=== PATIENT | female | born 1940 | race Caucasian/White ===

== ENCOUNTER 2020-08-15 10:07 | Outpatient (REF) | payer MEDICARE, SELFPAY | END 2020-08-15 10:08 | disposition home or self-care (01) | LOC: HO.RESP 10:07 | PROVIDERS: PCP Internal Medicine; Visit Provider Internal Medicine Pulmonary Disease | DX: J44.9 Chronic obstructive pulmonary disease, unspecified (principal) ==

== ENCOUNTER 2020-10-01 14:59 | Emergency (ER) | payer MEDICARE, SELFPAY ==
[2020-10-01 15:16] VITALS: PULSE 72; RESP 18; TEMP 36.8; O2SAT 97; BMI 23.4
--- NOTE | 2020-10-01 17:48 | ED_ITS ---
HPI - General Adult General Chief complaint: Ear Problems Stated complaint: sore throat, ear pain Time Seen by Provider: 10/01/20 16:47 Source: patient Mode of arrival: ambulatory Limitations: no limitations History of Present Illness HPI narrative: Sore throat, nasal congestion x1 day Onset (ago): day(s) (1) Relieving factors: none Exacerbating factors: none Treatments prior to arrival: none Related Data Allergies Allergy/AdvReac Type Severity Reaction Status Date / Time Iodinated Contrast Media Allergy Intermediate NAUSEA & Unverified 07/19/20 14:38 [CONTRAST, IV] VOMITING morphine [MORPHINE] Allergy Intermediate NAUSEA & Unverified 07/19/20 14:38 VOMITING oxycodone [From PERCOCET] Allergy Intermediate NAUSEA, Unverified 10/01/20 15:26 WEAKNESS/VIOLENT Review of Systems Review of Systems: Constitutional: No Weight loss, No Fever, No Chills, No Night Sweats, No Fatigue, No Malaise ENT/Mouth: No Hearing loss, No Ear Pain, + Nasal Congestion, No Sinus Pain, No Hoarseness, + sore throat, + Rhinorrhea, No Swallowing Difficulty Eyes: No Eye Pain, No Swelling, No Redness, No Foreign Body, No Discharge, No Vision Changes Cardiovascular: No Chest Pain, No SOB, No Dyspnea on Exertion, No Orthopnea, No Edema, No Palpitations Respiratory: No Cough, No Sputum, No Wheezing, No Smoke Exposure, No Dyspnea Gastrointestinal: No Nausea, No Vomiting, No Diarrhea, No Constipation, No abdominal Pain, No Hematochezia, No Melena Genitourinary: no irregular bleeding, No Dysuria, No Urinary Frequency, No Hematuria, No Urinary Incontinence, No Urgency, No Flank Pain, No Urinary Flow Changes, No Hesitancy Musculoskeletal: No joint pain, No Myalgias, No Joint Swelling Skin: No Skin Lesions, No rash Neuro: No Weakness, No Numbness, No Paresthesias, No Loss of Consciousness, No Dizziness, No Headache Psych: No Social Issues Heme/Lymph: No Bruising, No Bleeding,No Lymphadenopathy Endocrine: No Polyuria, No Polydipsia, No Temperature Intolerance Yes all other systems are reviewed and are negative [facility] Past Medical History Medical History (Updated 10/02/20 @ 00:00 by Background Daemon) Acute arthritis Breast CA Cholecystitis HTN (hypertension) Surgical History (Updated 10/01/20 @ 15:22 by Bianca Felix) History of back surgery Hx of breast biopsy Hx of foot surgery Family History Family History (Updated 07/30/20 @ 11:51 by Clarissa Mcnally MA) Father CVD (cardiovascular disease) HTN (hypertension) Social History Social History Advance Directives: No Advance Directives Information Provided: Yes Physical Exam Vital Signs: Vital Signs: Last Vital Signs Temp 98.2 F 10/01/20 15:16 Pulse 72 10/01/20 15:16 Resp 18 10/01/20 15:16 Pulse Ox 97 10/01/20 15:16 Body Mass Index 23.4 Reviewed Const: General: cooperative and healthy appearing; No acute distress or intoxicated appearing Nutritional Appearance: average body habitus Orientation/consciousness: patient oriented x3 HENMT: Head: Yes normal to inspection Ears: hearing grossly normal bilaterally General nose exam: Nasal discharge present clear Eyes: General: appearance normal, both eyes and all related structures Visual Deshpande: normal visual deshpande by confrontation Neck: Neck: Yes normal visual inspection and No tender Thyroid: Thyroid normal Chest: Chest palpation & inspection: normal inspection of the chest Resp: Effort & Inspection: normal respiratory effort Cardio: Jugular venous distension: no JVD GI: Inspection: Yes normal to inspection Percussion: Yes normal to percussion Auscultation: normal bowel sounds : General: Yes no CVA tenderness Back/Spine/Pelvis: Back: no CVA tenderness Skin: General skin exam: no rashes or lesions noted Neuro: General: patient oriented x3 Extrem: General: Yes normal to inspection Course Course Course Narrative: Overall nontoxic appearing. Hemodynamically stable. Slight rhinorrhea otherwise exam is unimpressive. Rapid strep negative. Influenza/RSV/flu test pending will discharge with clear precaution return follow-up instructions. She is comfortable plan. Stable for discharge. Medical Decision Making Lab Data Labs: Lab Results 10/01/20 Range/Units 17:02 Coronavirus (PCR) NEGATIVE (Negative) Influenza Type A (PCR) NEGATIVE (Negative) Influenza Type B (PCR) NEGATIVE (Negative) RSV RNA Qual (PCR) NEGATIVE (Negative) Discharge Plan Discharge Clinical Impression: Acute otalgia, Acute viral pharyngitis Patient Disposition: Home, Self-Care Instructions: Pharyngitis (ED), Earache (ED) Additional Instructions: Salt water gargle Drink plenty fluids Supportive cares discussed Return if any concerns or worsening symptoms Thank you Referrals: Physician,Unknown [Primary Care Provider] - 5 days (Primary care doctor as needed via phone) Interventions: ED Discharge Assessment Last Done: 10/01/20 18:10 Discharge Date/Time: 10/01/20 18:10
[2020-10-01 21:03] LABS: Influenza A PCR NEGATIVE (Negative); Influenza B PCR NEGATIVE (Negative); Resp Syncy Virus RNA Qual PCR NEGATIVE (Negative); SARS COV2 PCR INHOUSE NEGATIVE (Negative)
--- NOTE | 2020-10-01 22:54 | PC.NURSE ---
DEBRA/FLU/RSV NEGATIVE. MESSAGE LEFT WITH NUMBER FOR STEPHANIE [phone], FOR THEM TO CALL ED.
== END 2020-10-01 18:10 | disposition home or self-care (01) ==
PROVIDERS: Nurse Practitioner Primary Care; Emergency Provider Internal Medicine
DX: J02.8 Acute pharyngitis due to other specified organisms (principal); H92.03 Otalgia, bilateral; Z79.899 Other long term (current) drug therapy; Z20.828 Contact with and (suspected) exposure to other viral communicable diseases
CPT/HCPCS: 0241U; 87071; 87880; 99283

== ENCOUNTER 2020-11-06 12:59 | Outpatient (REF) | payer MEDICARE, SELFPAY ==
--- NOTE | 2020-11-06 13:04 | CT_ITS ---
EXAMINATION: CT CHEST WITHOUT CONTRAST CLINICAL INFORMATION: Follow-up pulmonary nodules. COMPARISON: None TECHNIQUE: Multidetector volumetric CT imaging of the chest was done. Axial MIP volume rendering provided. Sagittal and coronal reformatted images were obtained. This CT examination was performed using dose optimization techniques as appropriate, variously including the following: *Automated exposure control *Adjustment of mA and/or kV according to patient size (this includes techniques or standardized protocols for targeted exams where dose is matched to indication/reason for exam; i.e. extremities or head) *Use of iterative reconstruction technique DLP: 72 mGy-cm FINDINGS: HAND STAMPER: Well-inflated lungs. LUNGS: There is bilateral apical lung thickening and scarring. There are several bilateral calcified and noncalcified pulmonary nodules. The largest calcified 4 mm nodule is in left lung axial image 349/9, 5 mm nodule right lower lobe lateral segment image 344/9 is stable. There is linear streaking from this nodule to the periphery. There is dense plate-like atelectasis right lower lobe is stable. MEDIASTINUM: The thyroid lobes are symmetrical and normal. The central trachea and the bronchi widely patent. There is extensive atherosclerotic calcification of thoracic aorta without aneurysmal dilatation. There is coronary artery calcifications present. No pericardial effusion seen. No abnormal size mediastinal lymph nodes or mass seen. PLEURA: There is no pleural effusion. No pleural mass or thickening. AXILLA: No lymphadenopathy. UPPER ABDOMEN: Visualized liver, spleen, pancreas and bilateral adrenal glands are unremarkable. OSSEOUS STRUCTURES: There is no lytic or sclerotic process seen. There are degenerative disc changes throughout dorsal spine. CT/CT chest wo con IMPRESSION: 1. Stable multiple bilateral pulmonary nodules, emphysema, bilateral apical pleural thickening and calcifications.. No new nodules seen. 2. Right basilar atelectasis stable as well.
== END 2020-11-06 13:00 | disposition home or self-care (01) ==
LOC: HO.CT 12:59
PROVIDERS: Visit Provider Internal Medicine Pulmonary Disease
DX: R91.8 Other nonspecific abnormal finding of lung field (principal)
CPT/HCPCS: 71250

== ENCOUNTER → 2020-12-24 14:30 | Outpatient (BNVA) | payer MEDICARE, SELFPAY | PROVIDERS: PCP Internal Medicine; Visit Provider Nurse Practitioner | CPT/HCPCS: Q3014 ==

== ENCOUNTER → 2021-02-04 13:49 | Outpatient (BNVA) | payer MEDICARE, SELFPAY | PROVIDERS: PCP Internal Medicine; Visit Provider Nurse Practitioner | DX: Z13.89 Encounter for screening for other disorder (principal) | CPT/HCPCS: Q3014 ==

== ENCOUNTER 2021-02-05 10:10 | Outpatient (REF) | payer MEDICARE, SELFPAY ==
[2021-02-05 11:17] LABS: Alanine Aminotransferase 14 U/L (0-31); Aspartate Amino Transferase 20 U/L (5-31); Cholesterol 176 mg/dL; HDL Cholesterol 60 mg/dL; LDL Cholesterol Calculated 98 mg/dl; Triglycerides 91 mg/dL
== END 2021-02-05 10:11 | disposition home or self-care (01) ==
LOC: HO.LAB 10:10
PROVIDERS: PCP Internal Medicine; Visit Provider Internal Medicine Cardiovascular Disease
DX: E78.5 Hyperlipidemia, unspecified (principal)
CPT/HCPCS: 36415; 80061; 84450; 84460

== ENCOUNTER 2021-02-20 14:54 | Outpatient (REF) | payer MEDICARE, SELFPAY ==
[2021-02-20 16:44] LABS: Hematocrit 31.5 % (37-47); Hemoglobin 11.7 g/dl (12.0-16.0); Mean Corpuscular HGB Conc 37.1 g/dl (31.0-35.0); Mean Corpuscular Hemoglobin 28.9 pg (27.0-33.0); Mean Corpuscular Volume 77.8 fL (80-98); Mean Platelet Volume 9.1 fL (9.4-12.3); Platelet Count 271 X10*3/uL (160-400); Red Blood Count 4.05 X10*6/uL (4.20-5.50); Red Cell Distribution Width 14.5 % (11.0-16.0); White Blood Count 7.5 X10*3/uL (4.8-10.8)
[2021-02-20 16:57] LABS: Prothrombin Time 12.1 SEC (10.8-13.0)
[2021-02-20 17:04] LABS: Alanine Aminotransferase 8 U/L (0-31); Albumin Level 4.3 g/dL (3.5-5.0); Alkaline Phosphatase 86 U/L (39-117); Anion Gap 14 (12-20); Aspartate Amino Transferase 17 U/L (5-31); Bilirubin Total 0.6 mg/dL (0.0-1.0); Blood Urea Nitrogen 13 mg/dL (9-16); Calcium 9.7 mg/dL (8.4-10.2); Carbon Dioxide 27 mmol/L (22-29); Chloride 102 mmol/L (96-108); Estimated Glomerular Filt Rate > 60; Glucose Random 72 mg/dL (60-115); Potassium 3.2 mmol/L (3.3-5.1); Sodium 140 mmol/L (135-145)
== END 2021-02-20 14:55 | disposition home or self-care (01) ==
LOC: HO.LAB 14:54
PROVIDERS: PCP Internal Medicine; Visit Provider Nurse Practitioner Family
DX: R23.8 Other skin changes (principal); Z12.11 Encounter for screening for malignant neoplasm of colon
CPT/HCPCS: 36415; 80053; 85027; 85610

== ENCOUNTER → 2021-02-20 15:24 | Outpatient (BNVA) | payer MEDICARE, SELFPAY | PROVIDERS: PCP Internal Medicine; Visit Provider Nurse Practitioner Family | DX: Z01.810 Encounter for preprocedural cardiovascular examination (principal); Z12.11 Encounter for screening for malignant neoplasm of colon; K59.04 Chronic idiopathic constipation; R23.8 Other skin changes | CPT/HCPCS: 99212 ==

== ENCOUNTER 2021-03-23 12:05 | Emergency (ER) | payer MEDICARE, SELFPAY ==
--- NOTE | ~2021-03-23 | CT_ITS ---
EXAMINATION: CT ANGIOGRAM OF THE CHEST WITH AND WITHOUT CONTRAST (CT PULMONARY ANGIOGRAM FOR PE) CLINICAL INFORMATION: Reason for Exam chest pain, SOB, elevated DDIMER COMPARISON: Portions of a chest CT 11/06/20 TECHNIQUE: Prior to contrast administration, noncontrast localization images were obtained. Subsequently, multidetector volumetric imaging was performed from the thoracic inlet to below the diaphragms following the administration of 65 mL Omnipaque 350 intravenous contrast. No contrast reaction reported Sagittal, coronal, and MIP oblique sagittal reformatted images were obtained on the CT workstation, uploaded to PACS, and reviewed. This CT examination was performed using dose optimization techniques as appropriate, variously including the following: *Automated exposure control *Adjustment of mA and/or kV according to patient size (this includes techniques or standardized protocols for targeted exams where dose is matched to indication/reason for exam; i.e. extremities or head) *Use of iterative reconstruction technique Total exam dose-length product 130 mGy-cm FINDINGS: Digital Inspector Salvage: Calcified aortic arch. The heart size is within normal limits. No dense area of consolidation or edema. There is apical thickening. There are surgical clips in the right upper quadrant. Large amount gas throughout the visualized abdomen. QUALITY OF STUDY/CONTRAST BOLUS: Satisfactory. PULMONARY ARTERIES: No pulmonary embolus demonstrated. The main pulmonary arteries are normal caliber. THORACIC AORTA: The thoracic aorta is abnormal. There is motion artifact and there is beam hardening artifact. There is extensive atherosclerotic irregularity and there are areas of ulcerated plaques in the aortic arch. There is no definite dissection. There are some irregular noncalcified plaques along the posterolateral left side of the descending thoracic aorta. There is irregular plaque and some abnormal contour involving the superior aspect of the mid aortic arch. There is coronary artery calcification. LUNG: No abnormality the trachea or mainstem bronchi. There is biapical scarring and irregular thickening. Some minor linear lung base opacities. No honeycomb formation. There is a semisolid nodule in the left apex with angular margins which is unchanged when compared to 11/06/20. No convincing interval change in the biapical opacities. No new lung mass or nodule. PLEURA: No pleural fluid or pneumothorax. As described there is irregular biapical thickening. No underlying bone destruction. MEDIASTINUM: There are no enlarged mediastinal or hilar lymph nodes. No suspicious abnormality the esophagus. No evidence of septal bowing or right heart strain. CHEST WALL/AXILLA: No axillary or internal mammary lymphadenopathy. OSSEOUS STRUCTURES: No suspicious focal bony lesion. Some amorphous soft tissue calcification around the left shoulder. UPPER ABDOMEN: Partially included dilated common duct likely unchanged. No reflux of contrast into the hepatic veins to suggest elevated right heart pressures. CT/CT angio chest PE protocol IMPRESSION: No pulmonary embolus demonstrated. No change in the biapical pleural and parenchymal thickening. No acute pneumonia or edema. Extensive atherosclerotic change within the thoracic aorta including ulcerated plaques. VTE: negative
--- NOTE | ~2021-03-23 | XR_ITS ---
EXAMINATION: XR CHEST CLINICAL INFORMATION: Chest pain. COMPARISON: 03/04/2020 chest radiograph. TECHNIQUE: Frontal view of the chest was obtained. FINDINGS: No significant abnormality is noted involving the heart, lungs, mediastinum, bony thorax or soft tissues. XR/XR chest 1V IMPRESSION: No acute cardiopulmonary process.
--- NOTE | 2021-03-23 08:05 | ECG_ITS ---
Test Reason : CP Blood Pressure : / mmHG Vent. Rate : 071 BPM Atrial Rate : 071 BPM P-R Int : 172 ms QRS Dur : 082 ms QT Int : 400 ms P-R-T Axes : 074 049 083 degrees QTc Int : 434 ms Normal sinus rhythm Possible Left atrial enlargement Septal infarct , age undetermined Abnormal ECG When compared with ECG of 04-MAR-2020 21:36, Septal infarct is now Present Referred By: Alfa Maki Electronically Signed By:ROSA KNOX
[2021-03-23 12:19] VITALS: BP 153/50; PULSE 81; RESP 14; TEMP 36.6; O2SAT 97; BMI 18.3
--- NOTE | 2021-03-23 13:21 | ED.CHESTPAIN ---
HPI - Chest Pain General Chief Complaint: Chest Pain Stated Complaint: not feeling well? Time Seen by Provider: 03/23/21 13:19 Source: patient Mode of arrival: ambulatory Limitations: no limitations History of Present Illness HPI narrative: 81 y/o female with history of GERD, anxiety, osteoporosis who presents to the ER with 3 days of intermittent pins and needles pain to her chest wall and upper back. It comes and goes and worse with arm movement. She states she feels like someone is stabbing her. She denies weakness or pain in her arms. She was short of breath last night, used her inhaler and felt better. She denies known injury. She denies current SOB, cough, fever, chills, N/V, diaphoresis. The pains are not severe but they are more bothersome and annoying. MD complaint: chest pain Pertinent past history: asthma Onset (ago): day(s) (2-3) Timing of current episode: episodic Prior episodes: Yes Onset: during rest Pain location: left chest, right chest and posterior Pain radiation: none Severity: mild Pain scale (0-10): 3 Quality: sharp Relieving factors: nothing Exacerbating factors: movement Treatment prior to arrival: none Risk Factors Coronary artery disease risk factors: hypertension Thoracic aortic dissection risk factors: none Related Data On Oral Contraceptives: No Home Medications Medication Instructions Recorded Confirmed amlodipine 10 mg tablet 10 mg PO DAILY 12/24/20 calcitonin (salmon) 200 1 spray INTRANASAL DAILY 12/24/20 unit/actuation nasal spray escitalopram oxalate 5 mg tablet 5 mg PO DAILY 12/24/20 multivitamin 1 tab PO DAILY 12/24/20 nicotine 7 mg/24 hr daily 1 patch TRANSDERMAL BEDTIME 02/04/21 transdermal patch prazosin 1 mg capsule 1 mg PO BEDTIME 02/04/21 trazodone 50 mg tablet 25 mg PO BEDTIME PRN 02/04/21 Previous Rx's Medication Instructions Recorded docusate sodium 100 mg capsule 100 mg PO BID 30 Days #60 cap 12/24/20 pantoprazole 40 mg tablet,delayed 40 mg PO DAILY 30 Days #30 tab 12/24/20 release sennosides 8.6 mg capsule 17.2 mg PO BEDTIME 30 Days #60 cap 12/24/20 bisacodyl 5 mg tablet,delayed 10 mg PO ONCE 1 Days #2 tab 02/20/21 release polyethylene glycol 3350 17 238 g PO ONCE #238 g 02/20/21 gram/dose oral powder albuterol sulfate 90 mcg/actuation 2 puff PO Q2H PRN #18 g 02/21/21 aerosol inhaler umeclidinium 62.5 mcg-vilanterol 1 ea PO DAILY #60 cap 02/21/21 25 mcg/actuation powdr for inhalation Allergies Allergy/AdvReac Type Severity Reaction Status Date / Time Iodinated Contrast Media Allergy Intermediate NAUSEA & Verified 03/23/21 12:23 [CONTRAST, IV] VOMITING morphine [MORPHINE] Allergy Intermediate NAUSEA & Verified 03/23/21 12:23 VOMITING oxycodone [From PERCOCET] Allergy Intermediate NAUSEA, Verified 03/23/21 12:23 WEAKNESS/VIOLENT Review of Systems Review of Systems: Constitutional: No Fever, No Chills ENT/Mouth: No sore throat, No Rhinorrhea, No Swallowing Difficulty Eyes: No Eye Pain, No Swelling, No Redness Cardiovascular: + Chest Pain, + SOB, No Orthopnea, No Edema Respiratory: No Cough, No Sputum, No Wheezing, No dyspnea Gastrointestinal: No Nausea, No Vomiting, No Diarrhea, No abdominal Pain, No Hematochezia, No Melena Genitourinary: No Dysuria, No Urinary Frequency, No Hematuria Musculoskeletal: No joint pain, No Myalgias Skin: No Skin Lesions, No rash Neuro: No Weakness, No Numbness, No Dizziness, No Headache Psych: No Anxiety/Panic, No Depression Heme/Lymph: No Bruising, No Lymphadenopathy Endocrine: No Polyuria, No Polydipsia PMFSH Past Medical History Medical History Acute arthritis Breast CA Cholecystitis HTN (hypertension) Surgical History History of back surgery History of esophagogastroduodenoscopy (EGD) Hx of breast biopsy Hx of colonoscopy Hx of foot surgery Family History Family History Father CVD (cardiovascular disease) HTN (hypertension) Brother Colon cancer Daughter No problems noted. Sister HTN (hypertension) Heart problem Osteoporosis Social History Social History (Updated 02/20/21 @ 14:57 by Sadie Chamorro [facility]) Household Members: Children Alcohol intake: current Alcohol intake frequency: does not drink Smoking Status: Current every day smoker Tobacco Type: Cigarette Cigarettes Per Day: 1 Use of substances other than those prescribed or required for medical reasons: No Advance Directives: No Advance Directives Information Provided: No Physical Exam Vital Signs: Vital Signs: Last Vital Signs Temp 98 F 03/23/21 12:19 Pulse 64 03/23/21 17:24 Resp 18 03/23/21 17:24 BP 153/77 H 03/23/21 17:24 Pulse Ox 98 03/23/21 17:24 Body Mass Index 18.3 Appearance: Alert. Oriented X3. No acute distress. Frail thin elderly woman. Eyes: Pupils equal, round and reactive to light. ENT: Pharynx normal. Neck: Normal inspection. Neck supple. CVS: Normal heart rate and rhythm. Pulses normal. Respiratory: No respiratory distress. Breath sounds normal. Chest wall with mild tenderness throughout Abdomen: Soft and nontender. +BS x4 Back: nontender throughout Skin: Skin warm and dry. Normal skin color. Normal skin turgor. No rashes. Extremities: No lower extremity edema. Negative Opal's sign Neuro: Oriented X 3. No motor deficit. No sensory deficit. Course Course Course Narrative: 81 y/o female presenting with chest and back pain x3 days. Worse with movement of her arms. Doubt cardiac or pulmonary etiology, most likely muscular in nature. Will check EKG, CXR, labs. She is non-toxic appearing and is able to reproduce her pain with movement. It is non-radiating and intermittent. Dispo pending results. Reevaluation(s) Reevaluation #1: Lab workup and EKG unremarkable. DDIMER slightly elevated. Will proceed with CTA chest, hx pulmonary nodules. Reevaluation #2: CTA showed unchanged biapical scarring. No PE, no PNA. Resp status stable and hemodynamcially stable. No current pain. She is stable for d/c home with plan to f/u with her PCP next week. Instructed to return to the ER if pain worsens or new symptoms arise. MDM - Chest Pain Medical Records Data Attestation: I reviewed the patient's medical records. Lab Data Attestation: I reviewed the patient's lab results. Result diagrams: 03/23/21 13:55 03/23/21 13:55 Labs: Lab Results 03/23/21 03/23/21 03/23/21 Range/Units 13:54 13:55 13:55 WBC 9.0 (4.8-10.8) X10*3/uL RBC 4.25 (4.20-5.50) X10*6/uL Hgb 12.5 (12.0-16.0) g/dl Hct 33.5 L (37-47) % MCV 78.8 L (80-98) fL MCH 29.4 (27.0-33.0) pg MCHC 37.3 H (31.0-35.0) g/dl RDW 14.6 (11.0-16.0) % Plt Count 286 (160-400) X10*3/uL MPV 9.2 L (9.4-12.3) fL Immature Gran % (Auto) 0.2 (0.0-0.4) % Neut % (Auto) 72.9 (45-73) % Lymph % (Auto) 19.3 L (20-40) % [place] % (Auto) 6.3 (2-11) % Eos % (Auto) 1.1 (0-4) % Baso % (Auto) 0.2 (0-2) % Lymph # (Auto) 1.7 (1.2-4.9) X10*3/uL [place] # (Auto) 0.6 (0.1-1.2) X10*3/uL Eos # (Auto) 0.1 (0.0-0.4) X10*3/uL Baso # (Auto) 0.0 (0.0-0.2) X10*3/uL Abs Immat Gran (auto) 0.02 (0.00-0.03) X10*3/uL Absolute Neuts (auto) 6.6 (2.0-8.3) X10*3/uL Absolute Nucleated RBC 0.000 (0.0-0.012) X10*3/uL Nucleated RBC % (auto) 0.0 (0.0-0.2) /100WBC D-Dimer NG/ML Hold Blue Top Sodium 141 (135-145) mmol/L Potassium 3.2 L (3.3-5.1) mmol/L Chloride 101 (96-108) mmol/L Carbon Dioxide 28 (22-29) mmol/L Anion Gap 15 (12-20) BUN 9 (9-16) mg/dL Creatinine 0.73 (0.5-1.4) mg/dL Estim Creat Clear Calc 35.8 Estimated GFR > 60 Random Glucose 70 (60-115) mg/dL Calcium 9.9 (8.4-10.2) mg/dL Magnesium 2.2 (1.6-2.6) mg/dL Total Bilirubin 0.9 (0.0-1.0) mg/dL Direct Bilirubin 0.2 (0.0-0.5) mg/dL AST 25 D (5-31) U/L ALT 11 (0-31) U/L Alkaline Phosphatase 92 (39-117) U/L Troponin I High Sens (<3.5-17.0) ng/L B-Natriuretic Peptide (<100) pg/mL Total Protein 7.3 (6.5-8.0) g/dL Albumin 4.3 (3.5-5.0) g/dL Lipase 16 (8-78) U/L Procalcitonin 0.02 ng/mL Urine Color Urine Appearance Urine pH (5.0-8.0) Ur Specific [place] (1.005-1.025) Urine Protein (NEG-TRACE) MG/DL Urine Glucose (UA) (NEG) MG/DL Urine Ketones (NEG) MG/DL Urine Blood (NEG) Urine Nitrite (NEG) Ur Leukocyte Esterase (NEG) Urine RBC (0) /HPF Urine WBC (0-4) /HPF Ur Squamous Epith Cells /LPF Urine Bacteria /LPF Coronavirus (PCR) (Negative) Influenza Type A (PCR) (Negative) Influenza Type B (PCR) (Negative) RSV RNA Qual (PCR) (Negative) 03/23/21 03/23/21 03/23/21 Range/Units 13:55 13:55 13:55 WBC (4.8-10.8) X10*3/uL RBC (4.20-5.50) X10*6/uL Hgb (12.0-16.0) g/dl Hct (37-47) % MCV (80-98) fL MCH (27.0-33.0) pg MCHC (31.0-35.0) g/dl RDW (11.0-16.0) % Plt Count (160-400) X10*3/uL MPV (9.4-12.3) fL Immature Gran % (Auto) (0.0-0.4) % Neut % (Auto) (45-73) % Lymph % (Auto) (20-40) % [place] % (Auto) (2-11) % Eos % (Auto) (0-4) % Baso % (Auto) (0-2) % Lymph # (Auto) (1.2-4.9) X10*3/uL [place] # (Auto) (0.1-1.2) X10*3/uL Eos # (Auto) (0.0-0.4) X10*3/uL Baso # (Auto) (0.0-0.2) X10*3/uL Abs Immat Gran (auto) (0.00-0.03) X10*3/uL Absolute Neuts (auto) (2.0-8.3) X10*3/uL Absolute Nucleated RBC (0.0-0.012) X10*3/uL Nucleated RBC % (auto) (0.0-0.2) /100WBC D-Dimer 301 NG/ML Hold Blue Top SEE NOTE Sodium (135-145) mmol/L Potassium (3.3-5.1) mmol/L Chloride (96-108) mmol/L Carbon Dioxide (22-29) mmol/L Anion Gap (12-20) BUN (9-16) mg/dL Creatinine (0.5-1.4) mg/dL Estim Creat Clear Calc Estimated GFR Random Glucose (60-115) mg/dL Calcium (8.4-10.2) mg/dL Magnesium (1.6-2.6) mg/dL Total Bilirubin (0.0-1.0) mg/dL Direct Bilirubin (0.0-0.5) mg/dL AST (5-31) U/L ALT (0-31) U/L Alkaline Phosphatase (39-117) U/L Troponin I High Sens < 3.5 (<3.5-17.0) ng/L B-Natriuretic Peptide 57 (<100) pg/mL Total Protein (6.5-8.0) g/dL Albumin (3.5-5.0) g/dL Lipase Cancelled (8-78) U/L Procalcitonin ng/mL Urine Color Urine Appearance Urine pH (5.0-8.0) Ur Specific [place] (1.005-1.025) Urine Protein (NEG-TRACE) MG/DL Urine Glucose (UA) (NEG) MG/DL Urine Ketones (NEG) MG/DL Urine Blood (NEG) Urine Nitrite (NEG) Ur Leukocyte Esterase (NEG) Urine RBC (0) /HPF Urine WBC (0-4) /HPF Ur Squamous Epith Cells /LPF Urine Bacteria /LPF Coronavirus (PCR) (Negative) Influenza Type A (PCR) (Negative) Influenza Type B (PCR) (Negative) RSV RNA Qual (PCR) (Negative) 03/23/21 03/23/21 Range/Units 13:58 14:08 WBC (4.8-10.8) X10*3/uL RBC (4.20-5.50) X10*6/uL Hgb (12.0-16.0) g/dl Hct (37-47) % MCV (80-98) fL MCH (27.0-33.0) pg MCHC (31.0-35.0) g/dl RDW (11.0-16.0) % Plt Count (160-400) X10*3/uL MPV (9.4-12.3) fL Immature Gran % (Auto) (0.0-0.4) % Neut % (Auto) (45-73) % Lymph % (Auto) (20-40) % [place] % (Auto) (2-11) % Eos % (Auto) (0-4) % Baso % (Auto) (0-2) % Lymph # (Auto) (1.2-4.9) X10*3/uL [place] # (Auto) (0.1-1.2) X10*3/uL Eos # (Auto) (0.0-0.4) X10*3/uL Baso # (Auto) (0.0-0.2) X10*3/uL Abs Immat Gran (auto) (0.00-0.03) X10*3/uL Absolute Neuts (auto) (2.0-8.3) X10*3/uL Absolute Nucleated RBC (0.0-0.012) X10*3/uL Nucleated RBC % (auto) (0.0-0.2) /100WBC D-Dimer NG/ML Hold Blue Top Sodium (135-145) mmol/L Potassium (3.3-5.1) mmol/L Chloride (96-108) mmol/L Carbon Dioxide (22-29) mmol/L Anion Gap (12-20) BUN (9-16) mg/dL Creatinine (0.5-1.4) mg/dL Estim Creat Clear Calc Estimated GFR Random Glucose (60-115) mg/dL Calcium (8.4-10.2) mg/dL Magnesium (1.6-2.6) mg/dL Total Bilirubin (0.0-1.0) mg/dL Direct Bilirubin (0.0-0.5) mg/dL AST (5-31) U/L ALT (0-31) U/L Alkaline Phosphatase (39-117) U/L Troponin I High Sens (<3.5-17.0) ng/L B-Natriuretic Peptide (<100) pg/mL Total Protein (6.5-8.0) g/dL Albumin (3.5-5.0) g/dL Lipase (8-78) U/L Procalcitonin ng/mL Urine Color YELLOW Urine Appearance CLEAR Urine pH 7.0 (5.0-8.0) Ur Specific [place] <= 1.005 (1.005-1.025) Urine Protein NEG (NEG-TRACE) MG/DL Urine Glucose (UA) NEG (NEG) MG/DL Urine Ketones NEG (NEG) MG/DL Urine Blood TRACE (NEG) Urine Nitrite NEG (NEG) Ur Leukocyte Esterase NEG (NEG) Urine RBC 5-9 H (0) /HPF Urine WBC 1-4 (0-4) /HPF Ur Squamous Epith Cells 2+ /LPF Urine Bacteria NONE /LPF Coronavirus (PCR) NEGATIVE (Negative) Influenza Type A (PCR) NEGATIVE (Negative) Influenza Type B (PCR) NEGATIVE (Negative) RSV RNA Qual (PCR) NEGATIVE (Negative) ECG Data ECG #1: Attestation: I personally reviewed and interpreted this ECG as follows: ECG interpretation date: 03/23/21 ECG interpretation time: 15:07 Interpretation: normal sinus rhythm, HR 71 bpm, normal ID interval, no ST segment elevations or depressions Discharge Plan Discharge Clinical Impression: Atypical chest pain Patient Disposition: Home, Self-Care Instructions: Chest Pain (ED), Chest Wall Pain (ED) Additional Instructions: Your lab workup was normal today. Your EKG was unremarkable. Your CT scan showed unchanged scarring and thickening of the top portions of your lungs, similar to November 2019. Your pain is most likely muscular. Recommend trial of anti-inflammatory medication, like Aleve, Advil, Motrin. Take with food. Follow up with your doctor next week. If you have worsening pain come back to the ER for further evaluation. Tu examen de laboratorio fue normal hoy. Hawkins electrocardiograma no tuvo nada especial. Hawkins tomograf?a computarizada mostr? cicatrices sin cambios y engrosamiento de las partes superiores de cuauhtemoc pulmones, similar a enero 2019. Lo m?s probable es que hawkins dolor sea muscular. Recomendar ensayo de medicaci?n antiinflamatoria, john Aleve, Advil, Motrin. David con la comida. Radha un seguimiento con hawkins m?dico la pr?xima semana. Si el dolor empeora, regrese a la sarah de emergencias para lawrence evaluaci?n adicional. Prescriptions: No Action umeclidinium-vilanterol [Anoro Ellipta] 62.5-25 mcg/actuation blister with device 1 ea PO DAILY Qty: 60 RF: 0 albuterol sulfate 90 mcg/actuation HFA aerosol inhaler 2 puff PO Q2H PRN (Reason: shortness of breath or wheezing) Qty: 18 RF: 0 calcitonin (salmon) 200 unit/actuation spray,non-aerosol 1 spray intranasal DAILY RF: 0 amlodipine 10 mg tablet 10 mg PO DAILY RF: 0 escitalopram oxalate 5 mg tablet 5 mg PO DAILY RF: 0 multivitamin Tablet 1 tab PO DAILY RF: 0 docusate sodium [Colace] 100 mg capsule 100 mg PO BID 30 Days Qty: 60 RF: 6 senna 8.6 mg capsule 17.2 mg PO BEDTIME 30 Days Qty: 60 RF: 6 pantoprazole [Protonix] 40 mg tablet,delayed release (DR/EC) 40 mg PO DAILY 30 Days Qty: 30 RF: 6 prazosin 1 mg capsule 1 mg PO BEDTIME RF: 0 trazodone 50 mg tablet 25 mg PO BEDTIME PRNRF: 0 nicotine 7 mg/24 hr patch 24 hour 1 patch transdermal BEDTIME RF: 0 bisacodyl [Dulcolax (bisacodyl)] 5 mg tablet,delayed release (DR/EC) 10 mg PO ONCE 1 Days Qty: 2 RF: 0 polyethylene glycol 3350 [Miralax] 17 gram/dose powder 238 g PO ONCE Qty: 238 RF: 0
[2021-03-23 14:02] VITALS: RESP 16
[2021-03-23 14:02] LABS: MANUAL DIFF FLAG NO
[2021-03-23 14:04] LABS: Basophils Percent Auto 0.2 % (0-2); Eosinophils Absolute Auto 0.1 X10*3/uL (0.0-0.4); Eosinophils Percent Auto 1.1 % (0-4); Hematocrit 33.5 % (37-47); Hemoglobin 12.5 g/dl (12.0-16.0); Imm Gran Abs Auto 0.02 X10*3/uL (0.00-0.03); Imm Gran Pct Auto 0.2 % (0.0-0.4); Lymphocytes Absolute Auto 1.7 X10*3/uL (1.2-4.9); Lymphocytes Percent Auto 19.3 % (20-40); Mean Corpuscular HGB Conc 37.3 g/dl (31.0-35.0); Mean Corpuscular Hemoglobin 29.4 pg (27.0-33.0); Mean Corpuscular Volume 78.8 fL (80-98); Mean Platelet Volume 9.2 fL (9.4-12.3); Monocytes Absolute Auto 0.6 X10*3/uL (0.1-1.2); Monocytes Percent Auto 6.3 % (2-11); Neutrophils Absolute Auto 6.6 X10*3/uL (2.0-8.3); Neutrophils Percent Auto 72.9 % (45-73); Platelet Count 286 X10*3/uL (160-400); Red Blood Count 4.25 X10*6/uL (4.20-5.50); Red Cell Distribution Width 14.6 % (11.0-16.0)
[2021-03-23 14:15] LABS: Glucose Urine UA NEG (NEG); Leukocyte Esterase Urine NEG (NEG); Nitrite Urine NEG (NEG); Specific Gravity - Urine <= 1.005 (1.005-1.025); Urine Blood TRACE (NEG); Urine Ketones NEG (NEG); Urine Protein NEG (NEG-TRACE)
[2021-03-23 14:16] LABS: Appearance Urine CLEAR; Color Urine YELLOW
[2021-03-23 14:23] VITALS: BP 145/58; PULSE 64; O2SAT 97
[2021-03-23 14:23] LABS: Squamous Epithelial Cell Urine 2+ /LPF
[2021-03-23 14:34] LABS: Alanine Aminotransferase 11 U/L (0-31); Albumin Level 4.3 g/dL (3.5-5.0); Alkaline Phosphatase 92 U/L (39-117); Anion Gap 15 (12-20); Aspartate Amino Transferase 25 U/L (5-31); B Type Natriuretic Peptide 57 pg/mL (<100); Bilirubin Direct 0.2 mg/dL (0.0-0.5); Bilirubin Total 0.9 mg/dL (0.0-1.0); Blood Urea Nitrogen 9 mg/dL (9-16); Calcium 9.9 mg/dL (8.4-10.2); Carbon Dioxide 28 mmol/L (22-29); Chloride 101 mmol/L (96-108); Creatinine Clr Calc Pharmacy 35.8; Estimated Glomerular Filt Rate > 60; Glucose Random 70 mg/dL (60-115); Lipase 16 U/L (8-78); Magnesium 2.2 mg/dL (1.6-2.6); Potassium 3.2 mmol/L (3.3-5.1); Sodium 141 mmol/L (135-145); Total Protein 7.3 g/dL (6.5-8.0); Troponin-I High Sensitivity < 3.5 ng/L (<3.5-17.0)
[2021-03-23 14:49] LABS: Procalcitonin 0.02 ng/mL
[2021-03-23 15:30] LABS: D Dimer 301 NG/ML
[2021-03-23] MEDS: Potassium Chloride ER 20 MEQ TAB.ER.PRT 40 MEQ PO (15:31)
[2021-03-23 17:23] LABS: Influenza A PCR NEGATIVE (Negative); Influenza B PCR NEGATIVE (Negative); Resp Syncy Virus RNA Qual PCR NEGATIVE (Negative); SARS COV2 PCR INHOUSE NEGATIVE (Negative)
[2021-03-23 17:24] VITALS: BP 153/77; PULSE 64; RESP 18; O2SAT 98
[2021-03-23] MEDS: diphenhydrAMINE HCL 50 MG/ML VIAL 25 MG IVPUSH (17:25)
[2021-03-23] MEDS: methylPREDNISolone Sod Succ 40 MG/ML VIAL IVPUSH (17:25)
[2021-03-23] MEDS: ondansetron HCL 4 MG/2 ML VIAL IVPUSH (17:25)
[2021-03-23] MEDS: iohexoL 350 MG/ML 100 ML INFUS..BTL IV (17:59)
== END 2021-03-23 18:55 | disposition home or self-care (01) ==
PROVIDERS: Physician Assistant; Emergency Provider Emergency Medicine; PCP Internal Medicine
DX: R07.89 Other chest pain (principal); I10 Essential (primary) hypertension; K21.9 Gastro-esophageal reflux disease without esophagitis; F41.9 Anxiety disorder, unspecified; F17.210 Nicotine dependence, cigarettes, uncomplicated; Z85.3 Personal history of malignant neoplasm of breast; Z20.822 Contact with and (suspected) exposure to COVID-19
CPT/HCPCS: 0241U; 36415; 71045; 71275; 80048; 80076; 81001; 83690; 83735; 83880; 84145; 84484; 85025; 85379; 93005; 96374; 96375; 99284; 99285; J1200; J2405; J2920; Q9967

== ENCOUNTER 2021-05-31 09:55 | Emergency (ER) | payer MEDICARE, SELFPAY ==
--- NOTE | 2021-05-31 | ECG_ITS ---
Test Reason : ABD PAIN Blood Pressure : / mmHG Vent. Rate : 061 BPM Atrial Rate : 061 BPM P-R Int : 186 ms QRS Dur : 082 ms QT Int : 434 ms P-R-T Axes : 078 063 083 degrees QTc Int : 436 ms Normal sinus rhythm Septal infarct (cited on or before 23-MAR-2021) Abnormal ECG When compared with ECG of 23-MAR-2021 12:27, No significant change was found Referred By: Generic ED Physician Electronically Signed By:ROSA KNOX
--- NOTE | ~2021-05-31 | CT_ITS ---
EXAMINATION: CT ABDOMEN AND PELVIS WITHOUT CONTRAST CLINICAL INFORMATION: Upper abdominal pain COMPARISON: Previous CT of the abdomen and pelvis most recent December 2019 TECHNIQUE: Multidetector volumetric imaging was performed from the superior aspect of the liver through the pubic symphysis. Sagittal and coronal reformatted images were obtained on the technologist's workstation. This CT examination was performed using dose optimization techniques as appropriate, variously including the following: *Automated exposure control *Adjustment of mA and/or kV according to patient size (this includes techniques or standardized protocols for targeted exams where dose is matched to indication/reason for exam; i.e. extremities or head) *Use of iterative reconstruction technique DLP: 261 mGy-cm FINDINGS: LUNG BASES: There is a 3 mm stable calcified left lower lobe nodule probably representing a calcified granuloma. LIVER, GALLBLADDER, AND BILIARY TREE: The liver is normal in size, shape, and attenuation. No focal hepatic lesion or biliary ductal dilatation is present. The gallbladder has been removed. PANCREAS: Unremarkable. SPLEEN: Unremarkable. ADRENAL GLANDS: Unremarkable. KIDNEYS AND URETERS: There are right renal cysts. The kidneys are otherwise unremarkable. BLADDER: Unremarkable. GASTROINTESTINAL TRACT: There are postsurgical changes to the right colon. There is stool throughout the colon suggestive of constipation. There is evidence of diverticulosis. There is question of wall thickening of the proximal stomach. ABDOMINAL WALL: No significant hernia is appreciated. LYMPH NODES: Normal. VASCULAR: There is evidence of severe atherosclerotic disease. No aneurysm is seen. PELVIC VISCERA: The uterus appears to have been removed. No pelvic mass is seen. OSSEOUS STRUCTURES: There are degenerative changes of the spine. CT/CT abdomen pelvis wo con IMPRESSION: Question wall thickening of the proximal stomach. Severe atherosclerotic disease. Constipation. Diverticulosis. Postsurgical changes to the right colon.
[2021-05-31 10:41] VITALS: BP 151/71; PULSE 73; RESP 17; TEMP 35.2; O2SAT 99; BMI 14.9
--- NOTE | 2021-05-31 11:06 | ED.ABDPAIN ---
HPI - Abdominal Pain General Chief Complaint: Abdominal Pain Stated Complaint: abd pain Time Seen by Provider: 05/31/21 11:00 Source: patient Mode of arrival: ambulatory Limitations: no limitations History of Present Illness HPI narrative: THIS IS A 81 YEARS OLD FEMALE PRESENTED WITH THE CHIEF COMPLAINT NO EPIGASTRIC ABDOMINAL PAIN IS SINCE YESTERDAY, SHE HAS NO VOMITING NO DIARRHEA NO NAUSEA NO CHEST PAIN SHE IS ALSO COMPLAINING OF A YOU DYSURIA. PAIN IS LOCALIZED IN THE EPIGASTRIUM WITHOUT RADIATION MD elicited complaint: abdominal pain Pertinent past history: none Onset (ago): day(s) (1) Pain Consistency: constant Radiation: none Migration to: no migration Exacerbating factors: nothing Relieving factors: nothing Related Data Home Medications Medication Instructions Recorded Confirmed amlodipine 10 mg tablet 10 mg PO DAILY 12/24/20 escitalopram oxalate 5 mg tablet 5 mg PO DAILY 12/24/20 multivitamin 1 tab PO DAILY 12/24/20 nicotine 7 mg/24 hr daily 1 patch TRANSDERMAL BEDTIME 02/04/21 transdermal patch prazosin 1 mg capsule 1 mg PO BEDTIME 02/04/21 trazodone 50 mg tablet 25 mg PO BEDTIME PRN 02/04/21 Previous Rx's Medication Instructions Recorded docusate sodium 100 mg capsule 100 mg PO BID 30 Days #60 cap 12/24/20 (Colace) pantoprazole 40 mg tablet,delayed 40 mg PO DAILY 30 Days #30 tab 12/24/20 release (Protonix) sennosides 8.6 mg capsule (senna) 17.2 mg PO BEDTIME 30 Days #60 cap 12/24/20 bisacodyl 5 mg tablet,delayed 10 mg PO ONCE 1 Days #2 tab 02/20/21 release (Dulcolax (bisacodyl)) polyethylene glycol 3350 17 238 g PO ONCE #238 g 02/20/21 gram/dose oral powder (Miralax) albuterol sulfate 90 mcg/actuation 2 puff PO Q2H PRN #18 g 02/21/21 aerosol inhaler umeclidinium 62.5 mcg-vilanterol 1 ea PO DAILY #60 cap 02/21/21 25 mcg/actuation powdr for inhalation (Anoro Ellipta) calcitonin (salmon) 200 1 spray INTRANASAL DAILY #3.7 ml 05/15/21 unit/actuation nasal spray Allergies Allergy/AdvReac Type Severity Reaction Status Date / Time Iodinated Contrast Media Allergy Intermediate NAUSEA & Verified 03/23/21 12:23 [CONTRAST, IV] VOMITING morphine [MORPHINE] Allergy Intermediate NAUSEA & Verified 03/23/21 12:23 VOMITING oxycodone [From PERCOCET] Allergy Intermediate NAUSEA, Verified 03/23/21 12:23 WEAKNESS/VIOLENT Review of Systems Review of Systems Yes all other systems are reviewed and are negative Constitutional: Reports no additional constitutional complaints Eyes: Reports no additional eye complaints Reports system reviewed and no additional complaints, except as documented Cardiovascular: Reports as per HPI Respiratory: Reports as per HPI Skin/Breast: Reports system reviewed and no additional complaints, except as docu Physical Exam Vital Signs: Vital Signs: Last Vital Signs Temp 95.3 F L 05/31/21 10:41 Pulse 73 05/31/21 10:41 Resp 17 05/31/21 10:41 BP 151/71 H 05/31/21 10:41 Pulse Ox 99 05/31/21 10:41 Body Mass Index 14.9 Const: General: cooperative and healthy appearing HENMT: Head: Yes normal to inspection Ears: hearing grossly normal bilaterally Face and sinus: Yes normal facial exam Neck: Neck: Yes normal visual inspection and Yes full ROM Chest: Chest palpation & inspection: normal inspection of the chest Resp: Effort & Inspection: normal respiratory effort, no audible wheezes and no cough Auscultation: clear to auscultation bilaterally Cardio: Jugular venous distension: no JVD Rate: regular rate GI: Other: EXAMINATION OF THE ABDOMEN SHOWS TENDERNESS IN THE EPIGASTRIC AREA THERE IS NO TENDERNESS IN THE LOWER ABDOMEN NO RIGHT LOWER QUADRANT ABDOMINAL TENDERNESS NO LEFT LOWER QUADRANT ABDOMINAL TENDERNESS Inspection: Yes normal to inspection Course Reevaluation(s) Reevaluation #1: SHE IS FEELING MUCH BETTER THE PAIN IS GOING TO LABS [facility] CT SCAN OF THE ABDOMEN AND PELVIS SHOWS THICKENING OF THE STOMACH WALL, PATIENT IS ALREADY TAKING PROTONIX I THINK SHE CAN BE DISCHARGED HOME A A FOLLOW-UP WITH THE PRIMARY CARE PHYSICIAN AT THIS TIME SHE HAS NO PAIN SHE HAS NO VOMITING AND SHE HAS NO FEVER MDM - Abdominal Pain Lab Data Result diagrams: 05/31/21 11:32 05/31/21 11:32 Labs: Lab Results 05/31/21 05/31/21 05/31/21 Range/Units 11:32 11:32 11:32 WBC 7.7 (4.8-10.8) X10*3/uL RBC 4.17 L (4.20-5.50) X10*6/uL Hgb 12.3 (12.0-16.0) g/dl Hct 33.2 L (37-47) % MCV 79.6 L (80-98) fL MCH 29.5 (27.0-33.0) pg MCHC 37.0 H (31.0-35.0) g/dl RDW 14.4 (11.0-16.0) % Plt Count 274 (160-400) X10*3/uL MPV 9.3 L (9.4-12.3) fL Immature Gran % (Auto) 0.3 (0.0-0.4) % Neut % (Auto) 69.3 (45-73) % Lymph % (Auto) 20.9 (20-40) % [place] % (Auto) 7.6 (2-11) % Eos % (Auto) 1.8 (0-4) % Baso % (Auto) 0.1 (0-2) % Lymph # (Auto) 1.6 (1.2-4.9) X10*3/uL [place] # (Auto) 0.6 (0.1-1.2) X10*3/uL Eos # (Auto) 0.1 (0.0-0.4) X10*3/uL Baso # (Auto) 0.0 (0.0-0.2) X10*3/uL Abs Immat Gran (auto) 0.02 (0.00-0.03) X10*3/uL Absolute Neuts (auto) 5.4 (2.0-8.3) X10*3/uL Absolute Nucleated RBC 0.000 (0.0-0.012) X10*3/uL Nucleated RBC % (auto) 0.0 (0.0-0.2) /100WBC Sodium 143 (135-145) mmol/L Potassium 3.1 L (3.3-5.1) mmol/L Chloride 103 (96-108) mmol/L Carbon Dioxide 33 H (22-29) mmol/L Anion Gap 10 L (12-20) BUN 8 L (9-16) mg/dL Creatinine 0.74 (0.5-1.4) mg/dL Estim Creat Clear Calc 34.8 Estimated GFR > 60 Random Glucose 64 (60-115) mg/dL Calcium 9.7 (8.4-10.2) mg/dL Total Bilirubin 0.7 (0.0-1.0) mg/dL AST 19 (5-31) U/L ALT 10 (0-31) U/L Alkaline Phosphatase 86 (39-117) U/L Troponin I High Sens < 3.5 (<3.5-17.0) ng/L Total Protein 6.8 (6.5-8.0) g/dL Albumin 4.2 (3.5-5.0) g/dL Lipase 15 (8-78) U/L Urine Color Urine Appearance Urine pH (5.0-8.0) Ur Specific [place] (1.005-1.025) Urine Protein (NEG-TRACE) MG/DL Urine Glucose (UA) (NEG) MG/DL Urine Ketones (NEG) MG/DL Urine Blood (NEG) Urine Nitrite (NEG) Ur Leukocyte Esterase (NEG) Urine RBC (0) /HPF Urine WBC (0-4) /HPF Ur Squamous Epith Cells /LPF Urine Bacteria /LPF 05/31/21 Range/Units 11:49 WBC (4.8-10.8) X10*3/uL RBC (4.20-5.50) X10*6/uL Hgb (12.0-16.0) g/dl Hct (37-47) % MCV (80-98) fL MCH (27.0-33.0) pg MCHC (31.0-35.0) g/dl RDW (11.0-16.0) % Plt Count (160-400) X10*3/uL MPV (9.4-12.3) fL Immature Gran % (Auto) (0.0-0.4) % Neut % (Auto) (45-73) % Lymph % (Auto) (20-40) % [place] % (Auto) (2-11) % Eos % (Auto) (0-4) % Baso % (Auto) (0-2) % Lymph # (Auto) (1.2-4.9) X10*3/uL [place] # (Auto) (0.1-1.2) X10*3/uL Eos # (Auto) (0.0-0.4) X10*3/uL Baso # (Auto) (0.0-0.2) X10*3/uL Abs Immat Gran (auto) (0.00-0.03) X10*3/uL Absolute Neuts (auto) (2.0-8.3) X10*3/uL Absolute Nucleated RBC (0.0-0.012) X10*3/uL Nucleated RBC % (auto) (0.0-0.2) /100WBC Sodium (135-145) mmol/L Potassium (3.3-5.1) mmol/L Chloride (96-108) mmol/L Carbon Dioxide (22-29) mmol/L Anion Gap (12-20) BUN (9-16) mg/dL Creatinine (0.5-1.4) mg/dL Estim Creat Clear Calc Estimated GFR Random Glucose (60-115) mg/dL Calcium (8.4-10.2) mg/dL Total Bilirubin (0.0-1.0) mg/dL AST (5-31) U/L ALT (0-31) U/L Alkaline Phosphatase (39-117) U/L Troponin I High Sens (<3.5-17.0) ng/L Total Protein (6.5-8.0) g/dL Albumin (3.5-5.0) g/dL Lipase (8-78) U/L Urine Color YELLOW Urine Appearance HAZY Urine pH 7.5 (5.0-8.0) Ur Specific [place] 1.015 (1.005-1.025) Urine Protein NEG (NEG-TRACE) MG/DL Urine Glucose (UA) NEG (NEG) MG/DL Urine Ketones NEG (NEG) MG/DL Urine Blood TRACE (NEG) Urine Nitrite NEG (NEG) Ur Leukocyte Esterase NEG (NEG) Urine RBC 1-4 (0) /HPF Urine WBC 0 (0-4) /HPF Ur Squamous Epith Cells TRACE /LPF Urine Bacteria NONE /LPF Imaging Data CT scan - abdomen: Radiologist's impression: ?changes to the right colon. There is stool throughout the colon suggestive of constipation. There is evidence of diverticulosis. There is question of wall thickening of the proximal stomach.? ABDOMINAL WALL: No significant hernia is appreciated.? LYMPH NODES: Normal. VASCULAR: There is evidence of severe atherosclerotic disease. No aneurysm is seen. PELVIC VISCERA: The uterus appears to have been removed. No pelvic mass is seen.? OSSEOUS STRUCTURES: There are degenerative changes of the spine.? CT/CT abdomen pelvis wo con IMPRESSION: Question wall thickening of the proximal stomach. Severe atherosclerotic disease. Constipation. Diverticulosis. Postsurgical changes to the right colon.? Dictated By: VIRY DE LA VEGA MD Signed By: <Electronically signed by VIRY DE LA VEGA MD in OV> ECG Data Attestation: I personally reviewed and interpreted this ECG as follows: ECG interpretation date: 05/31/21 Pacemaker model: NORMAL SINUS RHYTHM A RATE IS 61 AND NO ISCHEMIC CHANGES Discharge Plan Discharge Clinical Impression: Abdominal pain in female, Gastritis Patient Disposition: Home, Self-Care Instructions: Gastritis (ED) Additional Instructions: PLEASE RETURN IS WORSE CONTINUE THE PROTONIX YOU ARE DOING Prescriptions: No Action umeclidinium-vilanterol [Anoro Ellipta] 62.5-25 mcg/actuation blister with device 1 ea PO DAILY Qty: 60 RF: 0 albuterol sulfate 90 mcg/actuation HFA aerosol inhaler 2 puff PO Q2H PRN (Reason: shortness of breath or wheezing) Qty: 18 RF: 0 calcitonin (salmon) 200 unit/actuation spray,non-aerosol 1 spray intranasal DAILY Qty: 3.7 RF: 6 amlodipine 10 mg tablet 10 mg PO DAILY RF: 0 escitalopram oxalate 5 mg tablet 5 mg PO DAILY RF: 0 multivitamin Tablet 1 tab PO DAILY RF: 0 docusate sodium [Colace] 100 mg capsule 100 mg PO BID 30 Days Qty: 60 RF: 6 senna 8.6 mg capsule 17.2 mg PO BEDTIME 30 Days Qty: 60 RF: 6 pantoprazole [Protonix] 40 mg tablet,delayed release (DR/EC) 40 mg PO DAILY 30 Days Qty: 30 RF: 6 prazosin 1 mg capsule 1 mg PO BEDTIME RF: 0 trazodone 50 mg tablet 25 mg PO BEDTIME PRNRF: 0 nicotine 7 mg/24 hr patch 24 hour 1 patch transdermal BEDTIME RF: 0 bisacodyl [Dulcolax (bisacodyl)] 5 mg tablet,delayed release (DR/EC) 10 mg PO ONCE 1 Days Qty: 2 RF: 0 polyethylene glycol 3350 [Miralax] 17 gram/dose powder 238 g PO ONCE Qty: 238 RF: 0 PMFSH Past Medical History Attestation statement: The following information was validated with the patient. Source: unable to obtain Medical History Acute arthritis Breast CA Cholecystitis HTN (hypertension) Surgical History History of back surgery History of esophagogastroduodenoscopy (EGD) Hx of breast biopsy Hx of colonoscopy Hx of foot surgery Family History Family History Father CVD (cardiovascular disease) HTN (hypertension) Brother Colon cancer Daughter No problems noted. Sister HTN (hypertension) Heart problem Osteoporosis Social History Social History Household Members: Children Alcohol intake: never Cigarettes Per Day: 1 Smoked in Last 30 Days: No Use of substances other than those prescribed or required for medical reasons: No Advance Directives: No Advance Directives Information Provided: No
[2021-05-31 11:37] LABS: MANUAL DIFF FLAG NO
[2021-05-31 11:43] LABS: Basophils Percent Auto 0.1 % (0-2); Eosinophils Absolute Auto 0.1 X10*3/uL (0.0-0.4); Eosinophils Percent Auto 1.8 % (0-4); Hematocrit 33.2 % (37-47); Hemoglobin 12.3 g/dl (12.0-16.0); Imm Gran Abs Auto 0.02 X10*3/uL (0.00-0.03); Imm Gran Pct Auto 0.3 % (0.0-0.4); Lymphocytes Absolute Auto 1.6 X10*3/uL (1.2-4.9); Lymphocytes Percent Auto 20.9 % (20-40); Mean Corpuscular Hemoglobin 29.5 pg (27.0-33.0); Mean Corpuscular Volume 79.6 fL (80-98); Mean Platelet Volume 9.3 fL (9.4-12.3); Monocytes Absolute Auto 0.6 X10*3/uL (0.1-1.2); Monocytes Percent Auto 7.6 % (2-11); Neutrophils Absolute Auto 5.4 X10*3/uL (2.0-8.3); Neutrophils Percent Auto 69.3 % (45-73); Platelet Count 274 X10*3/uL (160-400); Red Blood Count 4.17 X10*6/uL (4.20-5.50); Red Cell Distribution Width 14.4 % (11.0-16.0); White Blood Count 7.7 X10*3/uL (4.8-10.8)
[2021-05-31 11:55] LABS: Glucose Urine UA NEG (NEG); Leukocyte Esterase Urine NEG (NEG); Nitrite Urine NEG (NEG); PH 7.5 (5.0-8.0); Specific Gravity - Urine 1.015 (1.005-1.025); UACC Culture Trigger NO; Urine Blood TRACE (NEG); Urine Ketones NEG (NEG); Urine Protein NEG (NEG-TRACE)
[2021-05-31 11:57] LABS: Appearance Urine HAZY; Color Urine YELLOW
[2021-05-31 12:00] LABS: Alanine Aminotransferase 10 U/L (0-31); Albumin Level 4.2 g/dL (3.5-5.0); Alkaline Phosphatase 86 U/L (39-117); Anion Gap 10 (12-20); Aspartate Amino Transferase 19 U/L (5-31); Bilirubin Total 0.7 mg/dL (0.0-1.0); Blood Urea Nitrogen 8 mg/dL (9-16); Calcium 9.7 mg/dL (8.4-10.2); Carbon Dioxide 33 mmol/L (22-29); Chloride 103 mmol/L (96-108); Creatinine Clr Calc Pharmacy 34.8; Estimated Glomerular Filt Rate > 60; Glucose Random 64 mg/dL (60-115); Lipase 15 U/L (8-78); Potassium 3.1 mmol/L (3.3-5.1); Sodium 143 mmol/L (135-145); Total Protein 6.8 g/dL (6.5-8.0)
[2021-05-31 12:03] LABS: Troponin-I High Sensitivity < 3.5 ng/L (<3.5-17.0)
[2021-05-31 12:03] LABS: Squamous Epithelial Cell Urine TRACE /LPF; WBC Urine 0 /HPF (0-4)
[2021-05-31] MEDS: Magnesium Hydrox/Alum Hydrox 30 ML ORAL.SUSP PO (12:13)
[2021-05-31] MEDS: Potassium Chloride ER 20 MEQ TAB.ER.PRT PO (14:34)
== END 2021-05-31 14:48 | disposition home or self-care (01) ==
PROVIDERS: Emergency Provider Emergency Medicine; PCP Internal Medicine
DX: K29.70 Gastritis, unspecified, without bleeding (principal); I10 Essential (primary) hypertension; Z85.3 Personal history of malignant neoplasm of breast
CPT/HCPCS: 36415; 74176; 80053; 81001; 83690; 84484; 85025; 93005; 99284

== ENCOUNTER 2021-06-06 20:56 | Emergency (ER) | payer MEDICARE, SELFPAY ==
[2021-06-06 21:25] VITALS: BP 160/59; PULSE 70; RESP 18; TEMP 36.8; O2SAT 100; BMI 16.9
--- NOTE | 2021-06-06 23:39 | ECG_ITS ---
Test Reason : ABD PAIN Blood Pressure : / mmHG Vent. Rate : 064 BPM Atrial Rate : 064 BPM P-R Int : 186 ms QRS Dur : 084 ms QT Int : 438 ms P-R-T Axes : 078 066 081 degrees QTc Int : 451 ms Normal sinus rhythm Possible Left atrial enlargement Septal infarct (cited on or before 23-MAR-2021) Abnormal ECG When compared with ECG of 31-MAY-2021 11:37, No significant change was found Referred By: Elva Escobar Electronically Signed By:Mani Tineo
--- NOTE | 2021-06-06 23:44 | PC.NURSE ---
in room for eval.
--- NOTE | 2021-06-06 23:45 | ED_ITS ---
HPI - General Adult General Chief complaint: General Medical Stated complaint: abd pain Time Seen by Provider: 06/06/21 23:12 Source: patient Mode of arrival: ambulatory Limitations: no limitations History of Present Illness HPI narrative: Patient comes emergency room complaining of epigastric burning sensation for over a week. Patient was seen on Thursday in the emergency room, given pantoprazole but continues having epigastric burning sensation. Patient states that she is able to eat and drink without any discomfort. Denies vomiting or diarrhea. Patient also complained that her legs it is swollen, has noticed this since she has been taking amlodipine Related Data Home Medications Medication Instructions Recorded Confirmed amlodipine 10 mg tablet 10 mg PO DAILY 12/24/20 escitalopram oxalate 5 mg tablet 5 mg PO DAILY 12/24/20 multivitamin 1 tab PO DAILY 12/24/20 nicotine 7 mg/24 hr daily 1 patch TRANSDERMAL BEDTIME 02/04/21 transdermal patch prazosin 1 mg capsule 1 mg PO BEDTIME 02/04/21 trazodone 50 mg tablet 25 mg PO BEDTIME PRN 02/04/21 Previous Rx's Medication Instructions Recorded docusate sodium 100 mg capsule 100 mg PO BID 30 Days #60 cap 12/24/20 (Colace) pantoprazole 40 mg tablet,delayed 40 mg PO DAILY 30 Days #30 tab 12/24/20 release (Protonix) sennosides 8.6 mg capsule (senna) 17.2 mg PO BEDTIME 30 Days #60 cap 12/24/20 bisacodyl 5 mg tablet,delayed 10 mg PO ONCE 1 Days #2 tab 02/20/21 release (Dulcolax (bisacodyl)) polyethylene glycol 3350 17 238 g PO ONCE #238 g 02/20/21 gram/dose oral powder (Miralax) albuterol sulfate 90 mcg/actuation 2 puff PO Q2H PRN #18 g 02/21/21 aerosol inhaler umeclidinium 62.5 mcg-vilanterol 1 ea PO DAILY #60 cap 02/21/21 25 mcg/actuation powdr for inhalation (Anoro Ellipta) calcitonin (salmon) 200 1 spray INTRANASAL DAILY #3.7 ml 05/15/21 unit/actuation nasal spray sucralfate 1 gram tablet 1 g PO BID #14 tab 06/07/21 Allergies Allergy/AdvReac Type Severity Reaction Status Date / Time Iodinated Contrast Media Allergy Intermediate NAUSEA & Verified 06/06/21 21:22 [CONTRAST, IV] VOMITING morphine [MORPHINE] Allergy Intermediate NAUSEA & Verified 06/06/21 21:22 VOMITING oxycodone [From PERCOCET] Allergy Intermediate NAUSEA, Verified 06/06/21 21:22 WEAKNESS/VIOLENT Review of Systems Review of Systems: Constitutional : No Weight loss, No Fever, No Chills, No Night Sweats, No Fatigue, No Malaise ENT/Mouth : No Hearing loss, No Ear Pain, No Nasal Congestion, No Sinus Pain, No Hoarseness, No sore throat, No Rhinorrhea, No Swallowing Difficulty Eyes: No Eye Pain, No Swelling, No Redness, No Foreign Body, No Discharge, No Vision Changes Cardiovascular : No Chest Pain, No SOB, No Dyspnea on Exertion, No Orthopnea, No Edema, No Palpitations Respiratory : No Cough, No Sputum, No Wheezing, No Smoke Exposure, No Dyspnea Gastrointestinal : No Nausea, No Vomiting, No Diarrhea, No Constipation, complaining of epigastric burning sensation, No Hematochezia, No Melena Genitourinary : no irregular bleeding, No Dysuria, No Urinary Frequency, No Hematuria, No Urinary Incontinence, No Urgency, No Flank Pain, No Urinary Flow Changes, No Hesitancy Musculoskeletal : No joint pain, No Myalgias, No Joint Swelling Skin : No Skin Lesions, No rash Neuro : No Weakness, No Numbness, No Paresthesias, No Loss of Consciousness, No Dizziness, No Headache Psych : No Anxiety/Panic, No Depression, No SI/HI/AH/VH, No Social Issues, Heme/Lymph: No Bruising, No Bleeding,No Lymphadenopathy Endocrine : No Polyuria, No Polydipsia, No Temperature Intolerance [facility] Past Medical History Medical History Acute arthritis Breast CA Cholecystitis HTN (hypertension) Surgical History History of back surgery History of esophagogastroduodenoscopy (EGD) Hx of breast biopsy Hx of colonoscopy Hx of foot surgery Family History Family History Father CVD (cardiovascular disease) HTN (hypertension) Brother Colon cancer Daughter No problems noted. Sister HTN (hypertension) Heart problem Osteoporosis Social History Social History Household Members: Children Alcohol intake: never Cigarettes Per Day: 1 Advance Directives: No Advance Directives Information Provided: No Physical Exam Vital Signs: Vital Signs: Last Vital Signs Temp 98.2 F 06/06/21 21:25 Pulse 70 06/06/21 21:25 Resp 18 06/06/21 21:25 BP 160/59 H 06/06/21 21:25 Pulse Ox 100 06/06/21 21:25 Body Mass Index 16.9 Const: Other: Appearance: Alert. Oriented X3. No acute distress. Eyes: Pupils equal, round and reactive to light. ENT: Pharynx normal. Neck: Normal inspection. Neck supple. No lymph nodes noted. No crepitus CVS: Normal heart rate and rhythm. Pulses normal. Normal S1 and S2 Respiratory: No respiratory distress. Breath sounds normal. No Wheezing. No rales Abdomen: Soft and nontender. No rigidity. No distention. good BS x4 Skin: Skin warm and dry. Normal skin color. Normal skin turgor. Extremities: No lower extremity edema. No Lacerations. No Rash Neuro: Oriented X 3. No motor deficit. No sensory deficit. Moving all extermities. No slurred speech. Course Course Course Narrative: I discussed with the patient that her labs are stable, patient was given 1 dose of oral potassium. Patient declined a GI cocktail. Patient states that the current burning sensation/discomfort is 1/10. Patient likely has gastritis versus peptic ulcer disease I discussed with the patient that if the oral medication does not work, she will eventually need an upper endoscopy. Patient's lower extremities are not edematous. I discussed with the patient to sleep her legs elevated, if she continues having increased leg swelling throughout the day, she can discuss this with her primary care physician, as this may be a side effect of amlodipine. However, patient seems to be tolerating well her medication. Medical Decision Making Lab Data Result diagrams: 06/07/21 00:02 06/07/21 00:02 Labs: Lab Results 06/07/21 06/07/21 06/07/21 Range/Units 00:02 00:02 00:02 WBC 8.6 (4.8-10.8) X10*3/uL RBC 4.30 (4.20-5.50) X10*6/uL Hgb 12.9 (12.0-16.0) g/dl Hct 34.4 L (37-47) % MCV 80.0 (80-98) fL MCH 30.0 (27.0-33.0) pg MCHC 37.5 H (31.0-35.0) g/dl RDW 14.5 (11.0-16.0) % Plt Count 260 (160-400) X10*3/uL MPV 8.9 L (9.4-12.3) fL Immature Gran % (Auto) 0.6 H (0.0-0.4) % Neut % (Auto) 58.4 (45-73) % Lymph % (Auto) 33.1 (20-40) % [place] % (Auto) 5.5 (2-11) % Eos % (Auto) 2.2 (0-4) % Baso % (Auto) 0.2 (0-2) % Lymph # (Auto) 2.9 (1.2-4.9) X10*3/uL [place] # (Auto) 0.5 (0.1-1.2) X10*3/uL Eos # (Auto) 0.2 (0.0-0.4) X10*3/uL Baso # (Auto) 0.0 (0.0-0.2) X10*3/uL Abs Immat Gran (auto) 0.05 H (0.00-0.03) X10*3/uL Absolute Neuts (auto) 5.0 (2.0-8.3) X10*3/uL Absolute Nucleated RBC 0.000 (0.0-0.012) X10*3/uL Nucleated RBC % (auto) 0.0 (0.0-0.2) /100WBC Sodium 142 (135-145) mmol/L Potassium 3.2 L (3.3-5.1) mmol/L Chloride 101 (96-108) mmol/L Carbon Dioxide 29 (22-29) mmol/L Anion Gap 15 (12-20) BUN 9 (9-16) mg/dL Creatinine 0.80 (0.5-1.4) mg/dL Estim Creat Clear Calc 32.8 Estimated GFR > 60 Random Glucose 118 H D (60-115) mg/dL Calcium 10.3 H D (8.4-10.2) mg/dL Total Bilirubin 0.5 (0.0-1.0) mg/dL Direct Bilirubin 0.3 (0.0-0.5) mg/dL AST 20 (5-31) U/L ALT 9 (0-31) U/L Alkaline Phosphatase 91 (39-117) U/L Troponin I High Sens < 3.5 (<3.5-17.0) ng/L Total Protein 7.6 (6.5-8.0) g/dL Albumin 4.6 (3.5-5.0) g/dL Lipase 22 (8-78) U/L Urine Color Urine Appearance Urine pH (5.0-8.0) Ur Specific [place] (1.005-1.025) Urine Protein (NEG-TRACE) MG/DL Urine Glucose (UA) (NEG) MG/DL Urine Ketones (NEG) MG/DL Urine Blood (NEG) Urine Nitrite (NEG) Ur Leukocyte Esterase (NEG) Urine RBC (0) /HPF Urine WBC (0-4) /HPF Ur Squamous Epith Cells /LPF Urine Bacteria /LPF 06/07/21 Range/Units 00:02 WBC (4.8-10.8) X10*3/uL RBC (4.20-5.50) X10*6/uL Hgb (12.0-16.0) g/dl Hct (37-47) % MCV (80-98) fL MCH (27.0-33.0) pg MCHC (31.0-35.0) g/dl RDW (11.0-16.0) % Plt Count (160-400) X10*3/uL MPV (9.4-12.3) fL Immature Gran % (Auto) (0.0-0.4) % Neut % (Auto) (45-73) % Lymph % (Auto) (20-40) % [place] % (Auto) (2-11) % Eos % (Auto) (0-4) % Baso % (Auto) (0-2) % Lymph # (Auto) (1.2-4.9) X10*3/uL [place] # (Auto) (0.1-1.2) X10*3/uL Eos # (Auto) (0.0-0.4) X10*3/uL Baso # (Auto) (0.0-0.2) X10*3/uL Abs Immat Gran (auto) (0.00-0.03) X10*3/uL Absolute Neuts (auto) (2.0-8.3) X10*3/uL Absolute Nucleated RBC (0.0-0.012) X10*3/uL Nucleated RBC % (auto) (0.0-0.2) /100WBC Sodium (135-145) mmol/L Potassium (3.3-5.1) mmol/L Chloride (96-108) mmol/L Carbon Dioxide (22-29) mmol/L Anion Gap (12-20) BUN (9-16) mg/dL Creatinine (0.5-1.4) mg/dL Estim Creat Clear Calc Estimated GFR Random Glucose (60-115) mg/dL Calcium (8.4-10.2) mg/dL Total Bilirubin (0.0-1.0) mg/dL Direct Bilirubin (0.0-0.5) mg/dL AST (5-31) U/L ALT (0-31) U/L Alkaline Phosphatase (39-117) U/L Troponin I High Sens (<3.5-17.0) ng/L Total Protein (6.5-8.0) g/dL Albumin (3.5-5.0) g/dL Lipase (8-78) U/L Urine Color YELLOW Urine Appearance CLEAR Urine pH 7.5 (5.0-8.0) Ur Specific [place] 1.010 (1.005-1.025) Urine Protein NEG (NEG-TRACE) MG/DL Urine Glucose (UA) NEG (NEG) MG/DL Urine Ketones NEG (NEG) MG/DL Urine Blood TRACE (NEG) Urine Nitrite NEG (NEG) Ur Leukocyte Esterase TRACE H (NEG) Urine RBC 1-4 (0) /HPF Urine WBC 1-4 (0-4) /HPF Ur Squamous Epith Cells 1+ /LPF Urine Bacteria 1+ /LPF Discharge Plan Discharge Clinical Impression: Abdominal pain, epigastric Patient Disposition: Home, Self-Care Instructions: Epigastric Pain (ED) Additional Instructions: Discontinue taking Protonix. Please follow-up with your primary care physician tomorrow. If you have any worsening or new symptoms, please return to the emergency room or call 911 Prescriptions: New sucralfate 1 gram tablet 1 g PO BID Qty: 14 RF: 0 No Action umeclidinium-vilanterol [Anoro Ellipta] 62.5-25 mcg/actuation blister with device 1 ea PO DAILY Qty: 60 RF: 0 albuterol sulfate 90 mcg/actuation HFA aerosol inhaler 2 puff PO Q2H PRN (Reason: shortness of breath or wheezing) Qty: 18 RF: 0 calcitonin (salmon) 200 unit/actuation spray,non-aerosol 1 spray intranasal DAILY Qty: 3.7 RF: 6 amlodipine 10 mg tablet 10 mg PO DAILY RF: 0 escitalopram oxalate 5 mg tablet 5 mg PO DAILY RF: 0 multivitamin Tablet 1 tab PO DAILY RF: 0 docusate sodium [Colace] 100 mg capsule 100 mg PO BID 30 Days Qty: 60 RF: 6 senna 8.6 mg capsule 17.2 mg PO BEDTIME 30 Days Qty: 60 RF: 6 pantoprazole [Protonix] 40 mg tablet,delayed release (DR/EC) 40 mg PO DAILY 30 Days Qty: 30 RF: 6 prazosin 1 mg capsule 1 mg PO BEDTIME RF: 0 trazodone 50 mg tablet 25 mg PO BEDTIME PRNRF: 0 nicotine 7 mg/24 hr patch 24 hour 1 patch transdermal BEDTIME RF: 0 bisacodyl [Dulcolax (bisacodyl)] 5 mg tablet,delayed release (DR/EC) 10 mg PO ONCE 1 Days Qty: 2 RF: 0 polyethylene glycol 3350 [Miralax] 17 gram/dose powder 238 g PO ONCE Qty: 238 RF: 0
--- NOTE | 2021-06-06 23:59 | PC.NURSE ---
pt refused po meds. EKG obtained.
[2021-06-07 00:16] LABS: Glucose Urine UA NEG (NEG); Leukocyte Esterase Urine TRACE (NEG); Nitrite Urine NEG (NEG); PH 7.5 (5.0-8.0); UACC Culture Trigger YES; Urine Blood TRACE (NEG); Urine Ketones NEG (NEG); Urine Protein NEG (NEG-TRACE)
[2021-06-07 00:17] LABS: Appearance Urine CLEAR; Color Urine YELLOW; MANUAL DIFF FLAG NO
[2021-06-07 00:18] LABS: Basophils Percent Auto 0.2 % (0-2); Eosinophils Absolute Auto 0.2 X10*3/uL (0.0-0.4); Eosinophils Percent Auto 2.2 % (0-4); Hematocrit 34.4 % (37-47); Hemoglobin 12.9 g/dl (12.0-16.0); Imm Gran Abs Auto 0.05 X10*3/uL (0.00-0.03); Imm Gran Pct Auto 0.6 % (0.0-0.4); Lymphocytes Absolute Auto 2.9 X10*3/uL (1.2-4.9); Lymphocytes Percent Auto 33.1 % (20-40); Mean Corpuscular HGB Conc 37.5 g/dl (31.0-35.0); Mean Platelet Volume 8.9 fL (9.4-12.3); Monocytes Absolute Auto 0.5 X10*3/uL (0.1-1.2); Monocytes Percent Auto 5.5 % (2-11); Neutrophils Percent Auto 58.4 % (45-73); Platelet Count 260 X10*3/uL (160-400); Red Cell Distribution Width 14.5 % (11.0-16.0); White Blood Count 8.6 X10*3/uL (4.8-10.8)
[2021-06-07 00:22] LABS: Bacteria Urine 1+ /LPF; Squamous Epithelial Cell Urine 1+ /LPF
[2021-06-07 00:53] LABS: Alanine Aminotransferase 9 U/L (0-31); Albumin Level 4.6 g/dL (3.5-5.0); Alkaline Phosphatase 91 U/L (39-117); Anion Gap 15 (12-20); Aspartate Amino Transferase 20 U/L (5-31); Bilirubin Direct 0.3 mg/dL (0.0-0.5); Bilirubin Total 0.5 mg/dL (0.0-1.0); Blood Urea Nitrogen 9 mg/dL (9-16); Calcium 10.3 mg/dL (8.4-10.2); Carbon Dioxide 29 mmol/L (22-29); Chloride 101 mmol/L (96-108); Creatinine Clr Calc Pharmacy 32.8; Estimated Glomerular Filt Rate > 60; Glucose Random 118 mg/dL (60-115); Lipase 22 U/L (8-78); Potassium 3.2 mmol/L (3.3-5.1); Sodium 142 mmol/L (135-145); Total Protein 7.6 g/dL (6.5-8.0)
[2021-06-07 00:59] LABS: Troponin-I High Sensitivity < 3.5 ng/L (<3.5-17.0)
--- NOTE | 2021-06-07 02:46 | PC.NURSE ---
PT REFUSED MEDS. AWARE. PT D/C.
== END 2021-06-07 02:47 | disposition home or self-care (01) ==
PROVIDERS: Emergency Provider Emergency Medicine; PCP Internal Medicine
DX: R10.13 Epigastric pain (principal); R60.0 Localized edema; F17.210 Nicotine dependence, cigarettes, uncomplicated; Z71.6 Tobacco abuse counseling; Z79.899 Other long term (current) drug therapy
CPT/HCPCS: 36415; 80048; 80076; 81001; 83690; 84484; 85025; 87086; 93005; 99283

== ENCOUNTER 2021-06-12 10:00 | Outpatient (RCR) | payer MEDICARE, SELFPAY | END 2021-09-02 16:34 | disposition home or self-care (01) | LOC: HO.PT 10:00 | PROVIDERS: PCP Internal Medicine; Visit Provider Internal Medicine | DX: M54.2 Cervicalgia (principal) | CPT/HCPCS: 97110; 97116; 97150; 97161 ==

== ENCOUNTER → 2021-07-30 08:42 | Outpatient (BNVA) | payer MEDICARE, SELFPAY | PROVIDERS: PCP Internal Medicine; Visit Provider Nurse Practitioner | DX: Z13.89 Encounter for screening for other disorder (principal) | CPT/HCPCS: Q3014 ==

== ENCOUNTER 2021-08-26 13:56 | Emergency (ER) | payer MEDICARE, SELFPAY ==
--- NOTE | ~2021-08-26 | CT_ITS ---
EXAMINATION: CT HEAD WITHOUT CONTRAST CLINICAL INFORMATION: Head injury. COMPARISON: CT head dated from 08/27/2019. TECHNIQUE: Contiguous axial imaging was performed from the skull base to vertex without intravenous administration of contrast. This CT examination was performed using dose optimization techniques as appropriate, variously including the following: *Automated exposure control *Adjustment of mA and/or kV according to patient size (this includes techniques or standardized protocols for targeted exams where dose is matched to indication/reason for exam; i.e. extremities or head) *Use of iterative reconstruction technique DLP: 477 mGy-cm FINDINGS: There is no evidence of acute intracranial hemorrhage or edematous territorial infarction. There is no abnormal attenuation within the brain parenchyma. Mcrae-white matter differentiation is preserved. The ventricles are normal in size and configuration. No evidence for obstructive hydrocephalus. No abnormal mass effect or midline shift. No extra-axial fluid collections. No acute soft tissue or osseous abnormalities. Chronic small left mastoid effusion. Visualized paranasal sinuses are clear. CT/CT head/brain wo con IMPRESSION: No evidence of acute intracranial hemorrhage or edematous territorial infarction.
[2021-08-26 14:13] VITALS: BP 164/63; PULSE 79; RESP 16; TEMP 36.8; O2SAT 100; BMI 17.8
--- NOTE | 2021-08-26 16:27 | ED_ITS ---
HPI - Fall General Chief Complaint: Fall Stated Complaint: fall Time Seen by Provider: 08/26/21 16:27 Source: patient and family Mode of arrival: ambulatory Limitations: no limitations History of Present Illness HPI Narrative: pt pt hit her head to wall in night 6 days ago , no LOC/vomiting/seizures not on any anticoagulant, comes from pcp office for increase dizziness non specific headache , no vomiiting/seizures, ambulation ok Related Data Home Medications Medication Instructions Recorded Confirmed amlodipine 10 mg tablet 10 mg PO DAILY 12/24/20 escitalopram oxalate 5 mg tablet 5 mg PO DAILY 12/24/20 multivitamin 1 tab PO DAILY 12/24/20 nicotine 7 mg/24 hr daily 1 patch TRANSDERMAL BEDTIME 02/04/21 transdermal patch prazosin 1 mg capsule 1 mg PO BEDTIME 02/04/21 trazodone 50 mg tablet 25 mg PO BEDTIME PRN 02/04/21 Previous Rx's Medication Instructions Recorded docusate sodium 100 mg capsule 100 mg PO BID 30 Days #60 cap 12/24/20 (Colace) pantoprazole 40 mg tablet,delayed 40 mg PO DAILY 30 Days #30 tab 12/24/20 release (Protonix) sennosides 8.6 mg capsule (senna) 17.2 mg PO BEDTIME 30 Days #60 cap 12/24/20 polyethylene glycol 3350 17 238 g PO ONCE #238 g 02/20/21 gram/dose oral powder (Miralax) albuterol sulfate 90 mcg/actuation 2 puff PO Q2H PRN #18 g 02/21/21 aerosol inhaler umeclidinium 62.5 mcg-vilanterol 1 ea PO DAILY #60 cap 02/21/21 25 mcg/actuation powdr for inhalation (Anoro Ellipta) calcitonin (salmon) 200 1 spray INTRANASAL DAILY #3.7 ml 05/15/21 unit/actuation nasal spray bisacodyl 5 mg tablet,delayed 10 mg PO ONCE 30 Days #60 tab 07/30/21 release (Dulcolax (bisacodyl)) Allergies Allergy/AdvReac Type Severity Reaction Status Date / Time Iodinated Contrast Media Allergy Intermediate NAUSEA & Verified 07/30/21 08:43 [CONTRAST, IV] VOMITING morphine [MORPHINE] Allergy Intermediate NAUSEA & Verified 07/30/21 08:43 VOMITING oxycodone [From PERCOCET] Allergy Intermediate NAUSEA, Verified 07/30/21 08:43 WEAKNESS/VIOLENT Review of Systems Review of Systems: Yes all other systems are reviewed and are negative [facility] Past Medical History Medical History Acute arthritis Breast CA Cholecystitis HTN (hypertension) Surgical History History of back surgery History of esophagogastroduodenoscopy (EGD) Hx of breast biopsy Hx of colonoscopy Hx of foot surgery Family History Family History Father CVD (cardiovascular disease) HTN (hypertension) Brother Colon cancer Daughter No problems noted. Sister HTN (hypertension) Heart problem Osteoporosis Social History Social History Household Members: Children Alcohol intake: never Cigarettes Per Day: 1 Advance Directives: No Advance Directives Information Provided: Yes Physical Exam Vital Signs: Vital Signs: Last Vital Signs Temp 98.2 F 08/26/21 14:13 Pulse 79 08/26/21 14:13 Resp 16 08/26/21 14:13 BP 164/63 H 08/26/21 14:13 Pulse Ox 100 08/26/21 14:13 Body Mass Index 17.8 Const: General: cooperative Nutritional Appearance: average body habitus Orientation/consciousness: oriented to person, oriented to place and oriented to time Limitations: no limitations HENMT: Head: Yes normal to inspection Mouth: Normal oral and palatal mucosa present Eyes: General: appearance normal, both eyes and all related structures Pupils: Equal, round and reactive pupils present EOM: EOMs intact bilaterally Neck: Neck: Yes normal visual inspection and Yes full ROM Thyroid: Thyroid normal Lymphatic: no lymphadenopathy noted Resp: Effort & Inspection: normal respiratory effort and able to speak in complete sentences Auscultation: clear to auscultation bilaterally Cardio: Palpation: normal PMI Rate: regular rate Rhythm: regular rhythm and abnormal rhythm Heart sounds: S1 normal heart sound present and S2 normal heart sound present GI: Inspection: Yes normal to inspection Palpation (GI): Soft to palpation and nontender : General: Yes no CVA tenderness Back/Spine/Pelvis: Back: no CVA tenderness Neuro: General: oriented to person, oriented to place and oriented to time Cranial nerves: Yes CN's II-XII intact bilaterally and Yes Equal, round and reactive pupils present Cognition (Neuro): normal cognition Gait exam (Neuro): Normal gait present Motor exam (neuro): 5/5 motor strength present throughout Extrem: General: Yes normal to inspection, Yes full ROM and Yes no pedal edema Psych: Mental Status: mental status grossly normal MDM - Fall MDM Narrative Medical decision making narrative: pt s/p minor headinjury 6 days ago, ct scan negative for any acute ,will d/c pt home Discharge Plan Discharge Clinical Impression: Minor closed head injury Patient Disposition: Home, Self-Care Instructions: Head Injury (ED) Additional Instructions: your ct scan of head is negative rest at home tylenol for pain Prescriptions: No Action umeclidinium-vilanterol [Anoro Ellipta] 62.5-25 mcg/actuation blister with device 1 ea PO DAILY Qty: 60 RF: 0 albuterol sulfate 90 mcg/actuation HFA aerosol inhaler 2 puff PO Q2H PRN (Reason: shortness of breath or wheezing) Qty: 18 RF: 0 calcitonin (salmon) 200 unit/actuation spray,non-aerosol 1 spray intranasal DAILY Qty: 3.7 RF: 6 amlodipine 10 mg tablet 10 mg PO DAILY RF: 0 escitalopram oxalate 5 mg tablet 5 mg PO DAILY RF: 0 multivitamin Tablet 1 tab PO DAILY RF: 0 docusate sodium [Colace] 100 mg capsule 100 mg PO BID 30 Days Qty: 60 RF: 6 senna 8.6 mg capsule 17.2 mg PO BEDTIME 30 Days Qty: 60 RF: 6 Hold Instructions: Doctor's Order pantoprazole [Protonix] 40 mg tablet,delayed release (DR/EC) 40 mg PO DAILY 30 Days Qty: 30 RF: 6 prazosin 1 mg capsule 1 mg PO BEDTIME RF: 0 trazodone 50 mg tablet 25 mg PO BEDTIME PRNRF: 0 nicotine 7 mg/24 hr patch 24 hour 1 patch transdermal BEDTIME RF: 0 polyethylene glycol 3350 [Miralax] 17 gram/dose powder 238 g PO ONCE Qty: 238 RF: 0 bisacodyl [Dulcolax (bisacodyl)] 5 mg tablet,delayed release (DR/EC) 10 mg PO ONCE 30 Days Qty: 60 RF: 3 Interventions: ED Discharge Assessment Last Done: 08/26/21 18:10 Discharge Date/Time: 08/26/21 18:11
== END 2021-08-26 18:11 | disposition home or self-care (01) ==
PROVIDERS: Emergency Provider Internal Medicine; PCP Internal Medicine
DX: S09.90XA Unspecified injury of head, initial encounter (principal); I10 Essential (primary) hypertension; W19.XXXA Unspecified fall, initial encounter; Y93.9 Activity, unspecified; Y92.9 Unspecified place or not applicable; Y99.9 Unspecified external cause status
CPT/HCPCS: 70450; 99283; 99284

== ENCOUNTER 2021-11-07 11:00 | Outpatient (RCR) | payer MEDICARE, SELFPAY | END 2021-12-31 13:31 | disposition home or self-care (01) | LOC: HO.PT 11:00 | DX: M54.12 Radiculopathy, cervical region (principal) | CPT/HCPCS: 97110; 97161 ==

== ENCOUNTER 2021-12-26 22:17 | Emergency (ER) | payer MEDICARE, SELFPAY ==
[2021-12-26 22:22] VITALS: BP 187/82; PULSE 69; RESP 18; TEMP 36.7; O2SAT 100; BMI 18.8
[2021-12-26 23:08] VITALS: BP 188/66; PULSE 68; RESP 14; TEMP 36.6; O2SAT 99
--- NOTE | 2021-12-26 23:29 | ED.ARRPALP ---
HPI - Arrhythmia/Palpitations General Chief Complaint: Anxiety Stated Complaint: Palpitations Time Seen by Provider: 12/26/21 23:29 Source: patient Mode of arrival: ambulatory Limitations: no limitations History of Present Illness HPI narrative: Patient feels anxious feels heart is beating fast no chest pain or shortness, on arrival heart rate was 69 was still feeling the heart is beating fast patient denies significant anxiety at this time Related Data Home Medications Medication Instructions Recorded Confirmed amlodipine 10 mg tablet 10 mg PO DAILY 12/24/20 escitalopram oxalate 5 mg tablet 5 mg PO DAILY 12/24/20 multivitamin 1 tab PO DAILY 12/24/20 nicotine 7 mg/24 hr daily 1 patch TRANSDERMAL BEDTIME 02/04/21 transdermal patch prazosin 1 mg capsule 1 mg PO BEDTIME 02/04/21 trazodone 50 mg tablet 25 mg PO BEDTIME PRN 02/04/21 Previous Rx's Medication Instructions Recorded docusate sodium 100 mg capsule 100 mg PO BID 30 Days #60 cap 12/24/20 (Colace) pantoprazole 40 mg tablet,delayed 40 mg PO DAILY 30 Days #30 tab 12/24/20 release (Protonix) sennosides 8.6 mg capsule (senna) 17.2 mg PO BEDTIME 30 Days #60 cap 12/24/20 polyethylene glycol 3350 17 238 g PO ONCE #238 g 02/20/21 gram/dose oral powder (Miralax) albuterol sulfate 90 mcg/actuation 2 puff PO Q2H PRN #18 g 02/21/21 aerosol inhaler umeclidinium 62.5 mcg-vilanterol 1 ea PO DAILY #60 cap 02/21/21 25 mcg/actuation powdr for inhalation (Anoro Ellipta) calcitonin (salmon) 200 1 spray INTRANASAL DAILY #3.7 ml 05/15/21 unit/actuation nasal spray bisacodyl 5 mg tablet,delayed 10 mg PO ONCE 30 Days #60 tab 07/30/21 release (Dulcolax (bisacodyl)) Allergies Allergy/AdvReac Type Severity Reaction Status Date / Time Iodinated Contrast Media Allergy Intermediate NAUSEA & Verified 07/30/21 08:43 [CONTRAST, IV] VOMITING morphine [MORPHINE] Allergy Intermediate NAUSEA & Verified 07/30/21 08:43 VOMITING oxycodone [From PERCOCET] Allergy Intermediate NAUSEA, Verified 07/30/21 08:43 WEAKNESS/VIOLENT Review of Systems Review of Systems: Yes all other systems are reviewed and are negative [facility] Past Medical History Medical History Acute arthritis Breast CA Cholecystitis HTN (hypertension) Surgical History History of back surgery History of esophagogastroduodenoscopy (EGD) Hx of breast biopsy Hx of colonoscopy Hx of foot surgery Family History Family History Father CVD (cardiovascular disease) HTN (hypertension) Brother Colon cancer Daughter No problems noted. Sister HTN (hypertension) Heart problem Osteoporosis Social History Social History Household Members: Children Alcohol intake: unknown Patient Tobacco Use Status: Tobacco use Unknown Cigarettes Per Day: 1 Use of substances other than those prescribed or required for medical reasons: No Advance Directives: No Physical Exam Vital Signs: Vital Signs: Last Vital Signs Temp 97.8 F 12/26/21 23:08 Pulse 68 12/26/21 23:08 Resp 14 12/26/21 23:08 BP 188/66 H 12/26/21 23:08 Pulse Ox 99 12/26/21 23:08 BMI result Body Mass Index 18.8 Appearance: Alert. Oriented X3. No acute distress. Anxious ENT: Pharynx normal. Oral Mucosa moist Neck: Normal inspection. Neck supple. CVS: Normal heart rate and rhythm. Pulses normal. Respiratory: No respiratory distress. Equal air entry bilateral, no wheezing/rales/rhonchi Abdomen: Soft and nontender. Bowel sounds are present, no mass palpable, no CVA tenderness Skin: Skin warm and dry. Normal skin color. Normal skin turgor. Extremities: No lower extremity edema. No calf tenderness Neuro: Oriented X 3. No motor deficit. No sensory deficit.No cerebellar signs , cranial nerves II-XII intact MDM - Arrhythmia/Palpitations MDM Narrative Medical decision making narrative: Patient with anxiety complaining of palpitation with anxiety no cardiac arrhythmias noted during stay in the ER no syncope no chest pain labs stable discharge patient home Medical Records Attestation: I reviewed the patient's medical records. Lab Data Attestation: I reviewed the patient's lab results. Result diagrams: 12/27/21 00:16 12/27/21 00:16 Labs: Lab Results 12/27/21 12/27/21 Range/Units 00:16 00:16 WBC 9.2 (4.8-10.8) X10*3/uL RBC 3.98 L (4.20-5.50) X10*6/uL Hgb 11.9 L (12.0-16.0) g/dl Hct 31.9 L (37.0-47.0) % MCV 80.2 (80.0-98.0) fL MCH 29.9 (27.0-33.0) pg MCHC 37.3 H (31.0-35.0) g/dl RDW 14.0 (11.0-16.0) % Plt Count 257 (160-400) X10*3/uL MPV 9.5 (9.4-12.3) fL Immature Gran % (Auto) 0.2 (0.0-0.4) % Neut % (Auto) 64.7 (45-73) % Lymph % (Auto) 26.4 (20-40) % [place] % (Auto) 6.4 (2-11) % Eos % (Auto) 2.0 (0-4) % Baso % (Auto) 0.3 (0-2) % Lymph # (Auto) 2.4 (1.2-4.9) X10*3/uL [place] # (Auto) 0.6 (0.1-1.2) X10*3/uL Eos # (Auto) 0.2 (0.0-0.4) X10*3/uL Baso # (Auto) 0.0 (0.0-0.2) X10*3/uL Abs Immat Gran (auto) 0.02 (0.00-0.03) X10*3/uL Absolute Neuts (auto) 6.0 (2.0-8.3) x10*3/uL Absolute Nucleated RBC 0.000 (0.0-0.012) X10*3/uL Nucleated RBC % (auto) 0.0 (0.0-0.2) /100WBC Sodium 140 (135-145) mmol/L Potassium 4.4 D (3.3-5.1) mmol/L Chloride 104 (96-108) mmol/L Carbon Dioxide 28 (22-29) mmol/L Anion Gap 12 (12-20) BUN 14 (9-16) mg/dL Creatinine 0.85 (0.5-1.4) mg/dL Estim Creat Clear Calc 34.5 Estimated GFR > 60 Random Glucose 100 (60-115) mg/dL Calcium 9.7 (8.4-10.2) mg/dL Magnesium 2.0 (1.6-2.6) mg/dL Total Bilirubin 0.3 (0.0-1.0) mg/dL AST 20 (5-31) U/L ALT 9 (0-31) U/L Alkaline Phosphatase 84 (39-117) U/L Total Protein 6.8 (6.5-8.0) g/dL Albumin 4.2 (3.5-5.0) g/dL ECG Data Attestation: I personally reviewed and interpreted this ECG as follows: Interpretation: Normal sinus rhythm heart rate 64 beats per minute normal intervals normal axis no acute ST changes no arrhythmias noticed Discharge Plan Discharge Clinical Impression: Anxiety, Heart palpitations Patient Disposition: Home, Self-Care Instructions: Heart Palpitations (ED), Anxiety (ED) Additional Instructions: Take your medication as prescribed for anxiety Follow up with PCP Prescriptions: No Action umeclidinium-vilanterol [Anoro Ellipta] 62.5-25 mcg/actuation blister with device 1 ea PO DAILY Qty: 60 0RF albuterol sulfate 90 mcg/actuation HFA aerosol inhaler 2 puff PO Q2H PRN (Reason: shortness of breath or wheezing) Qty: 18 0RF calcitonin (salmon) 200 unit/actuation spray,non-aerosol 1 spray intranasal DAILY Qty: 3.7 6RF amlodipine 10 mg tablet 10 mg PO DAILY 0RF escitalopram oxalate 5 mg tablet 5 mg PO DAILY 0RF multivitamin Tablet 1 tab PO DAILY 0RF docusate sodium [Colace] 100 mg capsule 100 mg PO BID 30 Days Qty: 60 6RF senna 8.6 mg capsule 17.2 mg PO BEDTIME 30 Days Qty: 60 6RF Hold Instructions: Doctor's Order pantoprazole [Protonix] 40 mg tablet,delayed release (DR/EC) 40 mg PO DAILY 30 Days Qty: 30 6RF prazosin 1 mg capsule 1 mg PO BEDTIME 0RF trazodone 50 mg tablet 25 mg PO BEDTIME PRN0RF nicotine 7 mg/24 hr patch 24 hour 1 patch transdermal BEDTIME 0RF polyethylene glycol 3350 [Miralax] 17 gram/dose powder 238 g PO ONCE Qty: 238 0RF Rx Instructions: As directed by gastroenterology department at [facility] bisacodyl [Dulcolax (bisacodyl)] 5 mg tablet,delayed release (DR/EC) 10 mg PO ONCE 30 Days Qty: 60 3RF Rx Instructions: take 2 tabs at noon the day before your colonoscopy Print Language: Gambian
--- NOTE | 2021-12-26 23:31 | ECG_ITS ---
Test Reason : ANXIETY Blood Pressure : / mmHG Vent. Rate : 064 BPM Atrial Rate : 064 BPM P-R Int : 172 ms QRS Dur : 082 ms QT Int : 416 ms P-R-T Axes : 069 059 070 degrees QTc Int : 429 ms Normal sinus rhythm Normal ECG When compared with ECG of 07-JUN-2021 00:13, Criteria for Septal infarct are no longer Present Referred By: Jasper Sierra Electronically Signed By:ROSA KNOX
[2021-12-27 00:21] LABS: Basophils Percent Auto 0.3 % (0-2); Eosinophils Absolute Auto 0.2 X10*3/uL (0.0-0.4); Hematocrit 31.9 % (37.0-47.0); Hemoglobin 11.9 g/dl (12.0-16.0); Imm Gran Abs Auto 0.02 X10*3/uL (0.00-0.03); Imm Gran Pct Auto 0.2 % (0.0-0.4); Lymphocytes Absolute Auto 2.4 X10*3/uL (1.2-4.9); Lymphocytes Percent Auto 26.4 % (20-40); MANUAL DIFF FLAG NO; Mean Corpuscular HGB Conc 37.3 g/dl (31.0-35.0); Mean Corpuscular Hemoglobin 29.9 pg (27.0-33.0); Mean Corpuscular Volume 80.2 fL (80.0-98.0); Mean Platelet Volume 9.5 fL (9.4-12.3); Monocytes Absolute Auto 0.6 X10*3/uL (0.1-1.2); Monocytes Percent Auto 6.4 % (2-11); Neutrophils Percent Auto 64.7 % (45-73); Platelet Count 257 X10*3/uL (160-400); Red Blood Count 3.98 X10*6/uL (4.20-5.50); White Blood Count 9.2 X10*3/uL (4.8-10.8)
[2021-12-27 01:00] LABS: Alanine Aminotransferase 9 U/L (0-31); Albumin Level 4.2 g/dL (3.5-5.0); Alkaline Phosphatase 84 U/L (39-117); Anion Gap 12 (12-20); Aspartate Amino Transferase 20 U/L (5-31); Bilirubin Total 0.3 mg/dL (0.0-1.0); Blood Urea Nitrogen 14 mg/dL (9-16); Calcium 9.7 mg/dL (8.4-10.2); Carbon Dioxide 28 mmol/L (22-29); Chloride 104 mmol/L (96-108); Creatinine Clr Calc Pharmacy 34.5; Estimated Glomerular Filt Rate > 60; Glucose Random 100 mg/dL (60-115); Potassium 4.4 mmol/L (3.3-5.1); Sodium 140 mmol/L (135-145); Total Protein 6.8 g/dL (6.5-8.0)
== END 2021-12-27 01:27 | disposition home or self-care (01) ==
PROVIDERS: Emergency Provider Internal Medicine; PCP Internal Medicine
DX: F41.9 Anxiety disorder, unspecified (principal); R00.2 Palpitations; I10 Essential (primary) hypertension
CPT/HCPCS: 36415; 80053; 83735; 85025; 93005; 99284; 99285

== ENCOUNTER 2022-01-01 22:06 | Emergency (ER) | payer MEDICARE, SELFPAY ==
--- NOTE | ~2022-01-01 | CT_ITS ---
EXAMINATION: CT HEAD WITHOUT CONTRAST CLINICAL INFORMATION: Severe headache COMPARISON: Previous head CT most recent August 2021 TECHNIQUE: Contiguous axial imaging was performed from the skull base to vertex without intravenous administration of contrast. This CT examination was performed using dose optimization techniques as appropriate, variously including the following: *Automated exposure control *Adjustment of mA and/or kV according to patient size (this includes techniques or standardized protocols for targeted exams where dose is matched to indication/reason for exam; i.e. extremities or head) *Use of iterative reconstruction technique DLP: 511 mGy-cm FINDINGS: There is no evidence of acute intracranial hemorrhage or territorial infarction. No abnormal mass effect or midline shift is seen. Mcrae to white matter differentiation is well preserved. No extra-axial fluid collections are identified. The ventricles are normal in size. There is no abnormal attenuation within the brain parenchyma. The osseous structures and soft tissues are normal. There is partial soft tissue opacification of the left mastoid air cells similar to previous exam. Paranasal sinuses, mastoid air cells and middle ears are otherwise clear. CT/CT head/brain wo con IMPRESSION: No acute intracranial pathology.
[2022-01-01 22:14] VITALS: BP 190/80; BP 200/72; PULSE 65; PULSE 74; RESP 16; TEMP 36.6; O2SAT 100; O2SAT 97; BMI 20.5
--- NOTE | 2022-01-01 22:27 | ECG_ITS ---
Test Reason : HYPERTENSION Blood Pressure : / mmHG Vent. Rate : 060 BPM Atrial Rate : 060 BPM P-R Int : 176 ms QRS Dur : 074 ms QT Int : 428 ms P-R-T Axes : 078 068 085 degrees QTc Int : 428 ms Normal sinus rhythm Possible Left atrial enlargement Septal infarct , age undetermined Abnormal ECG When compared with ECG of 26-DEC-2021 23:41, Septal infarct is now Present Referred By: Talib Franklin Electronically Signed By:Mani Tineo
--- NOTE | 2022-01-01 22:37 | ED.GENADULT ---
HPI - General Adult General Chief complaint: General Medical Stated complaint: HIGH BP 190/80 W/HEADACHE,H/O MIGRAINE CLEMENTS Time Seen by Provider: 01/01/22 22:27 Source: patient and EMS Mode of arrival: EMS Limitations: no limitations History of Present Illness HPI narrative: 81-year-old female past medical history significant for anxiety, constipation, GERD presenting to the emergency department with headache since this morning. Patient tells me that her headache is severe and localized to the front of her head, and the occipital area. She tells me that she has not had pain this bad before. She denies falling and hitting her head. She tells me the last time she fell was months ago. Upon her arrival via ambulance she was noted to be hypertensive. Her blood pressure on the ambulance is 190/80. Patient denies dizziness, changes vision, weakness, chest pain, shortness of breath, nausea, vomiting, photophobia, scotomas, abdominal pain, denies paresthesias, numbness. Onset (ago): day(s) (1) Location: head Radiation: non-radiation Severity: severe Severity scale (1-10): 10 Quality: constant and other (Throbbing) Pain Consistency: constant Relieving factors: none Exacerbating factors: none Associated symptoms: denies other symptoms Treatments prior to arrival: none Related Data Home Medications Medication Instructions Recorded Confirmed amlodipine 10 mg tablet 10 mg PO DAILY 12/24/20 escitalopram oxalate 5 mg tablet 5 mg PO DAILY 12/24/20 multivitamin 1 tab PO DAILY 12/24/20 nicotine 7 mg/24 hr daily 1 patch TRANSDERMAL BEDTIME 02/04/21 transdermal patch prazosin 1 mg capsule 1 mg PO BEDTIME 02/04/21 trazodone 50 mg tablet 25 mg PO BEDTIME PRN 02/04/21 Previous Rx's Medication Instructions Recorded docusate sodium 100 mg capsule 100 mg PO BID 30 Days #60 cap 12/24/20 (Colace) pantoprazole 40 mg tablet,delayed 40 mg PO DAILY 30 Days #30 tab 12/24/20 release (Protonix) sennosides 8.6 mg capsule (senna) 17.2 mg PO BEDTIME 30 Days #60 cap 12/24/20 polyethylene glycol 3350 17 238 g PO ONCE #238 g 02/20/21 gram/dose oral powder (Miralax) albuterol sulfate 90 mcg/actuation 2 puff PO Q2H PRN #18 g 02/21/21 aerosol inhaler umeclidinium 62.5 mcg-vilanterol 1 ea PO DAILY #60 cap 02/21/21 25 mcg/actuation powdr for inhalation (Anoro Ellipta) calcitonin (salmon) 200 1 spray INTRANASAL DAILY #3.7 ml 05/15/21 unit/actuation nasal spray bisacodyl 5 mg tablet,delayed 10 mg PO ONCE 30 Days #60 tab 07/30/21 release (Dulcolax (bisacodyl)) acetaminophen 325 mg capsule 650 mg PO Q6H PRN #20 cap 01/02/22 Allergies Allergy/AdvReac Type Severity Reaction Status Date / Time Iodinated Contrast Media Allergy Intermediate NAUSEA & Verified 07/30/21 08:43 [CONTRAST, IV] VOMITING morphine [MORPHINE] Allergy Intermediate NAUSEA & Verified 07/30/21 08:43 VOMITING oxycodone [From PERCOCET] Allergy Intermediate NAUSEA, Verified 07/30/21 08:43 WEAKNESS/VIOLENT Review of Systems Review of Systems: Constitutional : No Weight loss, No Fever, No Chills, No Fatigue, No Malaise ENT/Mouth : No sore throat, No Rhinorrhea Eyes: No Eye Pain, No Swelling, No Redness Cardiovascular : No Chest Pain, No SOB, No Dyspnea on Exertion, No Orthopnea, No Edema, No Palpitations Respiratory : No Cough, No Sputum, No Wheezing Gastrointestinal : No Nausea, No Vomiting, No Diarrhea, No Constipation, No abdominal Pain, No Hematochezia, No Melena Genitourinary : No Dysuria, No Urinary Frequency, No Hematuria, Musculoskeletal : No joint pain, No Myalgias, No Joint Swelling Skin : No Skin Lesions, No rash Neuro : No Weakness, No Numbness, No Dizziness, + Headache Psych : No Anxiety/Panic, No Depression All other systems reviewed and are negative Yes all other systems are reviewed and are negative [facility] Past Medical History Attestation statement: The following information was validated with the patient. Source: old records reviewed and nursing notes reviewed Medical History Acute arthritis Breast CA Cholecystitis HTN (hypertension) Surgical History History of back surgery History of esophagogastroduodenoscopy (EGD) Hx of breast biopsy Hx of colonoscopy Hx of foot surgery Family History Family History Father CVD (cardiovascular disease) HTN (hypertension) Brother Colon cancer Daughter No problems noted. Sister HTN (hypertension) Heart problem Osteoporosis Social History Social History Household Members: Children Alcohol intake: unknown Patient Tobacco Use Status: Tobacco use Unknown Cigarettes Per Day: 1 Advance Directives: No Advance Directives Information Provided: No Physical Exam ED Vital Signs: Vital Signs - 24 hr 01/01/22 22:14 01/01/22 23:00 01/02/22 00:29 Temperature 97.8 F Pulse Rate 65 66 67 Respiratory Rate 16 16 16 Blood Pressure 200/72 H 196/77 H 188/66 H Pulse Oximetry 97 98 96 BMI result Body Mass Index 20.5 VSS Appearance: Alert.? Oriented X3.? No acute distress.? Head: Normocephalic, atraumatic, no step-offs or deformities. Smile is equal. No facial droop. Eyes: Pupils equal, round and reactive to light.? Extraocular movement intact. ENT: Pharynx normal.? Neck: Normal inspection.? Neck supple.? No meningeal signs. CVS: Normal heart rate and rhythm.? Pulses normal.? Respiratory: No respiratory distress.? Breath sounds normal.? Abdomen: Soft and nontender.? Skin: Skin warm and dry.? Normal skin color.? Normal skin turgor.? Extremities: No lower extremity edema.? No calf ttp. 5/5 strength to bilateral upper and lower extremities Back: No midline tenderness, no C-spine tenderness, full range of motion, no CVA tenderness bilaterally Neuro: Oriented X 3.? No motor deficit.? No sensory deficit. CN 2-12 intact . Normal [id number], dito-bu-[id number]. Normal tandem gait. Course Course Course Narrative: To note patient's initial EKG had poor lead placement for this reason a 2nd EKG was obtained. Reevaluation(s) Reevaluation #1: CBC at patient's baseline no acute electrolyte abnormalities. Troponin negative. EKG nonischemic. Patient not reporting chest pain. UA appears to be at baseline. COVID negative. CT of the head with no acute intracranial pathology. Time: 00:57 Reevaluation #2: Amlodipine was given. Time: 01:08 Reevaluation #3: Patient's blood pressure 174/71. Significant improvement. She was given Tylenol for her headache. She tells me that her headache has completely resolved. And she is feeling so much better. She is able to ambulate with a steady gait. She tells me she feels well enough to go home. I advised her to follow-up with her PCP tomorrow for a blood pressure check, and to discuss changing/altering blood pressure medications. I advised her to check her blood pressures Mondays, Wednesdays and Fridays, write them down ensure these with her primary care provider. I gave her strict return precautions outlined them on her discharge in advised her to return with new or worsening symptoms. At this time patient tells me she has no pain. She also denies chest pain, shortness of breath, vision changes, dizziness, neck pain. Neuro exam is nonfocal. I feel comfortable with discharge home Medical Decision Making MDM Narrative Medical decision making narrative: 2229 81 yo f pmhx anxiety, htn, gerd, osteoporosis presents to the ED w/ hypertension and severe headache Physical examination benign. No focal neuro deficits. Patient appears well. Noted to be hypertensive upon her arrival. Systolic in the 200s. Physical examination concerning for CVA/intracranial hemorrhage. Will rule out with CT of head. Unlikely that this is a posterior infarct. Plan labs, imaging, EKG, cardiac monitoring. Medical Records Medical records reviewed: Yes I reviewed the patient's medical records. Lab Data Lab results reviewed: Yes I reviewed the patient's lab results. Result diagrams: 01/01/22 22:58 01/01/22 22:58 Labs: Lab Results 01/01/22 01/01/22 01/01/22 Range/Units 22:58 22:58 22:58 WBC 7.9 (4.8-10.8) X10*3/uL RBC 3.86 L (4.20-5.50) X10*6/uL Hgb 11.6 L (12.0-16.0) g/dl Hct 31.0 L (37.0-47.0) % MCV 80.3 (80.0-98.0) fL MCH 30.1 (27.0-33.0) pg MCHC 37.4 H (31.0-35.0) g/dl RDW 13.8 (11.0-16.0) % Plt Count 250 (160-400) X10*3/uL MPV 9.4 (9.4-12.3) fL Immature Gran % (Auto) 0.1 (0.0-0.4) % Neut % (Auto) 58.0 (45-73) % Lymph % (Auto) 31.5 (20-40) % [place] % (Auto) 7.6 (2-11) % Eos % (Auto) 2.4 (0-4) % Baso % (Auto) 0.4 (0-2) % Lymph # (Auto) 2.5 (1.2-4.9) X10*3/uL [place] # (Auto) 0.6 (0.1-1.2) X10*3/uL Eos # (Auto) 0.2 (0.0-0.4) X10*3/uL Baso # (Auto) 0.0 (0.0-0.2) X10*3/uL Abs Immat Gran (auto) 0.01 (0.00-0.03) X10*3/uL Absolute Neuts (auto) 4.6 (2.0-8.3) x10*3/uL Absolute Nucleated RBC 0.000 (0.0-0.012) X10*3/uL Nucleated RBC % (auto) 0.0 (0.0-0.2) /100WBC Sodium 138 (135-145) mmol/L Potassium 3.7 (3.3-5.1) mmol/L Chloride 102 (96-108) mmol/L Carbon Dioxide 28 (22-29) mmol/L Anion Gap 12 (12-20) BUN 7 L (9-16) mg/dL Creatinine 0.73 (0.5-1.4) mg/dL Estim Creat Clear Calc 40.3 Estimated GFR > 60 Random Glucose 95 (60-115) mg/dL Calcium 9.8 (8.4-10.2) mg/dL Magnesium 2.1 (1.6-2.6) mg/dL Total Bilirubin 0.7 (0.0-1.0) mg/dL AST 19 (5-31) U/L ALT 7 (0-31) U/L Alkaline Phosphatase 74 (39-117) U/L Troponin I High Sens 4.3 (<3.5-17.0) ng/L Total Protein 6.9 (6.5-8.0) g/dL Albumin 4.3 (3.5-5.0) g/dL Urine Color Urine Appearance Urine pH (5.0-8.0) Ur Specific [place] (1.005-1.025) Urine Protein (NEG-TRACE) MG/DL Urine Glucose (UA) (NEG) MG/DL Urine Ketones (NEG) MG/DL Urine Blood (NEG) Urine Nitrite (NEG) Ur Leukocyte Esterase (NEG) Urine RBC (0) /HPF Urine WBC (0-4) /HPF Ur Squamous Epith Cells /LPF Urine Bacteria /LPF COVID-19 (TONYA) (Negative) COVID-19 Clin Com 01/01/22 01/01/22 Range/Units 22:58 23:15 WBC (4.8-10.8) X10*3/uL RBC (4.20-5.50) X10*6/uL Hgb (12.0-16.0) g/dl Hct (37.0-47.0) % MCV (80.0-98.0) fL MCH (27.0-33.0) pg MCHC (31.0-35.0) g/dl RDW (11.0-16.0) % Plt Count (160-400) X10*3/uL MPV (9.4-12.3) fL Immature Gran % (Auto) (0.0-0.4) % Neut % (Auto) (45-73) % Lymph % (Auto) (20-40) % [place] % (Auto) (2-11) % Eos % (Auto) (0-4) % Baso % (Auto) (0-2) % Lymph # (Auto) (1.2-4.9) X10*3/uL [place] # (Auto) (0.1-1.2) X10*3/uL Eos # (Auto) (0.0-0.4) X10*3/uL Baso # (Auto) (0.0-0.2) X10*3/uL Abs Immat Gran (auto) (0.00-0.03) X10*3/uL Absolute Neuts (auto) (2.0-8.3) x10*3/uL Absolute Nucleated RBC (0.0-0.012) X10*3/uL Nucleated RBC % (auto) (0.0-0.2) /100WBC Sodium (135-145) mmol/L Potassium (3.3-5.1) mmol/L Chloride (96-108) mmol/L Carbon Dioxide (22-29) mmol/L Anion Gap (12-20) BUN (9-16) mg/dL Creatinine (0.5-1.4) mg/dL Estim Creat Clear Calc Estimated GFR Random Glucose (60-115) mg/dL Calcium (8.4-10.2) mg/dL Magnesium (1.6-2.6) mg/dL Total Bilirubin (0.0-1.0) mg/dL AST (5-31) U/L ALT (0-31) U/L Alkaline Phosphatase (39-117) U/L Troponin I High Sens (<3.5-17.0) ng/L Total Protein (6.5-8.0) g/dL Albumin (3.5-5.0) g/dL Urine Color YELLOW Urine Appearance CLEAR Urine pH 7.0 (5.0-8.0) Ur Specific [place] 1.010 (1.005-1.025) Urine Protein NEG (NEG-TRACE) MG/DL Urine Glucose (UA) NEG (NEG) MG/DL Urine Ketones NEG (NEG) MG/DL Urine Blood 1+ H (NEG) Urine Nitrite NEG (NEG) Ur Leukocyte Esterase NEG (NEG) Urine RBC 1-4 (0) /HPF Urine WBC 0 (0-4) /HPF Ur Squamous Epith Cells TRACE /LPF Urine Bacteria NONE /LPF COVID-19 (TONYA) Negative (Negative) COVID-19 Clin Com See Note ECG Data Attestation: I personally reviewed and interpreted this ECG as follows: Prior ECG tracings: available for review Interpretation: Ventricular rate of 58, W[place] normal, QRS normal, QT / QTC normal. EKG shows sinus bradycardia with left atrial enlargement. No ST elevations or inversions concerning for ischemia. No significant changes when compared to EKG from 12/26/2021. Had this EGK and previous ekg looked at by Dr. Sierra and Critical Care Time Critical Care Time Critical Care Time: No Discharge Plan Discharge Clinical Impression: Hypertension, Headache Patient Disposition: Home, Self-Care Instructions: Hypertension (ED) Additional Instructions: Take your medications as prescribed. If you were prescribed antibiotics today, it is important that you take your medication to their entirety, do not skip any doses, do not finish them early. Follow-up with your primary care provider tomorrow. Take Tylenol as needed for headache. Your blood pressure was elevated today, please check your blood pressure at home on mondays, wednesdays and fridays and share this information with your pcp Return to the emergency department with new or worsening symptoms. Such as headache, vision changes, dizziness, nausea, vomiting, chest pain, shortness of breath, weakness, fevers, chills, neck pain. In case of emergency call 911 [place] cuauhtemoc medicamentos seg?n lo prescrito. Si le recetaron antibi?ticos homoshe, es importante que tome arce medicamento en arce totalidad, no se salte ninguna dosis, no los termine antes de tiempo. Seguimiento con arce proveedor de atenci?n primaria ma?jem. [place] Tylenol seg?n sea necesario para el dolor de bacilio. Arce presi?n arterial se elev? hoy, controle arce presi?n arterial en casa los lunes, mi?rcoles y viernes y comparta esta informaci?n con arce PCP Regrese al departamento de emergencias con s?ntomas nuevos o que empeoran. [place] dolor de bacilio, cambios en la visi?n, mareos, n?useas, v?mitos, dolor de pecho, dificultad para respirar, debilidad, fiebre, escalofr?os, dolor de melquiades. En connie de emergencia llama al 911 Prescriptions: New acetaminophen 325 mg capsule 650 mg PO Q6H PRN (Reason: fever or pain) Qty: 20 0RF No Action umeclidinium-vilanterol [Anoro Ellipta] 62.5-25 mcg/actuation blister with device 1 ea PO DAILY Qty: 60 0RF albuterol sulfate 90 mcg/actuation HFA aerosol inhaler 2 puff PO Q2H PRN (Reason: shortness of breath or wheezing) Qty: 18 0RF calcitonin (salmon) 200 unit/actuation spray,non-aerosol 1 spray intranasal DAILY Qty: 3.7 6RF amlodipine 10 mg tablet 10 mg PO DAILY 0RF escitalopram oxalate 5 mg tablet 5 mg PO DAILY 0RF multivitamin Tablet 1 tab PO DAILY 0RF docusate sodium [Colace] 100 mg capsule 100 mg PO BID 30 Days Qty: 60 6RF senna 8.6 mg capsule 17.2 mg PO BEDTIME 30 Days Qty: 60 6RF Hold Instructions: Doctor's Order pantoprazole [Protonix] 40 mg tablet,delayed release (DR/EC) 40 mg PO DAILY 30 Days Qty: 30 6RF prazosin 1 mg capsule 1 mg PO BEDTIME 0RF trazodone 50 mg tablet 25 mg PO BEDTIME PRN0RF nicotine 7 mg/24 hr patch 24 hour 1 patch transdermal BEDTIME 0RF polyethylene glycol 3350 [Miralax] 17 gram/dose powder 238 g PO ONCE Qty: 238 0RF Rx Instructions: As directed by gastroenterology department at [facility] bisacodyl [Dulcolax (bisacodyl)] 5 mg tablet,delayed release (DR/EC) 10 mg PO ONCE 30 Days Qty: 60 3RF Rx Instructions: take 2 tabs at noon the day before your colonoscopy Referrals: [facility] [Primary Care Provider] - 2 days Print Language: German
--- NOTE | 2022-01-01 22:53 | ECG_ITS ---
Test Reason : HTN Blood Pressure : / mmHG Vent. Rate : 058 BPM Atrial Rate : 058 BPM P-R Int : 182 ms QRS Dur : 080 ms QT Int : 440 ms P-R-T Axes : 084 064 086 degrees QTc Int : 431 ms Sinus bradycardia Possible Left atrial enlargement Septal infarct (cited on or before 01-JAN-2022) Abnormal ECG When compared with ECG of 01-JAN-2022 22:38, No significant change was found Referred By: Talib Franklin Electronically Signed By:Mani Tineo
[2022-01-01] MEDS: amLODIPine Besylate 5 MG TABLET PO (22:59)
[2022-01-01 23:00] VITALS: BP 196/77; PULSE 66; RESP 16; O2SAT 98
[2022-01-01 23:04] LABS: Basophils Percent Auto 0.4 % (0-2); Eosinophils Absolute Auto 0.2 X10*3/uL (0.0-0.4); Eosinophils Percent Auto 2.4 % (0-4); Hemoglobin 11.6 g/dl (12.0-16.0); Imm Gran Abs Auto 0.01 X10*3/uL (0.00-0.03); Imm Gran Pct Auto 0.1 % (0.0-0.4); Lymphocytes Absolute Auto 2.5 X10*3/uL (1.2-4.9); Lymphocytes Percent Auto 31.5 % (20-40); MANUAL DIFF FLAG NO; Mean Corpuscular HGB Conc 37.4 g/dl (31.0-35.0); Mean Corpuscular Hemoglobin 30.1 pg (27.0-33.0); Mean Corpuscular Volume 80.3 fL (80.0-98.0); Mean Platelet Volume 9.4 fL (9.4-12.3); Monocytes Absolute Auto 0.6 X10*3/uL (0.1-1.2); Monocytes Percent Auto 7.6 % (2-11); Neutrophils Absolute Auto 4.6 x10*3/uL (2.0-8.3); Platelet Count 250 X10*3/uL (160-400); Red Blood Count 3.86 X10*6/uL (4.20-5.50); Red Cell Distribution Width 13.8 % (11.0-16.0); White Blood Count 7.9 X10*3/uL (4.8-10.8)
[2022-01-01 23:18] LABS: COVID-19 Test Negative (Negative)
[2022-01-01 23:22] LABS: Appearance Urine CLEAR; Color Urine YELLOW; Glucose Urine UA NEG (NEG); Leukocyte Esterase Urine NEG (NEG); Nitrite Urine NEG (NEG); UACC Culture Trigger NO; Urine Blood 1+ (NEG); Urine Ketones NEG (NEG); Urine Protein NEG (NEG-TRACE)
[2022-01-01 23:23] LABS: Alanine Aminotransferase 7 U/L (0-31); Albumin Level 4.3 g/dL (3.5-5.0); Alkaline Phosphatase 74 U/L (39-117); Anion Gap 12 (12-20); Aspartate Amino Transferase 19 U/L (5-31); Bilirubin Total 0.7 mg/dL (0.0-1.0); Blood Urea Nitrogen 7 mg/dL (9-16); Calcium 9.8 mg/dL (8.4-10.2); Carbon Dioxide 28 mmol/L (22-29); Chloride 102 mmol/L (96-108); Creatinine Clr Calc Pharmacy 40.3; Estimated Glomerular Filt Rate > 60; Glucose Random 95 mg/dL (60-115); Magnesium 2.1 mg/dL (1.6-2.6); Potassium 3.7 mmol/L (3.3-5.1); Sodium 138 mmol/L (135-145); Total Protein 6.9 g/dL (6.5-8.0)
[2022-01-01 23:26] LABS: Troponin-I High Sensitivity 4.3 ng/L (<3.5-17.0)
[2022-01-01 23:46] LABS: Squamous Epithelial Cell Urine TRACE /LPF; WBC Urine 0 /HPF (0-4)
[2022-01-02 00:29] VITALS: BP 188/66; PULSE 67; RESP 16; O2SAT 96
[2022-01-02] MEDS: Acetaminophen 325 MG TABLET 975 MG PO (01:04)
[2022-01-02 01:38] VITALS: BP 170/65; PULSE 69
== END 2022-01-02 01:50 | disposition home or self-care (01) ==
PROVIDERS: Physician Assistant; Emergency Provider Internal Medicine
DX: R51.9 Headache, unspecified (principal); I10 Essential (primary) hypertension; Z20.822 Contact with and (suspected) exposure to COVID-19
CPT/HCPCS: 70450; 80053; 81001; 83735; 84484; 85025; 87635; 93005; 99284

== ENCOUNTER 2022-01-17 00:33 | Emergency (ER) | payer MEDICARE, SELFPAY ==
--- NOTE | ~2022-01-17 | XR_ITS ---
EXAMINATION: XR CHEST CLINICAL INFORMATION: Hypertension COMPARISON: 03/23/2021 TECHNIQUE: Frontal view of the chest was obtained. FINDINGS: The lungs are well expanded. There is no focal consolidation, edema, or effusion. No pneumothorax. The cardiomediastinal silhouette is within normal limits of size with a calcified aorta. No acute osseous abnormality. Right upper quadrant surgical clips. XR/XR chest 1V IMPRESSION: No acute pulmonary finding.
[2022-01-17 02:08] VITALS: BP 160/70; PULSE 66; RESP 18; TEMP 36.6; O2SAT 96; BMI 21.2
[2022-01-17 02:29] LABS: MANUAL DIFF FLAG NO
[2022-01-17 02:30] LABS: Basophils Percent Auto 0.2 % (0-2); Eosinophils Absolute Auto 0.2 X10*3/uL (0.0-0.4); Eosinophils Percent Auto 2.6 % (0-4); Hematocrit 30.7 % (37.0-47.0); Hemoglobin 11.4 g/dl (12.0-16.0); Imm Gran Abs Auto 0.03 X10*3/uL (0.00-0.03); Imm Gran Pct Auto 0.4 % (0.0-0.4); Lymphocytes Absolute Auto 3.2 X10*3/uL (1.2-4.9); Lymphocytes Percent Auto 38.1 % (20-40); Mean Corpuscular HGB Conc 37.1 g/dl (31.0-35.0); Mean Corpuscular Hemoglobin 29.8 pg (27.0-33.0); Mean Corpuscular Volume 80.2 fL (80.0-98.0); Mean Platelet Volume 9.2 fL (9.4-12.3); Monocytes Absolute Auto 0.6 X10*3/uL (0.1-1.2); Monocytes Percent Auto 7.1 % (2-11); Neutrophils Absolute Auto 4.3 x10*3/uL (2.0-8.3); Neutrophils Percent Auto 51.6 % (45-73); Platelet Count 249 X10*3/uL (160-400); Red Blood Count 3.83 X10*6/uL (4.20-5.50); White Blood Count 8.4 X10*3/uL (4.8-10.8)
[2022-01-17 02:52] LABS: Alanine Aminotransferase 13 U/L (0-31); Albumin Level 4.1 g/dL (3.5-5.0); Alkaline Phosphatase 72 U/L (39-117); Anion Gap 11 (12-20); Aspartate Amino Transferase 18 U/L (5-31); Bilirubin Total 0.4 mg/dL (0.0-1.0); Blood Urea Nitrogen 8 mg/dL (9-16); Calcium 9.6 mg/dL (8.4-10.2); Carbon Dioxide 27 mmol/L (22-29); Chloride 103 mmol/L (96-108); Creatinine Clr Calc Pharmacy 46.9; Estimated Glomerular Filt Rate > 60; Glucose Random 93 mg/dL (60-115); Potassium 3.8 mmol/L (3.3-5.1); Sodium 137 mmol/L (135-145); Total Protein 6.6 g/dL (6.5-8.0)
[2022-01-17 02:56] LABS: Troponin-I High Sensitivity 3.5 ng/L (<3.5-17.0)
[2022-01-17 06:07] VITALS: BP 171/68; PULSE 55; RESP 18; TEMP 36.7; O2SAT 99
--- NOTE | 2022-01-17 07:06 | ED_ITS ---
HPI - General Adult General Chief complaint: General Medical Stated complaint: gen med Time Seen by Provider: 01/17/22 07:06 Source: patient and full time staff interpreter Mode of arrival: ambulatory Limitations: no limitations History of Present Illness HPI narrative: 82-year-old female came in for evaluation of elevated blood pressure. known history of high blood pressure taking lisinopril 30 mg for her blood pressure, patient's son usually check blood pressure for her was high patient had no headache, no chest pain. no shortness of breath. Patient had to wait in the emergency department for about 8 hours, remained asy mptomatic. Patient was complaining of 2 days of nonbloody watery diarrhea that has improved now. Patient also was complaining of right upper quadrant pain that lasted for 1 or 2 hours and resolved now. Patient currently have no complain. Related Data Home Medications Medication Instructions Recorded Confirmed amlodipine 10 mg tablet 10 mg PO DAILY 12/24/20 escitalopram oxalate 5 mg tablet 5 mg PO DAILY 12/24/20 multivitamin 1 tab PO DAILY 12/24/20 nicotine 7 mg/24 hr daily 1 patch TRANSDERMAL BEDTIME 02/04/21 transdermal patch prazosin 1 mg capsule 1 mg PO BEDTIME 02/04/21 trazodone 50 mg tablet 25 mg PO BEDTIME PRN 02/04/21 Previous Rx's Medication Instructions Recorded docusate sodium 100 mg capsule 100 mg PO BID 30 Days #60 cap 12/24/20 (Colace) pantoprazole 40 mg tablet,delayed 40 mg PO DAILY 30 Days #30 tab 12/24/20 release (Protonix) sennosides 8.6 mg capsule (senna) 17.2 mg PO BEDTIME 30 Days #60 cap 12/24/20 polyethylene glycol 3350 17 238 g PO ONCE #238 g 02/20/21 gram/dose oral powder (Miralax) albuterol sulfate 90 mcg/actuation 2 puff PO Q2H PRN #18 g 02/21/21 aerosol inhaler umeclidinium 62.5 mcg-vilanterol 1 ea PO DAILY #60 cap 02/21/21 25 mcg/actuation powdr for inhalation (Anoro Ellipta) calcitonin (salmon) 200 1 spray INTRANASAL DAILY #3.7 ml 05/15/21 unit/actuation nasal spray bisacodyl 5 mg tablet,delayed 10 mg PO ONCE 30 Days #60 tab 07/30/21 release (Dulcolax (bisacodyl)) acetaminophen 325 mg capsule 650 mg PO Q6H PRN #20 cap 01/02/22 Allergies Allergy/AdvReac Type Severity Reaction Status Date / Time Iodinated Contrast Media Allergy Intermediate NAUSEA & Verified 07/30/21 08:43 [CONTRAST, IV] VOMITING morphine [MORPHINE] Allergy Intermediate NAUSEA & Verified 07/30/21 08:43 VOMITING oxycodone [From PERCOCET] Allergy Intermediate NAUSEA, Verified 07/30/21 08:43 WEAKNESS/VIOLENT Review of Systems Review of Systems: All other systems are reviewed and are negative Constitutional: Reports as per HPI and Reports no additional constitutional complaints Eyes: Reports as per HPI and Reports no additional eye complaints Reports system reviewed and no additional complaints, except as documented Cardiovascular: Reports as per HPI and Reports no additional cardiovascular complaints Respiratory: Reports as per HPI and Reports no additional respiratory complaints Gastrointestinal: Reports as per HPI and Reports no additional gastrointestinal complaints Genitourinary: Reports no additional female genitourinary complaints Musculoskeletal: Reports no additional musculoskeletal complaints Skin/Breast: Reports system reviewed and no additional complaints, except as docu Psychiatric: Reports no additional psychiatric complaints Endocrine: Reports no additional endocrine complaints Hematologic/Lymphatic: Reports no additional hematologic/lymphatic complaints Allergic/Immunologic: Reports no additional allergic/immunologic complaints Reports system reviewed and no additional complaints, except as documented and Reports Abnormal speech present [facility] Past Medical History Medical History Acute arthritis Breast CA Cholecystitis HTN (hypertension) Surgical History History of back surgery History of esophagogastroduodenoscopy (EGD) Hx of breast biopsy Hx of colonoscopy Hx of foot surgery Family History Family History Father CVD (cardiovascular disease) HTN (hypertension) Brother Colon cancer Daughter No problems noted. Sister HTN (hypertension) Heart problem Osteoporosis Social History Social History Household Members: Children Alcohol intake: unknown Patient Tobacco Use Status: Tobacco use Unknown Cigarettes Per Day: 1 Advance Directives: No Advance Directives Information Provided: Yes Physical Exam ED Vital Signs: Vital Signs - 24 hr 01/17/22 02:08 01/17/22 06:07 Temperature 97.9 F 98.1 F Pulse Rate 66 55 Respiratory Rate 18 18 Blood Pressure 160/70 H 171/68 H Pulse Oximetry 96 99 BMI result Body Mass Index 21.2 vital signs have been reviewed as appeared to be correct. Blood pressure normal. Heart rate normal. Respiration rate normal. Temperature normal. Oxygen saturation normal. Appearance: Alert. Oriented X3. No acute distress. Head: Normal external exam. Normocephalic. Atraumatic. No Bonilla signs noted. No raccoon eyes noted Eyes: PERRLA. EOMI. Conjunctiva and sclera normal. Eyelids normal. ENT: TM's Normal. Pharynx normal. Uvula midline. Moist mucous membranes. No trismus noted. No drooling noted. No muffled voice noted. Neck: Normal inspection. Neck supple. FROM. No adenopathy. Thyroid Normal. No meningeal signs. No neck mass noted. CVS: Normal heart rate and rhythm. Heart sound normal. No murmurs noted. Pulses normal throughout. Respiratory: No respiratory distress. Painless inspiration. Breath sounds normal. No wheezes/rales/rhonchi noted. Chest nontender. No accessory muscle usage noted or decreased air movement noted. Abdomen: Soft and nontender. Bowel sounds normal in all 4 quadrants. No distention noted. No organomegaly noted. No visible injury noted. Back: No CVA tenderness. Full range of motion noted. Skin: Skin warm and dry. Normal skin color. Normal skin turgor. No rashes/lesions/lacerations noted. Extremities: No lower extremity edema. Extremities exhibit normal range of motion. Extremities nontender. Neuro: Oriented X 3. Cranial nerve exam: II-XII are grossly intact No motor deficit. No sensory deficit. Reflexes normal. Course Course Course Narrative: assessment and plan. 82-year-old female came in for evaluation of asymptomatic high blood pressure reading at home, patient is compliant with her blood pressure medication, patient currently has no complain. No abdominal pain and abdominal exam revealed no tenderness in the abdomen in particular in the right upper quadrant area. Son at the bedside will discharge patient home. Medical Decision Making Lab Data Lab results reviewed: Yes I reviewed the patient's lab results. Result diagrams: 01/17/22 02:26 01/17/22 02:26 Labs: Lab Results 01/17/22 01/17/22 01/17/22 Range/Units 02:26 02:26 02:26 WBC 8.4 (4.8-10.8) X10*3/uL RBC 3.83 L (4.20-5.50) X10*6/uL Hgb 11.4 L (12.0-16.0) g/dl Hct 30.7 L (37.0-47.0) % MCV 80.2 (80.0-98.0) fL MCH 29.8 (27.0-33.0) pg MCHC 37.1 H (31.0-35.0) g/dl RDW 14.0 (11.0-16.0) % Plt Count 249 (160-400) X10*3/uL MPV 9.2 L (9.4-12.3) fL Immature Gran % (Auto) 0.4 (0.0-0.4) % Neut % (Auto) 51.6 (45-73) % Lymph % (Auto) 38.1 (20-40) % [place] % (Auto) 7.1 (2-11) % Eos % (Auto) 2.6 (0-4) % Baso % (Auto) 0.2 (0-2) % Lymph # (Auto) 3.2 (1.2-4.9) X10*3/uL [place] # (Auto) 0.6 (0.1-1.2) X10*3/uL Eos # (Auto) 0.2 (0.0-0.4) X10*3/uL Baso # (Auto) 0.0 (0.0-0.2) X10*3/uL Abs Immat Gran (auto) 0.03 (0.00-0.03) X10*3/uL Absolute Neuts (auto) 4.3 (2.0-8.3) x10*3/uL Absolute Nucleated RBC 0.000 (0.0-0.012) X10*3/uL Nucleated RBC % (auto) 0.0 (0.0-0.2) /100WBC Sodium 137 (135-145) mmol/L Potassium 3.8 (3.3-5.1) mmol/L Chloride 103 (96-108) mmol/L Carbon Dioxide 27 (22-29) mmol/L Anion Gap 11 L (12-20) BUN 8 L (9-16) mg/dL Creatinine 0.79 (0.5-1.4) mg/dL Estim Creat Clear Calc 46.9 Estimated GFR > 60 Random Glucose 93 (60-115) mg/dL Calcium 9.6 (8.4-10.2) mg/dL Total Bilirubin 0.4 (0.0-1.0) mg/dL AST 18 (5-31) U/L ALT 13 (0-31) U/L Alkaline Phosphatase 72 (39-117) U/L Troponin I High Sens 3.5 (<3.5-17.0) ng/L Total Protein 6.6 (6.5-8.0) g/dL Albumin 4.1 (3.5-5.0) g/dL Imaging Data Chest x-ray: Attestation: I personally reviewed and interpreted this imaging study as follows: Radiologist's impression: No acute pathology. Discharge Plan Discharge Clinical Impression: Hypertension Patient Disposition: Home, Self-Care Instructions: Hypertension (ED) Prescriptions: No Action umeclidinium-vilanterol [Anoro Ellipta] 62.5-25 mcg/actuation blister with device 1 ea PO DAILY Qty: 60 0RF albuterol sulfate 90 mcg/actuation HFA aerosol inhaler 2 puff PO Q2H PRN (Reason: shortness of breath or wheezing) Qty: 18 0RF calcitonin (salmon) 200 unit/actuation spray,non-aerosol 1 spray intranasal DAILY Qty: 3.7 6RF acetaminophen 325 mg capsule 650 mg PO Q6H PRN (Reason: fever or pain) Qty: 20 0RF amlodipine 10 mg tablet 10 mg PO DAILY 0RF escitalopram oxalate 5 mg tablet 5 mg PO DAILY 0RF multivitamin Tablet 1 tab PO DAILY 0RF docusate sodium [Colace] 100 mg capsule 100 mg PO BID 30 Days Qty: 60 6RF senna 8.6 mg capsule 17.2 mg PO BEDTIME 30 Days Qty: 60 6RF Hold Instructions: Doctor's Order pantoprazole [Protonix] 40 mg tablet,delayed release (DR/EC) 40 mg PO DAILY 30 Days Qty: 30 6RF prazosin 1 mg capsule 1 mg PO BEDTIME 0RF trazodone 50 mg tablet 25 mg PO BEDTIME PRN0RF nicotine 7 mg/24 hr patch 24 hour 1 patch transdermal BEDTIME 0RF polyethylene glycol 3350 [Miralax] 17 gram/dose powder 238 g PO ONCE Qty: 238 0RF Rx Instructions: As directed by gastroenterology department at [facility] bisacodyl [Dulcolax (bisacodyl)] 5 mg tablet,delayed release (DR/EC) 10 mg PO ONCE 30 Days Qty: 60 3RF Rx Instructions: take 2 tabs at noon the day before your colonoscopy Referrals: Physician,Unknown J [Primary Care Provider] - 2 days
--- NOTE | 2022-01-17 08:59 | PC.NURSE ---
update to john, daughter,
== END 2022-01-17 09:19 | disposition home or self-care (01) ==
PROVIDERS: Emergency Provider Emergency Medicine
DX: I10 Essential (primary) hypertension (principal)
CPT/HCPCS: 36415; 71045; 80053; 84484; 85025; 99283; 99284

== ENCOUNTER 2022-02-04 00:05 | Emergency (ER) | payer OTHER, SELFPAY ==
--- NOTE | ~2022-02-04 | XR_ITS ---
EXAMINATION: XR CHEST CLINICAL INFORMATION: High blood pressure COMPARISON: 01/17/2022 TECHNIQUE: 2 views of the chest were obtained. FINDINGS: Lungs appear hyperinflated suggesting underlying COPD. No focal consolidation is seen. No evidence of pneumothorax, pleural effusion, or pulmonary edema. Cardiac size is within normal limits. There is atherosclerotic calcification along the aorta. No acute osseous findings are seen. XR/XR chest 2V IMPRESSION: No acute cardiopulmonary findings.
--- NOTE | 2022-02-04 00:35 | ECG_ITS ---
Test Reason : hbp Blood Pressure : / mmHG Vent. Rate : 057 BPM Atrial Rate : 057 BPM P-R Int : 166 ms QRS Dur : 080 ms QT Int : 424 ms P-R-T Axes : 078 057 087 degrees QTc Int : 412 ms Sinus bradycardia Septal infarct (cited on or before 01-JAN-2022) Abnormal ECG When compared with ECG of 01-JAN-2022 23:00, No significant change was found Referred By: Karolina Fletcher Electronically Signed By:RYANNE CLAY MD
[2022-02-04 01:22] LABS: MANUAL DIFF FLAG NO
[2022-02-04 01:23] LABS: Basophils Percent Auto 0.4 % (0-2); Eosinophils Absolute Auto 0.2 X10*3/uL (0.0-0.4); Eosinophils Percent Auto 2.3 % (0-4); Hemoglobin 12.1 g/dl (12.0-16.0); Imm Gran Abs Auto 0.02 X10*3/uL (0.00-0.03); Imm Gran Pct Auto 0.2 % (0.0-0.4); Lymphocytes Absolute Auto 2.7 X10*3/uL (1.2-4.9); Lymphocytes Percent Auto 32.7 % (20-40); Mean Corpuscular HGB Conc 36.7 g/dl (31.0-35.0); Mean Corpuscular Hemoglobin 29.5 pg (27.0-33.0); Mean Corpuscular Volume 80.5 fL (80.0-98.0); Mean Platelet Volume 9.7 fL (9.4-12.3); Monocytes Absolute Auto 0.6 X10*3/uL (0.1-1.2); Monocytes Percent Auto 7.4 % (2-11); Neutrophils Absolute Auto 4.7 x10*3/uL (2.0-8.3); Platelet Count 241 X10*3/uL (160-400); Red Cell Distribution Width 14.1 % (11.0-16.0); White Blood Count 8.2 X10*3/uL (4.8-10.8)
[2022-02-04 01:29] LABS: INTERNATIONAL NORM RATIO 1.1 (0.9-1.1)
[2022-02-04 01:43] LABS: Troponin-I High Sensitivity < 3.5 ng/L (<3.5-17.0)
[2022-02-04 01:45] LABS: Alanine Aminotransferase 13 U/L (0-31); Albumin Level 4.2 g/dL (3.5-5.0); Alkaline Phosphatase 71 U/L (39-117); Anion Gap 13 (12-20); Aspartate Amino Transferase 19 U/L (5-31); Bilirubin Total 0.8 mg/dL (0.0-1.0); Blood Urea Nitrogen 11 mg/dL (9-16); Calcium 9.9 mg/dL (8.4-10.2); Carbon Dioxide 26 mmol/L (22-29); Chloride 104 mmol/L (96-108); Estimated Glomerular Filt Rate > 60; Glucose Random 112 mg/dL (60-115); Magnesium 2.2 mg/dL (1.6-2.6); Potassium 3.5 mmol/L (3.3-5.1); Sodium 139 mmol/L (135-145); Total Protein 6.9 g/dL (6.5-8.0)
[2022-02-04 02:01] VITALS: BP 183/71; PULSE 67; RESP 18; TEMP 36.4; O2SAT 99
== END 2022-02-04 07:10 | disposition left against medical advice (07) ==
PROVIDERS: Physician Assistant Medical; Emergency Provider Emergency Medicine
DX: I10 Essential (primary) hypertension (principal)
CPT/HCPCS: 36415; 71046; 80053; 83735; 84484; 85025; 85610; 93005; 99283

== ENCOUNTER 2022-02-22 18:16 | Emergency (ER) | payer OTHER, SELFPAY ==
--- NOTE | 2022-02-22 | ECG_ITS ---
Test Reason : PALPITATIONS Blood Pressure : / mmHG Vent. Rate : 066 BPM Atrial Rate : 066 BPM P-R Int : 160 ms QRS Dur : 080 ms QT Int : 408 ms P-R-T Axes : 087 061 085 degrees QTc Int : 427 ms x Normal sinus rhythm Possible Left atrial enlargement Minimal voltage criteria for LVH, may be normal variant ( [place] product ) Anterior infarct (cited on or before 01-JAN-2022) Abnormal ECG When compared with ECG of 04-FEB-2022 01:01, Serial changes of Anterior infarct Present Referred By: Generic ED Physician Electronically Signed By:RYANNE CLAY MD
--- NOTE | ~2022-02-22 | XR_ITS ---
EXAMINATION: XR CHEST CLINICAL INFORMATION: High blood pressure and palpitations. COMPARISON: Chest radiograph dated from 02/04/2022. TECHNIQUE: 2 views of the chest were obtained. FINDINGS: Atherosclerotic disease of the thoracic aorta. Stable appearance of the cardiomediastinal silhouette. Redemonstration of pulmonary hyperexpansion, biapical subpleural thickening/scarring and chronic interstitial prominence. No new focal airspace opacities, pleural effusions or pneumothorax. No acute osseous abnormalities. Thoracic spondylosis. XR/XR chest 2V IMPRESSION: Stable examination. No acute cardiopulmonary findings.
[2022-02-22 18:28] VITALS: BP 170/61; PULSE 67; RESP 20; TEMP 36.4; O2SAT 100; BMI 13.6
[2022-02-22 18:50] LABS: MANUAL DIFF FLAG NO
[2022-02-22 18:51] LABS: Basophils Percent Auto 0.2 % (0-2); Eosinophils Absolute Auto 0.2 X10*3/uL (0.0-0.4); Eosinophils Percent Auto 1.9 % (0-4); Hematocrit 32.5 % (37.0-47.0); Hemoglobin 12.1 g/dl (12.0-16.0); Imm Gran Abs Auto 0.03 X10*3/uL (0.00-0.03); Imm Gran Pct Auto 0.3 % (0.0-0.4); Lymphocytes Absolute Auto 2.2 X10*3/uL (1.2-4.9); Lymphocytes Percent Auto 26.1 % (20-40); Mean Corpuscular HGB Conc 37.2 g/dl (31.0-35.0); Mean Corpuscular Hemoglobin 29.3 pg (27.0-33.0); Mean Corpuscular Volume 78.7 fL (80.0-98.0); Mean Platelet Volume 8.8 fL (9.4-12.3); Monocytes Absolute Auto 0.6 X10*3/uL (0.1-1.2); Monocytes Percent Auto 6.6 % (2-11); Neutrophils Absolute Auto 5.6 x10*3/uL (2.0-8.3); Neutrophils Percent Auto 64.9 % (45-73); Platelet Count 358 X10*3/uL (160-400); Red Blood Count 4.13 X10*6/uL (4.20-5.50); Red Cell Distribution Width 13.9 % (11.0-16.0); White Blood Count 8.6 X10*3/uL (4.8-10.8)
[2022-02-22 19:03] LABS: Anion Gap 11 (12-20); Blood Urea Nitrogen 11 mg/dL (9-16); Calcium 9.5 mg/dL (8.4-10.2); Carbon Dioxide 29 mmol/L (22-29); Chloride 98 mmol/L (96-108); Creatinine Clr Calc Pharmacy 28.7; Estimated Glomerular Filt Rate > 60; Glucose Random 96 mg/dL (60-115); Potassium 4.1 mmol/L (3.3-5.1); Sodium 134 mmol/L (135-145)
[2022-02-22 19:10] LABS: Troponin-I High Sensitivity 6.1 ng/L (<3.5-17.0)
[2022-02-22 22:05] LABS: Troponin-I High Sensitivity 5.2 ng/L (<3.5-17.0)
--- NOTE | 2022-02-22 22:47 | ED.GENADULT ---
HPI - General Adult General Chief complaint: General Medical Stated complaint: High Blood pressure Time Seen by Provider: 02/22/22 20:34 History of Present Illness HPI narrative: 82-year-old female presents today with having elevated blood pressure patient denies any symptoms. No headache no chest pain or shortness breath no nausea no vomiting. No fever no chills. No new adjustments to her medication. Patient from home. Related Data Home Medications Medication Instructions Recorded Confirmed amlodipine 10 mg tablet 10 mg PO DAILY 12/24/20 escitalopram oxalate 5 mg tablet 5 mg PO DAILY 12/24/20 multivitamin 1 tab PO DAILY 12/24/20 nicotine 7 mg/24 hr daily 1 patch TRANSDERMAL BEDTIME 02/04/21 transdermal patch prazosin 1 mg capsule 1 mg PO BEDTIME 02/04/21 trazodone 50 mg tablet 25 mg PO BEDTIME PRN 02/04/21 Previous Rx's Medication Instructions Recorded docusate sodium 100 mg capsule 100 mg PO BID 30 Days #60 cap 12/24/20 (Colace) pantoprazole 40 mg tablet,delayed 40 mg PO DAILY 30 Days #30 tab 12/24/20 release (Protonix) sennosides 8.6 mg capsule (senna) 17.2 mg PO BEDTIME 30 Days #60 cap 12/24/20 polyethylene glycol 3350 17 238 g PO ONCE #238 g 02/20/21 gram/dose oral powder (Miralax) albuterol sulfate 90 mcg/actuation 2 puff PO Q2H PRN #18 g 02/21/21 aerosol inhaler umeclidinium 62.5 mcg-vilanterol 1 ea PO DAILY #60 cap 02/21/21 25 mcg/actuation powdr for inhalation (Anoro Ellipta) calcitonin (salmon) 200 1 spray INTRANASAL DAILY #3.7 ml 05/15/21 unit/actuation nasal spray bisacodyl 5 mg tablet,delayed 10 mg PO ONCE 30 Days #60 tab 07/30/21 release (Dulcolax (bisacodyl)) acetaminophen 325 mg capsule 650 mg PO Q6H PRN #20 cap 01/02/22 Allergies Allergy/AdvReac Type Severity Reaction Status Date / Time Iodinated Contrast Media Allergy Intermediate NAUSEA & Verified 07/30/21 08:43 [CONTRAST, IV] VOMITING morphine [MORPHINE] Allergy Intermediate NAUSEA & Verified 07/30/21 08:43 VOMITING oxycodone [From PERCOCET] Allergy Intermediate NAUSEA, Verified 07/30/21 08:43 WEAKNESS/VIOLENT Review of Systems Review of Systems: No fever no chills no cough no congestion no focal weakness no nausea no vomiting compliant with medication no adjustment of medications. Yes all other systems are reviewed and are negative [facility] Past Medical History Attestation statement: The following information was validated with the patient. Medical History Acute arthritis Breast CA Cholecystitis HTN (hypertension) Surgical History History of back surgery History of esophagogastroduodenoscopy (EGD) Hx of breast biopsy Hx of colonoscopy Hx of foot surgery Family History Family History Father CVD (cardiovascular disease) HTN (hypertension) Brother Colon cancer Daughter No problems noted. Sister HTN (hypertension) Heart problem Osteoporosis Social History Social History Household Members: Children Alcohol intake: unknown Patient Tobacco Use Status: Tobacco use Unknown Cigarettes Per Day: 1 Advance Directives: No Advance Directives Information Provided: No Physical Exam ED Vital Signs: Vital Signs - 24 hr 02/22/22 18:28 Temperature 97.5 F Pulse Rate 67 Respiratory Rate 20 Blood Pressure 170/61 H Pulse Oximetry 100 BMI result Body Mass Index 13.6 Appearance: Alert. Oriented X3. No acute distress. Eyes: Pupils equal, round and reactive to light. ENT: Pharynx normal. Neck: Normal inspection. Neck supple. No lymph nodes noted. No crepitus CVS: Normal heart rate and rhythm. Pulses normal. Normal S1 and S2 Respiratory: No respiratory distress. Breath sounds normal. No Wheezing. No rales Abdomen: Soft and nontender. No rigidity. No distention. good BS x4 Skin: Skin warm and dry. Normal skin color. Normal skin turgor. Extremities: No lower extremity edema. Neurovascular intact to all extremities. No Lacerations. No Rash Neuro: Oriented X 3. No motor deficit. No sensory deficit. Moving all extermities. No slurred speech Medical Decision Making MDM Narrative Medical decision making narrative: Patient's blood pressure in the emergency department was 170/61. EKG showed a sinus pattern heart rate was 70 there is criteria for LVH. This is unchanged. Patient also had T-wave inversion in aVL and in lead V2. This is also unchanged from previous. Patient's electrolytes unremarkable. To set the enzyme were done prior to my arrival there were both negative serial enzymes were not elevated. Will discharge patient home. Patient told to follow up closely with her primary physician and have blood pressure recheck in 24-48 hours Lab Data Result diagrams: 02/22/22 18:45 02/22/22 18:44 Labs: Lab Results 02/22/22 02/22/22 02/22/22 Range/Units 18:44 18:44 18:45 WBC 8.6 (4.8-10.8) X10*3/uL RBC 4.13 L (4.20-5.50) X10*6/uL Hgb 12.1 (12.0-16.0) g/dl Hct 32.5 L (37.0-47.0) % MCV 78.7 L (80.0-98.0) fL MCH 29.3 (27.0-33.0) pg MCHC 37.2 H (31.0-35.0) g/dl RDW 13.9 (11.0-16.0) % Plt Count 358 D (160-400) X10*3/uL MPV 8.8 L (9.4-12.3) fL Immature Gran % (Auto) 0.3 (0.0-0.4) % Neut % (Auto) 64.9 (45-73) % Lymph % (Auto) 26.1 (20-40) % [place] % (Auto) 6.6 (2-11) % Eos % (Auto) 1.9 (0-4) % Baso % (Auto) 0.2 (0-2) % Lymph # (Auto) 2.2 (1.2-4.9) X10*3/uL [place] # (Auto) 0.6 (0.1-1.2) X10*3/uL Eos # (Auto) 0.2 (0.0-0.4) X10*3/uL Baso # (Auto) 0.0 (0.0-0.2) X10*3/uL Abs Immat Gran (auto) 0.03 (0.00-0.03) X10*3/uL Absolute Neuts (auto) 5.6 (2.0-8.3) x10*3/uL Absolute Nucleated RBC 0.000 (0.0-0.012) X10*3/uL Nucleated RBC % (auto) 0.0 (0.0-0.2) /100WBC Sodium 134 L (135-145) mmol/L Potassium 4.1 (3.3-5.1) mmol/L Chloride 98 (96-108) mmol/L Carbon Dioxide 29 (22-29) mmol/L Anion Gap 11 L (12-20) BUN 11 (9-16) mg/dL Creatinine 0.86 (0.5-1.4) mg/dL Estim Creat Clear Calc 28.7 Estimated GFR > 60 Random Glucose 96 (60-115) mg/dL Calcium 9.5 (8.4-10.2) mg/dL Troponin I High Sens 6.1 D (<3.5-17.0) ng/L 02/22/22 Range/Units 21:34 WBC (4.8-10.8) X10*3/uL RBC (4.20-5.50) X10*6/uL Hgb (12.0-16.0) g/dl Hct (37.0-47.0) % MCV (80.0-98.0) fL MCH (27.0-33.0) pg MCHC (31.0-35.0) g/dl RDW (11.0-16.0) % Plt Count (160-400) X10*3/uL MPV (9.4-12.3) fL Immature Gran % (Auto) (0.0-0.4) % Neut % (Auto) (45-73) % Lymph % (Auto) (20-40) % [place] % (Auto) (2-11) % Eos % (Auto) (0-4) % Baso % (Auto) (0-2) % Lymph # (Auto) (1.2-4.9) X10*3/uL [place] # (Auto) (0.1-1.2) X10*3/uL Eos # (Auto) (0.0-0.4) X10*3/uL Baso # (Auto) (0.0-0.2) X10*3/uL Abs Immat Gran (auto) (0.00-0.03) X10*3/uL Absolute Neuts (auto) (2.0-8.3) x10*3/uL Absolute Nucleated RBC (0.0-0.012) X10*3/uL Nucleated RBC % (auto) (0.0-0.2) /100WBC Sodium (135-145) mmol/L Potassium (3.3-5.1) mmol/L Chloride (96-108) mmol/L Carbon Dioxide (22-29) mmol/L Anion Gap (12-20) BUN (9-16) mg/dL Creatinine (0.5-1.4) mg/dL Estim Creat Clear Calc Estimated GFR Random Glucose (60-115) mg/dL Calcium (8.4-10.2) mg/dL Troponin I High Sens 5.2 (<3.5-17.0) ng/L Discharge Plan Discharge Clinical Impression: Hypertension Patient Disposition: Home, Self-Care Instructions: Chronic Hypertension (DC), Hypertension (ED) Prescriptions: No Action umeclidinium-vilanterol [Anoro Ellipta] 62.5-25 mcg/actuation blister with device 1 ea PO DAILY Qty: 60 0RF albuterol sulfate 90 mcg/actuation HFA aerosol inhaler 2 puff PO Q2H PRN (Reason: shortness of breath or wheezing) Qty: 18 0RF calcitonin (salmon) 200 unit/actuation spray,non-aerosol 1 spray intranasal DAILY Qty: 3.7 6RF acetaminophen 325 mg capsule 650 mg PO Q6H PRN (Reason: fever or pain) Qty: 20 0RF amlodipine 10 mg tablet 10 mg PO DAILY 0RF escitalopram oxalate 5 mg tablet 5 mg PO DAILY 0RF multivitamin Tablet 1 tab PO DAILY 0RF docusate sodium [Colace] 100 mg capsule 100 mg PO BID 30 Days Qty: 60 6RF senna 8.6 mg capsule 17.2 mg PO BEDTIME 30 Days Qty: 60 6RF Hold Instructions: Doctor's Order pantoprazole [Protonix] 40 mg tablet,delayed release (DR/EC) 40 mg PO DAILY 30 Days Qty: 30 6RF prazosin 1 mg capsule 1 mg PO BEDTIME 0RF trazodone 50 mg tablet 25 mg PO BEDTIME PRN0RF nicotine 7 mg/24 hr patch 24 hour 1 patch transdermal BEDTIME 0RF polyethylene glycol 3350 [Miralax] 17 gram/dose powder 238 g PO ONCE Qty: 238 0RF Rx Instructions: As directed by gastroenterology department at [facility] bisacodyl [Dulcolax (bisacodyl)] 5 mg tablet,delayed release (DR/EC) 10 mg PO ONCE 30 Days Qty: 60 3RF Rx Instructions: take 2 tabs at noon the day before your colonoscopy Referrals: John Hodgson MD [Primary Care Provider] - (Please get blood pressure recheck on Thursday.) Print Language: Bulgarian
== END 2022-02-22 23:17 | disposition home or self-care (01) ==
PROVIDERS: Physician Assistant Medical; Emergency Provider Emergency Medicine Emergency Medical Services; PCP Internal Medicine
DX: I10 Essential (primary) hypertension (principal); R00.2 Palpitations; Z79.899 Other long term (current) drug therapy
CPT/HCPCS: 36415; 71046; 80048; 84484; 85025; 93005; 99283; 99284

== ENCOUNTER → 2022-03-17 11:33 | Outpatient (BNVA) | payer MEDICARE, SELFPAY | PROVIDERS: PCP Internal Medicine; Referring Provider Internal Medicine; Visit Provider Nurse Practitioner | DX: K21.9 Gastro-esophageal reflux disease without esophagitis (principal); K59.04 Chronic idiopathic constipation; R14.0 Abdominal distension (gaseous) | CPT/HCPCS: 99212 ==

== ENCOUNTER 2022-04-12 13:22 | Emergency (ER) | payer MEDICARE, SELFPAY ==
--- NOTE | ~2022-04-12 | CT_ITS ---
EXAMINATION: CT ABDOMEN AND PELVIS WITHOUT CONTRAST CLINICAL INFORMATION: Abdominal pain. Rule out abdominal aortic aneurysm. COMPARISON: Previous CT of the abdomen and pelvis most recent May 2021 TECHNIQUE: Multidetector volumetric imaging was performed from the superior aspect of the liver through the pubic symphysis. Sagittal and coronal reformatted images were obtained on the technologist's workstation. This CT examination was performed using dose optimization techniques as appropriate, variously including the following: *Automated exposure control *Adjustment of mA and/or kV according to patient size (this includes techniques or standardized protocols for targeted exams where dose is matched to indication/reason for exam; i.e. extremities or head) *Use of iterative reconstruction technique DLP: 213 mGy-cm FINDINGS: LUNG BASES: The visualized lung bases are unremarkable. LIVER, GALLBLADDER, AND BILIARY TREE: The liver is normal in size, shape, and attenuation. No focal hepatic lesion or biliary ductal dilatation is present. The gallbladder has been removed. PANCREAS: Unremarkable. SPLEEN: Unremarkable. ADRENAL GLANDS: Unremarkable. KIDNEYS AND URETERS: There are right renal cyst. No imaging follow-up needed. The kidneys are otherwise normal. BLADDER: Unremarkable. GASTROINTESTINAL TRACT: There are postsurgical changes to the right colon. There is mild diverticulosis of the colon. There are slightly distended fluid-filled loops of small and proximal large bowel. No transition zone is seen probably represents an ileus as opposed to obstruction. No free air or ascites is seen. The appendix is not seen and may been removed. There is question of wall thickening of the proximal stomach versus changes due to underdistention. ABDOMINAL WALL: No significant hernia is appreciated. LYMPH NODES: Normal. VASCULAR: There is evidence of severe atherosclerotic disease. There is mild focal dilatation of the mid abdominal aorta measuring maximum 1.6 x 2.2 cm in AP and transverse dimension. No aneurysm is seen. No retroperitoneal hematoma is seen. PELVIC VISCERA: The uterus appears to have been removed. No pelvic mass. OSSEOUS STRUCTURES: There are degenerative changes of the spine. There is question of mild right L4 vertebral body of superior endplate compression fracture versus Schmorl's node. CT/CT abdomen pelvis wo con IMPRESSION: Atherosclerotic disease. Mild dilatation of the upper abdominal aorta measuring maximum 2.2 cm. No aneurysm or retroperitoneal hematoma. Postsurgical changes to the right colon. Diverticulosis of the colon. Mild dilatation of the small and proximal large bowel. No transition zone seen probably represents an ileus. Question wall thickening of the proximal stomach. Right renal cysts. Fleischner guidelines were followed.
--- NOTE | 2022-04-12 13:53 | ED.ABDPAIN ---
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 Patient is complaining of chronic abdominal pain for many years but since yesterday feels different upper abdominal pain feels like a ball moving from side to side of her abdomen, no relieving factor, no aggravating factor, pain has been intermittent moderate 5/10, no nausea, no vomiting, no fever, no chills, no diarrhea, normal bowel movement, no dysuria, no urinary frequency. History of cholecystectomy and appendectomy. No recent travel, no recent change of her daily routine, no recent use of antibiotic. Patient has been evaluated by a brickmason helper Related Data Home Medications Medication Instructions Recorded Confirmed amlodipine 10 mg tablet 10 mg PO DAILY 12/24/20 escitalopram oxalate 5 mg tablet 5 mg PO DAILY 12/24/20 multivitamin 1 tab PO DAILY 12/24/20 nicotine 7 mg/24 hr daily 1 patch transdermal BEDTIME 02/04/21 transdermal patch prazosin 1 mg capsule 1 mg PO BEDTIME 02/04/21 trazodone 50 mg tablet 25 mg PO BEDTIME PRN 02/04/21 hydrochlorothiazide 12.5 mg tablet 12.5 mg PO DAILY 03/17/22 lisinopril 40 mg tablet 40 mg PO DAILY 03/17/22 Previous Rx's Medication Instructions Recorded docusate sodium 100 mg capsule 100 mg PO BID 30 days #60 caps 12/24/20 (Colace) pantoprazole 40 mg tablet,delayed 40 mg PO DAILY 30 days #30 tabs 12/24/20 release (Protonix) polyethylene glycol 3350 17 238 g PO ONCE #238 grams 02/20/21 gram/dose oral powder (Miralax) albuterol sulfate 90 mcg/actuation 2 puff PO Q2H PRN shortness of 02/21/21 aerosol inhaler breath or wheezing #18 grams umeclidinium 62.5 mcg-vilanterol 1 ea PO DAILY #60 caps 02/21/21 25 mcg/actuation powdr for inhalation (Anoro Ellipta) acetaminophen 325 mg capsule 650 mg PO Q6H PRN fever or pain 01/02/22 #20 caps plecanatide 3 mg tablet (Trulance) 3 mg PO DAILY #30 tabs 03/17/22 simethicone 180 mg capsule 180 mg PO QID 30 days #120 caps 03/17/22 calcitonin (salmon) 200 1 spray intranasal DAILY #3.7 mL 03/28/22 unit/actuation nasal spray Allergies Allergy/AdvReac Type Severity Reaction Status Date / Time Iodinated Contrast Media Allergy Intermediate NAUSEA & Verified 03/17/22 11:42 [CONTRAST, IV] VOMITING morphine [MORPHINE] Allergy Intermediate NAUSEA & Verified 03/17/22 11:42 VOMITING oxycodone [From PERCOCET] Allergy Intermediate NAUSEA, Verified 03/17/22 11:42 WEAKNESS/VIOLENT Review of Systems Review of Systems All other systems are reviewed and are negative Constitutional: Reports as per HPI and Reports no additional constitutional complaints Eyes: Reports as per HPI and Reports no additional eye complaints Reports system reviewed and no additional complaints, except as documented Cardiovascular: Reports as per HPI and Reports no additional cardiovascular complaints Respiratory: Reports as per HPI and Reports no additional respiratory complaints Gastrointestinal: Reports as per HPI and Reports no additional gastrointestinal complaints Genitourinary: Reports no additional female genitourinary complaints Musculoskeletal: Reports no additional musculoskeletal complaints Skin/Breast: Reports system reviewed and no additional complaints, except as docu Psychiatric: Reports no additional psychiatric complaints Endocrine: Reports no additional endocrine complaints Hematologic/Lymphatic: Reports no additional hematologic/lymphatic complaints Allergic/Immunologic: Reports no additional allergic/immunologic complaints Reports system reviewed and no additional complaints, except as documented and Reports Abnormal speech present [facility] Past Medical History Medical History Acute arthritis Breast CA Cholecystitis HTN (hypertension) Surgical History History of back surgery History of esophagogastroduodenoscopy (EGD) Hx of breast biopsy Hx of colonoscopy Hx of foot surgery Family History Family History Father CVD (cardiovascular disease) HTN (hypertension) Brother Colon cancer Daughter No problems noted. Sister HTN (hypertension) Heart problem Osteoporosis Social History Social History Household Members: Children Alcohol intake: unknown Patient Tobacco Use Status: Tobacco use Unknown Cigarettes Per Day: 1 Advance Directives: No Advance Directives Information Provided: Yes Physical Exam ED Vital Signs: Vital Signs - 24 hr 04/12/22 14:33 Temperature 98.3 F Pulse Rate 66 Respiratory Rate 18 Blood Pressure 155/68 H Pulse Oximetry 95 Oxygen Delivery Method Room Air BMI result Body Mass Index 18.0 Vital signs have been reviewed as appeared to be correct. Blood pressure normal. Heart rate normal. Respiration rate normal. Temperature normal. Oxygen saturation normal. Appearance: Alert. Oriented X3. No acute distress. Head: Normal external exam. Normocephalic. Atraumatic. No Bonilla signs noted. No raccoon eyes noted Eyes: PERRLA. EOMI. Conjunctiva and sclera normal. Eyelids normal. ENT: TM's Normal. Pharynx normal. Uvula midline. Moist mucous membranes. No trismus noted. No drooling noted. No muffled voice noted. Neck: Normal inspection. Neck supple. FROM. No adenopathy. Thyroid Normal. No meningeal signs. No neck mass noted. CVS: Normal heart rate and rhythm. Heart sound normal. No murmurs noted. Pulses normal throughout. Respiratory: No respiratory distress. Painless inspiration. Breath sounds normal. No wheezes/rales/rhonchi noted. Chest nontender. No accessory muscle usage noted or decreased air movement noted. Abdomen: Soft and nontender. Bowel sounds normal in all 4 quadrants. No distention noted. No organomegaly noted. No visible injury noted. Back: No CVA tenderness. Full range of motion noted. Skin: Skin warm and dry. Normal skin color. Normal skin turgor. No rashes/lesions/lacerations noted. Extremities: No lower extremity edema. Extremities exhibit normal range of motion. Extremities nontender. Neuro: Oriented X 3. Cranial nerve exam: II-XII are grossly intact No motor deficit. No sensory deficit. Reflexes normal. Course Course Course Narrative: Acute on chronic abdominal pain, patient has been evaluated by GI in the past, patient has no acute finding on the CT of the abdomen and pelvis with normal blood workup. Will reassure the patient and discharged to follow-up with GI. MDM - Abdominal Pain Lab Data Attestation: I reviewed the patient's lab results. Result diagrams: 04/12/22 15:16 04/12/22 15:16 Labs: Lab Results 04/12/22 04/12/22 04/12/22 Range/Units 15:16 15:16 15:16 WBC 8.3 (4.8-10.8) X10*3/uL RBC 4.16 L (4.20-5.50) X10*6/uL Hgb 12.1 (12.0-16.0) g/dl Hct 32.5 L (37.0-47.0) % MCV 78.1 L (80.0-98.0) fL MCH 29.1 (27.0-33.0) pg MCHC 37.2 H (31.0-35.0) g/dl RDW 14.2 (11.0-16.0) % Plt Count 267 D (160-400) X10*3/uL MPV 8.9 L (9.4-12.3) fL Immature Gran % (Auto) 0.2 (0.0-0.4) % Neut % (Auto) 64.8 (45-73) % Lymph % (Auto) 27.0 (20-40) % [place] % (Auto) 6.0 (2-11) % Eos % (Auto) 1.6 (0-4) % Baso % (Auto) 0.4 (0-2) % Lymph # (Auto) 2.3 (1.2-4.9) X10*3/uL [place] # (Auto) 0.5 (0.1-1.2) X10*3/uL Eos # (Auto) 0.1 (0.0-0.4) X10*3/uL Baso # (Auto) 0.0 (0.0-0.2) X10*3/uL Abs Immat Gran (auto) 0.02 (0.00-0.03) X10*3/uL Absolute Neuts (auto) 5.4 (2.0-8.3) x10*3/uL Absolute Nucleated RBC 0.000 (0.0-0.012) X10*3/uL Nucleated RBC % (auto) 0.0 (0.0-0.2) /100WBC Sodium 131 L (135-145) mmol/L Potassium 4.1 (3.3-5.1) mmol/L Chloride 93 L (96-108) mmol/L Carbon Dioxide 28 (22-29) mmol/L Anion Gap 14 (12-20) BUN 11 (9-16) mg/dL Creatinine 0.77 (0.5-1.4) mg/dL Estim Creat Clear Calc 39.8 Estimated GFR > 60 Random Glucose 79 (60-115) mg/dL Calcium 9.6 (8.4-10.2) mg/dL Total Bilirubin 0.7 (0.0-1.0) mg/dL Direct Bilirubin 0.3 (0.0-0.5) mg/dL AST 18 (5-31) U/L ALT 9 (0-31) U/L Alkaline Phosphatase 71 (39-117) U/L Troponin I High Sens < 3.5 (<3.5-17.0) ng/L Total Protein 6.9 (6.5-8.0) g/dL Albumin 4.2 (3.5-5.0) g/dL Lipase 14 (8-78) U/L Imaging Data CT scan - abdomen: Attestation: I personally reviewed and interpreted this imaging study as follows: Radiologist's impression: therosclerotic disease. Mild dilatation of the upper abdominal aorta measuring maximum 2.2 cm. No aneurysm or retroperitoneal hematoma. Postsurgical changes to the right colon. Diverticulosis of the colon. Mild dilatation of the small and proximal large bowel. No transition zone seen probably represents an ileus. Question wall thickening of the proximal stomach. Right renal cysts. ? Discharge Plan Discharge Clinical Impression: Abdominal pain Patient Disposition: Home, Self-Care Instructions: Abdominal Pain (ED) Prescriptions: No Action umeclidinium-vilanterol [Anoro Ellipta] 62.5-25 mcg/actuation blister with device 1 ea PO DAILY Qty: 60 0RF albuterol sulfate 90 mcg/actuation HFA aerosol inhaler 2 puff PO Q2H PRN (Reason: shortness of breath or wheezing) Qty: 18 0RF calcitonin (salmon) 200 unit/actuation spray,non-aerosol 1 spray intranasal DAILY Qty: 3.7 6RF acetaminophen 325 mg capsule 650 mg PO Q6H PRN (Reason: fever or pain) Qty: 20 0RF amlodipine 10 mg tablet 10 mg PO DAILY escitalopram oxalate 5 mg tablet 5 mg PO DAILY multivitamin Tablet 1 tab PO DAILY docusate sodium [Colace] 100 mg capsule 100 mg PO BID 30 Days Qty: 60 6RF pantoprazole [Protonix] 40 mg tablet,delayed release (DR/EC) 40 mg PO DAILY 30 Days Qty: 30 6RF prazosin 1 mg capsule 1 mg PO BEDTIME trazodone 50 mg tablet 25 mg PO BEDTIME PRN nicotine 7 mg/24 hr patch 24 hour 1 patch transdermal BEDTIME polyethylene glycol 3350 [Miralax] 17 gram/dose powder 238 g PO ONCE Qty: 238 0RF Rx Instructions: As directed by gastroenterology department at [facility] lisinopril 40 mg tablet 40 mg PO DAILY hydrochlorothiazide 12.5 mg tablet 12.5 mg PO DAILY Trulance 3 mg tablet 3 mg PO DAILY Qty: 30 6RF simethicone 180 mg capsule 180 mg PO QID 30 Days Qty: 120 3RF Rx Instructions: after meals Referrals: John Hodgson MD [Primary Care Provider] -
[2022-04-12 14:33] VITALS: BP 155/68; PULSE 66; RESP 18; TEMP 36.8; O2SAT 95; BMI 18.0
[2022-04-12] MEDS: 0.9 % Sodium Chloride 1,000 ML 999 ML IV (15:00)
[2022-04-12 15:20] LABS: MANUAL DIFF FLAG NO
[2022-04-12 15:21] LABS: Basophils Percent Auto 0.4 % (0-2); Eosinophils Absolute Auto 0.1 X10*3/uL (0.0-0.4); Eosinophils Percent Auto 1.6 % (0-4); Hematocrit 32.5 % (37.0-47.0); Hemoglobin 12.1 g/dl (12.0-16.0); Imm Gran Abs Auto 0.02 X10*3/uL (0.00-0.03); Imm Gran Pct Auto 0.2 % (0.0-0.4); Lymphocytes Absolute Auto 2.3 X10*3/uL (1.2-4.9); Mean Corpuscular HGB Conc 37.2 g/dl (31.0-35.0); Mean Corpuscular Hemoglobin 29.1 pg (27.0-33.0); Mean Corpuscular Volume 78.1 fL (80.0-98.0); Mean Platelet Volume 8.9 fL (9.4-12.3); Monocytes Absolute Auto 0.5 X10*3/uL (0.1-1.2); Neutrophils Absolute Auto 5.4 x10*3/uL (2.0-8.3); Neutrophils Percent Auto 64.8 % (45-73); Platelet Count 267 X10*3/uL (160-400); Red Blood Count 4.16 X10*6/uL (4.20-5.50); Red Cell Distribution Width 14.2 % (11.0-16.0); White Blood Count 8.3 X10*3/uL (4.8-10.8)
[2022-04-12 15:50] LABS: Troponin-I High Sensitivity < 3.5 ng/L (<3.5-17.0)
[2022-04-12 15:55] LABS: Alanine Aminotransferase 9 U/L (0-31); Albumin Level 4.2 g/dL (3.5-5.0); Alkaline Phosphatase 71 U/L (39-117); Anion Gap 14 (12-20); Aspartate Amino Transferase 18 U/L (5-31); Bilirubin Direct 0.3 mg/dL (0.0-0.5); Bilirubin Total 0.7 mg/dL (0.0-1.0); Blood Urea Nitrogen 11 mg/dL (9-16); Calcium 9.6 mg/dL (8.4-10.2); Carbon Dioxide 28 mmol/L (22-29); Chloride 93 mmol/L (96-108); Creatinine Clr Calc Pharmacy 39.8; Estimated Glomerular Filt Rate > 60; Glucose Random 79 mg/dL (60-115); Lipase 14 U/L (8-78); Potassium 4.1 mmol/L (3.3-5.1); Sodium 131 mmol/L (135-145); Total Protein 6.9 g/dL (6.5-8.0)
--- NOTE | 2022-04-12 16:24 | PC.NURSE ---
#22 IV placed in her left forearm without problem
== END 2022-04-12 16:36 | disposition home or self-care (01) ==
PROVIDERS: Emergency Provider Emergency Medicine; PCP Internal Medicine
DX: R10.10 Upper abdominal pain, unspecified (principal); I10 Essential (primary) hypertension
CPT/HCPCS: 36415; 74176; 80048; 80076; 83690; 84484; 85025; 96360; 99284

== ENCOUNTER 2022-04-15 21:37 | Emergency (ER) | payer MEDICARE, SELFPAY ==
--- NOTE | ~2022-04-15 | XR_ITS ---
EXAMINATION: XR ABDOMEN KUB CLINICAL INDICATION: Constipation. COMPARISON: CT abdomen pelvis 04/12/2022 TECHNIQUE: AP view of the abdomen. FINDINGS: There is scattered stool and gas seen throughout the colon without distention. Postsurgical sutures are seen in right midabdomen and evidence of previous cholecystectomy. No gross bony abnormality seen. XR/XR KUB IMPRESSION: Mild constipation. No evidence of bowel obstruction.
[2022-04-15 21:51] VITALS: BP 177/66; PULSE 62; RESP 18; TEMP 36.6; O2SAT 100; BMI 15.4
[2022-04-15 22:07] LABS: MANUAL DIFF FLAG NO
[2022-04-15 22:08] LABS: Basophils Percent Auto 0.3 % (0-2); Eosinophils Absolute Auto 0.2 X10*3/uL (0.0-0.4); Eosinophils Percent Auto 3.1 % (0-4); Hematocrit 29.6 % (37.0-47.0); Hemoglobin 11.2 g/dl (12.0-16.0); Imm Gran Abs Auto 0.02 X10*3/uL (0.00-0.03); Imm Gran Pct Auto 0.3 % (0.0-0.4); Lymphocytes Absolute Auto 2.4 X10*3/uL (1.2-4.9); Lymphocytes Percent Auto 31.9 % (20-40); Mean Corpuscular Hemoglobin 29.3 pg (27.0-33.0); Mean Corpuscular Volume 77.5 fL (80.0-98.0); Mean Platelet Volume 8.9 fL (9.4-12.3); Monocytes Absolute Auto 0.7 X10*3/uL (0.1-1.2); Monocytes Percent Auto 9.1 % (2-11); Neutrophils Absolute Auto 4.1 x10*3/uL (2.0-8.3); Neutrophils Percent Auto 55.3 % (45-73); Platelet Count 253 X10*3/uL (160-400); Red Blood Count 3.82 X10*6/uL (4.20-5.50); Red Cell Distribution Width 13.9 % (11.0-16.0); SCAN SMEAR FLAG 1; White Blood Count 7.4 X10*3/uL (4.8-10.8)
[2022-04-15 22:31] LABS: Alanine Aminotransferase 9 U/L (0-31); Albumin Level 4.3 g/dL (3.5-5.0); Alkaline Phosphatase 75 U/L (39-117); Anion Gap 12 (12-20); Aspartate Amino Transferase 20 U/L (5-31); Bilirubin Total 0.5 mg/dL (0.0-1.0); Blood Urea Nitrogen 8 mg/dL (9-16); Calcium 9.5 mg/dL (8.4-10.2); Carbon Dioxide 28 mmol/L (22-29); Chloride 91 mmol/L (96-108); Creatinine Clr Calc Pharmacy 31.9; Estimated Glomerular Filt Rate > 60; Glucose Random 91 mg/dL (60-115); Lipase 18 U/L (8-78); Potassium 3.9 mmol/L (3.3-5.1); Sodium 127 mmol/L (135-145); Total Protein 6.8 g/dL (6.5-8.0)
[2022-04-15 22:41] LABS: Mean Corpuscular HGB Conc 37.8 g/dl (31.0-35.0)
--- NOTE | 2022-04-16 00:11 | ED.ABDPAIN ---
HPI - Abdominal Pain General Chief Complaint: Abdominal Pain Stated Complaint: abd pain Time Seen by Provider: 04/16/22 00:02 Source: patient Mode of arrival: ambulatory Limitations: no limitations History of Present Illness HPI narrative: Patient comes to the emergency room complaining of chronic abdominal pain. Patient states the pain has been present for years. Patient was evaluated on April 12 for the same issue. Also, patient has been seen multiple times by registered nurses, diagnosed with chronic constipation. Patient denies nausea vomiting or diarrhea. Patient states it is the same pain as usual, the CT scan done on April 12 did not show any acute pathology. Related Data Home Medications Medication Instructions Recorded Confirmed amlodipine 10 mg tablet 10 mg PO DAILY 12/24/20 escitalopram oxalate 5 mg tablet 5 mg PO DAILY 12/24/20 multivitamin 1 tab PO DAILY 12/24/20 nicotine 7 mg/24 hr daily 1 patch transdermal BEDTIME 02/04/21 transdermal patch prazosin 1 mg capsule 1 mg PO BEDTIME 02/04/21 trazodone 50 mg tablet 25 mg PO BEDTIME PRN 02/04/21 hydrochlorothiazide 12.5 mg tablet 12.5 mg PO DAILY 03/17/22 lisinopril 40 mg tablet 40 mg PO DAILY 03/17/22 Previous Rx's Medication Instructions Recorded docusate sodium 100 mg capsule 100 mg PO BID 30 days #60 caps 12/24/20 (Colace) pantoprazole 40 mg tablet,delayed 40 mg PO DAILY 30 days #30 tabs 12/24/20 release (Protonix) polyethylene glycol 3350 17 238 g PO ONCE #238 grams 02/20/21 gram/dose oral powder (Miralax) albuterol sulfate 90 mcg/actuation 2 puff PO Q2H PRN shortness of 02/21/21 aerosol inhaler breath or wheezing #18 grams umeclidinium 62.5 mcg-vilanterol 1 ea PO DAILY #60 caps 02/21/21 25 mcg/actuation powdr for inhalation (Anoro Ellipta) acetaminophen 325 mg capsule 650 mg PO Q6H PRN fever or pain 01/02/22 #20 caps plecanatide 3 mg tablet (Trulance) 3 mg PO DAILY #30 tabs 03/17/22 simethicone 180 mg capsule 180 mg PO QID 30 days #120 caps 03/17/22 calcitonin (salmon) 200 1 spray intranasal DAILY #3.7 mL 03/28/22 unit/actuation nasal spray Allergies Allergy/AdvReac Type Severity Reaction Status Date / Time Iodinated Contrast Media Allergy Intermediate NAUSEA & Verified 04/15/22 21:51 [CONTRAST, IV] VOMITING morphine [MORPHINE] Allergy Intermediate NAUSEA & Verified 04/15/22 21:51 VOMITING oxycodone [From PERCOCET] Allergy Intermediate NAUSEA, Verified 04/15/22 21:51 WEAKNESS/VIOLENT Review of Systems Review of Systems Constitutional : No Weight loss, No Fever, No Chills, No Night Sweats, No Fatigue, No Malaise ENT/Mouth : No Hearing loss, No Ear Pain, No Nasal Congestion, No Sinus Pain, No Hoarseness, No sore throat, No Rhinorrhea, No Swallowing Difficulty Eyes: No Eye Pain, No Swelling, No Redness, No Foreign Body, No Discharge, No Vision Changes Cardiovascular : No Chest Pain, No SOB, No Dyspnea on Exertion, No Orthopnea, No Edema, No Palpitations Respiratory : No Cough, No Sputum, No Wheezing, No Smoke Exposure, No Dyspnea Gastrointestinal : No Nausea, No Vomiting, No Diarrhea, No Constipation, complaining of chronic abdominal pain Genitourinary : no irregular bleeding, No Dysuria, No Urinary Frequency, No Hematuria, No Urinary Incontinence, No Urgency, No Flank Pain, No Urinary Flow Changes, No Hesitancy Musculoskeletal : No joint pain, No Myalgias, No Joint Swelling Skin : No Skin Lesions, No rash Neuro : No Weakness, No Numbness, No Paresthesias, No Loss of Consciousness, No Dizziness, No Headache Psych : No Anxiety/Panic, No Depression, No SI/HI/AH/VH, No Social Issues, Heme/Lymph: No Bruising, No Bleeding,No Lymphadenopathy Endocrine : No Polyuria, No Polydipsia, No Temperature Intolerance [facility] Past Medical History Medical History (Updated 04/16/22 @ 00:14 by Elva Escobar MD) Acute arthritis Breast CA Cholecystitis Chronic idiopathic constipation GERD (gastroesophageal reflux disease) HTN (hypertension) Surgical History History of back surgery History of esophagogastroduodenoscopy (EGD) Hx of breast biopsy Hx of colonoscopy Hx of foot surgery Family History Family History Father CVD (cardiovascular disease) HTN (hypertension) Brother Colon cancer Daughter No problems noted. Sister HTN (hypertension) Heart problem Osteoporosis Social History Social History Household Members: Children Alcohol intake: never Patient Tobacco Use Status: Tobacco use Unknown Cigarettes Per Day: 1 Use of substances other than those prescribed or required for medical reasons: No Advance Directives: No Physical Exam ED Vital Signs: Vital Signs - 24 hr 04/15/22 21:51 Temperature 97.9 F Pulse Rate 62 Respiratory Rate 18 Blood Pressure 177/66 H Pulse Oximetry 100 Oxygen Delivery Method Room Air BMI result Body Mass Index 15.4 Const Other: Appearance: Alert. Oriented X3. No acute distress. Eyes: Pupils equal, round and reactive to light. ENT: Pharynx normal. Neck: Normal inspection. Neck supple. No lymph nodes noted. No crepitus CVS: Normal heart rate and rhythm. Pulses normal. Normal S1 and S2 Respiratory: No respiratory distress. Breath sounds normal. No Wheezing. No rales Abdomen: Soft mild discomfort on palpation all quadrants, no guarding, no rebound, No rigidity. No distention. Skin: Skin warm and dry. Normal skin color. Normal skin turgor. Extremities: No lower extremity edema. No Lacerations. No Rash Neuro: Oriented X 3. No motor deficit. No sensory deficit. Moving all extremities. No slurred speech. CN 2 through 12 grossly intact Psych: calm, cooperative, normal affect Course Course Course Narrative: Patient's KUB shows mild constipation. Patient states that this time the pain is nothing new. Patient's sodium is 127, she usually does not have low sodium. Patient will be giving IV fluids, no history of CHF, then we will recheck labs. Patient agrees with plan. Sodium improved to 130. Patient has had hyponatremia in the past, down to 128. Patient is neurologically intact. Patient instructed to follow up with the primary care physician. MDM - Abdominal Pain Lab Data Result diagrams: 04/15/22 22:04 04/16/22 02:46 Labs: Lab Results 04/15/22 04/15/22 04/16/22 Range/Units 22:04 22:04 02:46 WBC 7.4 (4.8-10.8) X10*3/uL RBC 3.82 L (4.20-5.50) X10*6/uL Hgb 11.2 L (12.0-16.0) g/dl Hct 29.6 L (37.0-47.0) % MCV 77.5 L (80.0-98.0) fL MCH 29.3 (27.0-33.0) pg MCHC 37.8 H (31.0-35.0) g/dl RDW 13.9 (11.0-16.0) % Plt Count 253 (160-400) X10*3/uL MPV 8.9 L (9.4-12.3) fL Immature Gran % (Auto) 0.3 (0.0-0.4) % Neut % (Auto) 55.3 (45-73) % Lymph % (Auto) 31.9 (20-40) % [place] % (Auto) 9.1 (2-11) % Eos % (Auto) 3.1 (0-4) % Baso % (Auto) 0.3 (0-2) % Lymph # (Auto) 2.4 (1.2-4.9) X10*3/uL [place] # (Auto) 0.7 (0.1-1.2) X10*3/uL Eos # (Auto) 0.2 (0.0-0.4) X10*3/uL Baso # (Auto) 0.0 (0.0-0.2) X10*3/uL Abs Immat Gran (auto) 0.02 (0.00-0.03) X10*3/uL Absolute Neuts (auto) 4.1 (2.0-8.3) x10*3/uL Absolute Nucleated RBC 0.000 (0.0-0.012) X10*3/uL Nucleated RBC % (auto) 0.0 (0.0-0.2) /100WBC Sodium 127 L 130 L (135-145) mmol/L Potassium 3.9 3.8 (3.3-5.1) mmol/L Chloride 91 L 96 (96-108) mmol/L Carbon Dioxide 28 27 (22-29) mmol/L Anion Gap 12 11 L (12-20) BUN 8 L 7 L (9-16) mg/dL Creatinine 0.77 0.71 (0.5-1.4) mg/dL Estim Creat Clear Calc 31.9 34.6 Estimated GFR > 60 > 60 Random Glucose 91 88 (60-115) mg/dL Calcium 9.5 9.3 (8.4-10.2) mg/dL Total Bilirubin 0.5 (0.0-1.0) mg/dL AST 20 (5-31) U/L ALT 9 (0-31) U/L Alkaline Phosphatase 75 (39-117) U/L Total Protein 6.8 (6.5-8.0) g/dL Albumin 4.3 (3.5-5.0) g/dL Lipase 18 (8-78) U/L Discharge Plan Discharge Clinical Impression: Abdominal pain, chronic, generalized, Acute hyponatremia Patient Disposition: Home, Self-Care Instructions: Hyponatremia (ED), Chronic Abdominal Pain (ED) Additional Instructions: Please follow-up with your primary care physician tomorrow. If you have any worsening or new symptoms, please return to the emergency room or call 911 Prescriptions: No Action umeclidinium-vilanterol [Anoro Ellipta] 62.5-25 mcg/actuation blister with device 1 ea PO DAILY Qty: 60 0RF albuterol sulfate 90 mcg/actuation HFA aerosol inhaler 2 puff PO Q2H PRN (Reason: shortness of breath or wheezing) Qty: 18 0RF calcitonin (salmon) 200 unit/actuation spray,non-aerosol 1 spray intranasal DAILY Qty: 3.7 6RF acetaminophen 325 mg capsule 650 mg PO Q6H PRN (Reason: fever or pain) Qty: 20 0RF amlodipine 10 mg tablet 10 mg PO DAILY escitalopram oxalate 5 mg tablet 5 mg PO DAILY multivitamin Tablet 1 tab PO DAILY docusate sodium [Colace] 100 mg capsule 100 mg PO BID 30 Days Qty: 60 6RF pantoprazole [Protonix] 40 mg tablet,delayed release (DR/EC) 40 mg PO DAILY 30 Days Qty: 30 6RF prazosin 1 mg capsule 1 mg PO BEDTIME trazodone 50 mg tablet 25 mg PO BEDTIME PRN nicotine 7 mg/24 hr patch 24 hour 1 patch transdermal BEDTIME polyethylene glycol 3350 [Miralax] 17 gram/dose powder 238 g PO ONCE Qty: 238 0RF Rx Instructions: As directed by gastroenterology department at [facility] lisinopril 40 mg tablet 40 mg PO DAILY hydrochlorothiazide 12.5 mg tablet 12.5 mg PO DAILY Trulance 3 mg tablet 3 mg PO DAILY Qty: 30 6RF simethicone 180 mg capsule 180 mg PO QID 30 Days Qty: 120 3RF Rx Instructions: after meals
[2022-04-16] MEDS: 0.9 % Sodium Chloride 1,000 ML 999 ML IVCONT (00:43)
[2022-04-16 03:16] LABS: Anion Gap 11 (12-20); Blood Urea Nitrogen 7 mg/dL (9-16); Calcium 9.3 mg/dL (8.4-10.2); Carbon Dioxide 27 mmol/L (22-29); Chloride 96 mmol/L (96-108); Creatinine Clr Calc Pharmacy 34.6; Estimated Glomerular Filt Rate > 60; Glucose Random 88 mg/dL (60-115); Potassium 3.8 mmol/L (3.3-5.1); Sodium 130 mmol/L (135-145)
[2022-04-16 03:27] VITALS: BP 159/60; PULSE 65; RESP 16; TEMP 36.6; O2SAT 98
--- NOTE | 2022-04-16 03:36 | PC.NURSE ---
The pt presented with her daughter for evalation of constipation. pt states she is unsure when she last had a normal bowel movement - its been days per her daughter. She has c/o diffuse abdpominal pain/discomfort. No nausea. NO vomiting. No difficulty voiding. No chest pain. Respirations non-labored. Pt has ambulated to and from the bathroom multiple times with her daughter with use of cane independently and steadily. IVF's infused, repeat chem panel obtained and pt DCd at this time. Pts daughter verbalized an understanding of al DC orders and the pt ambulated out of the ED independently and with steady gait.
== END 2022-04-16 03:36 | disposition home or self-care (01) ==
PROVIDERS: Emergency Provider Emergency Medicine
DX: R10.84 Generalized abdominal pain (principal); G89.29 Other chronic pain; K59.09 Other constipation; E87.1 Hypo-osmolality and hyponatremia; I10 Essential (primary) hypertension
CPT/HCPCS: 36415; 74018; 80048; 80053; 83690; 85025; 96360; 99284

== ENCOUNTER → 2022-04-18 11:24 | Outpatient (BNVA) | payer MEDICARE, SELFPAY | PROVIDERS: PCP Internal Medicine; Visit Provider Nurse Practitioner | DX: K59.04 Chronic idiopathic constipation (principal); K21.9 Gastro-esophageal reflux disease without esophagitis; Z79.899 Other long term (current) drug therapy | CPT/HCPCS: 99212 ==

== ENCOUNTER 2022-05-03 10:49 | Emergency (ER) | payer MEDICARE, SELFPAY ==
--- NOTE | ~2022-05-03 | XR_ITS ---
Examination: XR scapula LT, XR shoulder LT min 2V Indication: pain Comparison: 06/05/2020 Technique: 2 views of the left shoulder and 2 views of the left scapula obtained Findings: Humeral head is well-seated within the glenoid. No acute fracture or dislocation seen. Amorphous calcification along the superior aspect of the lateral humeral head likely represents underlying calcific tendinitis. Visualized left ribs and left upper chest are grossly unremarkable. XR/XR scapula LT Impression: Amorphous calcification along the superior lateral aspect of the humeral head likely reflects component of underlying calcified tendinitis. No acute bony abnormality
--- NOTE | ~2022-05-03 | XR_ITS ---
Examination: XR scapula LT, XR shoulder LT min 2V Indication: pain Comparison: 06/05/2020 Technique: 2 views of the left shoulder and 2 views of the left scapula obtained Findings: Humeral head is well-seated within the glenoid. No acute fracture or dislocation seen. Amorphous calcification along the superior aspect of the lateral humeral head likely represents underlying calcific tendinitis. Visualized left ribs and left upper chest are grossly unremarkable. XR/XR shoulder LT min 2V Impression: Amorphous calcification along the superior lateral aspect of the humeral head likely reflects component of underlying calcified tendinitis. No acute bony abnormality
--- NOTE | ~2022-05-03 | CT_ITS ---
EXAMINATION: CT HEAD WITHOUT CONTRAST CLINICAL INFORMATION: Dizziness. COMPARISON: 01/01/[address] scan. TECHNIQUE: Contiguous axial imaging was performed from the skull base to vertex without intravenous administration of contrast. Coronal and sagittal reformatted images were obtained. This CT examination was performed using dose optimization techniques as appropriate, variously including the following: *Automated exposure control *Adjustment of mA and/or kV according to patient size (this includes techniques or standardized protocols for targeted exams where dose is matched to indication/reason for exam; i.e. extremities or head) *Use of iterative reconstruction technique DLP: 502 mGy-cm FINDINGS: There is no evidence of acute intracranial hemorrhage or territorial infarction. No abnormal mass effect or midline shift is seen. Mcrae to white matter differentiation is well preserved. No extra-axial fluid collections are identified. The ventricles are normal in size. There is no abnormal attenuation within the brain parenchyma. The osseous structures and soft tissues are normal. Incidental empty sella without change. Small left inferior mastoid effusion without interval change. This is seen to a lesser extent posteriorly in the right. The external auditory canals are unremarkable. The middle ear cavities are unremarkable. Mild to moderate thickening and air-fluid level in the left maxillary sinus. CT/CT head/brain wo con IMPRESSION: 1. No acute intracranial abnormality. 2. Small bilateral mastoid effusions, left greater than right without significant change. 3. Moderate inflammatory changes in the left maxillary sinus was not seen previously.
[2022-05-03 10:54] VITALS: BP 170/50; PULSE 62; RESP 17; TEMP 36.6; O2SAT 99; BMI 19.5
[2022-05-03 14:55] VITALS: BP 154/63; BP 169/57; PULSE 56; PULSE 60; RESP 16; RESP 17; TEMP 36.6; O2SAT 100; O2SAT 99; BMI 15.6
[2022-05-03 16:28] LABS: MANUAL DIFF FLAG NO
[2022-05-03 16:31] LABS: Basophils Percent Auto 0.5 % (0-2); Eosinophils Absolute Auto 0.2 X10*3/uL (0.0-0.4); Eosinophils Percent Auto 2.6 % (0-4); Hematocrit 29.8 % (37.0-47.0); Hemoglobin 11.1 g/dl (12.0-16.0); Imm Gran Abs Auto 0.02 X10*3/uL (0.00-0.03); Imm Gran Pct Auto 0.3 % (0.0-0.4); Lymphocytes Absolute Auto 2.6 X10*3/uL (1.2-4.9); Mean Corpuscular HGB Conc 37.2 g/dl (31.0-35.0); Mean Corpuscular Hemoglobin 29.3 pg (27.0-33.0); Mean Corpuscular Volume 78.6 fL (80.0-98.0); Mean Platelet Volume 9.1 fL (9.4-12.3); Monocytes Absolute Auto 0.4 X10*3/uL (0.1-1.2); Monocytes Percent Auto 5.3 % (2-11); Neutrophils Percent Auto 55.3 % (45-73); Platelet Count 230 X10*3/uL (160-400); Red Blood Count 3.79 X10*6/uL (4.20-5.50); Red Cell Distribution Width 14.3 % (11.0-16.0); White Blood Count 7.3 X10*3/uL (4.8-10.8)
--- NOTE | 2022-05-03 16:46 | ED.GENADULT ---
HPI - General Adult General Chief complaint: Dizziness <GREG Luna - Last Filed: 05/03/22 18:13> Stated complaint: dizziness,weakness <GREG Luna - Last Filed: 05/03/22 18:13> Time Seen by Provider: 05/03/22 14:54 <GREG Luna - Last Filed: 05/03/22 18:13> Source: patient <RGEG Luna - Last Filed: 05/03/22 18:13> History of Present Illness HPI narrative: 82-year-old female past medical history significant for anxiety, constipation, GERD presenting to the emergency department with left shoulder blade pain for 2 days. Patient states the pain radiates down her left arm and her left arm is tingling. She denies chest pain, denies shortness of breath. States the pain started after mopping with a bucket. States the pain is 2/10. Nursing note states that patient has been dizzy, upon my review of systems patient says she is dizzy when walking and when cooking for years. States she has had a low sodium in the past, when patient was seen here in the emergency room on 04/16/2022 for abdominal pain, she was found to have a sodium of 127. Patient states she is not currently dizzy. Denies changes in vision, weakness, chest pain, shortness of breath, nausea, vomiting, photophobia, scotomas, abdominal pain, denies numbness. <GREG Luna - Last Filed: 05/03/22 18:13> Related Data Home medications: Home Medications Medication Instructions Recorded Confirmed amlodipine 10 mg tablet 10 mg PO DAILY 12/24/20 escitalopram oxalate 5 mg tablet 5 mg PO DAILY 12/24/20 multivitamin 1 tab PO DAILY 12/24/20 prazosin 1 mg capsule 1 mg PO BEDTIME 02/04/21 trazodone 50 mg tablet 25 mg PO BEDTIME PRN 02/04/21 hydrochlorothiazide 12.5 mg tablet 12.5 mg PO DAILY 03/17/22 lisinopril 40 mg tablet 40 mg PO DAILY 03/17/22 carvedilol 3.125 mg tablet 3.125 mg PO BID 04/18/22 docusate sodium 50 mg/5 mL oral ml PO 04/18/22 liquid (Docu) Previous Rx's Medication Instructions Recorded pantoprazole 40 mg tablet,delayed 40 mg PO DAILY 30 days #30 tabs 12/24/20 release (Protonix) albuterol sulfate 90 mcg/actuation 2 puff PO Q2H PRN shortness of 02/21/21 aerosol inhaler breath or wheezing #18 grams umeclidinium 62.5 mcg-vilanterol 1 ea PO DAILY #60 caps 02/21/21 25 mcg/actuation powdr for inhalation (Anoro Ellipta) simethicone 180 mg capsule 180 mg PO QID 30 days #120 caps 03/17/22 calcitonin (salmon) 200 1 spray intranasal DAILY #3.7 mL 03/28/22 unit/actuation nasal spray linaclotide 72 mcg capsule 72 mcg PO QAM #30 caps 04/18/22 (Linzess) amoxicillin 875 mg-potassium 1 tab PO BID 10 days #20 tabs 05/03/22 clavulanate 125 mg tablet <GREG Luna Last Filed: 05/03/22 18:13> Allergies/adverse reactions: Allergies Allergy/AdvReac Type Severity Reaction Status Date / Time Iodinated Contrast Media Allergy Intermediate NAUSEA & Verified 04/18/22 11:29 [CONTRAST, IV] VOMITING morphine [MORPHINE] Allergy Intermediate NAUSEA & Verified 04/18/22 11:29 VOMITING oxycodone [From PERCOCET] Allergy Intermediate NAUSEA, Verified 04/18/22 11:29 WEAKNESS/VIOLENT <GREG Luna Last Filed: 05/03/22 18:13> Review of Systems Constitutional: Constitutional: Denies body ache(s), Denies chills, Denies fatigue, Denies fever(s), Denies headache(s), Denies malaise and Denies weakness <GREG Luna Last Filed: 05/03/22 18:13> Eyes: Eyes: Denies diplopia <GREG Luna Last Filed: 05/03/22 18:13> ENT: Reports Normal hearing present, Denies vertigo, Denies dizziness, Denies otalgia, Denies headache(s), Denies post nasal drip and Denies sore throat <GREG Luna Last Filed: 05/03/22 18:13> Cardiovascular: Cardiovascular: Denies chest pain, Denies syncope, Denies leg edema, Denies lightheadedness, Denies Loss of Consciousness, Denies palpitations and Denies dyspnea <GREG Luna Last Filed: 05/03/22 18:13> Respiratory: Respiratory: Denies chest congestion, Denies cough and Denies dyspnea <GREG Luna Last Filed: 05/03/22 18:13> Gastrointestinal: Gastrointestinal: Denies abdominal pain, Denies hematochezia, Denies constipation, Denies diarrhea, Denies nausea and Denies vomiting <GREG Luna Last Filed: 05/03/22 18:13> Musculoskeletal: Comments: Pain in left shoulder blade and left shoulder radiating to left arm <GREG Luna Last Filed: 05/03/22 18:13> Neurologic: Reports Normal hearing present, Denies Abnormal speech present, Denies confusion, Denies vertigo, Denies dizziness, Denies syncope, Denies headache(s), Denies Sensory deficit (Neuro) and Denies weakness <GREG Luna Last Filed: 05/03/22 18:13> Psychiatric: Psychiatric: Denies anxiety, Denies confusion and Denies depression <GREG Luna Last Filed: 05/03/22 18:13> Endocrine: Endocrine: Denies fatigue and Denies palpitations <GREG Luna Last Filed: 05/03/22 18:13> PMFSH Past Medical History Medical History: Medical History Acute arthritis Breast CA Cholecystitis HTN (hypertension) <GREG Luna Last Filed: 05/03/22 18:13> Surgical History: Surgical History History of back surgery History of esophagogastroduodenoscopy (EGD) Hx of breast biopsy Hx of colonoscopy Hx of foot surgery <GREG Luna Last Filed: 05/03/22 18:13> Family History Family History: Family History Father CVD (cardiovascular disease) HTN (hypertension) Brother Colon cancer Daughter No problems noted. Sister HTN (hypertension) Heart problem Osteoporosis <GREG Lnua Last Filed: 05/03/22 18:13> Social History Social History: Social History Household Members: Children Alcohol intake: unknown Patient Tobacco Use Status: Current someday Tobacco user Cigarettes Per Day: 1 Smoked in Last 30 Days: Yes Use of substances other than those prescribed or required for medical reasons: No Advance Directives: No Advance Directives Information Provided: No <GREG Luna Last Filed: 05/03/22 18:13> Physical Exam ED Vital Signs: Vital Signs - 24 hr 05/03/22 10:54 05/03/22 14:55 05/03/22 14:55 Temperature 98 F 97.8 F 97.8 F Pulse Rate 62 56 60 Respiratory Rate 17 17 16 Blood Pressure 170/50 H 154/63 H 169/57 H Pulse Oximetry 99 100 99 Oxygen Delivery Method Room Air Room Air Room Air 05/03/22 18:09 Temperature 97.7 F Pulse Rate 93 Respiratory Rate 20 Blood Pressure 175/65 H Pulse Oximetry 100 Oxygen Delivery Method Room Air BMI result Body Mass Index 15.6 <GREG Luna Last Filed: 05/03/22 18:13> Vital Signs - 24 hr 05/03/22 10:54 05/03/22 14:55 05/03/22 14:55 Temperature 98 F 97.8 F 97.8 F Pulse Rate 62 56 60 Respiratory Rate 17 17 16 Blood Pressure 170/50 H 154/63 H 169/57 H Pulse Oximetry 99 100 99 Oxygen Delivery Method Room Air Room Air Room Air 05/03/22 18:09 Temperature 97.7 F Pulse Rate 93 Respiratory Rate 20 Blood Pressure 175/65 H Pulse Oximetry 100 Oxygen Delivery Method Room Air BMI result Body Mass Index 15.6 <GREG Carlson - Last Filed: 05/03/22 19:27> Const General: No confusion <GREG Luna Last Filed: 05/03/22 18:13> Nutritional Appearance: well nourished <GREG Luna Last Filed: 05/03/22 18:13> Orientation/consciousness: patient oriented x3 and No confusion <GREG Luna Last Filed: 05/03/22 18:13> Limitations: no limitations <Erica Parra [facility] Last Filed: 05/03/22 18:13> HENMT Head: Yes normal to inspection, Yes normocephalic and Yes atraumatic <Erica Parra [facility] Last Filed: 05/03/22 18:13> Ears: hearing grossly normal bilaterally, external ears normal, TM's normal bilaterally and EAC's normal <Erica Parra [facility] Last Filed: 05/03/22 18:13> General nose exam: Normal external nose present <Erica Parra [facility] Last Filed: 05/03/22 18:13> Face and sinus: Yes normal facial exam and Yes sinuses nontender <Erica Parra [facility] Last Filed: 05/03/22 18:13> Mouth: Normal oral and palatal mucosa present <Erica Parra [facility] Last Filed: 05/03/22 18:13> Throat: Yes posterior oropharynx normal <Erica Parra [facility] Last Filed: 05/03/22 18:13> Eyes Conjunctivae: conjunctivae normal <Erica Parra [facility] Last Filed: 05/03/22 18:13> Pupils: Equal, round and reactive pupils present <Erica Parra [facility] Last Filed: 05/03/22 18:13> EOM: EOMs intact bilaterally <Erica Parra [facility] Last Filed: 05/03/22 18:13> Neck Neck: Yes full ROM, Yes no lymphadenopathy and Yes supple <Erica Parra [facility] Last Filed: 05/03/22 18:13> Resp Effort & Inspection: normal respiratory effort and able to speak in complete sentences <Erica Parra [facility] Last Filed: 05/03/22 18:13> Auscultation: clear to auscultation bilaterally, no crackles, no rales, no rhonchi and no wheezes <Erica Parra [facility] Last Filed: 05/03/22 18:13> Cardio Rate: regular rate <Erica Parra [facility] Last Filed: 05/03/22 18:13> Rhythm: regular rhythm <GREG Luna Last Filed: 05/03/22 18:13> Heart sounds: S1 normal heart sound present and S2 normal heart sound present <Erica Parra [facility] Last Filed: 05/03/22 18:13> GI Inspection: Yes normal to inspection <Erica Parra [facility] Last Filed: 05/03/22 18:13> Palpation (GI): Soft to palpation, nontender, no guarding and not rigid <Erica Parra [facility] Last Filed: 05/03/22 18:13> Percussion: Yes normal to percussion <Erica Parra [facility] Last Filed: 05/03/22 18:13> Auscultation: normal bowel sounds <Erica Parra [facility] Last Filed: 05/03/22 18:13> Skin General skin exam: no rashes or lesions noted <Erica Parra [facility] Last Filed: 05/03/22 18:13> Neuro General: patient oriented x3, gait normal, tone normal, moves all extremities and No confusion <Erica Parra [facility] Last Filed: 05/03/22 18:13> Cranial nerves: Yes CN's II-XII intact bilaterally, Yes Facial sensation intact/muscles of mastication intact, Yes Equal, round and reactive pupils present, Yes Normal accommodation reflex present, Yes Bilaterally intact EOM present, Yes Nystagmus not present, Yes Normal facial strength present, Yes Midline tongue present, Yes Normal hearing present, Yes Ability to bilaterally rotate head present and Yes Ability to bilaterally elevate shoulders present <Erica Parra [facility] Last Filed: 05/03/22 18:13> Cognition (Neuro): normal cognition <Erica Parra [facility] Last Filed: 05/03/22 18:13> Speech: No Abnormal speech present <Erica Parra [facility] Last Filed: 05/03/22 18:13> Gait exam (Neuro): Normal gait present <Erica Parra [facility] Last Filed: 05/03/22 18:13> Motor exam (neuro): 5/5 motor strength present throughout and Pronator motor function not present <Erica Parra [facility] Last Filed: 05/03/22 18:13> Sensory Exam: No Sensory deficit (Neuro) <Erica Parra [facility] Last Filed: 05/03/22 18:13> Deep tendon reflexes (DTR's): Right patellar reflex intensity grade: 1+ and Left patellar reflex intensity grade: 1+ <GREG Luna Last Filed: 05/03/22 18:13> Coordination: [id number] test normal and [id number] test normal <GREG Luna Last Filed: 05/03/22 18:13> Pupils: Normal pupillary reactivity/response: bilateral <GREG Luna Last Filed: 05/03/22 18:13> Extrem General: Yes normal to inspection, Yes full ROM, Yes capillary refill normal and Yes no joint enlargement <GREG Luna Last Filed: 05/03/22 18:13> Left upper extremity: normal to inspection, full ROM, normal capillary refill and shoulder/upper arm Details: normal ROM; inspection normal, no tenderness, no swelling, no lacerations, no ecchymosis, no crepitus, no foreign bodies, no deformity and no unsual warmth; no cyanosis, no edema and joint enlargement noted <GREG Luna Last Filed: 05/03/22 18:13> Psych Appearance: grossly normal <GREG Luna Last Filed: 05/03/22 18:13> Affect: normal affect <GREG Luna Last Filed: 05/03/22 18:13> Attitude: cooperative <GREG Luna Last Filed: 05/03/22 18:13> Thought process: Normal thought process present <GREG Luna Last Filed: 05/03/22 18:13> Course Course Course Narrative: 82-year-old female past medical history significant for anxiety, constipation, GERD presenting to the emergency department with left shoulder blade pain for 2 days. Patient states the pain radiates down her left arm and her left arm is tingling. She denies chest pain, denies shortness of breath. States the pain started after mopping with a bucket. States the pain is 2/10. Patient is intact left upper extremity sensation, range of motion, motor strength, and pulses. When I palpate her back she states the tenderness is behind her left shoulder blade. Vital signs are stable, patient is well-appearing for her age. Labs are unremarkable, sodium is 135. X-ray of left shoulder and left scapula show calcific tendinitis. Head CT shows sinusitis. EKG is negative for any acute ischemia. Patient states her pain is minimal, provided Tylenol, will prescribe Augmentin for sinusitis, and refer to Orthopedics for left shoulder calcific tendinitis. Awaiting troponin. If initial troponin is negative, will send patient home, this sounds more musculoskeletal in nature than cardiac Discussed case with Dr torres, who agrees with this plan Signed patient out to Kesha Franklin, awaiting troponin result <GREG Luna - Last Filed: 05/03/22 18:13> Reevaluation(s) Reevaluation #1: Findings: Humeral head is well-seated within the glenoid. No acute fracture or dislocation seen. Amorphous calcification along the superior aspect of the lateral humeral head likely represents underlying calcific tendinitis. Visualized left ribs and left upper chest are grossly unremarkable. XR/XR scapula LT Impression: Amorphous calcification along the superior lateral aspect of the humeral head likely reflects component of underlying calcified tendinitis. No acute bony abnormality FINDINGS: There is no evidence of acute intracranial hemorrhage or territorial infarction. No abnormal mass effect or midline shift is seen. Mcrae to white matter differentiation is well preserved. No extra-axial fluid collections are identified. The ventricles are normal in size. There is no abnormal attenuation within the brain parenchyma. The osseous structures and soft tissues are normal. Incidental empty sella without change. Small left inferior mastoid effusion without interval change. This is seen to a lesser extent posteriorly in the right. The external auditory canals are unremarkable. The middle ear cavities are unremarkable. Mild to moderate thickening and air-fluid level in the left maxillary sinus. ? CT/CT head/brain wo con IMPRESSION: 1. No acute intracranial abnormality. 2. Small bilateral mastoid effusions, left greater than right without significant change. 3. Moderate inflammatory changes in the left maxillary sinus was not seen previously. <GREG Luna - Last Filed: 05/03/22 18:13> Reevaluation #2: I assumed care for this patient at 18:00, only thing pending on this patient was a troponin patient was feeling better. Troponin negative. At this time patient will be discharged home. Diagnosis sinusitis. Advised to return with new or worsening symptoms. <GREG Carlson - Last Filed: 05/03/22 19:27> Time: 19:27 <GREG Carlson - Last Filed: 05/03/22 19:27> Medical Decision Making Lab Data Result diagrams: : 05/03/22 16:24 05/03/22 16:24 <GREG Luna - Last Filed: 05/03/22 18:13> Labs: Lab Results 05/03/22 05/03/22 05/03/22 Range/Units 16:24 16:24 17:57 WBC 7.3 (4.8-10.8) X10*3/uL RBC 3.79 L (4.20-5.50) X10*6/uL Hgb 11.1 L (12.0-16.0) g/dl Hct 29.8 L (37.0-47.0) % MCV 78.6 L (80.0-98.0) fL MCH 29.3 (27.0-33.0) pg MCHC 37.2 H (31.0-35.0) g/dl RDW 14.3 (11.0-16.0) % Plt Count 230 (160-400) X10*3/uL MPV 9.1 L (9.4-12.3) fL Immature Gran % (Auto) 0.3 (0.0-0.4) % Neut % (Auto) 55.3 (45-73) % Lymph % (Auto) 36.0 (20-40) % Marathon % (Auto) 5.3 (2-11) % Eos % (Auto) 2.6 (0-4) % Baso % (Auto) 0.5 (0-2) % Lymph # (Auto) 2.6 (1.2-4.9) X10*3/uL Marathon # (Auto) 0.4 (0.1-1.2) X10*3/uL Eos # (Auto) 0.2 (0.0-0.4) X10*3/uL Baso # (Auto) 0.0 (0.0-0.2) X10*3/uL Abs Immat Gran (auto) 0.02 (0.00-0.03) X10*3/uL Absolute Neuts (auto) 4.0 (2.0-8.3) x10*3/uL Absolute Nucleated RBC 0.000 (0.0-0.012) X10*3/uL Nucleated RBC % (auto) 0.0 (0.0-0.2) /100WBC Sodium 135 (135-145) mmol/L Potassium 4.1 (3.3-5.1) mmol/L Chloride 102 (96-108) mmol/L Carbon Dioxide 24 (22-29) mmol/L Anion Gap 13 (12-20) BUN 8 L (9-16) mg/dL Creatinine 0.73 (0.5-1.4) mg/dL Estim Creat Clear Calc 35.3 Estimated GFR > 60 Random Glucose 85 (60-115) mg/dL Calcium 9.2 (8.4-10.2) mg/dL Total Bilirubin 0.5 (0.0-1.0) mg/dL AST 19 (5-31) U/L ALT 9 (0-31) U/L Alkaline Phosphatase 67 (39-117) U/L Troponin I High Sens < 3.5 (<3.5-17.0) ng/L Total Protein 6.4 L (6.5-8.0) g/dL Albumin 3.8 (3.5-5.0) g/dL <GREG Luna - Last Filed: 05/03/22 18:13> Lab Results 05/03/22 05/03/22 05/03/22 Range/Units 16:24 16:24 17:57 WBC 7.3 (4.8-10.8) X10*3/uL RBC 3.79 L (4.20-5.50) X10*6/uL Hgb 11.1 L (12.0-16.0) g/dl Hct 29.8 L (37.0-47.0) % MCV 78.6 L (80.0-98.0) fL MCH 29.3 (27.0-33.0) pg MCHC 37.2 H (31.0-35.0) g/dl RDW 14.3 (11.0-16.0) % Plt Count 230 (160-400) X10*3/uL MPV 9.1 L (9.4-12.3) fL Immature Gran % (Auto) 0.3 (0.0-0.4) % Neut % (Auto) 55.3 (45-73) % Lymph % (Auto) 36.0 (20-40) % Marathon % (Auto) 5.3 (2-11) % Eos % (Auto) 2.6 (0-4) % Baso % (Auto) 0.5 (0-2) % Lymph # (Auto) 2.6 (1.2-4.9) X10*3/uL Marathon # (Auto) 0.4 (0.1-1.2) X10*3/uL Eos # (Auto) 0.2 (0.0-0.4) X10*3/uL Baso # (Auto) 0.0 (0.0-0.2) X10*3/uL Abs Immat Gran (auto) 0.02 (0.00-0.03) X10*3/uL Absolute Neuts (auto) 4.0 (2.0-8.3) x10*3/uL Absolute Nucleated RBC 0.000 (0.0-0.012) X10*3/uL Nucleated RBC % (auto) 0.0 (0.0-0.2) /100WBC Sodium 135 (135-145) mmol/L Potassium 4.1 (3.3-5.1) mmol/L Chloride 102 (96-108) mmol/L Carbon Dioxide 24 (22-29) mmol/L Anion Gap 13 (12-20) BUN 8 L (9-16) mg/dL Creatinine 0.73 (0.5-1.4) mg/dL Estim Creat Clear Calc 35.3 Estimated GFR > 60 Random Glucose 85 (60-115) mg/dL Calcium 9.2 (8.4-10.2) mg/dL Total Bilirubin 0.5 (0.0-1.0) mg/dL AST 19 (5-31) U/L ALT 9 (0-31) U/L Alkaline Phosphatase 67 (39-117) U/L Troponin I High Sens < 3.5 (<3.5-17.0) ng/L Total Protein 6.4 L (6.5-8.0) g/dL Albumin 3.8 (3.5-5.0) g/dL <Susanita Franklin, PA - Last Filed: 05/03/22 19:27> ECG Data Interpretation: Sinus bradycardia at a rate of 57, OR interval 166, QRS 80, QTC 408, normal axis, no ST depression or elevation, no T-wave abnormalities <GREG Luna - Last Filed: 05/03/22 18:13> Discharge Plan Discharge Clinical Impression: Sinusitis <GREG Luna Last Filed: 05/03/22 18:13> Patient Disposition: Home, Self-Care <GREG Luna Last Filed: 05/03/22 18:13> Additional Instructions: I have referred you to orthopedics. Please call them if you do not hear from them by Thursday at the following number [phone] You have calcium deposits in the tendons of your left shoulder, they may be able to help you with the pain, or refer you to physical therapy. Your head CT showed that you have sinusitis. I have spread scribed antibiotics to her pharmacy. Please pick these up and take them as soon as possible. Your EKG was normal, your labs were all okay, and your sodium was 135 which is normal. Please call your primary care provider for follow-up from today's emergency room visit. Te he derivado a ortopedia. Ll?melos si no tiene noticias de ellos antes del lucy por la tarde al siguiente n?cody [phone] Tiene dep?sitos de calcio en los tendones de hawkins hombro sarthak, es posible que puedan ayudarlo con el dolor o derivarlo a fisioterapia. La tomograf?a computarizada de tu bacilio mostr? que tienes sinusitis. Le he dado antibi?ticos recetados a hawkins farmacia. Rec?jalos y ll?veselos lo antes posible. Hawkins electrocardiograma fue normal, cuauhtemoc laboratorios estaban kayce y hawkins sodio fue de 135, lo cual es normal. Llame a hawkins proveedor de atenci?n primaria para el seguimiento de la visita a la sarah de emergencias de hoy. <GREG Luna - Last Filed: 05/03/22 18:13> Prescriptions: New amoxicillin-pot clavulanate 875-125 mg tablet 1 tab PO BID 10 Days Qty: 20 0RF No Action umeclidinium-vilanterol [Anoro Ellipta] 62.5-25 mcg/actuation blister with device 1 ea PO DAILY Qty: 60 0RF albuterol sulfate 90 mcg/actuation HFA aerosol inhaler 2 puff PO Q2H PRN (Reason: shortness of breath or wheezing) Qty: 18 0RF calcitonin (salmon) 200 unit/actuation spray,non-aerosol 1 spray intranasal DAILY Qty: 3.7 6RF amlodipine 10 mg tablet 10 mg PO DAILY escitalopram oxalate 5 mg tablet 5 mg PO DAILY multivitamin Tablet 1 tab PO DAILY pantoprazole [Protonix] 40 mg tablet,delayed release (DR/EC) 40 mg PO DAILY 30 Days Qty: 30 6RF prazosin 1 mg capsule 1 mg PO BEDTIME trazodone 50 mg tablet 25 mg PO BEDTIME PRN lisinopril 40 mg tablet 40 mg PO DAILY hydrochlorothiazide 12.5 mg tablet 12.5 mg PO DAILY simethicone 180 mg capsule 180 mg PO QID 30 Days Qty: 120 3RF Rx Instructions: after meals carvedilol 3.125 mg tablet 3.125 mg PO BID docusate sodium [Docu] 50 mg/5 mL liquid PO Linzess 72 mcg capsule 72 mcg PO QAM Qty: 30 3RF <GREG Luna - Last Filed: 05/03/22 18:13> Referrals: Vern Leo MD [Physician] - (calcific tendonitis left shoulder) <GREG Luna - Last Filed: 05/03/22 18:13> Print Language: Upper Sorbian <GREG Luna - Last Filed: 05/03/22 18:13>
[2022-05-03 16:48] LABS: Alanine Aminotransferase 9 U/L (0-31); Albumin Level 3.8 g/dL (3.5-5.0); Alkaline Phosphatase 67 U/L (39-117); Anion Gap 13 (12-20); Aspartate Amino Transferase 19 U/L (5-31); Bilirubin Total 0.5 mg/dL (0.0-1.0); Blood Urea Nitrogen 8 mg/dL (9-16); Calcium 9.2 mg/dL (8.4-10.2); Carbon Dioxide 24 mmol/L (22-29); Chloride 102 mmol/L (96-108); Creatinine Clr Calc Pharmacy 35.3; Estimated Glomerular Filt Rate > 60; Glucose Random 85 mg/dL (60-115); Potassium 4.1 mmol/L (3.3-5.1); Sodium 135 mmol/L (135-145); Total Protein 6.4 g/dL (6.5-8.0)
--- NOTE | 2022-05-03 16:52 | ECG_ITS ---
Test Reason : DIZZINESS Blood Pressure : / mmHG Vent. Rate : 057 BPM Atrial Rate : 057 BPM P-R Int : 166 ms QRS Dur : 080 ms QT Int : 420 ms P-R-T Axes : 073 051 077 degrees QTc Int : 408 ms Sinus bradycardia cannot exclude old septal infarct Abnormal ECG When compared with ECG of 22-FEB-2022 18:32, No significant change was found Referred By: Erica Parra Electronically Signed By:ROSA KNOX
[2022-05-03] MEDS: Acetaminophen 325 MG TABLET 650 MG PO (18:07)
[2022-05-03 18:09] VITALS: BP 175/65; PULSE 93; RESP 20; TEMP 36.5; O2SAT 100
[2022-05-03 18:24] LABS: Troponin-I High Sensitivity < 3.5 ng/L (<3.5-17.0)
== END 2022-05-03 20:02 | disposition home or self-care (01) ==
PROVIDERS: Physician Assistant; Emergency Provider Emergency Medicine Emergency Medical Services; PCP Internal Medicine
DX: J32.9 Chronic sinusitis, unspecified (principal); R42 Dizziness and giddiness; M75.32 Calcific tendinitis of left shoulder; M25.512 Pain in left shoulder
CPT/HCPCS: 36415; 70450; 73010; 73030; 80053; 84484; 85025; 93005; 99284

== ENCOUNTER → 2022-05-27 10:26 | Outpatient (BNVA) | payer MEDICARE, SELFPAY | PROVIDERS: PCP Internal Medicine; Visit Provider Physician Assistant | DX: M54.12 Radiculopathy, cervical region (principal); M75.32 Calcific tendinitis of left shoulder | CPT/HCPCS: 20610; 99202; J1040 ==

== ENCOUNTER 2022-05-28 22:28 | Emergency (ER) | payer MEDICARE, SELFPAY | END 2022-05-29 01:44 | disposition left against medical advice (07) | PROVIDERS: Emergency Provider Emergency Medicine; PCP Internal Medicine | DX: R50.9 Fever, unspecified (principal); R51.9 Headache, unspecified; I10 Essential (primary) hypertension; F17.210 Nicotine dependence, cigarettes, uncomplicated ==

== ENCOUNTER → 2022-05-30 11:40 | Outpatient (BNVA) | payer MEDICARE, SELFPAY | PROVIDERS: PCP Internal Medicine; Visit Provider Nurse Practitioner | DX: K21.9 Gastro-esophageal reflux disease without esophagitis (principal); K59.04 Chronic idiopathic constipation | CPT/HCPCS: 99212 ==

== ENCOUNTER 2022-06-23 20:53 | Emergency (ER) | payer MEDICARE, SELFPAY ==
[2022-06-23 22:06] VITALS: BP 175/67; PULSE 62; RESP 16; TEMP 36.9; O2SAT 98; BMI 19.5
--- NOTE | 2022-06-23 22:25 | PC.NURSE ---
ATTEMPT TO OBTAIN LABS WITH STRAIGHT STICK X 2 UNSUCCESSFUL IN TRIAGE.
--- NOTE | 2022-06-23 23:40 | ED_ITS ---
HPI - Abdominal Pain General Chief Complaint: Abdominal Pain Stated Complaint: abdominal pain Time Seen by Provider: 06/23/22 23:33 Source: patient, old records reviewed and spanish interpreter Mode of arrival: ambulatory Limitations: no limitations History of Present Illness HPI narrative: 82 yo [place]ese-speaking female with a history of constipation, chronic abdominal pain, anxiety, GERD, osteoporosis who presents to the ER with new onset of RUQ pain that started last night. She reports it waxes and wanes and is right under her ribs on the right side. It does not radiate. She is not nauseated. No vomiting or diarrhea. She last had a bowel movement yesterday and it was normal. She reports a history of gastritis and says this pain feels similar. MD elicited complaint: abdominal pain Pertinent past history: constipation Onset (ago): day(s) (1) Pain Consistency: intermittent Location: RUQ Severity: moderate Pain scale (0-10): 6 Quality: aching Radiation: none Migration to: no migration Exacerbating factors: nothing Relieving factors: nothing Context: history of similar episodes Associated symptoms: denies other symptoms Related Data Home Medications Medication Instructions Recorded Confirmed amlodipine 10 mg tablet 10 mg PO DAILY 12/24/20 escitalopram oxalate 5 mg tablet 5 mg PO DAILY 12/24/20 multivitamin 1 tab PO DAILY 12/24/20 prazosin 1 mg capsule 1 mg PO BEDTIME 02/04/21 trazodone 50 mg tablet 25 mg PO BEDTIME PRN 02/04/21 hydrochlorothiazide 12.5 mg tablet 12.5 mg PO DAILY 03/17/22 lisinopril 40 mg tablet 40 mg PO DAILY 03/17/22 carvedilol 3.125 mg tablet 3.125 mg PO BID 04/18/22 docusate sodium 50 mg/5 mL oral ml PO 04/18/22 liquid (Docu) Previous Rx's Medication Instructions Recorded albuterol sulfate 90 mcg/actuation 2 puff PO Q2H PRN shortness of 02/21/21 aerosol inhaler breath or wheezing #18 grams umeclidinium 62.5 mcg-vilanterol 1 ea PO DAILY #60 caps 02/21/21 25 mcg/actuation powdr for inhalation (Anoro Ellipta) simethicone 180 mg capsule 180 mg PO QID 30 days #120 caps 03/17/22 calcitonin (salmon) 200 1 spray intranasal DAILY #3.7 mL 03/28/22 unit/actuation nasal spray amoxicillin 875 mg-potassium 1 tab PO BID 10 days #20 tabs 05/03/22 clavulanate 125 mg tablet linaclotide 72 mcg capsule 72 mcg PO QAM #30 caps 05/30/22 (Linzess) pantoprazole 40 mg tablet,delayed 40 mg PO DAILY 30 days #30 tabs 05/30/22 release (Protonix) Allergies Allergy/AdvReac Type Severity Reaction Status Date / Time Iodinated Contrast Media Allergy Intermediate NAUSEA & Verified 06/23/22 22:06 [CONTRAST, IV] VOMITING morphine [MORPHINE] Allergy Intermediate NAUSEA & Verified 06/23/22 22:06 VOMITING oxycodone [From PERCOCET] Allergy Intermediate NAUSEA, Verified 06/23/22 22:06 WEAKNESS/VIOLENT Review of Systems Review of Systems Constitutional: No Fever, No Chills ENT/Mouth: No sore throat, No Rhinorrhea, No Swallowing Difficulty Cardiovascular: No Chest Pain, No SOB, No Orthopnea, No Edema Respiratory: No Cough, No Sputum, No Wheezing, No dyspnea Gastrointestinal: No Nausea, No Vomiting, No Diarrhea, +abdominal Pain, No Hematochezia, No Melena Genitourinary: No Dysuria, No Urinary Frequency, No Hematuria Musculoskeletal: No joint pain, No Myalgias Skin: No Skin Lesions, No rash Neuro: No Weakness, No Numbness, No Dizziness, No Headache Psych: No Anxiety/Panic, No Depression Heme/Lymph: No Bruising, No Lymphadenopathy Endocrine: No Polyuria, No Polydipsia PMFSH Past Medical History Medical History Acute arthritis Breast CA Cholecystitis HTN (hypertension) Surgical History History of back surgery History of esophagogastroduodenoscopy (EGD) Hx of breast biopsy Hx of colonoscopy Hx of foot surgery Family History Family History Father CVD (cardiovascular disease) HTN (hypertension) Brother Colon cancer Daughter No problems noted. 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 Oriented X3. No acute distress. Eyes: Pupils equal, round and reactive to light. ENT: Pharynx normal. Neck: Normal inspection. Neck supple. CVS: Normal heart rate and rhythm. Pulses normal. Respiratory: No respiratory distress. Breath sounds normal. Abdomen: Flat, soft with minimal RUQ tenderness, no rebound or guarding. normal +BS x4 Skin: Skin warm and dry. Normal skin color. Normal skin turgor. No rashes. Extremities: No lower extremity edema. Neuro: Oriented X 3. No motor deficit. No sensory deficit. Course Course Course Narrative: 82 yo female with history of chronic GI issues, including constipation and pain who presents to the ER with RUQ abdominal pain since yesterday without N/V/D. BM yesterday. Abd exam is benign. RUQ is very minmally tender to deep palpation without guarding or rebound. Will check LFTs, doubt acute cholecystitis. Reevaluation(s) Reevaluation #1: Labs are within normal limits. She is sleeping comfortably. Given her lack of tenderness on examination and her clinical appearance will plan to treat for gastritis and hold off on imaging for now. She had a recent CT scan 2 months ago that was unremarkable. She follows closely with GI. At this time she is stable for discharge home with plan to follow up with GI as needed. MDM - Abdominal Pain Lab Data Result diagrams: 06/24/22 00:31 06/24/22 00:31 Labs: Lab Results 06/24/22 06/24/22 Range/Units 00:31 00:31 WBC 6.8 (4.8-10.8) X10*3/uL RBC 4.31 (4.20-5.50) X10*6/uL Hgb 12.9 (12.0-16.0) g/dl Hct 34.4 L (37.0-47.0) % MCV 79.8 L (80.0-98.0) fL MCH 29.9 (27.0-33.0) pg MCHC 37.5 H (31.0-35.0) g/dl RDW 14.8 (11.0-16.0) % Plt Count 108 L D (160-400) X10*3/uL MPV 9.2 L (9.4-12.3) fL Immature Gran % (Auto) 0.1 (0.0-0.4) % Neut % (Auto) 46.1 (45-73) % Lymph % (Auto) 43.1 H (20-40) % [place] % (Auto) 6.6 (2-11) % Eos % (Auto) 3.5 (0-4) % Baso % (Auto) 0.6 (0-2) % Lymph # (Auto) 2.9 (1.2-4.9) X10*3/uL [place] # (Auto) 0.5 (0.1-1.2) X10*3/uL Eos # (Auto) 0.2 (0.0-0.4) X10*3/uL Baso # (Auto) 0.0 (0.0-0.2) X10*3/uL Abs Immat Gran (auto) 0.01 (0.00-0.03) X10*3/uL Absolute Neuts (auto) 3.1 (2.0-8.3) x10*3/uL Absolute Nucleated RBC 0.000 (0.0-0.012) X10*3/uL Nucleated RBC % (auto) 0.0 (0.0-0.2) /100WBC Sodium 136 (135-145) mmol/L Potassium 4.2 (3.3-5.1) mmol/L Chloride 100 (96-108) mmol/L Carbon Dioxide 24 (22-29) mmol/L Anion Gap 16 (12-20) BUN 6 L (9-16) mg/dL Creatinine 0.74 (0.5-1.4) mg/dL Estim Creat Clear Calc 47.7 Estimated GFR > 60 Random Glucose 88 (60-115) mg/dL Calcium 9.6 (8.4-10.2) mg/dL Total Bilirubin 0.5 (0.0-1.0) mg/dL AST 21 (5-31) U/L ALT 12 (0-31) U/L Alkaline Phosphatase 63 (39-117) U/L Total Protein 6.8 (6.5-8.0) g/dL Albumin 4.1 (3.5-5.0) g/dL Discharge Plan Discharge Clinical Impression: Gastritis Patient Disposition: Home, Self-Care Instructions: Gastritis (ED), Diet for Stomach Ulcers and Gastritis (ED) Additional Instructions: Your lab workup today was unremarkable. Your pain is most likely due to gastritis which is and irritation and inflammation of your stomach lining. Start taking the prescribed medication as directed for this. Stick to a bland diet. Avoid foods high in acid, avoid alcohol and NSAID medications like Aleve, Motrin, Advil or ibuprofen. Follow up with your doctor as needed. Follow up with GI doctor if you symptoms persist despite dietary modifications and medication. If you develop new or worsening symptoms call 911 or come back to the ER for further evaluation. Tu an?lisis de laboratorio de homoshe no tuvo nada especial. Lo m?s probable es que arce dolor se deba a gastritis, que es irritaci?n e inflamaci?n del revestimiento del est?gianluca. Comience a alena la medicaci?n prescrita seg?n las indicaciones para ello. Seguir lawrence dieta blanda. Evite los alimentos con alto contenido de ?cido, evite el alcohol y los medicamentos MARI john Aleve, Motrin, Advil o ibuprofeno. Radha un seguimiento con arce m?dico seg?n sea necesario. Radha un seguimiento con el m?dico GI si los s?ntomas persisten a pesar de las modificaciones en la dieta y la medicaci?n. Si desarrolla s?ntomas nuevos o que empeoran, llame al 911 o regrese a la sarah de emergencias para lawrence evaluaci?n adicional. Prescriptions: No Action umeclidinium-vilanterol [Anoro Ellipta] 62.5-25 mcg/actuation blister with de vice 1 ea PO DAILY Qty: 60 0RF albuterol sulfate 90 mcg/actuation HFA aerosol inhaler 2 puff PO Q2H PRN (Reason: shortness of breath or wheezing) Qty: 18 0RF calcitonin (salmon) 200 unit/actuation spray,non-aerosol 1 spray intranasal DAILY Qty: 3.7 6RF amoxicillin-pot clavulanate 875-125 mg tablet 1 tab PO BID 10 Days Qty: 20 0RF amlodipine 10 mg tablet 10 mg PO DAILY escitalopram oxalate 5 mg tablet 5 mg PO DAILY multivitamin Tablet 1 tab PO DAILY prazosin 1 mg capsule 1 mg PO BEDTIME trazodone 50 mg tablet 25 mg PO BEDTIME PRN lisinopril 40 mg tablet 40 mg PO DAILY hydrochlorothiazide 12.5 mg tablet 12.5 mg PO DAILY simethicone 180 mg capsule 180 mg PO QID 30 Days Qty: 120 3RF Rx Instructions: after meals carvedilol 3.125 mg tablet 3.125 mg PO BID docusate sodium [Docu] 50 mg/5 mL liquid PO pantoprazole [Protonix] 40 mg tablet,delayed release (DR/EC) 40 mg PO DAILY 30 Days Qty: 30 6RF Linzess 72 mcg capsule 72 mcg PO QAM Qty: 30 6RF Referrals: Loida Ramirez, SIMA-C [Nurse Practitioner] - Print Language: [place]ese
[2022-06-24 00:38] LABS: Basophils Percent Auto 0.6 % (0-2); Hemoglobin 12.9 g/dl (12.0-16.0); Mean Platelet Volume 9.2 fL (9.4-12.3); PLT CLUMP 1; SCAN SMEAR FLAG 1
[2022-06-24 00:40] LABS: Eosinophils Absolute Auto 0.2 X10*3/uL (0.0-0.4); Eosinophils Percent Auto 3.5 % (0-4); Hematocrit 34.4 % (37.0-47.0); Imm Gran Abs Auto 0.01 X10*3/uL (0.00-0.03); Imm Gran Pct Auto 0.1 % (0.0-0.4); Lymphocytes Absolute Auto 2.9 X10*3/uL (1.2-4.9); Lymphocytes Percent Auto 43.1 % (20-40); Mean Corpuscular HGB Conc 37.5 g/dl (31.0-35.0); Mean Corpuscular Hemoglobin 29.9 pg (27.0-33.0); Mean Corpuscular Volume 79.8 fL (80.0-98.0); Monocytes Absolute Auto 0.5 X10*3/uL (0.1-1.2); Monocytes Percent Auto 6.6 % (2-11); Neutrophils Absolute Auto 3.1 x10*3/uL (2.0-8.3); Neutrophils Percent Auto 46.1 % (45-73); Red Blood Count 4.31 X10*6/uL (4.20-5.50); Red Cell Distribution Width 14.8 % (11.0-16.0)
[2022-06-24 00:42] LABS: MANUAL DIFF FLAG NO; White Blood Count 6.8 X10*3/uL (4.8-10.8)
[2022-06-24 00:56] LABS: Platelet Count 108 X10*3/uL (160-400)
[2022-06-24 01:02] LABS: Alanine Aminotransferase 12 U/L (0-31); Albumin Level 4.1 g/dL (3.5-5.0); Alkaline Phosphatase 63 U/L (39-117); Anion Gap 16 (12-20); Aspartate Amino Transferase 21 U/L (5-31); Bilirubin Total 0.5 mg/dL (0.0-1.0); Blood Urea Nitrogen 6 mg/dL (9-16); Calcium 9.6 mg/dL (8.4-10.2); Carbon Dioxide 24 mmol/L (22-29); Chloride 100 mmol/L (96-108); Creatinine Clr Calc Pharmacy 47.7; Estimated Glomerular Filt Rate > 60; Glucose Random 88 mg/dL (60-115); Potassium 4.2 mmol/L (3.3-5.1); Sodium 136 mmol/L (135-145); Total Protein 6.8 g/dL (6.5-8.0)
[2022-06-24] MEDS: PHENobarb/Hyoscy/Atropine/Scop 10 ML ELIXIR PO (01:05)
[2022-06-24] MEDS: Lidocaine HCl Viscous 2 % 15 ML SOLUTION MUCOUS MEM (01:05)
[2022-06-24] MEDS: Magnesium Hydrox/Alum Hydrox 30 ML ORAL.SUSP PO (01:06)
[2022-06-24 01:35] VITALS: BP 149/83; PULSE 89; RESP 16; TEMP 36.7; O2SAT 97
== END 2022-06-24 01:36 | disposition home or self-care (01) ==
PROVIDERS: Emergency Provider Emergency Medicine
DX: K29.70 Gastritis, unspecified, without bleeding (principal); I10 Essential (primary) hypertension; F17.210 Nicotine dependence, cigarettes, uncomplicated; K21.9 Gastro-esophageal reflux disease without esophagitis; Z79.899 Other long term (current) drug therapy
CPT/HCPCS: 36415; 80053; 85025; 99283

== ENCOUNTER → 2023-01-30 10:57 | Outpatient (BNVA) | payer OTHER, SELFPAY | PROVIDERS: PCP Internal Medicine; Visit Provider Nurse Practitioner | DX: K21.9 Gastro-esophageal reflux disease without esophagitis (principal); K59.04 Chronic idiopathic constipation; J30.9 Allergic rhinitis, unspecified | CPT/HCPCS: 99212 ==

== ENCOUNTER 2023-06-11 18:36 | Emergency (ER) | payer OTHER, SELFPAY ==
--- NOTE | ~2023-06-11 | CT_ITS ---
EXAMINATION: CT ABDOMEN AND PELVIS WITHOUT CONTRAST CLINICAL INFORMATION: Abdominal pain. COMPARISON: 04/12/2022 TECHNIQUE: Multidetector volumetric imaging was performed from the superior aspect of the liver through the pubic symphysis. Sagittal and coronal reformatted images were obtained on the technologist's workstation. This CT examination was performed using dose optimization techniques as appropriate, variously including the following: *Automated exposure control *Adjustment of mA and/or kV according to patient size (this includes techniques or standardized protocols for targeted exams where dose is matched to indication/reason for exam; i.e. extremities or head) *Use of iterative reconstruction technique DLP: 221 mGy-cm FINDINGS: LUNG BASES: The visualized lung bases are unremarkable. LIVER, GALLBLADDER, AND BILIARY TREE: The liver is normal in size, shape, and attenuation. No focal hepatic lesion or biliary ductal dilatation is present. There has been a prior cholecystectomy. PANCREAS: Unremarkable. SPLEEN: Unremarkable. ADRENAL GLANDS: Unremarkable. KIDNEYS AND URETERS: There are stable right renal cysts measuring up to 2.5 cm cyst lower pole right kidney. There is no hydronephrosis. BLADDER: Unremarkable. GASTROINTESTINAL TRACT: There are diverticula of the sigmoid colon without diverticulitis. The appendix is not seen. ABDOMINAL WALL: No significant hernia is appreciated. LYMPH NODES: Normal. VASCULAR: There is atherosclerotic plaque of the abdominal aorta and proximal branches. PELVIC VISCERA: Unremarkable. OSSEOUS STRUCTURES: There is [id number] lumbar disc degenerative change. CT/CT abdomen pelvis wo IV con IMPRESSION: No acute intra-abdominal process. Sigmoid diverticulosis without diverticulitis Fleischner guidelines were followed.
[2023-06-11 20:07] VITALS: BP 113/64; PULSE 66; RESP 18; TEMP 36.5; O2SAT 99; BMI 15.6
--- NOTE | 2023-06-11 20:08 | ED.GENADULT ---
HPI - General Adult General Chief complaint: General Medical Stated complaint: abd pain, ?uti,shoulder pain Time Seen by Provider: 06/11/23 21:28 Source: patient Mode of arrival: ambulatory Limitations: no limitations History of Present Illness HPI narrative: Patient history of good idiopathic constipation anxiety and aortic aneurysm last time size was 2.2 cm in 04/2022 comes in for acute onset of epigastric pain without nausea vomiting or diarrhea pain started yesterday evening continued all day by the time she came to the ER has improved no fever or chills no chest pain no urinary complaint Related Data Home Medications Medication Instructions Recorded Confirmed escitalopram oxalate 5 mg tablet 5 mg PO DAILY 12/24/20 multivitamin 1 tab PO DAILY 12/24/20 prazosin 1 mg capsule 1 mg PO BEDTIME 02/04/21 trazodone 50 mg tablet 25 mg PO BEDTIME PRN 02/04/21 hydrochlorothiazide 12.5 mg tablet 12.5 mg PO DAILY 03/17/22 lisinopril 40 mg tablet 40 mg PO DAILY 03/17/22 carvedilol 3.125 mg tablet 3.125 mg PO BID 04/18/22 docusate sodium 50 mg/5 mL oral ml PO 04/18/22 liquid (Docu) Previous Rx's Medication Instructions Recorded albuterol sulfate 90 mcg/actuation 2 puff PO Q2H PRN shortness of 02/21/21 aerosol inhaler breath or wheezing #18 grams umeclidinium 62.5 mcg-vilanterol 1 ea PO DAILY #60 caps 02/21/21 25 mcg/actuation powdr for inhalation (Anoro Ellipta) calcitonin (salmon) 200 1 spray intranasal DAILY #3.7 mL 01/30/23 unit/actuation nasal spray linaclotide 72 mcg capsule 72 mcg PO QAM #30 caps 01/30/23 (Linzess) pantoprazole 40 mg tablet,delayed 40 mg PO DAILY 30 days #30 tabs 01/30/23 release (Protonix) simethicone 180 mg capsule 180 mg PO QID #120 caps 01/30/23 fluticasone propionate 50 1 spray intranasal BID #16 grams 02/05/23 mcg/actuation nasal spray,suspension (Allergy Relief (fluticasone)) sucralfate 100 mg/mL oral 10 ml PO BID #400 mL 06/12/23 suspension Allergies Allergy/AdvReac Type Severity Reaction Status Date / Time Iodinated Contrast Media Allergy Intermediate NAUSEA & Verified 01/30/23 11:12 [CONTRAST, IV] VOMITING morphine [MORPHINE] Allergy Intermediate NAUSEA & Verified 01/30/23 11:12 VOMITING oxycodone [From PERCOCET] Allergy Intermediate NAUSEA, Verified 01/30/23 11:12 WEAKNESS/VIOLENT Review of Systems Review of Systems: Yes all other systems are reviewed and are negative [facility] Past Medical History Medical History Acute arthritis Breast CA Cholecystitis HTN (hypertension) Surgical History History of back surgery History of esophagogastroduodenoscopy (EGD) Hx of breast biopsy Hx of colonoscopy Hx of foot surgery Family History Family History Father CVD (cardiovascular disease) HTN (hypertension) Brother Colon cancer Daughter No problems noted. 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 Oriented X3. No acute distress. Eyes: PERRLA, No Nystagmus ENT: Pharynx normal. Oral Mucosa moist Neck: Normal inspection. Neck supple. CVS: Normal heart rate and rhythm. Pulses normal. Respiratory: No respiratory distress. Equal air entry bilateral, no wheezing/rales/rhonchi Abdomen: Soft and nontender. Bowel sounds are present, no mass palpable, no CVA tenderness Skin: Skin warm and dry. Normal skin color. Normal skin turgor. Extremities: No lower extremity edema. No calf tenderness Neuro: Oriented X 3. No motor deficit. No sensory deficit.No cerebellar signs , cranial nerves II-XII intact Course Course Course Narrative: This is an RME: Additional HPI, ROS, PE not included below will be deferred to primary provider. 82 yo [place]ian-speaking female with a history of HTN, breast CA, constipation, chronic abdominal pain, anxiety, GERD, osteoporosis, presenting to the emergency department for evaluation of epigastric abdominal pain since this morning. Decreased appetite and nausea. No vomiting, fevers, chill. No dysuria, hematuria. Abdomen is soft, nontender. No urinary symptoms. Hyperactive bowel sounds present. Had 2 bowel movements today - no bloody or black stool. had cholescystectomy and appendectomy. Plan: Labs, UA, EKG ordered Medications Administered Discontinued Medications Generic Name Dose Route Start Last Admin Trade Name Freq PRN Reason Stop Dose Admin Al Hydroxide/Mg Hydroxide 15 ml 06/12/23 01:47 06/12/23 02:18 Magnesium Hydrox/Alum Hydrox 30 Ml Oral.Susp PO 06/12/23 01:48 Not Given ONCE ONE Medical Decision Making Medical Decision Making [facility] Narrative: Patient history of gastritis with pain in epigastric area improved during stay in the ER labs are stable CT scan was negative discharge patient home advised to continue Protonix and add sucralfate Differential Diagnosis Pancreatitis/gastritis/GERD/hiatal hernia/ACS Lab Data [facility] Lab Attestation statement: I reviewed the patient's lab results. 06/11/23 20:59 06/11/23 20:59 Labs: Lab Results 06/11/23 06/11/23 06/11/23 Range/Units 20:59 20:59 20:59 WBC 7.5 (4.8-10.8) X10*3/uL RBC 4.10 L (4.20-5.50) X10*6/uL Hgb 12.0 (12.0-16.0) g/dl Hct 32.8 L (37.0-47.0) % MCV 80.0 (80.0-98.0) fL MCH 29.3 (27.0-33.0) pg MCHC 36.6 H (31.0-35.0) g/dl RDW 14.2 (11.0-16.0) % Plt Count 258 D (160-400) X10*3/uL MPV 8.8 L (9.4-12.3) fL Immature Gran % (Auto) 0.4 (0.0-0.4) % Neut % (Auto) 49.8 (45-73) % Lymph % (Auto) 39.3 (20-40) % [place] % (Auto) 7.7 (2-11) % Eos % (Auto) 2.3 (0-4) % Baso % (Auto) 0.5 (0-2) % Lymph # (Auto) 3.0 (1.2-4.9) X10*3/uL [place] # (Auto) 0.6 (0.1-1.2) X10*3/uL Eos # (Auto) 0.2 (0.0-0.4) X10*3/uL Baso # (Auto) 0.0 (0.0-0.2) X10*3/uL Abs Immat Gran (auto) 0.03 (0.00-0.03) X10*3/uL Absolute Neuts (auto) 3.7 (2.0-8.3) x10*3/uL Absolute Nucleated RBC 0.000 (0.0-0.012) X10*3/uL Nucleated RBC % (auto) 0.0 (0.0-0.2) /100WBC Sodium 136 (135-145) mmol/L Potassium 4.1 (3.3-5.1) mmol/L Chloride 101 (96-108) mmol/L Carbon Dioxide 27 (22-29) mmol/L Anion Gap 12 (12-20) BUN 8 L (9-16) mg/dL Creatinine 0.81 (0.5-1.4) mg/dL Estim Creat Clear Calc 31.1 Estimated GFR > 60 Random Glucose 88 (60-115) mg/dL Calcium 10.0 (8.4-10.2) mg/dL Total Bilirubin 0.3 (0.0-1.0) mg/dL Direct Bilirubin 0.1 (0.0-0.5) mg/dL AST 22 (5-31) U/L ALT 10 (0-31) U/L Alkaline Phosphatase 79 (39-117) U/L Troponin I High Sens 5.7 (<3.5-17.0) ng/L Total Protein 7.3 (6.5-8.0) g/dL Albumin 4.2 (3.5-5.0) g/dL Lipase 18 (8-78) U/L Urine Color Urine Appearance Urine pH (5.0-9.0) Ur Specific [place] (1.005-1.025) Urine Protein (Neg-Trace) mg/dL Urine Glucose (UA) (Negative) mg/dL Urine Ketones (Negative) mg/dL Urine Blood (Negative) Urine Nitrite (Negative) Ur Leukocyte Esterase (Negative) Urine RBC (0-2) /HPF Urine WBC (0-5) /HPF Ur Squamous Epith Cells (0-2) /HPF Urine Bacteria (None Seen) Hyaline Casts (0-2) /LPF 06/11/23 Range/Units 20:59 WBC (4.8-10.8) X10*3/uL RBC (4.20-5.50) X10*6/uL Hgb (12.0-16.0) g/dl Hct (37.0-47.0) % MCV (80.0-98.0) fL MCH (27.0-33.0) pg MCHC (31.0-35.0) g/dl RDW (11.0-16.0) % Plt Count (160-400) X10*3/uL MPV (9.4-12.3) fL Immature Gran % (Auto) (0.0-0.4) % Neut % (Auto) (45-73) % Lymph % (Auto) (20-40) % [place] % (Auto) (2-11) % Eos % (Auto) (0-4) % Baso % (Auto) (0-2) % Lymph # (Auto) (1.2-4.9) X10*3/uL [place] # (Auto) (0.1-1.2) X10*3/uL Eos # (Auto) (0.0-0.4) X10*3/uL Baso # (Auto) (0.0-0.2) X10*3/uL Abs Immat Gran (auto) (0.00-0.03) X10*3/uL Absolute Neuts (auto) (2.0-8.3) x10*3/uL Absolute Nucleated RBC (0.0-0.012) X10*3/uL Nucleated RBC % (auto) (0.0-0.2) /100WBC Sodium (135-145) mmol/L Potassium (3.3-5.1) mmol/L Chloride (96-108) mmol/L Carbon Dioxide (22-29) mmol/L Anion Gap (12-20) BUN (9-16) mg/dL Creatinine (0.5-1.4) mg/dL Estim Creat Clear Calc Estimated GFR Random Glucose (60-115) mg/dL Calcium (8.4-10.2) mg/dL Total Bilirubin (0.0-1.0) mg/dL Direct Bilirubin (0.0-0.5) mg/dL AST (5-31) U/L ALT (0-31) U/L Alkaline Phosphatase (39-117) U/L Troponin I High Sens (<3.5-17.0) ng/L Total Protein (6.5-8.0) g/dL Albumin (3.5-5.0) g/dL Lipase (8-78) U/L Urine Color Yellow Urine Appearance Clear Urine pH 7.5 (5.0-9.0) Ur Specific [place] <= 1.005 (1.005-1.025) Urine Protein Negative (Neg-Trace) mg/dL Urine Glucose (UA) Negative (Negative) mg/dL Urine Ketones Negative (Negative) mg/dL Urine Blood Trace H (Negative) Urine Nitrite Negative (Negative) Ur Leukocyte Esterase Negative (Negative) Urine RBC 0-2 (0-2) /HPF Urine WBC 0-5 (0-5) /HPF Ur Squamous Epith Cells 0-2 (0-2) /HPF Urine Bacteria None Seen (None Seen) Hyaline Casts 0-2 (0-2) /LPF Independent Interpretation I performed an independent interpretation of an: EKG Interpretation: Sinus bradycardia for progression of R-waves no acute ST-T changes no acute ischemia Discharge Plan Discharge Clinical Impression: Acute gastritis Patient Disposition: Home, Self-Care Instructions: Gastritis (ED) Additional Instructions: Continue Protonix and simethicone as prescribed byyour PCP Take 10 mL of sucralfate half an hour before meals as prescribed Prescriptions: New sucralfate 100 mg/mL suspension 10 ml PO BID Qty: 400 0RF No Action umeclidinium-vilanterol [Anoro Ellipta] 62.5-25 mcg/actuation blister with device 1 ea PO DAILY Qty: 60 0RF albuterol sulfate 90 mcg/actuation HFA aerosol inhaler 2 puff PO Q2H PRN (Reason: shortness of breath or wheezing) Qty: 18 0RF fluticasone propionate [Allergy Relief (fluticasone)] 50 mcg/actuation spray,suspension 1 spray intranasal BID Qty: 16 11RF Rx Instructions: administer into each nostril escitalopram oxalate 5 mg tablet 5 mg PO DAILY multivitamin Tablet 1 tab PO DAILY prazosin 1 mg capsule 1 mg PO BEDTIME trazodone 50 mg tablet 25 mg PO BEDTIME PRN Linzess 72 mcg capsule 72 mcg PO QAM Qty: 30 6RF pantoprazole [Protonix] 40 mg tablet,delayed release (DR/EC) 40 mg PO DAILY 30 Days Qty: 30 6RF simethicone 180 mg capsule 180 mg PO QID Qty: 120 6RF calcitonin (salmon) 200 unit/actuation spray,non-aerosol 1 spray intranasal DAILY Qty: 3.7 6RF lisinopril 40 mg tablet 40 mg PO DAILY hydrochlorothiazide 12.5 mg tablet 12.5 mg PO DAILY carvedilol 3.125 mg tablet 3.125 mg PO BID docusate sodium [Docu] 50 mg/5 mL liquid PO Interventions: ED Discharge Assessment Last Done: 06/12/23 02:24
--- NOTE | 2023-06-11 20:15 | ECG_ITS ---
Test Reason : CP Blood Pressure : / mmHG Vent. Rate : 059 BPM Atrial Rate : 059 BPM P-R Int : 188 ms QRS Dur : 074 ms QT Int : 414 ms P-R-T Axes : 078 062 079 degrees QTc Int : 409 ms Sinus bradycardia Septal infarct , age undetermined Abnormal ECG When compared with ECG of 03-MAY-2022 17:25, No significant change was found Referred By: Izabela Guo Electronically Signed By:Mani Tineo
[2023-06-11 21:03] LABS: MANUAL DIFF FLAG NO
[2023-06-11 21:05] LABS: Appearance Urine Clear; Color Urine Yellow; Glucose Urine UA Negative (Negative); Leukocyte Esterase Urine Negative (Negative); Nitrite Urine Negative (Negative); PH 7.5 (5.0-9.0); Specific Gravity - Urine <= 1.005 (1.005-1.025); UMIC TRIGGER UACC YES; Urine Blood Trace (Negative); Urine Ketones Negative (Negative); Urine Protein Negative (Neg-Trace)
[2023-06-11 21:08] LABS: Bacteria Urine None Seen (None Seen); Basophils Percent Auto 0.5 % (0-2); Eosinophils Absolute Auto 0.2 X10*3/uL (0.0-0.4); Eosinophils Percent Auto 2.3 % (0-4); Hematocrit 32.8 % (37.0-47.0); Hyaline Casts Urine 0-2 /LPF (0-2); Imm Gran Abs Auto 0.03 X10*3/uL (0.00-0.03); Imm Gran Pct Auto 0.4 % (0.0-0.4); Lymphocytes Percent Auto 39.3 % (20-40); Mean Corpuscular HGB Conc 36.6 g/dl (31.0-35.0); Mean Corpuscular Hemoglobin 29.3 pg (27.0-33.0); Mean Platelet Volume 8.8 fL (9.4-12.3); Monocytes Absolute Auto 0.6 X10*3/uL (0.1-1.2); Monocytes Percent Auto 7.7 % (2-11); Neutrophils Absolute Auto 3.7 x10*3/uL (2.0-8.3); Neutrophils Percent Auto 49.8 % (45-73); Platelet Count 258 X10*3/uL (160-400); RBC Urine 0-2 /HPF (0-2); Red Cell Distribution Width 14.2 % (11.0-16.0); Squamous Epithelial Cell Urine 0-2 /HPF (0-2); WBC Urine 0-5 /HPF (0-5); White Blood Count 7.5 X10*3/uL (4.8-10.8)
[2023-06-11 21:23] LABS: Alanine Aminotransferase 10 U/L (0-31); Albumin Level 4.2 g/dL (3.5-5.0); Alkaline Phosphatase 79 U/L (39-117); Anion Gap 12 (12-20); Aspartate Amino Transferase 22 U/L (5-31); Bilirubin Direct 0.1 mg/dL (0.0-0.5); Bilirubin Total 0.3 mg/dL (0.0-1.0); Blood Urea Nitrogen 8 mg/dL (9-16); Carbon Dioxide 27 mmol/L (22-29); Chloride 101 mmol/L (96-108); Creatinine Clr Calc Pharmacy 31.1; Estimated Glomerular Filt Rate > 60; Glucose Random 88 mg/dL (60-115); Lipase 18 U/L (8-78); Potassium 4.1 mmol/L (3.3-5.1); Sodium 136 mmol/L (135-145); Total Protein 7.3 g/dL (6.5-8.0)
[2023-06-11 21:27] LABS: Troponin-I High Sensitivity 5.7 ng/L (<3.5-17.0)
[2023-06-11 21:44] VITALS: BP 138/55; PULSE 59; RESP 16; TEMP 36.9; O2SAT 98
[2023-06-12 01:39] VITALS: BP 120/57; PULSE 58; RESP 16; TEMP 36.6; O2SAT 98
== END 2023-06-12 03:06 | disposition home or self-care (01) ==
PROVIDERS: Physician Assistant Medical; Emergency Provider Internal Medicine; PCP Internal Medicine
DX: K29.70 Gastritis, unspecified, without bleeding (principal); R07.89 Other chest pain; F41.9 Anxiety disorder, unspecified; F43.0 Acute stress reaction; F17.210 Nicotine dependence, cigarettes, uncomplicated; Z71.6 Tobacco abuse counseling; Z79.899 Other long term (current) drug therapy
CPT/HCPCS: 36415; 74176; 80048; 80076; 81001; 83690; 84484; 85025; 93005; 99284

== ENCOUNTER → 2023-06-11 20:15 | Outpatient (BNV) | payer OTHER, SELFPAY | PROVIDERS: Emergency Provider Internal Medicine; PCP Internal Medicine; Visit Provider Internal Medicine Cardiovascular Disease | DX: R00.1 Bradycardia, unspecified (principal); R94.31 Abnormal electrocardiogram [ECG] [EKG] | CPT/HCPCS: 93010 ==

== ENCOUNTER 2023-07-03 13:13 | Emergency (ER) | payer OTHER, SELFPAY ==
--- NOTE | ~2023-07-03 | XR_ITS ---
EXAMINATION: XR RIBS, RIGHT CLINICAL INFORMATION: Right rib pain COMPARISON: None available. TECHNIQUE: 3 views of the right ribs were obtained. FINDINGS: Lungs are clear. No consolidation, pneumothorax, or pleural effusion. Chronic emphysematous and fibrotic changes seen in the lung parenchyma. The cardiomediastinal silhouette and pulmonary vasculature are normal. Metallic BB is present over the anterior aspect of the right seventh rib at the region of the costochondral cartilage. Osseous structures are unremarkable. Ribs are intact. No fractures are identified. XR/XR ribs RT min 3V w CXR1V IMPRESSION: No acute fractures. No acute pulmonary process.
[2023-07-03 13:37] VITALS: BP 143/62; PULSE 67; RESP 16; TEMP 36.7; BMI 15.1
--- NOTE | 2023-07-03 13:42 | ED.GENADULT ---
HPI - General Adult General Chief complaint: General Medical Stated complaint: stomach pain Time Seen by Provider: 07/03/23 14:18 Source: patient and old records reviewed Mode of arrival: ambulatory Limitations: no limitations History of Present Illness HPI narrative: 83-year-old female with history of osteoporosis, anxiety, constipation, GERD, cervical radiculopathy who presents to the ER for evaluation of right-sided abdominal and back pain that started yesterday. She states the pain started in her ribs of her back. She at times gets pain in her right lower rib, right upper quadrant area that radiates to her back. It comes and goes. It is not worse with food. No nausea, vomiting, diarrhea. No current pain in her abdomen. She states the pain is in her ribs. She denies any falls. No shortness of breath or coughing. No chest pain. She is moving her bowels normally. MD complaint: Right-sided flank pain Onset (ago): day(s) (1) Location: abdomen Radiation: back Severity: moderate Quality: aching Pain Consistency: intermittent Relieving factors: none Exacerbating factors: movement Associated symptoms: denies other symptoms Treatments prior to arrival: none Related Data Home Medications Medication Instructions Recorded Confirmed escitalopram oxalate 5 mg tablet 5 mg PO DAILY 12/24/20 multivitamin 1 tab PO DAILY 12/24/20 prazosin 1 mg capsule 1 mg PO BEDTIME 02/04/21 trazodone 50 mg tablet 25 mg PO BEDTIME PRN 02/04/21 hydrochlorothiazide 12.5 mg tablet 12.5 mg PO DAILY 03/17/22 lisinopril 40 mg tablet 40 mg PO DAILY 03/17/22 carvedilol 3.125 mg tablet 3.125 mg PO BID 04/18/22 docusate sodium 50 mg/5 mL oral ml PO 04/18/22 liquid (Docu) Previous Rx's Medication Instructions Recorded albuterol sulfate 90 mcg/actuation 2 puff PO Q2H PRN shortness of 02/21/21 aerosol inhaler breath or wheezing #18 grams umeclidinium 62.5 mcg-vilanterol 1 ea PO DAILY #60 caps 02/21/21 25 mcg/actuation powdr for inhalation (Anoro Ellipta) calcitonin (salmon) 200 1 spray intranasal DAILY #3.7 mL 01/30/23 unit/actuation nasal spray linaclotide 72 mcg capsule 72 mcg PO QAM #30 caps 01/30/23 (Linzess) pantoprazole 40 mg tablet,delayed 40 mg PO DAILY 30 days #30 tabs 01/30/23 release (Protonix) simethicone 180 mg capsule 180 mg PO QID #120 caps 01/30/23 fluticasone propionate 50 1 spray intranasal BID #16 grams 02/05/23 mcg/actuation nasal spray,suspension (Allergy Relief (fluticasone)) sucralfate 100 mg/mL oral 10 ml PO BID #400 mL 06/12/23 suspension Allergies Allergy/AdvReac Type Severity Reaction Status Date / Time Iodinated Contrast Media Allergy Intermediate NAUSEA & Verified 01/30/23 11:12 [CONTRAST, IV] VOMITING morphine [MORPHINE] Allergy Intermediate NAUSEA & Verified 01/30/23 11:12 VOMITING oxycodone [From PERCOCET] Allergy Intermediate NAUSEA, Verified 01/30/23 11:12 WEAKNESS/VIOLENT Review of Systems Review of Systems: Yes all other systems are reviewed and are negative [facility] Past Medical History Medical History Acute arthritis Breast CA Cholecystitis HTN (hypertension) Surgical History History of back surgery History of esophagogastroduodenoscopy (EGD) Hx of breast biopsy Hx of colonoscopy Hx of foot surgery Family History Family History Father CVD (cardiovascular disease) HTN (hypertension) Brother Colon cancer Daughter No problems noted. 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 Oriented X3. No acute distress. Frail, elderly Head: normocephalic, atraumatic. Eyes: Pupils equal, round and reactive to light. ENT: Pharynx normal. No tonsillar swelling or exudate. Neck: Normal inspection. Neck supple. CVS: Normal heart rate and rhythm. Pulses normal. Respiratory: No respiratory distress. Breath sounds normal. MIld tenderness of the lower ribs on the right side and laterally Abdomen: Soft with mild tenderness to deep palpation of the RUQ, no rebound or guarding. +BS x4. No CVA tenderenss. Skin: Skin warm and dry. Normal skin color. Normal skin turgor. No rashes. Extremities: No lower extremity edema. No joint swelling. Neuro/psych: Oriented X 3. No motor deficit. No sensory deficit. CN II-XII intact. Normal speech and cognition. Course Course Course Narrative: This is an RME: Additional HPI, ROS, PE not included below will be deferred to primary provider. This is a 66-lrpj-gck-monegasque speaking female presenting to the emergency department with complaints of right-sided rib pain. No trauma or injury. No chest pain, shortness of breath, abdominal pain, nausea, vomiting or diarrhea. Denies history of similar symptoms in the past. Vital signs stable. Patient is nontoxic appearing Plan: X-ray Medical Decision Making Medical Decision Making MDM Narrative: 83-year-old Icelandic-speaking female with history of osteoporosis, anxiety, GERD presents to the ER for evaluation of right-sided back pain and right upper quadrant pain that started yesterday. She states the pain is intermittent in the right upper quadrant but has been more constant in her right back and right lateral ribs. No trauma or injury. Exam is revealing for only mild tenderness. Negative Sawyer sign. She is status post cholecystectomy. X-ray of the ribs were reviewed, no pneumonia or acute rib fracture were appreciated. Given the location of her symptoms lab work and urinalysis were performed. Workup was unremarkable. She is sleeping between care, not in any current pain. At this time she is stable for discharge home with plan to follow-up with her primary care doctor. Patient agrees with plan all questions were answered. Differential Diagnosis Differential Diagnoses: The differential diagnosis associated with the presentation includes biliary colic, acute cholecystitis, pancreatitis, rib fracture, pneumonia, musculoskeletal pain, less likely ACS or PE Admission/Observation Consideration of admission/observation: Escalation of care including admission/observation considered Elderly female with right upper quadrant and right flank pain, considered observation however workup was unremarkable. Lab Data MDM Lab Attestation statement: I reviewed the patient's lab results. Normal LFTs and lipase, trace blood in her urine which is chronic 07/03/23 14:54 07/03/23 14:54 Labs: Lab Results 07/03/23 07/03/23 07/03/23 Range/Units 14:54 14:54 14:54 WBC 7.9 (4.8-10.8) X10*3/uL RBC 4.43 (4.20-5.50) X10*6/uL Hgb 13.2 (12.0-16.0) g/dl Hct 35.4 L (37.0-47.0) % MCV 79.9 L (80.0-98.0) fL MCH 29.8 (27.0-33.0) pg MCHC 37.3 H (31.0-35.0) g/dl RDW 14.3 (11.0-16.0) % Plt Count 241 (160-400) X10*3/uL MPV 8.8 L (9.4-12.3) fL Immature Gran % (Auto) 0.4 (0.0-0.4) % Neut % (Auto) 61.6 (45-73) % Lymph % (Auto) 28.8 (20-40) % Hood % (Auto) 6.8 (2-11) % Eos % (Auto) 2.0 (0-4) % Baso % (Auto) 0.4 (0-2) % Lymph # (Auto) 2.3 (1.2-4.9) X10*3/uL Hood # (Auto) 0.5 (0.1-1.2) X10*3/uL Eos # (Auto) 0.2 (0.0-0.4) X10*3/uL Baso # (Auto) 0.0 (0.0-0.2) X10*3/uL Abs Immat Gran (auto) 0.03 (0.00-0.03) X10*3/uL Absolute Neuts (auto) 4.9 (2.0-8.3) x10*3/uL Absolute Nucleated RBC 0.000 (0.0-0.012) X10*3/uL Nucleated RBC % (auto) 0.0 (0.0-0.2) /100WBC Sodium 138 (135-145) mmol/L Potassium 3.8 (3.3-5.1) mmol/L Chloride 102 (96-108) mmol/L Carbon Dioxide 24 (22-29) mmol/L Anion Gap 16 (12-20) BUN 7 L (9-16) mg/dL Creatinine 0.73 (0.5-1.4) mg/dL Estim Creat Clear Calc 33.3 Estimated GFR > 60 Random Glucose 84 (60-115) mg/dL Calcium 10.3 H (8.4-10.2) mg/dL Magnesium 2.1 (1.6-2.6) mg/dL Total Bilirubin 0.6 (0.0-1.0) mg/dL Direct Bilirubin 0.2 (0.0-0.5) mg/dL AST 22 (5-31) U/L ALT 9 (0-31) U/L Alkaline Phosphatase 73 (39-117) U/L Total Protein 7.4 (6.5-8.0) g/dL Albumin 4.6 (3.5-5.0) g/dL Lipase 16 (8-78) U/L Urine Color Yellow Urine Appearance Clear Urine pH 7.0 (5.0-9.0) Ur Specific [place] <= 1.005 (1.005-1.025) Urine Protein Negative (Neg-Trace) mg/dL Urine Glucose (UA) Negative (Negative) mg/dL Urine Ketones Negative (Negative) mg/dL Urine Blood Trace H (Negative) Urine Nitrite Negative (Negative) Ur Leukocyte Esterase Negative (Negative) Urine RBC 0-2 (0-2) /HPF Urine WBC 0-5 (0-5) /HPF Ur Squamous Epith Cells 0-2 (0-2) /HPF Urine Bacteria None Seen (None Seen) Hyaline Casts 0-2 (0-2) /LPF Independent Interpretation I performed an independent interpretation of an: Plain X-Ray Interpretation: no pneumonia, no right rib fractures, agree w/ radiologist Radiology Impression Discussion of test interpretation with radiology: I have reviewed the radiologist's reading. Radiologist Impression: EXAMINATION: XR RIBS, RIGHT CLINICAL INFORMATION: Right rib pain COMPARISON: None available. TECHNIQUE: 3 views of the right ribs were obtained. FINDINGS: Lungs are clear. No consolidation, pneumothorax, or pleural effusion. Chronic emphysematous and fibrotic changes seen in the lung parenchyma. The cardiomediastinal silhouette and pulmonary vasculature are normal. Metallic BB is present over the anterior aspect of the right seventh rib at the region of the costochondral cartilage. Osseous structures are unremarkable. Ribs are intact. No fractures are identified. XR/XR ribs RT min 3V w CXR1V IMPRESSION: No acute fractures. No acute pulmonary process. External Record Review External record reviewed: Outpatient record and Prior outpatient radiology Tests considered The following testing was considered but not selected: CT scan vs U/S considered but low suspicion for acute process Prescription Management I considered prescription management with: Pain Medication Chronic Conditions Patient?s care impacted by: Other (anxiety) Critical Care Time Critical Care Time Critical Care Time: No Discharge Plan Discharge Clinical Impression: Right flank pain Patient Disposition: Home, Self-Care Instructions: Flank Pain (ED) Additional Instructions: your lab work up and x-ray today were normal recommend taking tylenol and motrin for the pain follow up with your doctor If you develop new or worsening symptoms call 911 or come back to the ER for further evaluation. Tus an?lisis de laboratorio y tus radiograf?as de hoy fueron normales. Recomiendo alena Tylenol y Motrin para el dolor. grant un seguimiento con arce m?dico Si desarrolla s?ntomas nuevos o que empeoran, llame al 911 o regrese a la sarah de emergencias para lawrence evaluaci?n adicional. Prescriptions: No Action umeclidinium-vilanterol [Anoro Ellipta] 62.5-25 mcg/actuation blister with device 1 ea PO DAILY Qty: 60 0RF albuterol sulfate 90 mcg/actuation HFA aerosol inhaler 2 puff PO Q2H PRN (Reason: shortness of breath or wheezing) Qty: 18 0RF fluticasone propionate [Allergy Relief (fluticasone)] 50 mcg/actuation spray,suspension 1 spray intranasal BID Qty: 16 11RF Rx Instructions: administer into each nostril sucralfate 100 mg/mL suspension 10 ml PO BID Qty: 400 0RF escitalopram oxalate 5 mg tablet 5 mg PO DAILY multivitamin Tablet 1 tab PO DAILY prazosin 1 mg capsule 1 mg PO BEDTIME trazodone 50 mg tablet 25 mg PO BEDTIME PRN Linzess 72 mcg capsule 72 mcg PO QAM Qty: 30 6RF pantoprazole [Protonix] 40 mg tablet,delayed release (DR/EC) 40 mg PO DAILY 30 Days Qty: 30 6RF simethicone 180 mg capsule 180 mg PO QID Qty: 120 6RF calcitonin (salmon) 200 unit/actuation spray,non-aerosol 1 spray intranasal DAILY Qty: 3.7 6RF lisinopril 40 mg tablet 40 mg PO DAILY hydrochlorothiazide 12.5 mg tablet 12.5 mg PO DAILY carvedilol 3.125 mg tablet 3.125 mg PO BID docusate sodium [Docu] 50 mg/5 mL liquid PO Referrals: John Hodgson MD [Primary Care Provider] - Interventions: ED Discharge Assessment Last Done: 07/03/23 16:17 Discharge Date/Time: 07/03/23 16:18 Print Language: Icelandic
[2023-07-03 15:02] LABS: MANUAL DIFF FLAG NO
[2023-07-03 15:04] LABS: Basophils Percent Auto 0.4 % (0-2); Eosinophils Absolute Auto 0.2 X10*3/uL (0.0-0.4); Hematocrit 35.4 % (37.0-47.0); Hemoglobin 13.2 g/dl (12.0-16.0); Imm Gran Abs Auto 0.03 X10*3/uL (0.00-0.03); Imm Gran Pct Auto 0.4 % (0.0-0.4); Lymphocytes Absolute Auto 2.3 X10*3/uL (1.2-4.9); Lymphocytes Percent Auto 28.8 % (20-40); Mean Corpuscular HGB Conc 37.3 g/dl (31.0-35.0); Mean Corpuscular Hemoglobin 29.8 pg (27.0-33.0); Mean Corpuscular Volume 79.9 fL (80.0-98.0); Mean Platelet Volume 8.8 fL (9.4-12.3); Monocytes Absolute Auto 0.5 X10*3/uL (0.1-1.2); Monocytes Percent Auto 6.8 % (2-11); Neutrophils Absolute Auto 4.9 x10*3/uL (2.0-8.3); Neutrophils Percent Auto 61.6 % (45-73); Platelet Count 241 X10*3/uL (160-400); Red Blood Count 4.43 X10*6/uL (4.20-5.50); Red Cell Distribution Width 14.3 % (11.0-16.0); White Blood Count 7.9 X10*3/uL (4.8-10.8)
[2023-07-03 15:05] LABS: Appearance Urine Clear; Color Urine Yellow; Glucose Urine UA Negative (Negative); Leukocyte Esterase Urine Negative (Negative); Nitrite Urine Negative (Negative); Specific Gravity - Urine <= 1.005 (1.005-1.025); UMIC TRIGGER UACC YES; Urine Blood Trace (Negative); Urine Ketones Negative (Negative); Urine Protein Negative (Neg-Trace)
[2023-07-03 15:07] LABS: Bacteria Urine None Seen (None Seen); Hyaline Casts Urine 0-2 /LPF (0-2); RBC Urine 0-2 /HPF (0-2); Squamous Epithelial Cell Urine 0-2 /HPF (0-2); WBC Urine 0-5 /HPF (0-5)
[2023-07-03 15:19] LABS: Alanine Aminotransferase 9 U/L (0-31); Albumin Level 4.6 g/dL (3.5-5.0); Alkaline Phosphatase 73 U/L (39-117); Anion Gap 16 (12-20); Aspartate Amino Transferase 22 U/L (5-31); Bilirubin Direct 0.2 mg/dL (0.0-0.5); Bilirubin Total 0.6 mg/dL (0.0-1.0); Blood Urea Nitrogen 7 mg/dL (9-16); Calcium 10.3 mg/dL (8.4-10.2); Carbon Dioxide 24 mmol/L (22-29); Chloride 102 mmol/L (96-108); Creatinine Clr Calc Pharmacy 33.3; Estimated Glomerular Filt Rate > 60; Glucose Random 84 mg/dL (60-115); Lipase 16 U/L (8-78); Magnesium 2.1 mg/dL (1.6-2.6); Potassium 3.8 mmol/L (3.3-5.1); Sodium 138 mmol/L (135-145); Total Protein 7.4 g/dL (6.5-8.0)
== END 2023-07-03 16:18 | disposition home or self-care (01) ==
PROVIDERS: Physician Assistant; Emergency Provider Emergency Medicine; PCP Internal Medicine
DX: R10.9 Unspecified abdominal pain (principal); R07.81 Pleurodynia; M54.50 Low back pain, unspecified; M54.9 Dorsalgia, unspecified; Z79.899 Other long term (current) drug therapy
CPT/HCPCS: 36415; 71101; 80048; 80076; 81001; 83690; 83735; 85025; 99283

== ENCOUNTER 2023-07-31 10:40 | Outpatient (AMB) | payer MEDICARE, SELFPAY ==
[2023-07-31 10:43] VITALS: BP 124/55; PULSE 63; BMI 15.3
--- NOTE | 2023-07-31 10:43 | MHC.OFFVIS ---
Intake Vital Signs 07/31/23 10:43 Height 5 ft Weight 78 lb 7.753 oz BMI 15.3 BP 124/55 L Blood Pressure Location Lt brachial Position Sitting Pulse 63 Intake Visit Reasons: 6 Month Follow Up [facility] Intake Note: Cielo presents to in office visit today in 6 months follow up of constipation. CC: Patient reports she has been doing well. Denies having any new GI symptoms or concerns. Public Information Relations Manager Required: No Accompanied by: Grand Child Allergies Iodinated Contrast Media [CONTRAST, IV] Allergy (Intermediate, Verified 07/31/23 10:45) NAUSEA & VOMITING morphine [MORPHINE] Allergy (Intermediate, Verified 07/31/23 10:45) NAUSEA & VOMITING oxycodone [From PERCOCET] Allergy (Intermediate, Verified 07/31/23 10:45) NAUSEA, WEAKNESS/VIOLENT HPI 6 Month Follow Up [facility] HPI Details Assessment & Plan (1) GERD (gastroesophageal reflux disease): Code(s): K21.9 - Gastro-esophageal reflux disease without esophagitis Plan: We discuss colonoscopy, old record shows she had [place] [address] Cook that was negative. She has declined a past scheduled scope - seems to have variable mood and memory problems r/t healthcare and at time will refuse care. We discuss risk vs benefits. Her daughter will try to discuss this with her going forward and see if another colonoscopy is desirable. I would consider Cologuard but they have been declining to cover this test with the patient is over 80 years old in the past. ROV 6 mos. (2) Chronic idiopathic constipation: Code(s): K59.04 - Chronic idiopathic constipation (3) Allergic rhinitis: Code(s): J30.9 - Allergic rhinitis, unspecified Medications: New fluticasone propio christina 50 mcg/actuat ion (Allergy Relie f (fluticasone)) administer into each nostril 1 spray intranasa l BID 16 grams 11R F J30.9 - Allergic r hinitis, unspecifi ed Refilled linaclotide (Linze ss) 72 mcg PO QAM 30 caps 6RF K59.04 - Chronic i diopathic constipa tion pantoprazole (Prot jazlyn) 40 mg PO DAILY 30 days 30 tabs 6RF K21.9 - Gastro-eso phageal reflux dis ease without esoph agitis simethicone 180 mg PO QID 120 caps 6RF R14.0 - Abdominal distension (gaseou s) calcitonin (salmon ) 200 unit/actuati on 1 spray intranasa l DAILY 3.7 mL 6RF TODAY'S VISIT PARAGUAYAN #M(cristofer Live She is here today with her grandson who is her RUG SCRATCHER She has not been receiving her sprays, otherwise she is doing well. This would be the calcitonin nasal spray and the fluticasone. I will have my staff call [facility] pharmacy and see why this is. Otherwise her constipation is well controlled on her Linzess and her heartburn is well controlled on her pantoprazole and simethicone. ROV 6 mos. PFSH Medical History Breast CA Cholecystitis HTN (hypertension) Acute arthritis Surgical History Hx of colonoscopy History of esophagogastroduodenoscopy (EGD) Hx of foot surgery Hx of breast biopsy History of back surgery Family History Father CVD (cardiovascular disease) HTN (hypertension) Brother Colon cancer Daughter No problems noted. 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 Review of Systems Const Denies fatigue, Denies fever(s), Denies night sweats, Denies poor appetite and Denies weight loss ENT Reports Normal hearing present, Denies dental pain, Denies dysphagia, Denies hearing loss, Denies mouth pain, Denies odynophagia, Denies throat swelling, Denies tongue swelling and Reports other (Dentition adequate) Card Reports no additional complaints Resp Reports no additional complaints GI Denies abdominal pain, Denies melena, Reports bloating, Denies hematochezia, Reports constipation, Denies GI cramping, Denies dysphagia, Denies excessive flatus, Denies early satiety, Reports heartburn, Denies diarrhea, Denies nausea, Denies odynophagia, Denies vomiting and Denies hematemesis Skin/Breast Denies pruritus, Denies lesions, Denies rash and Denies jaundice Neuro Reports Normal hearing present and Denies Abnormal speech present Endo Denies fatigue Aller/Immun Denies throat swelling and Denies tongue swelling Physical Exam Vital Signs: Last Vital Signs Pulse 63 07/31/23 10:43 BP 124/55 L 07/31/23 10:43 BMI result Body Mass Index 15.3 Const General: cooperative, no acute distress, well developed and well groomed Nutritional Appearance: average body habitus and well nourished Orientation/consciousness: oriented to person, oriented to place and oriented to time Limitations: language barrier and ambulation with cane HEENT Head: Yes normocephalic and Yes atraumatic Eyes General: appearance normal, both eyes and all related structures Pupils: Equal, round and reactive pupils present Neck Neck: Yes normal visual inspection and Yes no lymphadenopathy Thyroid: Thyroid normal Resp Effort & Inspection: normal respiratory effort and able to speak in complete sentences Auscultation: clear to auscultation bilaterally Cardio Rate: regular rate Rhythm: regular rhythm Heart sounds: Normal, physiologic split S2 sound present Peripheral pulses: radial pulses present and posterior tibial pulses present GI Inspection: No distended and No Abdominal panniculus present Palpation (GI): Soft to palpation, nontender, no guarding, not rigid and No hepatosplenomegaly present Percussion: Yes normal to percussion Auscultation: normal bowel sounds Rectal Exam - Female: deferred Skin General skin exam: no rashes or lesions noted, turgor normal, skin not dry, no jaundice, No spider nevi and no striae Rashes: no rashes Nails: normal Neuro General: oriented to person, oriented to place and oriented to time Cranial nerves: Yes Equal, round and reactive pupils present and Yes Normal hearing present Speech: No Abnormal speech present Extrem General: Yes normal to inspection, No clubbing, No cyanosis and No edema Psych Appearance: grossly normal and well kempt Mental Status: mental status grossly normal Speech and movement: Normal speech and movement present Affect: normal affect Attitude: cooperative Thought process: Normal thought process present and not confabulating Thought content: Normal thought content present Insight: Limited insight present (Psych) Judgement: Limited judgement present (Psych) Assessment & Plan Assessment & Plan (1) GERD (gastroesophageal reflux disease): Code(s): K21.9 - Gastro-esophageal reflux disease without esophagitis Plan: PARAGUAYAN #M(cristofer Live She is here today with her grandson who is her RUG SCRATCHER She has not been receiving her sprays, otherwise she is doing well. This would be the calcitonin nasal spray and the fluticasone. I will have my staff call [facility] pharmacy and see why this is. Otherwise her constipation is well controlled on her Linzess and her heartburn is well controlled on her pantoprazole and simethicone. ROV 6 mos. (2) Chronic idiopathic constipation: Code(s): K59.04 - Chronic idiopathic constipation (3) Abdominal bloating: Code(s): R14.0 - Abdominal distension (gaseous) (4) Osteoporosis: Code(s): M81.0 - Age-related osteoporosis without current pathological fracture (5) Allergic rhinitis: Code(s): J30.9 - Allergic rhinitis, unspecified Medications: Refilled linaclotide (Linzess) 72 mcg PO QAM 30 caps 6RF K59.04 - Chronic idiopathic constipation pantoprazole (Protonix) 40 mg PO DAILY 30 days 30 tabs 6RF K21.9 - Gastro-esophageal reflux disease without esophagitis simethicone 180 mg PO QID 120 caps 6RF R14.0 - Abdominal distension (gaseous) calcitonin (salmon) 200 unit/actuation 1 spray intranasal DAILY 3.7 mL 6RF fluticasone propionate 50 mcg/actuation (Allergy Relief (fluticasone)) administer into each nostril 1 spray intranasal BID 16 grams 11RF J30.9 - Allergic rhinitis, unspecified Discontinued sucralfate Discontinued Reason: Doctor's Order 10 mL PO BID 400 mL 0RF Coding Level of Care Code Est Pt Level 3 (57555) Diagnoses GERD (gastroesophageal reflux disease) K21.9 Chronic idiopathic constipation K59.04 Abdominal bloating R14.0 Osteoporosis M81.0 Allergic rhinitis J30.9
== END 2023-07-31 11:26 | disposition home or self-care (01) ==
PROVIDERS: Visit Provider Nurse Practitioner
DX: K21.9 Gastro-esophageal reflux disease without esophagitis (principal); K59.04 Chronic idiopathic constipation; R14.0 Abdominal distension (gaseous); M81.0 Age-related osteoporosis without current pathological fracture; J30.9 Allergic rhinitis, unspecified
CPT/HCPCS: 99213

== ENCOUNTER → 2023-07-31 10:40 | Outpatient (BNVA) | payer MEDICARE, SELFPAY | PROVIDERS: Visit Provider Nurse Practitioner | DX: K59.04 Chronic idiopathic constipation (principal); K21.9 Gastro-esophageal reflux disease without esophagitis; R14.0 Abdominal distension (gaseous); M81.0 Age-related osteoporosis without current pathological fracture; J30.9 Allergic rhinitis, unspecified | CPT/HCPCS: 99212 ==

== ENCOUNTER 2024-01-29 10:48 | Outpatient (AMB) | payer MEDICARE, SELFPAY ==
--- NOTE | 2024-01-29 10:53 | A.OFFVIS_ITS ---
Intake Vital Signs 01/29/24 10:55 Height 5 ft Weight 79 lb BMI 15.4 BP 165/66 H Blood Pressure Location Lt brachial Position Sitting Pulse 71 Intake Visit Reasons: 6 month follow up Intake Note: Cielo presents to in office visit today in 6 months follow up of constipation. CC: Patient states she is doing well and denies having any GI symptoms or concerns today. Canary Raiser Required: Yes Accompanied by: Self / Same As Patient Allergies Iodinated Contrast Media [CONTRAST, IV] Allergy (Intermediate, Verified 01/29/24 11:01) NAUSEA & VOMITING morphine [MORPHINE] Allergy (Intermediate, Verified 01/29/24 11:01) NAUSEA & VOMITING oxycodone [From PERCOCET] Allergy (Intermediate, Verified 01/29/24 11:01) NAUSEA, WEAKNESS/VIOLENT HPI 6 month follow up HPI Details Assessment & Plan (1) GERD (gastroesophageal reflux diseas e): Code(s): K21.9 - Gastro-esophageal reflux disease without esophagitis Plan: MALDIVIAN #M(cristofer Live She is here today with her grandson who is her PRODUCTION MATERIAL HANDLER She has not been receiving her sprays, otherwise she is doing well. This would be the calcitonin nasal spray and the fluticasone. I will have my staff call [facility] pharmacy and see why this is. Otherwise her constipation is well controlled on her Linzess and her heartburn is well controlled on her pantoprazole and simethicone. ROV 6 mos. (2) Chronic idiopathic constipation: Code(s): K59.04 - Chronic idiopathic constipation (3) Abdominal bloating: Code(s): R14.0 - Abdominal distension (gaseous) (4) Osteoporosis: Code(s): M81.0 - Age-related osteoporosis without current pathological fracture (5) Allergic rhinitis: Code(s): J30.9 - Allergic rhinitis, unspecified Medications: Refilled linaclotide (Linze ss) 72 mcg PO QAM 30 caps 6RF K59.04 - Chronic i diopathic constipa tion pantoprazole (Prot jazlyn) 40 mg PO DAILY 30 days 30 tabs 6RF K21.9 - Gastro-eso phageal reflux dis ease without esoph agitis simethicone 180 mg PO QID 120 caps 6RF R14.0 - Abdominal distension (gaseou s) calcitonin (salmon ) 200 unit/actuati on 1 spray intranasa l DAILY 3.7 mL 6RF fluticasone propio christina 50 mcg/actuat ion (Allergy Relie f (fluticasone)) administer into each nostril 1 spray intranasa l BID 16 grams 11R F J30.9 - Allergic r hinitis, unspecifi ed Discontinued sucralfate Disc ontinued Reason: Doctor's Order 10 mL PO BID 400 mL 0RF On 08/04/23 @ 14:51 Loida Ramirez Wrote To Loida Ramirez (2) ...sigh.... On 08/04/23 @ 14:50 Yane Yeung Wrote To JamesJanuary I called pharmacy and they stated that the patient has been receiving it, last delivery was done yesterday 08/03/23. On 07/31/23 @ 11:18 Loida Ramirez Wrote To Yane Yeung She has not been getting the calcitonin nasal spray or her fluticasone nasal spray please call and find out why...?? insurance. TODAY'S VISIT MALDIVIAN # Yane as we can not get a telephone dress cutter on She continues to do well on her GI regimen, her constipation is well controlled on her Linzess and her heartburn is well controlled on her pantoprazole and simethicone. She also continues on her calcitonin nasal spray. ROV 6 mos. PFSH Medical History Breast CA Cholecystitis HTN (hypertension) Acute arthritis Surgical History Hx of colonoscopy History of esophagogastroduodenoscopy (EGD) Hx of foot surgery Hx of breast biopsy History of back surgery Family History Father CVD (cardiovascular disease) HTN (hypertension) Brother Colon cancer Daughter No problems noted. 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 Review of Systems Const Denies fatigue, Denies fever(s), Denies night sweats, Denies poor appetite and Denies weight loss ENT Reports Normal hearing present, Denies dental pain, Denies dysphagia, Denies hearing loss, Denies mouth pain, Denies odynophagia, Denies throat swelling, Denies tongue swelling and Reports other (Dentition adequate) Card Reports no additional complaints Resp Reports no additional complaints GI Details: Denies abdominal pain, Denies melena, Reports bloating, Denies hematochezia, Reports constipation, Denies GI cramping, Denies dysphagia, Denies excessive flatus, Denies early satiety, Reports heartburn, Denies diarrhea, Denies nausea, Denies odynophagia, Denies vomiting and Denies hematemesis Skin/Breast Denies pruritus, Denies lesions, Denies rash and Denies jaundice Neuro Reports Normal hearing present and Denies Abnormal speech present Endo Denies fatigue Aller/Immun Denies throat swelling and Denies tongue swelling Physical Exam Vital Signs: Last Vital Signs Pulse 71 01/29/24 10:55 BP 165/66 H 01/29/24 10:55 BMI result Body Mass Index 15.4 Const General: cooperative, no acute distress, well developed and well groomed Nutritional Appearance: average body habitus and well nourished Orientation/consciousness: oriented to person, oriented to place and oriented to time Limitations: language barrier HEENT Head: Yes normocephalic and Yes atraumatic Eyes General: appearance normal, both eyes and all related structures Pupils: Equal, round and reactive pupils present Neck Neck: Yes normal visual inspection and Yes no lymphadenopathy Thyroid: Thyroid normal Resp Effort & Inspection: normal respiratory effort and able to speak in complete sentences Auscultation: clear to auscultation bilaterally Cardio Rate: regular rate Rhythm: regular rhythm Heart sounds: Normal, physiologic split S2 sound present Peripheral pulses: radial pulses present and posterior tibial pulses present GI Inspection: No distended and No Abdominal panniculus present Palpation (GI): Soft to palpation, nontender, no guarding, not rigid and No hepatosplenomegaly present Percussion: Yes normal to percussion Auscultation: normal bowel sounds Rectal Exam - Female: deferred Skin General skin exam: no rashes or lesions noted, turgor normal, skin not dry, no jaundice, No spider nevi and no striae Rashes: no rashes Nails: normal Neuro General: oriented to person, oriented to place and oriented to time Cranial nerves: Yes Equal, round and reactive pupils present and Yes Normal hearing present Speech: No Abnormal speech present Extrem General: Yes normal to inspection, No clubbing, No cyanosis and No edema Psych Appearance: grossly normal and well kempt Mental Status: mental status grossly normal Speech and movement: Normal speech and movement present Affect: normal affect Attitude: cooperative Thought process: Normal thought process present and not confabulating Thought content: Normal thought content present Insight: Limited insight present (Psych) Judgement: Limited judgement present (Psych) Assessment & Plan Assessment & Plan (1) GERD (gastroesophageal reflux disease): Code(s): K21.9 - Gastro-esophageal reflux disease without esophagitis (2) Chronic idiopathic constipation: Code(s): K59.04 - Chronic idiopathic constipation (3) Abdominal bloating: Code(s): R14.0 - Abdominal distension (gaseous) (4) Osteoporosis: Code(s): M81.0 - Age-related osteoporosis without current pathological fracture Plan MALDIVIAN # Vilmarys as we can not get a telephone dress cutter on She continues to do well on her GI regimen, her constipation is well controlled on her Linzess and her heartburn is well controlled on her pantoprazole and simethicone. She also continues on her calcitonin nasal spray. ROV 6 mos. Medications: Refilled pantoprazole (Protonix) 40 mg PO DAILY 30 days 30 tabs 6RF K21.9 - Gastro- esophageal reflux disease without esophagitis linaclotide (Linzess) 72 mcg PO QAM 30 caps 6RF K59.04 - Chronic idiopathic constipation simethicone 180 mg PO QID 120 caps 6RF R14.0 - Abdominal distension (gaseous) calcitonin (salmon) 200 unit/actuation 1 spray intranasal DAILY 3.7 mL 6RF Coding Level of Care Code Est Pt Level 3 (49803) Diagnoses GERD (gastroesophageal reflux disease) K21.9 Chronic idiopathic constipation K59.04 Abdominal bloating R14.0 Osteoporosis M81.0
[2024-01-29 10:55] VITALS: BP 165/66; PULSE 71; BMI 15.4
== END 2024-01-29 12:44 | disposition home or self-care (01) ==
PROVIDERS: PCP Internal Medicine; Visit Provider Nurse Practitioner
DX: K21.9 Gastro-esophageal reflux disease without esophagitis (principal); K59.04 Chronic idiopathic constipation; R14.0 Abdominal distension (gaseous); M81.0 Age-related osteoporosis without current pathological fracture
CPT/HCPCS: 99213

== ENCOUNTER → 2024-01-29 10:48 | Outpatient (BNVA) | payer MEDICARE, SELFPAY | PROVIDERS: PCP Internal Medicine; Visit Provider Nurse Practitioner | DX: K59.04 Chronic idiopathic constipation (principal); K21.9 Gastro-esophageal reflux disease without esophagitis; M81.0 Age-related osteoporosis without current pathological fracture; J30.9 Allergic rhinitis, unspecified; R14.0 Abdominal distension (gaseous) | CPT/HCPCS: 99212 ==

== ENCOUNTER 2024-05-09 13:04 | Emergency (ER) | payer MEDICARE, SELFPAY ==
--- NOTE | 2024-05-09 | ECG_ITS ---
Test Reason : ABNORMAL EKG AT HOME Blood Pressure : / mmHG Vent. Rate : 062 BPM Atrial Rate : 062 BPM P-R Int : 182 ms QRS Dur : 072 ms QT Int : 414 ms P-R-T Axes : 074 051 068 degrees QTc Int : 420 ms Normal sinus rhythm Normal ECG When compared with ECG of 11-JUN-2023 20:51, No significant change was found Referred By: Generic ED Physician Electronically Signed By:Mani Tineo
[2024-05-09 13:13] VITALS: BP 129/69; PULSE 65; O2SAT 98
[2024-05-09 13:29] VITALS: BP 118/55; PULSE 65; RESP 16; TEMP 36.6; O2SAT 97; BMI 30.2
--- NOTE | 2024-05-09 14:02 | ED.GENADULT ---
HPI - General Adult General Chief complaint: General Medical Stated complaint: CASTRO SIDE PAIN,ABN EKG PER EMS Time Seen by Provider: 05/09/24 13:46 Source: patient, family ( Nephew), EMS and acid bath mixer Mode of arrival: EMS Limitations: no limitations History of Present Illness ED Provider: DR. Merchant HPI narrative: 84-year-old female history of rheumatoid arthritis, osteoarthritis, brought in by ambulance after was sent from home by her visiting nurse reportedly took an EKG at home and was abnormal EKG, patient do not complain of CP or SOB. Came in here today for evaluation of flare up of joints pain mostly right elbow and right shoulder with the left shoulder, patient normally walks with a walker able to ambulate in the emergency department with the walker at her baseline, patient complaining of numbness in the upper back. Patient tried [id number] Tylenol with no relief of her symptoms. Patient been getting joints pain for years as an intermittent pain was told secondary to arthritis. No fever, no chills, no blurry vision, no headache. Related Data Home Medications ?Medication ?Instructions ?Recorded ?Confirmed escitalopram oxalate 5 mg tablet 5 mg PO DAILY 12/24/20 multivitamin 1 tab PO DAILY 12/24/20 prazosin 1 mg capsule 1 mg PO BEDTIME 02/04/21 trazodone 50 mg tablet 25 mg PO BEDTIME PRN 02/04/21 hydrochlorothiazide 12.5 mg tablet 12.5 mg PO DAILY 03/17/22 lisinopril 40 mg tablet 40 mg PO DAILY 03/17/22 carvedilol 3.125 mg tablet 3.125 mg PO BID 04/18/22 amlodipine 10 mg tablet 10 mg PO DAILY 01/29/24 cholecalciferol (vitamin D3) 1,250 1,250 mcg PO QWEEK 01/29/24 mcg (50,000 unit) capsule Previous Rx's ?Medication ?Instructions ?Recorded albuterol sulfate 90 mcg/actuation 2 puff PO Q2H PRN shortness of 02/21/21 aerosol inhaler breath or wheezing #18 grams umeclidinium 62.5 mcg-vilanterol 1 ea PO DAILY #60 caps 02/21/21 25 mcg/actuation powdr for inhalation (Anoro Ellipta) fluticasone propionate 50 1 spray intranasal BID #16 grams 09/29/23 mcg/actuation nasal spray,suspension (Allergy Relief (fluticasone)) calcitonin (salmon) 200 1 spray intranasal DAILY #3.7 mL 01/29/24 unit/actuation nasal spray linaclotide 72 mcg capsule 72 mcg PO QAM #30 caps 01/29/24 (Linzess) pantoprazole 40 mg tablet,delayed 40 mg PO DAILY 30 days #30 tabs 01/29/24 release (Protonix) simethicone 180 mg capsule 180 mg PO QID #120 caps 01/29/24 Allergies Allergy/AdvReac Type Severity Reaction Status Date / Time Iodinated Contrast Media Allergy Intermediate NAUSEA & Verified 05/09/24 13:30 [CONTRAST, IV] VOMITING morphine [MORPHINE] Allergy Intermediate NAUSEA & Verified 01/29/24 11:01 VOMITING oxycodone [From PERCOCET] Allergy Intermediate NAUSEA, Verified 01/29/24 11:01 WEAKNESS/VIOLENT Review of Systems Review of Systems: All other systems are reviewed and are negative Constitutional: Reports as per HPI and Reports no additional constitutional complaints Eyes: Reports as per HPI and Reports no additional eye complaints Reports system reviewed and no additional complaints, except as documented Cardiovascular: Reports as per HPI and Reports no additional cardiovascular complaints Respiratory: Reports as per HPI and Reports no additional respiratory complaints Gastrointestinal: Reports as per HPI and Reports no additional gastrointestinal complaints Genitourinary: Reports no additional female genitourinary complaints Musculoskeletal: Reports no additional musculoskeletal complaints Skin/Breast: Reports system reviewed and no additional complaints, except as docu Psychiatric: Reports no additional psychiatric complaints Endocrine: Reports no additional endocrine complaints Hematologic/Lymphatic: Reports no additional hematologic/lymphatic complaints Allergic/Immunologic: Reports no additional allergic/immunologic complaints Reports system reviewed and no additional complaints, except as documented and Reports Abnormal speech present [facility] Past Medical History Medical History Breast CA Cholecystitis HTN (hypertension) Acute arthritis Surgical History Hx of colonoscopy History of esophagogastroduodenoscopy (EGD) Hx of foot surgery Hx of breast biopsy History of back surgery Family History Family History Father CVD (cardiovascular disease) HTN (hypertension) Brother Colon cancer Daughter No problems noted. 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 Blood pressure elevated. Heart rate normal. Respiratory rate normal. Temperature normal. Oxygen saturation normal. Appearance: Alert. Oriented X3. No acute distress. Head: Normal external exam. Normocephalic. Atraumatic. No Bonilla signs noted. No raccoon eyes noted Eyes: PERRLA. EOMI. Conjunctiva and sclera normal. Eyelids normal. ENT: TM's Normal. Pharynx normal. Uvula midline. Moist mucous membranes. No trismus noted. No drooling noted. No muffled voice noted. Neck: Normal inspection. Neck supple. FROM. No adenopathy. Thyroid Normal. No meningeal signs. No neck mass noted. CVS: Normal heart rate and rhythm. Heart sound normal. No murmurs noted. Pulses normal throughout. Respiratory: No respiratory distress. Painless inspiration. Breath sounds normal. No wheezes/rales/rhonchi noted. Chest nontender. No accessory muscle usage noted or decreased air movement noted. Abdomen: Soft and nontender. Bowel sounds normal in all 4 quadrants. No distention noted. No organomegaly noted. No visible injury noted. Back: No CVA tenderness. Full range of motion noted. Skin: Skin warm and dry. Normal skin color. Normal skin turgor. No rashes/lesions/lacerations noted. Extremities: No lower extremity edema. Extremities exhibit normal range of motion. Extremities nontender. Neuro: Oriented X 3. Cranial nerve exam: II-XII are grossly intact No motor deficit. No sensory deficit. Reflexes normal. Course Reevaluation(s) Reevaluation #1: joint pain on and off patient prefer not to take NSAIDs for upset stomach only take Tylenol. Will discharge and follow-up with paraprofessional interpreter as an outpatient. Time: 16:16 Medications Administered Discontinued Medications Generic Name Dose Route Start Last Admin Trade Name Karan PRN Reason Stop Dose Admin Acetaminophen 650 mg 05/09/24 14:34 05/09/24 14:44 Acetaminophen 325 Mg Tablet PO 05/09/24 14:35 650 mg ONCE ONE Administration Ibuprofen 400 mg 05/09/24 14:00 05/09/24 14:33 Ibuprofen 400 Mg Tablet PO 05/09/24 14:01 Not Given ONCE ONE Medical Decision Making Differential Diagnosis Differential Diagnoses: The differential diagnosis associated with the presentation includes ( Rheumatoid arthritis, osteoarthritis, fracture less likely, electrolyte derangement, severe anemia , UTI.) Admission/Observation Consideration of admission/observation: Escalation of care including admission/observation considered Lab Data MDM Lab Attestation statement: I reviewed the patient's lab results. 05/09/24 14:33 05/09/24 14:33 Labs: Lab Results 05/09/24 Range/Units 14:33 WBC 8.3 (4.8-10.8) X10*3/uL RBC 3.96 L (4.20-5.50) X10*6/uL Hgb 11.9 L (12.0-16.0) g/dl Hct 31.7 L (37.0-47.0) % MCV 80.1 (80.0-98.0) fL MCH 30.1 (27.0-33.0) pg MCHC 37.5 H (31.0-35.0) g/dl RDW 14.1 (11.0-16.0) % Plt Count 237 (160-400) X10*3/uL MPV 8.6 L (9.4-12.3) fL Immature Gran % (Auto) 0.2 (0.0-0.4) % Neut % (Auto) 52.1 (45-73) % Lymph % (Auto) 35.8 (20-40) % [place] % (Auto) 6.1 (2-11) % Eos % (Auto) 5.2 H (0-4) % Baso % (Auto) 0.6 (0-2) % Lymph # (Auto) 3.0 (1.2-4.9) X10*3/uL [place] # (Auto) 0.5 (0.1-1.2) X10*3/uL Eos # (Auto) 0.4 (0.0-0.4) X10*3/uL Baso # (Auto) 0.1 (0.0-0.2) X10*3/uL Abs Immat Gran (auto) 0.02 (0.00-0.03) X10*3/uL Absolute Neuts (auto) 4.3 (2.0-8.3) x10*3/uL Absolute Nucleated RBC 0.000 (0.0-0.012) X10*3/uL Nucleated RBC % (auto) 0.0 (0.0-0.2) /100WBC Sodium 135 (135-145) mmol/L Potassium 4.3 (3.3-5.1) mmol/L Chloride 101 (96-108) mmol/L Carbon Dioxide 26 (22-29) mmol/L Anion Gap 12 (12-20) BUN 9 (9-16) mg/dL Creatinine 0.73 (0.5-1.4) mg/dL Estim Creat Clear Calc 45.4 Estimated GFR > 60 Random Glucose 88 (60-115) mg/dL Calcium 10.2 (8.4-10.2) mg/dL Troponin I High Sens < 2.7 D (<3.5-17.0) ng/L B-Natriuretic Peptide 60 (<100) pg/mL Urine Color Yellow Urine Appearance Clear Urine pH 6.5 (5.0-9.0) Ur Specific [place] 1.010 (1.005-1.025) Urine Protein Negative (Neg-Trace) mg/dL Urine Glucose (UA) Negative (Negative) mg/dL Urine Ketones Negative (Negative) mg/dL Urine Blood Trace H (Negative) Urine Nitrite Negative (Negative) Ur Leukocyte Esterase Negative (Negative) Urine RBC 0-2 (0-2) /HPF Urine WBC 0-5 (0-5) /HPF Ur Squamous Epith Cells 0-2 (0-2) /HPF Urine Bacteria None Seen (None Seen) Hyaline Casts 0-2 (0-2) /LPF Discharge Plan Discharge Clinical Impression: Arthralgia Patient Disposition: Home, Self-Care Instructions: Arthralgia (ED) Additional Instructions: take Tylenol 500 mg tablet every 6 hours if needed for pain. Prescriptions: No Action umeclidinium-vilanterol [Anoro Ellipta] 62.5-25 mcg/actuation blister with device 1 ea PO DAILY Qty: 60 0RF albuterol sulfate 90 mcg/actuation HFA aerosol inhaler 2 puff PO Q2H PRN (Reason: shortness of breath or wheezing) Qty: 18 0RF escitalopram oxalate 5 mg tablet 5 mg PO DAILY multivitamin Tablet 1 tab PO DAILY prazosin 1 mg capsule 1 mg PO BEDTIME trazodone 50 mg tablet 25 mg PO BEDTIME PRN lisinopril 40 mg tablet 40 mg PO DAILY hydrochlorothiazide 12.5 mg tablet 12.5 mg PO DAILY carvedilol 3.125 mg tablet 3.125 mg PO BID fluticasone propionate [Allergy Relief (fluticasone)] 50 mcg/actuation spray,suspension 1 spray intranasal BID Qty: 16 11RF Rx Instructions: administer into each nostril amlodipine 10 mg tablet 10 mg PO DAILY cholecalciferol (vitamin D3) 1,250 mcg (50,000 unit) capsule 1,250 mcg PO QWEEK Linzess 72 mcg capsule 72 mcg PO QAM Qty: 30 6RF pantoprazole [Protonix] 40 mg tablet,delayed release (DR/EC) 40 mg PO DAILY 30 Days Qty: 30 6RF simethicone 180 mg capsule 180 mg PO QID Qty: 120 6RF calcitonin (salmon) 200 unit/actuation spray,non-aerosol 1 spray intranasal DAILY Qty: 3.7 6RF Referrals: [facility] [Primary Care Provider] - Print Language: Faroese
--- OUTSIDE RECORDS SUMMARY | 2024-05-09 14:25 | XMS_ITS | Continuity of Care Document ---
Author Organization [facility] Address [address] [place] [address]- Care Team Providers Care Med Surg Rn Name Role Phone Deborah Calvillo MD Primary Care Physician [facility]counter [facility] Date(s): 01/22/24 - 02/21/[address] [address]- Allergies, Adverse Reactions, Alerts Substance Reaction Severity Status Percocet 5/325 swelling Active oxyCODONE swelling Active contrast media (iodine-based) vomiting swelling Active Immunizations Given and Recorded Vaccine Date Status Refusal Reason influenza virus vaccine, inactivated 12/03/23 Give n influenza virus vaccine, inactivated 08/18/17 Ruben rded influenza virus vaccine, inactivated 12/08/14 Ruben rded influenza virus vaccine, inactivated 10/04/10 Ruben rded influenza virus vaccine, inactivated 07/04/09 Ruben rded influenza virus vaccine, inactivated 08/06/07 Ruben rded SARS-CoV-2 (COVID-19) mRNA-1273 vaccine 02/15/21 R ecorded SARS-CoV-2 (COVID-19) mRNA-1273 vaccine 01/18/21 R ecorded pneumococcal 23-valent vaccine 01/19/18 Recorded pneumococcal 23-valent vaccine 05/09/04 Recorded tetanus/diphtheria/pertussis, acel(Tdap) 04/10/17 Recorded tetanus-diphtheria toxoids (Td) 05/09/04 Recorded Medications amLODIPine 10 mg oral tablet 1 tablet = 10 mg, By Mouth, Daily, # 90 tablet, 0 Refills, Maintenance, 12/03/23 13:55:00 EST, Tablet, [facility], Partial fill upon patient request if the prescription is for a schedule II opioid drug., 145.5, cm, 12/03/23 13:29:0... Start Date: 12/03/23 Status: Ordered calcitonin 200 iu/inh nasal spray 1 sprays, Nares, Both, Daily, # 3.7 mL, 0 Refills, Maintenance, 12/03/23 13:55:00 EST, [place], [facility], Partial fill upon patient request if the prescription is for a schedule II opioid drug., 145.5, cm, 12/03/23 13:29:00 EST, He... Start Date: 12/03/23 Status: Ordered carvedilol 3.125 mg oral tablet 3.125 mg, 1, tablet, By Mouth, 2 times a day, # 180 tablet, Refills 0, Tot. Refills 0, Maintenance,12/03/23 13:55:00 EST, Route to Pharmacy Electronically, [facility], Partial fill upon patient request if the prescription is for a... Start Date: 12/03/23 Status: Ordered cholecalciferol 50,000 intl units oral capsule 1 capsule = 1,250 mcg, By Mouth, Every week, # 8 capsule, 0 Refills, Maintenance, 12/07/23 12:49:00EST, Capsule, [facility], Partial fill upon patient request if the prescriptionis for a schedule II opioid drug., 145.5, cm, 12/03... Start Date: 12/07/23 Status: Ordered diclofenac 1% topical gel 1 application, Topically, 4 times a day, # 100 Gm, 0 Refills, Maintenance, 12/03/23 14:03:00 EST, Gel, [facility], Partial fill upon patient request if the prescription is for a schedule II opioid drug., 145.5, cm, 12/03/23 13:29:0... Start Date: 12/03/23 Status: Ordered escitalopram 5 mg oral tablet 1 tablet = 5 mg, By Mouth, Daily, # 90 tablet, 0 Refills, Maintenance, 12/03/23 13:58:00 EST, Tablet, [facility], Partial fill upon patient request if the prescription is for a schedule II opioid drug., 145.5, cm, 12/03/23 13:29:00... Start Date: 12/03/23 Status: Ordered ferrous sulfate 325 mg oral enteric coated tablet See Instructions, 1 tablet By Mouth Daily may take with food to minimize abdominal discomfort. Drink with orange juice in the AM. may take with food to minimize abdominal discomfort, # 45 tablet, Refills 1, Tot. Refills 1, Maintenance, 02/19/24 15:... Start Date: 02/19/24 Status: Ordered fluticasone 50 mcg/inh nasal spray 2 sprays = 100 mcg, Nares, Both, 2 times a day, # 16 Gm, 0 Refills, Maintenance, 12/03/23 13:57:00 EST, [place], [facility], Partial fill upon patient request if the prescription isfor a schedule II opioid drug., 2 sprays Nares, Bot... Start Date: 12/03/23 Status: Ordered lidocaine 5% topical film 3 patch, Topically, Daily, remove patches after 12 hours, # 30 patch, 0 Refills, Maintenance, 12/03/23 14:03:00 EST, [place], [facility], Partial fill upon patient request if the prescription is for a schedule II opioid drug., 3 patch... Start Date: 12/03/23 Status: Ordered lisinopril 40 mg oral tablet 1 tablet = 40 mg, By Mouth, Daily, # 90 tablet, 0 Refills, Maintenance, 12/03/23 13:55:00 EST, Tablet, [facility], Partial fill upon patient request if the prescription is for a schedule II opioid drug., 145.5, cm, 12/03/23 13:29:0... Start Date: 12/03/23 Status: Ordered omeprazole 20 mg oral delayed release tablet 1 tablet = 20 mg, By Mouth, Daily, # 30 tablet, 1 Refills, Maintenance, 02/19/24 15:50:00 EDT, CR Tablet, [facility], Partial fill upon patient request if the prescription is for a schedule II opioid drug., 145.5, cm, 02/19/24 15:0... Start Date: 02/19/24 Status: Ordered simethicone 180 mg oral capsule 1 capsule = 180 mg, By Mouth, 4 times a day, PRN Gas, # 18 capsule, 0 Refills, Maintenance, 12/03/23 13:55:00 EST, Capsule, [facility], Partial fill upon patient request if the prescription is for a schedule II opioid drug., 145.5,... Start Date: 12/03/23 Status: Ordered traZODone 50 mg oral tablet 25 mg, 0.5, tablet, By Mouth, Daily at bedtime, # 15 tablet, Refills 0, Tot. Refills 0, Maintenance, 12/03/23 13:58:00 EST, Route to Pharmacy Electronically, [facility], Partial fill upon patient request if the prescription is for... Start Date: 12/03/23 Status: Ordered Tylenol 8 Hour 650 mg oral tablet, extended release 2 tablet = 1,300 mg, By Mouth, Every 8 hours, PRN as needed for pain, # 100 tablet, 0 Refills, Maintenance, 12/03/23 14:02:00 EST, ER Tablet, [facility], Partial fill upon patientrequest if the prescription is for a schedule II op... Start Date: 12/03/23 Status: Ordered Problem List Condition Confirmation Course Effective Dates Status H ealth Status Informant Chronic depression Confirmed Active Coronary artery disease Confirmed Active History of alcohol abuse Confirmed Active Chronic hypertension Confirmed Active Osteoarthritis Confirmed Active Hip osteoarthritis Confirmed Active Current tobacco use Confirmed Active Underweight Confirmed Active Social History Social History Type Response Smoking Status 5-9 cigarettes (betw een 1/4 to 1/2 pack)/day in last 30 days entered on: 07/11/21 Sex Male Patient Care team information Care Team Personnel Name: Deborah Calvillo MD Position: [facility] Resident Member Role: PCP Address: Address: [address] [place] [id number]- Name: Edward DANGELO, Jodi Erwin Position: [facility] Onco RN Member Role: Primary Care Nurse Name: Cindi Olvera RN Position: [facility] OB RN Member Role: Primary Care Nurse Care Team Related Persons Name: FELISAHaliGERSON Address: home [address] [place] [address] Name: GUTIERREZ FISHER Address: home [address] [place] [address] Name: VASQUEZ JAQUEZ Address: home [address] [place] [address]
--- OUTSIDE RECORDS SUMMARY | 2024-05-09 14:25 | XMS_ITS | Continuity of Care Document ---
Author Organization [facility] Address [address] [place] [address]- Care Team Providers Care Pants Maker Name Role Phone Deborah Calvillo MD Primary Care Physician [facility]counter [facility] Date(s): 01/06/24 - 02/05/[address] [address]- Allergies, Adverse Reactions, Alerts Substance Reaction Severity [...] 0 Refills, Maintenance, 12/03/23 13:55:00 EST, Tablet, [facility], Partial fill upon patient request if the prescription is for a schedule II opioid drug., 145.5, cm, 12/03/23 13:29:0... Start Date: 12/03/23 Status: Ordered calcitonin 200 iu/inh nasal spray 1 sprays, Nares, Both, Daily, # 3.7 mL, 0 Refills, Maintenance, 12/03/23 13:55:00 EST, [place], [facility], Partial fill upon patient request if the prescription is for a schedule II opioid drug., 145.5, cm, 12/03/23 13:29:00 EST, He... Start Date: 12/03/23 Status: Ordered carvedilol 3.125 mg oral tablet 3.125 mg, 1, tablet, By Mouth, 2 times a day, # 180 tablet, Refills 0, Tot. Refills 0, Maintenance,12/03/23 13:55:00 EST, Route to Pharmacy Electronically, [facility], Partial fill upon patient request if the prescription is for a... Start Date: 12/03/23 Status: Ordered cholecalciferol 50,000 intl units oral capsule 1 capsule = 1,250 mcg, By Mouth, Every week, # 8 capsule, 0 Refills, Maintenance, 12/07/23 12:49:00EST, Capsule, [facility], Partial fill upon patient request if the prescriptionis for a schedule II opioid drug., 145.5, cm, 12/03... Start Date: 12/07/23 Status: Ordered diclofenac 1% topical gel 1 application, Topically, 4 times a day, # 100 Gm, 0 Refills, Maintenance, 12/03/23 14:03:00 EST, Gel, [facility], Partial fill upon patient request if the prescription is for a schedule II opioid drug., 145.5, cm, 12/03/23 13:29:0... Start Date: 12/03/23 Status: Ordered escitalopram 5 mg oral tablet 1 tablet = 5 mg, By Mouth, Daily, # 90 tablet, 0 Refills, Maintenance, 12/03/23 13:58:00 EST, Tablet, [facility], Partial fill upon patient request if the prescription is for a schedule II opioid drug., 145.5, cm, 12/03/23 13:29:00... Start Date: 12/03/23 Status: Ordered fluticasone 50 mcg/inh nasal spray 2 sprays = 100 mcg, Nares, Both, 2 times a day, # 16 Gm, 0 Refills, Maintenance, 12/03/23 13:57:00 EST, [place], [facility], Partial fill upon patient request if the prescription isfor a schedule II opioid drug., 2 sprays Nares, Bot... Start Date: 12/03/23 Status: Ordered lidocaine 5% topical film 3 patch, Topically, Daily, remove patches after 12 hours, # 30 patch, 0 Refills, Maintenance, 12/03/23 14:03:00 EST, [place], [facility], Partial fill upon patient request if the prescription is for a schedule II opioid drug., 3 patch... Start Date: 12/03/23 Status: Ordered lisinopril 40 mg oral tablet 1 tablet = 40 mg, By Mouth, Daily, # 90 tablet, 0 Refills, Maintenance, 12/03/23 13:55:00 EST, Tablet, [facility], Partial fill upon patient request if the prescription is for a schedule II opioid drug., 145.5, cm, 12/03/23 13:29:0... Start Date: 12/03/23 Status: Ordered pantoprazole 40 mg oral delayed release tablet 1 tablet = 40 mg, By Mouth, Daily, # 90 tablet, 0 Refills, Maintenance, 12/03/23 13:57:00 EST, EC Tablet, 145.5, cm, 12/03/23 13:29:00 EST, Height, 35.8, kg, 02/15/22 1:31:00 EDT, Dry Weight Start Date: 12/03/23 Status: Ordered simethicone 180 mg oral capsule 1 capsule = 180 mg, By Mouth, 4 times a day, PRN Gas, # 18 capsule, 0 Refills, Maintenance, 12/03/23 13:55:00 EST, Caps[place], [facility], Partial fill upon patient request if the prescription is for a schedule II opioid drug., 145.5,... Start Date: 12/03/23 Status: Ordered traZODone 50 mg oral tablet 25 mg, 0.5, tablet, By Mouth, Daily at bedtime, # 15 tablet, Refills 0, Tot. Refills 0, Maintenance, 12/03/23 13:58:00 EST, Route to Pharmacy Electronically, [facility], Partial fill upon patient request if the prescription is for... Start Date: 12/03/23 Status: Ordered Tylenol 8 Hour 650 mg oral tablet, extended release 2 tablet = 1,300 mg, By Mouth, Every 8 hours, PRN as needed for pain, # 100 tablet, 0 Refills, Maintenance, 12/03/23 14:02:00 EST, ER Tablet, [facility], Partial fill upon patientrequest if the [...] Care team information Care Team Personnel Name: Rajinder MOORE, Deborah Lal Position: [facility] Resident Member Role: PCP Address: Address: [address] [place] [id number]- Name: Edward DANGELO, Jodi Erwin Position: [facility] Onco RN Member Role: Primary Care Nurse Name: Cindi Olvera RN Position: [facility] OB RN Member Role: Primary Care Nurse Care Team Related Persons Name: GERSON FISHER Address: home [address] [place] [address] Name: GUTIERREZ FISHER Address: home [address] [address] [place] [address] Name: VASQUEZ JAQUEZ Address: home [address] [place] [address]
--- OUTSIDE RECORDS SUMMARY | 2024-05-09 14:25 | XMS_ITS | Continuity of Care Document ---
Author Organization [facility] Address [address] [place] [address]- Care Team Providers Care Salad Maker Name Role Phone Deborah Calvillo MD Primary Care Physician [place] [id number] Date(s): 04/08/24 - 05/08/[address] [address]- Attending Physician: AdmEleanor aj Admitting Physician: Admtr, [id number] Referring Physician: Admtr, [id number] Allergies, Adverse Reactions, Alerts Substance Reaction Severity [...] 0 Refills, Maintenance, 12/03/23 13:55:00 EST, Tablet, [facility], Partial fill upon patient request if the prescription is for a schedule II opioid drug., 145.5, cm, 12/03/23 13:29:0... Start Date: 12/03/23 Status: Ordered calcitonin 200 iu/inh nasal spray 1 sprays, Nares, Both, Daily, # 3.7 mL, 0 Refills, Maintenance, 12/03/23 13:55:00 EST, [place], [facility], Partial fill upon patient request if the prescription is for a schedule II opioid drug., 145.5, cm, 12/03/23 13:29:00 EST, He... Start Date: 12/03/23 Status: Ordered carvedilol 3.125 mg oral tablet 3.125 mg, 1, tablet, By Mouth, 2 times a day, # 180 tablet, Refills 0, Tot. Refills 0, Maintenance,12/03/23 13:55:00 EST, Route to Pharmacy Electronically, [facility], Partial fill upon patient request if the prescription is for a... Start Date: 12/03/23 Status: Ordered cholecalciferol 50,000 intl units oral capsule 1 capsule = 1,250 mcg, By Mouth, Every week, # 8 capsule, 0 Refills, Maintenance, 12/07/23 12:49:00EST, [place], [facility], Partial fill upon patient request if the prescriptionis for a schedule II opioid drug., 145.5, cm, 12/03... Start Date: 12/07/23 Status: Ordered diclofenac 1% topical gel 1 application, Topically, 4 times a day, # 100 Gm, 0 Refills, Maintenance, 12/03/23 14:03:00 EST, Gel, [facility], Partial fill upon patient request if the prescription is for a schedule II opioid drug., 145.5, cm, 12/03/23 13:29:0... Start Date: 12/03/23 Status: Ordered escitalopram 5 mg oral tablet 1 tablet = 5 mg, By Mouth, Daily, # 90 tablet, 0 Refills, Maintenance, 12/03/23 13:58:00 EST, Tablet, [facility], Partial fill upon patient request if [...] Gm, 0 Refills, Maintenance, 12/03/23 13:57:00 EST, [place], [facility], Partial fill upon patient request if the prescription isfor a schedule II opioid drug., 2 sprays Nares, Bot... Start Date: 12/03/23 Status: Ordered lidocaine 5% topical film 3 patch, Topically, Daily, remove patches after 12 hours, # 30 patch, 0 Refills, Maintenance, 12/03/23 14:03:00 EST, [place], [facility], Partial fill upon patient request if the prescription is for a schedule II opioid drug., 3 patch... Start Date: 12/03/23 Status: Ordered lisinopril 40 mg oral tablet 1 tablet = 40 mg, By Mouth, Daily, # 90 tablet, 0 Refills, Maintenance, 12/03/23 13:55:00 EST, Tablet, [facility], Partial fill upon patient request if the prescription is for a schedule II opioid drug., 145.5, cm, 12/03/23 13:29:0... Start Date: 12/03/23 Status: Ordered omeprazole 20 mg oral enteric coated capsule 1 capsule, By Mouth, Daily, # 30 capsule, 4 Refills, Maintenance, 04/22/24 8:55:00 EDT, [facility], 145.5, cm, 04/08/24 14:31:00 EDT, Height Start Date: 04/22/24 Status: Ordered simethicone 180 mg oral capsule 1 capsule = 180 mg, By Mouth, 4 times a day, PRN Gas, # 18 capsule, 0 Refills, Maintenance, 12/03/23 13:55:00 EST, Caps[place], [facility], Partial fill upon patient request if the prescription is for a schedule II opioid drug., 145.5,... Start Date: 12/03/23 Status: Ordered traZODone 50 mg oral tablet 25 mg, 0.5, tablet, By Mouth, Daily at bedtime, # 15 tablet, Refills 0, Tot. Refills 0, Maintenance, 12/03/23 13:58:00 EST, Route to Pharmacy Electronically, [facility], Partial fill upon patient request if the prescription is for... Start Date: 12/03/23 Status: Ordered Tylenol 8 Hour 650 mg oral tablet, extended release 2 tablet = 1,300 mg, By Mouth, Every 8 hours, PRN as needed for pain, # 100 tablet, 0 Refills, Maintenance, 12/03/23 14:02:00 EST, ER Tablet, [facility], Partial fill upon patientrequest if the [...] Personnel Name: Rajinder MOORE, Deborah Lal Position: [facility] Resident Member Role: PCP Address: Address: [address] [place] [phone]- Name: Edward DANGELO, Jodi Erwin Position: [facility] Onco RN Member Role: Primary Care Nurse Name: Cindi Olvera RN Position: [facility] OB RN Member Role: Primary Care Nurse Care Team Related Persons Name: FELISAHaliGERSON Address: home [address] [place] [address] Name: GUTIERREZ FISHER Address: home [address] [place] [address] Name: VASQUEZ JAQUEZ Address: home [address] [place] [address]
--- OUTSIDE RECORDS SUMMARY | 2024-05-09 14:25 | XMS_ITS | Continuity of Care Document ---
Author Organization [facility] Address [address] [place] [address]- Care Team Providers Care Locomotive Switch Operator Name Role Phone Deborah Calvillo MD Primary Care Physician ( [phone] Encounter [facility] Date(s): 01/15/24 - 02/14/[address] [address]- Allergies, Adverse Reactions, Alerts Substance Reaction Severity Status Percocet 5/325 swelling Active contrast media (iodine-based) vomiting swelling Active oxyCODONE swelling Active Immunizations Given and Recorded Vaccine [...] 0 Refills, Maintenance, 12/03/23 13:55:00 EST, Tablet, [facility], Partial fill upon patient request if the prescription is for a schedule II opioid drug., 145.5, cm, 12/03/23 13:29:0... Start Date: 12/03/23 Status: Ordered calcitonin 200 iu/inh nasal spray 1 sprays, Nares, Both, Daily, # 3.7 mL, 0 Refills, Maintenance, 12/03/23 13:55:00 EST, [place], [facility], Partial fill upon patient request if the prescription is for a schedule II opioid drug., 145.5, cm, 12/03/23 13:29:00 EST, He... Start Date: 12/03/23 Status: Ordered carvedilol 3.125 mg oral tablet 3.125 mg, 1, tablet, By Mouth, 2 times a day, # 180 tablet, Refills 0, Tot. Refills 0, Maintenance,12/03/23 13:55:00 EST, Route to Pharmacy Electronically, [facility], Partial fill upon patient request if the prescription is for a... Start Date: 12/03/23 Status: Ordered cholecalciferol 50,000 intl units oral capsule 1 capsule = 1,250 mcg, By Mouth, Every week, # 8 capsule, 0 Refills, Maintenance, 12/07/23 12:49:00EST, [place]aps[place], [facility], Partial fill upon patient request if the prescriptionis for a schedule II opioid drug., 145.5, cm, 12/03... Start Date: 12/07/23 Status: Ordered diclofenac 1% topical gel 1 application, Topically, 4 times a day, # 100 Gm, 0 Refills, Maintenance, 12/03/23 14:03:00 EST, Gel, [facility], Partial fill upon patient request if the prescription is for a schedule II opioid drug., 145.5, cm, 12/03/23 13:29:0... Start Date: 12/03/23 Status: Ordered escitalopram 5 mg oral tablet 1 tablet = 5 mg, By Mouth, Daily, # 90 tablet, 0 Refills, Maintenance, 12/03/23 13:58:00 EST, Tablet, [facility], Partial fill upon patient request if the prescription is for a schedule II opioid drug., 145.5, cm, 12/03/23 13:29:00... Start Date: 12/03/23 Status: Ordered fluticasone 50 mcg/inh nasal spray 2 sprays = 100 mcg, Nares, Both, 2 times a day, # 16 Gm, 0 Refills, Maintenance, 12/03/23 13:57:00 EST, [place], [facility], Partial fill upon patient request if the prescription isfor a schedule II opioid drug., 2 sprays Nares, Bot... Start Date: 12/03/23 Status: Ordered lidocaine 5% topical film 3 patch, Topically, Daily, remove patches after 12 hours, # 30 patch, 0 Refills, Maintenance, 12/03/23 14:03:00 EST, [place], [facility], Partial fill upon patient request if the prescription is for a schedule II opioid drug., 3 patch... Start Date: 12/03/23 Status: Ordered lisinopril 40 mg oral tablet 1 tablet = 40 mg, By Mouth, Daily, # 90 tablet, 0 Refills, Maintenance, 12/03/23 13:55:00 EST, Tablet, [facility], Partial fill upon patient request [...] 0 Refills, Maintenance, 12/03/23 13:55:00 EST, [place]aps[place], [facility], Partial fill upon patient request if the prescription is for a schedule II opioid drug., 145.5,... Start Date: 12/03/23 Status: Ordered traZODone 50 mg oral tablet 25 mg, 0.5, tablet, By Mouth, Daily at bedtime, # 15 tablet, Refills 0, Tot. Refills 0, Maintenance, 12/03/23 13:58:00 EST, Route to Pharmacy Electronically, [facility], Partial fill upon patient request if the prescription is for... Start Date: 12/03/23 Status: Ordered Tylenol 8 Hour 650 mg oral tablet, extended release 2 tablet = 1,300 mg, By Mouth, Every 8 hours, PRN as needed for pain, # 100 tablet, 0 Refills, Maintenance, 12/03/23 14:02:00 EST, ER Tablet, [facility], Partial fill upon patientrequest if [...] Personnel Name: Rajinder MOORE, Deborah Lal Position: [facility] Resident Member Role: PCP Address: Address: [address] [place] [phone]- Name: Edward DANGELO, Jodi Erwin Position: [facility] Onco RN Member Role: Primary Care Nurse Name: Cindi Olvera RN Position: [facility] OB RN Member Role: Primary Care Nurse Care Team Related Persons Name: GERSON FISHER Address: home [address] [place] [address] Name: GUTIERREZ FISHER Address: home [address] [facility] [place] [address] Name: VASQUEZ JAQUEZ Address: home [address] [place] [address]
--- OUTSIDE RECORDS SUMMARY | 2024-05-09 14:25 | XMS_ITS | Continuity of Care Document ---
Author Organization [facility] ter Address [address] [place] [address]- Care Team Providers Care Bundle Person Name Role Phone Deborah Calvillo MD Primary Care Physician [facility] Date[facility]s): 12[facility]23 - 12/18/[address] [address] Attending Physician: Deborah Calvillo MD Allergies, Adverse Reactions, Alerts Substance Reaction Severity [...] 0 Refills, Maintenance, 12/03/23 13:55:00 EST, Tablet, [facility], Partial fill upon patient request if the prescription is for a schedule II opioid drug., 145.5, cm, 12/03/23 13:29:0... Start Date: 12/03/23 Status: Ordered calcitonin 200 iu/inh nasal spray 1 sprays, Nares, Both, Daily, # 3.7 mL, 0 Refills, Maintenance, 12/03/23 13:55:00 EST, [place], [facility], Partial fill upon patient request if the prescription is for a schedule II opioid drug., 145.5, cm, 12/03/23 13:29:00 EST, He... Start Date: 12/03/23 Status: Ordered carvedilol 3.125 mg oral tablet 3.125 mg, 1, tablet, By Mouth, 2 times a day, # 180 tablet, Refills 0, Tot. Refills 0, Maintenance,12/03/23 13:55:00 EST, Route to Pharmacy Electronically, [facility], Partial fill upon patient request if the prescription is for a... Start Date: 12/03/23 Status: Ordered cholecalciferol 50,000 intl units oral capsule 1 capsule = 1,250 mcg, By Mouth, Every week, # 8 capsule, 0 Refills, Maintenance, 12/07/23 12:49:00EST, Caps[place], [facility], Partial fill upon patient request if the prescriptionis for a schedule II opioid drug., 145.5, cm, 12/03... Start Date: 12/07/23 Status: Ordered diclofenac 1% topical gel 1 application, Topically, 4 times a day, # 100 Gm, 0 Refills, Maintenance, 12/03/23 14:03:00 EST, Gel, [facility], Partial fill upon patient request if the prescription is for a schedule II opioid drug., 145.5, cm, 12/03/23 13:29:0... Start Date: 12/03/23 Status: Ordered escitalopram 5 mg oral tablet 1 tablet = 5 mg, By Mouth, Daily, # 90 tablet, 0 Refills, Maintenance, 12/03/23 13:58:00 EST, Tablet, [facility], Partial fill upon patient request if the prescription is for a schedule II opioid drug., 145.5, cm, 12/03/23 13:29:00... Start Date: 12/03/23 Status: Ordered fluticasone 50 mcg/inh nasal spray 2 sprays = 100 mcg, Nares, Both, 2 times a day, # 16 Gm, 0 Refills, Maintenance, 12/03/23 13:57:00 EST, [place], [facility], Partial fill upon patient request if the prescription isfor a schedule II opioid drug., 2 sprays Nares, Bot... Start Date: 12/03/23 Status: Ordered lidocaine 5% topical film 3 patch, Topically, Daily, remove patches after 12 hours, # 30 patch, 0 Refills, Maintenance, 12/03/23 14:03:00 EST, [place], [facility], Partial fill upon patient request if the prescription is for a schedule II opioid drug., 3 patch... Start Date: 12/03/23 Status: Ordered lisinopril 40 mg oral tablet 1 tablet = 40 mg, By Mouth, Daily, # 90 tablet, 0 Refills, Maintenance, 12/03/23 13:55:00 EST, Tablet, [facility], Partial fill upon patient request [...] 0 Refills, Maintenance, 12/03/23 13:55:00 EST, Capsule, [facility], Partial fill upon patient request if the prescription is for a schedule II opioid drug., 145.5,... Start Date: 12/03/23 Status: Ordered traZODone 50 mg oral tablet 25 mg, 0.5, tablet, By Mouth, Daily at bedtime, # 15 tablet, Refills 0, Tot. Refills 0, Maintenance, 12/03/23 13:58:00 EST, Route to Pharmacy Electronically, [facility], Partial fill upon patient request if the prescription is for... Start Date: 12/03/23 Status: Ordered Tylenol 8 Hour 650 mg oral tablet, extended release 2 tablet = 1,300 mg, By Mouth, Every 8 hours, PRN as needed for pain, # 100 tablet, 0 Refills, Maintenance, 12/03/23 14:02:00 EST, ER Tablet, [facility], Partial fill upon patientrequest if [...] Personnel Name: Rajinder MOORE, Deborah Lal Position: [facility] Resident Member Role: PCP Address: Address: [address] [place] [id number]- Name: Edward DANGELO, Jodi Erwin Position: [facility] Onco RN Member Role: Primary Care Nurse Name: Cindi Olvera RN Position: [facility] OB RN Member Role: Primary Care Nurse Care Team Related Persons Name: GERSON FISHER Address: home [address] [place] [address] Name: GUTIERREZ FISHER Address: home [address] [place] [address] Name: VASQUEZ JAQUEZ Address: home [address] [place] [address]
--- OUTSIDE RECORDS SUMMARY | 2024-05-09 14:25 | XMS_ITS | Continuity of Care Document ---
Author Organization [facility] ter Address [address] [place] [address]- Care Team Providers Care Cocoa Room Operator Name Role Phone Deborah Calvillo MD Primary Care Physician [facility] Date[facility]): 12[facility]23 - 12/18/23 [facility] [address] [place] [id number] Attending Physician: Laurie Ley MD Allergies, Adverse Reactions, Alerts Substance Reaction [...] 0 Refills, Maintenance, 12/03/23 13:55:00 EST, Tablet, [facility], Partial fill upon patient request if the prescription is for a schedule II opioid drug., 145.5, cm, 12/03/23 13:29:0... Start Date: 12/03/23 Status: Ordered calcitonin 200 iu/inh nasal spray 1 sprays, Nares, Both, Daily, # 3.7 mL, 0 Refills, Maintenance, 12/03/23 13:55:00 EST, [place], [facility], Partial fill upon patient request if the prescription is for a schedule II opioid drug., 145.5, cm, 12/03/23 13:29:00 EST, He... Start Date: 12/03/23 Status: Ordered carvedilol 3.125 mg oral tablet 3.125 mg, 1, tablet, By Mouth, 2 times a day, # 180 tablet, Refills 0, Tot. Refills 0, Maintenance,12/03/23 13:55:00 EST, Route to Pharmacy Electronically, [facility], Partial fill upon patient request if the prescription is for a... Start Date: 12/03/23 Status: Ordered cholecalciferol 50,000 intl units oral capsule 1 capsule = 1,250 mcg, By Mouth, Every week, # 8 capsule, 0 Refills, Maintenance, 12/07/23 12:49:00EST, Capsule, [facility], Partial fill upon patient request if the prescriptionis for a schedule II opioid drug., 145.5, cm, 12/03... Start Date: 12/07/23 Status: Ordered diclofenac 1% topical gel 1 application, Topically, 4 times a day, # 100 Gm, 0 Refills, Maintenance, 12/03/23 14:03:00 EST, Gel, [facility], Partial fill upon patient request if the prescription is for a schedule II opioid drug., 145.5, cm, 12/03/23 13:29:0... Start Date: 12/03/23 Status: Ordered escitalopram 5 mg oral tablet 1 tablet = 5 mg, By Mouth, Daily, # 90 tablet, 0 Refills, Maintenance, 12/03/23 13:58:00 EST, Tablet, [facility], Partial fill upon patient request if the prescription is for a schedule II opioid drug., 145.5, cm, 12/03/23 13:29:00... Start Date: 12/03/23 Status: Ordered fluticasone 50 mcg/inh nasal spray 2 sprays = 100 mcg, Nares, Both, 2 times a day, # 16 Gm, 0 Refills, Maintenance, 12/03/23 13:57:00 EST, [place], [facility], Partial fill upon patient request if the prescription isfor a schedule II opioid drug., 2 sprays Nares, Bot... Start Date: 12/03/23 Status: Ordered lidocaine 5% topical film 3 patch, Topically, Daily, remove patches after 12 hours, # 30 patch, 0 Refills, Maintenance, 12/03/23 14:03:00 EST, [place], [facility], Partial fill upon patient request if the prescription is for a schedule II opioid drug., 3 patch... Start Date: 12/03/23 Status: Ordered lisinopril 40 mg oral tablet 1 tablet = 40 mg, By Mouth, Daily, # 90 tablet, 0 Refills, Maintenance, 12/03/23 13:55:00 EST, Tablet, [facility], Partial fill upon patient request [...] 0 Refills, Maintenance, 12/03/23 13:55:00 EST, Caps[place], [facility], Partial fill upon patient request if the prescription is for a schedule II opioid drug., 145.5,... Start Date: 12/03/23 Status: Ordered traZODone 50 mg oral tablet 25 mg, 0.5, tablet, By Mouth, Daily at bedtime, # 15 tablet, Refills 0, Tot. Refills 0, Maintenance, 12/03/23 13:58:00 EST, Route to Pharmacy Electronically, [facility], Partial fill upon patient request if the prescription is for... Start Date: 12/03/23 Status: Ordered Tylenol 8 Hour 650 mg oral tablet, extended release 2 tablet = 1,300 mg, By Mouth, Every 8 hours, PRN as needed for pain, # 100 tablet, 0 Refills, Maintenance, 12/03/23 14:02:00 EST, ER Tablet, [facility], Partial fill upon patientrequest if [...] Personnel Name: Rajinder MOORE, Deborah Lal Position: [facility] Resident Member Role: PCP Address: Address: [address] [place] [id number]- Name: Edward DANGELO, Jodi Erwin Position: [facility] Onco RN Member Role: Primary Care Nurse Name: Cindi Olvera RN Position: [facility] OB RN Member Role: Primary Care Nurse Care Team Related Persons Name: GERSON FISHER Address: home [address] [place] [address] Name: GUTIERREZ FISHER Address: home [address] [address] [place] [address] Name: VASQUEZ JAQUEZ Address: home [address] [place] [address]
--- OUTSIDE RECORDS SUMMARY | 2024-05-09 14:25 | XMS_ITS | Continuity of Care Document ---
Author Organization [facility] Address [address] [place] [address]- Care Team Providers Care Marketing Analyst Name Role Phone Deborah Calvillo MD Primary Care Physician ( [phone] Encounter [facility] Date(s): 12/03/23 - 02/13/[address] [address]- Attending Physician: Not on Staff, Attending MD Allergies, Adverse Reactions, Alerts Substance Reaction [...] 0 Refills, Maintenance, 12/03/23 13:55:00 EST, Tablet, [facility], Partial fill upon patient request if the prescription is for a schedule II opioid drug., 145.5, cm, 02/01/24 13:29:0... Start Date: 12/03/23 Status: Ordered calcitonin 200 iu/inh nasal spray 1 sprays, Nares, Both, Daily, # 3.7 mL, 0 Refills, Maintenance, 12/03/23 13:55:00 EST, [place], [facility], Partial fill upon patient request if the prescription is for a schedule II opioid drug., 145.5, cm, 12/03/23 13:29:00 EST, He... Start Date: 12/03/23 Status: Ordered carvedilol 3.125 mg oral tablet 3.125 mg, 1, tablet, By Mouth, 2 times a day, # 180 tablet, Refills 0, Tot. Refills 0, Maintenance,12/03/23 13:55:00 EST, Route to Pharmacy Electronically, [facility], Partial fill upon patient request if the prescription is for a... Start Date: 12/03/23 Status: Ordered cholecalciferol 50,000 intl units oral capsule 1 capsule = 1,250 mcg, By Mouth, Every week, # 8 capsule, 0 Refills, Maintenance, 12/07/23 12:49:00EST, Capsule, [facility], Partial fill upon patient request if the prescriptionis for a schedule II opioid drug., 145.5, cm, 12/03... Start Date: 12/07/23 Status: Ordered diclofenac 1% topical gel 1 application, Topically, 4 times a day, # 100 Gm, 0 Refills, Maintenance, 12/03/23 14:03:00 EST, Gel, [facility], Partial fill upon patient request if the prescription is for a schedule II opioid drug., 145.5, cm, 12/03/23 13:29:0... Start Date: 12/03/23 Status: Ordered escitalopram 5 mg oral tablet 1 tablet = 5 mg, By Mouth, Daily, # 90 tablet, 0 Refills, Maintenance, 12/03/23 13:58:00 EST, Tablet, [facility], Partial fill upon patient request if the prescription is for a schedule II opioid drug., 145.5, cm, 12/03/23 13:29:00... Start Date: 12/03/23 Status: Ordered fluticasone 50 mcg/inh nasal spray 2 sprays = 100 mcg, Nares, Both, 2 times a day, # 16 Gm, 0 Refills, Maintenance, 12/03/23 13:57:00 EST, [place], [facility], Partial fill upon patient request if the prescription isfor a schedule II opioid drug., 2 sprays Nares, Bot... Start Date: 12/03/23 Status: Ordered lidocaine 5% topical film 3 patch, Topically, Daily, remove patches after 12 hours, # 30 patch, 0 Refills, Maintenance, 12/03/23 14:03:00 EST, [place], [facility], Partial fill upon patient request if the prescription is for a schedule II opioid drug., 3 patch... Start Date: 12/03/23 Status: Ordered lisinopril 40 mg oral tablet 1 tablet = 40 mg, By Mouth, Daily, # 90 tablet, 0 Refills, Maintenance, 12/03/23 13:55:00 EST, Tablet, [facility], Partial fill upon patient request [...] 0 Refills, Maintenance, 12/03/23 13:55:00 EST, Capsule, [facility], Partial fill upon patient request if the prescription is for a schedule II opioid drug., 145.5,... Start Date: 12/03/23 Status: Ordered traZODone 50 mg oral tablet 25 mg, 0.5, tablet, By Mouth, Daily at bedtime, # 15 tablet, Refills 0, Tot. Refills 0, Maintenance, 12/03/23 13:58:00 EST, Route to Pharmacy Electronically, [facility], Partial fill upon patient request if the prescription is for... Start Date: 12/03/23 Status: Ordered Tylenol 8 Hour 650 mg oral tablet, extended release 2 tablet = 1,300 mg, By Mouth, Every 8 hours, PRN as needed for pain, # 100 tablet, 0 Refills, Maintenance, 12/03/23 14:02:00 EST, ER Tablet, [facility], Partial fill upon patientrequest if [...] Personnel Name: Rajinder MOORE, Deborah Lal Position: [facility] Resident Member Role: PCP Address: Address: [address] [place] [id number]- Name: Edward DANGELO, Jodi Erwin Position: [facility] Onco RN Member Role: Primary Care Nurse Name: Cindi Olvera RN Position: [facility] OB RN Member Role: Primary Care Nurse Care Team Related Persons Name: GERSON FISHER Address: home [address] [place] [address] Name: GUTIERREZ FISHER Address: home [address] [place] [address] Name: VASQUEZ JAQUEZ Address: home [address] [place] [address]
--- OUTSIDE RECORDS SUMMARY | 2024-05-09 14:25 | XMS_ITS | Continuity of Care Document ---
Author Organization [facility] Address [address] [place] [address]- Care Team Providers Care Interior Plant Caretaker Name Role Phone Deborah Calvillo MD Primary Care Physician [facility] Date[facility]s): 12/11/23 - 01/10/[address] [address]- Allergies, Adverse Reactions, Alerts Substance Reaction Severity [...] 0 Refills, Maintenance, 12/03/23 13:55:00 EST, Tablet, [facility], Partial fill upon patient request if the prescription is for a schedule II opioid drug., 145.5, cm, 12/03/23 13:29:0... Start Date: 12/03/23 Status: Ordered calcitonin 200 iu/inh nasal spray 1 sprays, Nares, Both, Daily, # 3.7 mL, 0 Refills, Maintenance, 12/03/23 13:55:00 EST, [place], [facility], Partial fill upon patient request if the prescription is for a schedule II opioid drug., 145.5, cm, 12/03/23 13:29:00 EST, He... Start Date: 12/03/23 Status: Ordered carvedilol 3.125 mg oral tablet 3.125 mg, 1, tablet, By Mouth, 2 times a day, # 180 tablet, Refills 0, Tot. Refills 0, Maintenance,12/03/23 13:55:00 EST, Route to Pharmacy Electronically, [facility], Partial fill upon patient request if the prescription is for a... Start Date: 12/03/23 Status: Ordered cholecalciferol 50,000 intl units oral capsule 1 capsule = 1,250 mcg, By Mouth, Every week, # 8 capsule, 0 Refills, Maintenance, 12/07/23 12:49:00EST, Capsule, [facility], Partial fill upon patient request if the prescriptionis for a schedule II opioid drug., 145.5, cm, 12/03... Start Date: 12/07/23 Status: Ordered diclofenac 1% topical gel 1 application, Topically, 4 times a day, # 100 Gm, 0 Refills, Maintenance, 12/03/23 14:03:00 EST, Gel, [facility], Partial fill upon patient request if the prescription is for a schedule II opioid drug., 145.5, cm, 12/03/23 13:29:0... Start Date: 12/03/23 Status: Ordered escitalopram 5 mg oral tablet 1 tablet = 5 mg, By Mouth, Daily, # 90 tablet, 0 Refills, Maintenance, 12/03/23 13:58:00 EST, Tablet, [facility], Partial fill upon patient request if the prescription is for a schedule II opioid drug., 145.5, cm, 12/03/23 13:29:00... Start Date: 12/03/23 Status: Ordered fluticasone 50 mcg/inh nasal spray 2 sprays = 100 mcg, Nares, Both, 2 times a day, # 16 Gm, 0 Refills, Maintenance, 12/03/23 13:57:00 EST, [place], [facility], Partial fill upon patient request if the prescription isfor a schedule II opioid drug., 2 sprays Nares, Bot... Start Date: 12/03/23 Status: Ordered lidocaine 5% topical film 3 patch, Topically, Daily, remove patches after 12 hours, # 30 patch, 0 Refills, Maintenance, 12/03/23 14:03:00 EST, [place], [facility], Partial fill upon patient request if the prescription is for a schedule II opioid drug., 3 patch... Start Date: 12/03/23 Status: Ordered lisinopril 40 mg oral tablet 1 tablet = 40 mg, By Mouth, Daily, # 90 tablet, 0 Refills, Maintenance, 12/03/23 13:55:00 EST, Tablet, [facility], Partial fill upon patient request if [...] 0 Refills, Maintenance, 12/03/23 13:55:00 EST, Capsule, [facility], Partial fill upon patient request if the prescription is for a schedule II opioid drug., 145.5,... Start Date: 12/03/23 Status: Ordered traZODone 50 mg oral tablet 25 mg, 0.5, tablet, By Mouth, Daily at bedtime, # 15 tablet, Refills 0, Tot. Refills 0, Maintenance, 12/03/23 13:58:00 EST, Route to Pharmacy Electronically, [facility], Partial fill upon patient request if the prescription is for... Start Date: 12/03/23 Status: Ordered Tylenol 8 Hour 650 mg oral tablet, extended release 2 tablet = 1,300 mg, By Mouth, Every 8 hours, PRN as needed for pain, # 100 tablet, 0 Refills, Maintenance, 12/03/23 14:02:00 EST, ER Tablet, [facility], Partial fill upon patientrequest if the [...] Personnel Name: Rajinder MOORE, Deborah Lal Position: [facility] Resident Member Role: PCP Address: Address: [address] [place] [id number]- Name: Edward DANGELO, Jodi Erwin Position: [facility] Onco RN Member Role: Primary Care Nurse Name: Cindi Olvera RN Position: [facility] OB RN Member Role: Primary Care Nurse Care Team Related Persons Name: GERSON FISHER Address: home [address] [place] [address] Name: GUTIERREZ FISHER Address: home [address] [place] [address] Name: VASQUEZ JAQUEZ Address: home [address] [place] [address]
[2024-05-09 14:38] LABS: MANUAL DIFF FLAG NO
[2024-05-09 14:40] LABS: Appearance Urine Clear; Basophils Absolute Auto 0.1 X10*3/uL (0.0-0.2); Basophils Percent Auto 0.6 % (0-2); Color Urine Yellow; Eosinophils Absolute Auto 0.4 X10*3/uL (0.0-0.4); Eosinophils Percent Auto 5.2 % (0-4); Glucose Urine UA Negative (Negative); Hematocrit 31.7 % (37.0-47.0); Hemoglobin 11.9 g/dl (12.0-16.0); Imm Gran Abs Auto 0.02 X10*3/uL (0.00-0.03); Imm Gran Pct Auto 0.2 % (0.0-0.4); Leukocyte Esterase Urine Negative (Negative); Lymphocytes Percent Auto 35.8 % (20-40); Mean Corpuscular HGB Conc 37.5 g/dl (31.0-35.0); Mean Corpuscular Hemoglobin 30.1 pg (27.0-33.0); Mean Corpuscular Volume 80.1 fL (80.0-98.0); Mean Platelet Volume 8.6 fL (9.4-12.3); Monocytes Absolute Auto 0.5 X10*3/uL (0.1-1.2); Monocytes Percent Auto 6.1 % (2-11); Neutrophils Absolute Auto 4.3 x10*3/uL (2.0-8.3); Neutrophils Percent Auto 52.1 % (45-73); Nitrite Urine Negative (Negative); PH 6.5 (5.0-9.0); Platelet Count 237 X10*3/uL (160-400); Red Blood Count 3.96 X10*6/uL (4.20-5.50); Red Cell Distribution Width 14.1 % (11.0-16.0); UMIC TRIGGER UACC YES; Urine Blood Trace (Negative); Urine Ketones Negative (Negative); Urine Protein Negative (Neg-Trace); White Blood Count 8.3 X10*3/uL (4.8-10.8)
[2024-05-09] MEDS: Acetaminophen 325 MG TABLET 650 MG PO (14:44)
[2024-05-09 14:50] LABS: Anion Gap 12 (12-20); Blood Urea Nitrogen 9 mg/dL (9-16); Calcium 10.2 mg/dL (8.4-10.2); Carbon Dioxide 26 mmol/L (22-29); Chloride 101 mmol/L (96-108); Creatinine Clr Calc Pharmacy 45.4; Estimated Glomerular Filt Rate > 60; Glucose Random 88 mg/dL (60-115); Potassium 4.3 mmol/L (3.3-5.1); Sodium 135 mmol/L (135-145)
[2024-05-09 14:51] LABS: Bacteria Urine None Seen (None Seen); Hyaline Casts Urine 0-2 /LPF (0-2); RBC Urine 0-2 /HPF (0-2); Squamous Epithelial Cell Urine 0-2 /HPF (0-2); WBC Urine 0-5 /HPF (0-5)
[2024-05-09 14:58] LABS: B Type Natriuretic Peptide 60 pg/mL (<100)
[2024-05-09 15:13] LABS: Troponin-I High Sensitivity < 2.7 ng/L (<3.5-17.0)
[2024-05-09 16:07] VITALS: BP 143/65; PULSE 64; RESP 18; TEMP 36.8; O2SAT 98
[2024-05-09 16:39] VITALS: BP 143/65; PULSE 64; RESP 18; TEMP 36.8; O2SAT 98
== END 2024-05-09 16:40 | disposition home or self-care (01) ==
PROVIDERS: Emergency Provider Emergency Medicine
DX: M25.521 Pain in right elbow (principal); R06.02 Shortness of breath; F17.210 Nicotine dependence, cigarettes, uncomplicated; R94.31 Abnormal electrocardiogram [ECG] [EKG]; Z79.899 Other long term (current) drug therapy
CPT/HCPCS: 36415; 80048; 81001; 83880; 84484; 85025; 93005; 99283; 99285

== ENCOUNTER → 2024-05-09 14:03 | Outpatient (BNV) | payer MEDICARE, SELFPAY | PROVIDERS: Emergency Provider Emergency Medicine; Visit Provider Internal Medicine Cardiovascular Disease | DX: R94.31 Abnormal electrocardiogram [ECG] [EKG] (principal) | CPT/HCPCS: 93010 ==

== ENCOUNTER 2024-06-30 09:05 | Outpatient (AMB) | payer MEDICARE, SELFPAY ==
--- NOTE | 2024-06-30 09:06 | A.OFFVIS_ITS ---
Vital Signs 06/30/24 09:17 Height 4 ft 9 in Weight 80 lb 11.027 oz BMI 17.5 BP 119/67 Blood Pressure Location Rt brachial Position Sitting Pulse 72 Intake Visit Reasons: Follow up [facility] Intake Note: Cielo presents to in office follow up of [facility]. CC: Patient c/o heartburn and states that she was not able to eat much d/t abdominal discomfort but is now eating better. Acute Care Surgeon Required: No Accompanied by: Daughter Allergies Iodinated Contrast Media [CONTRAST, IV] Allergy (Intermediate, Verified 06/30/24 09:27) NAUSEA & VOMITING morphine [MORPHINE] Allergy (Intermediate, Verified 06/30/24 09:27) NAUSEA & VOMITING oxycodone [From PERCOCET] Allergy (Intermediate, Verified 06/30/24 09:27) NAUSEA, WEAKNESS/VIOLENT HPI HPI Follow up [facility]: Details: Assessment & Plan (1) GERD (gastroesophageal reflux disease): Code(s): K21.9 - Gastro-esophageal reflux disease without esophagitis (2) Chronic idiopathic constipation: Code(s): K59.04 - Chronic idiopathic constipation (3) Abdominal bloating: Code(s): R14.0 - Abdominal distension (gaseous) (4) Osteoporosis: Code(s): M81.0 - Age-related osteoporosis without current pathological fracture Plan AUSTRALIAN # Aureliamarys as we can not get a telephone deputy sheriff custody on She continues to do well on her GI regimen, her constipation is well controlled on her Linzess and her heartburn is well controlled on her pantoprazole and simethicone. She also continues on her calcitonin nasal spray. ROV 6 mos. Medications: Refilled pantoprazole (Protonix) 40 mg PO DAILY 30 days 30 tabs 6RF K21.9 - Gastro- esophageal reflux disease without esophagitis linaclotide (Linzess) 72 mcg PO QAM 30 caps 6RF K59.04 - Chronic idiopathic constipation simethicone 180 mg PO QID 120 caps 6RF R14.0 - Abdominal distension (gaseous) calcitonin (salmon) 200 unit/actuation 1 spray intranasal DAILY 3.7 mL 6RF TODAY'S VISIT AUSTRALIAN #Dtr Krytsle translates per pt request She continues to be stable on her current GI regimen. She needs the spray renewed, but I am unsure if it is the calcitonin vs fluticasone. She continues on pantoprazole, simethicone, and Linzess 72 micro g. RoV 6 mos. [facility] Medical History Breast CA Cholecystitis HTN (hypertension) Acute arthritis Surgical History Hx of colonoscopy History of esophagogastroduodenoscopy (EGD) Hx of foot surgery Hx of breast biopsy History of back surgery Family History Father CVD (cardiovascular disease) HTN (hypertension) Brother Colon cancer Daughter No problems noted. 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 Review of Systems Const Denies fatigue, Denies fever(s), Denies night sweats, Denies poor appetite and Denies weight loss Eyes Details: glasses Reports requires corrective lenses ENT Reports Normal hearing present, Denies dental pain, Denies dysphagia, Denies hearing loss, Denies mouth pain, Denies odynophagia, Denies throat swelling, Denies tongue swelling and Reports other (Dentition adequate) Card Reports no additional complaints Resp Reports no additional complaints GI Details: Denies abdominal pain, Denies melena, Reports bloating, Denies hematochezia, Reports constipation, Denies GI cramping, Denies dysphagia, Denies excessive flatus, Denies early satiety, Reports heartburn, Denies diarrhea, Denies nausea, Denies odynophagia, Denies vomiting and Denies hematemesis Skin/Breast Denies pruritus, Denies lesions, Denies rash and Denies jaundice Neuro Reports Normal hearing present and Denies Abnormal speech present Endo Denies fatigue Aller/Immun Denies throat swelling and Denies tongue swelling Physical Exam Vital Signs: Last Vital Signs Pulse 72 06/30/24 09:17 BP 119/67 06/30/24 09:17 BMI result Body Mass Index 17.5 Const General: cooperative, no acute distress, well developed and well groomed Nutritional Appearance: average body habitus and well nourished Orientation/consciousness: oriented to person, oriented to place and oriented to time Limitations: language barrier HEENT Head: Yes normocephalic and Yes atraumatic Eyes General: appearance normal, both eyes and all related structures Pupils: Equal, round and reactive pupils present Neck Neck: Yes normal visual inspection and Yes no lymphadenopathy Thyroid: Thyroid normal Resp Effort & Inspection: normal respiratory effort and able to speak in complete sentences Auscultation: clear to auscultation bilaterally Cardio Rate: regular rate Rhythm: regular rhythm Heart sounds: Normal, physiologic split S2 sound present Peripheral pulses: radial pulses present and posterior tibial pulses present GI Inspection: No distended and No Abdominal panniculus present Palpation (GI): Soft to palpation, nontender, no guarding, not rigid and No hepatosplenomegaly present Percussion: Yes normal to percussion Auscultation: normal bowel sounds Rectal Exam - Female: deferred Skin General skin exam: no rashes or lesions noted, turgor normal, skin not dry, no jaundice, No spider nevi and no striae Rashes: no rashes Nails: normal Neuro General: oriented to person, oriented to place and oriented to time Cranial nerves: Yes Equal, round and reactive pupils present and Yes Normal hearing present Speech: No Abnormal speech present Extrem General: Yes normal to inspection, No clubbing, No cyanosis and No edema Psych Appearance: grossly normal and well kempt Mental Status: mental status grossly normal Speech and movement: Normal speech and movement present Affect: normal affect Attitude: cooperative Thought process: Normal thought process present and not confabulating Thought content: Normal thought content present Insight: Limited insight present (Psych) Judgement: Limited judgement present (Psych) Assessment & Plan Assessment & Plan (1) GERD (gastroesophageal reflux disease): Code(s): K21.9 - Gastro-esophageal reflux disease without esophagitis Category: Medical (2) Chronic idiopathic constipation: Code(s): K59.04 - Chronic idiopathic constipation Category: Medical (3) Abdominal bloating: Code(s): R14.0 - Abdominal distension (gaseous) Category: Medical (4) Osteoporosis: Code(s): M81.0 - Age-related osteoporosis without current pathological fracture Category: Medical Plan AUSTRALIAN #Dtr Krystle translates per pt request She continues to be stable on her current GI regimen. She needs the spray renewed, but I am unsure if it is the calcitonin vs fluticasone. She continues on pantoprazole, simethicone, and Linzess 72 micro g. RoV 6 mos. Medications: New simethicone (Gas Relief (simethicone)) 125 mg PO QID PRN 120 tabs 6RF abdominal distention R14.0 - Abdominal distension (gaseous) calcitonin (salmon) 200 unit/actuation 1 spray intranasal (ALT) DAILY 3.7 mL 6RF M81.0 - Age-related osteoporosis without current pathological fracture Refilled pantoprazole (Protonix) 40 mg PO DAILY 30 tabs 6RF 30 days K21.9 - Gastro- esophageal reflux disease without esophagitis linaclotide (Linzess) 72 mcg PO QAM 30 caps 6RF K59.04 - Chronic idiopathic constipation Discontinued simethicone Discontinued Reason: Doctor's Order 180 mg PO QID 120 caps 6RF R14.0 - Abdominal distension (gaseous) Coding Level of Care Code Est Pt Level 3 (29888) Diagnoses GERD (gastroesophageal reflux disease) K21.9 Chronic idiopathic constipation K59.04 Abdominal bloating R14.0 Osteoporosis M81.0
[2024-06-30 09:17] VITALS: BP 119/67; PULSE 72; BMI 17.5
== END 2024-06-30 09:55 | disposition home or self-care (01) ==
PROVIDERS: Visit Provider Nurse Practitioner
DX: K21.9 Gastro-esophageal reflux disease without esophagitis (principal); K59.04 Chronic idiopathic constipation; R14.0 Abdominal distension (gaseous); M81.0 Age-related osteoporosis without current pathological fracture
CPT/HCPCS: 99213

== ENCOUNTER → 2024-06-30 09:05 | Outpatient (BNVA) | payer MEDICARE, SELFPAY | PROVIDERS: Visit Provider Nurse Practitioner | DX: K59.04 Chronic idiopathic constipation (principal); K21.9 Gastro-esophageal reflux disease without esophagitis; R14.0 Abdominal distension (gaseous); M81.0 Age-related osteoporosis without current pathological fracture | CPT/HCPCS: 99212 ==

== ENCOUNTER 2024-10-29 10:23 | Emergency (ER) | payer MEDICARE, SELFPAY ==
[2024-10-29 10:29] VITALS: BP 123/63; PULSE 73; RESP 18; TEMP 36.9; O2SAT 99; BMI 20.9
--- OUTSIDE RECORDS SUMMARY | 2024-10-29 10:58 | XMS_ITS | Data Portability ---
Author Organization [place] [email or web address] [facility], [facility] Address [address] [place] [phone] Care Team Providers Care Booking Supervisor Name Role Phone HIM CCA OTHER Assessment Encounter Date Assessment Date Assessment LastModified by Organization Details LastModified Time 05/09/2024 05/09/2024 I provided real -time medical direction via phone for this encounter, and was available for additional phone based assistance as needed. I have reviewed and agree with the Assessment and Plan as documented by the Technical Solutions Engineer. We discussed the diagnostic uncertainty of home visits and the risk associated with this. I explained to the patient with no prior EKGs to compare in the old record cannot rule out acute ischemia. The patient given the opportunity to ask questions. Not available 05/10/2024 13:53:51 Plan of Treatment Reminders Order Date Submit Date Provider Last Modified By Organization Details Last Modified Time Details Appointments None recorded. Lab None recorded. Referral None recorded. Procedures None recorded. Surgeries None recorded. Imaging electrocard iogram [email or web address] [facility], [address] [place] [address], [phone], 13:56:29 Medication Orders None recorded. Patient TargetsNo targets recorded. Patient InstructionsNo instructions recorded. Reason for Referral None Reported. Results Created Date Observation Date Name Description Value Unit Range Abnormal Flag Note LastModifiedBy Organization Detail LastModifiedTime 05/09/20 24 05/10/2024 shady felipe am No observ ation record ed. [email or web address] [address], [phone], 05/10/2024 13:56:27 Result Notes None recorded. Procedures Surgical History None recorded. Imaging Results Imaging Date Name Status LastModified by Organization Details LastModified Time 05/10/2024 electrocardiogram completed [email or web address] [employer] [facility] [address] [place] [address], [place], [phone], 05/10/2024 13:56:27 Procedure Notes None recorded. Medical Equipment None Reported. Allergies Allergen ID Allergen Name Allergen Category Reaction Reaction Severity Criticality Documentation Date Start Date Code Code System Note Provider Name and Address Organization Details Recorded Time 5345 oxycodone medicatio n Not available Not available Not available 05/09/2024 7804 RxNorm and perco cet Cheryl Olsen MD [address] [place] [address],[address], [place], [phone], Cleo 4 11:41:43 5346 Iodinated contrast media (substanc e) medicatio n Not available Not available Not available 05/09/2024 28243 2004 SNOMED Cheryl Olsen MD [address] [place] [address],[address], [place], [phone], Cleo 4 11:41:56 Medications Name Sig Start Date Stop Date Status Note LastModified by Organization Details LastModified Time trazodone 50 mg tablet TAKE 1/2 TABLET BY MOUTH AT BEDTIME NEEDED FOR SLEEP active Not Available Not Available No t Available sucralfate 100 mg/mL oral suspension TAKE 10 ML BY MOUTH TWICE DAILY active Not Available Not Available No t Available carvedilol 3.125 mg tablet TAKE 1 TABLET BY MOUTH TWICE DAILY WITH FOOD active Not Available Not Available No t Available acetaminophen ER 650 mg tablet,extend ed release TAKE 2 TABLETS BY MOUTH EVERY 8 HOURS NEEDED FOR PAIN active Not Available Not Available No t Available calcitonin (salmon) 200 unit/actuatio n nasal spray USE 1 SPRAY IN 1 NOSTRIL ONCE DAILY ALTERNATE NOSTRIL active Not Available Not Available No t Available amlodipine 10 mg tablet TAKE 1 TABLET BY MOUTH EVERY DAY active Not Available Not Available No t Available pantoprazole 40 mg tablet,delaye d release TAKE 1 TABLET BY MOUTH EVERY DAY active Not Available Not Available No t Available omeprazole 20 mg capsule,delay ed release TAKE 1 CAPSULE BY MOUTH EVERY DAY active Not Available Not Available No t Available ferrous sulfate 325 mg (65 mg iron) tablet,delaye d release active Not Available Not Available No t Available lisinopril 40 mg tablet TAKE 1 TABLET BY MOUTH EVERY DAY active Not Available Not Available No t Available fluticasone propionate 50 mcg/actuation nasal spray,suspens ion USE 1 SPRAY IN EACH NOSTRIL TWICE DAILY active Not Available Not Available No t Available Gas Relief (simethicone) 180 mg capsule TAKE 1 CAPSULE BY MOUTH FOUR TIMES DAILY active Not Available Not Available No t Available escitalopram 5 mg tablet TAKE 1 TABLET BY MOUTH EVERY DAY IN THE MORNING active Not Available Not Available No t Available cholecalcifer ol (vitamin D3) 1,250 mcg (50,000 unit) capsule TAKE 1 CAPSULE BY MOUTH ONCE A WEEK active Not Available Not Available No t Available diclofenac 1 % topical gel APPLY 2 GRAMS TO AFFECTED AREA(S) FOUR TIMES DAILY active Not Available Not Available No t Available Linzess 72 mcg capsule TAKE 1 CAPSULE BY MOUTH EVERY DAY IN THE MORNING active Not Available Not Available No t Available Vitals Date Recorded Oxygen saturation Oxygen saturation in Arterial blood by Pulse oximetry Body weight Body temperature Respiratory rate Heart rate Systolic blood pressure Diastolic blood pressure Provider Name and Address Organization Details Last Updated DateTime 4 99 % 99 % 62163.4 64 g 97.8 [degF] 16 /min 64 /min 100 mm[Hg] 60 mm[Hg] Not Available [employer] 4 10:48:12 Date Recorded Body weight Body temperature Respiratory rate Heart rate Oxygen saturation Oxygen saturation in Arterial blood by Pulse oximetry Body height Systolic blood pressure Diastolic blood pressure Provider Name and Address Organization Details Last Updated DateTime 4 32895.2 8 g 98.1 [degF] 18 /min 65 /min 98 % 98 % 144.78 cm 129 mm[Hg] 69 mm[Hg] Not Available [employer] 4 11:35:29 Social History None recorded. Functional Status None recorded. Mental Status None recorded. Family History Nothing Reported. Medical History No medical history recorded. Gynecological HistoryNo gynecological history recorded. Obstetrics History GPAL:G 0 P 0 0 0 0 Past Encounters Encounter ID Performer Location Encounter Start Date Encounter Closed Date Diagnosis/Indication Diagnosis SNOMED-CT Code Diagnosis ICD10 Code [id number] Vanesa Cardona MD [facility] - [facility] [address] [place] [phone] 04/21/2024 10:48:07 04/21/2024 20:30:34 Hordeolum externum of upper eyelid of right eye 7985936435 28990 H00.011 [id number] Cheryl Olsen MD Main - [address] [phone] 05/09/2024 11:35:26 05/11/2024 19:44:25 Pain in right arm 282962636 M79.601 Health Concerns Section Related Observation LastModified by Organization Detai ls LastModified Time None Recorded Concern Status LastModified by Organization Details LastModified Time None Recorded Advance Directives Directive None Recorded Payers Encounter Date Sequence Insurance Name Policy Number Policy Kincaid Covered Member ID Kincaid Member ID Guarantor Name 04/21/2024 1 [employer] [facility] - DOS ON OR AFTER 2023 - DUAL ELIGIBLE - [employer] OPTIONS AND ONE CARE (MEDICARE REPLACEMENT/ADV ANTAGE - HMO) Cielo Ochoa [id number] Cielo Ochoa 05/09/2024 1 [employer] [facility] - DOS ON OR AFTER 2023 - DUAL ELIGIBLE - [employer] OPTIONS AND ONE CARE (MEDICARE REPLACEMENT/ADV ANTAGE - HMO) Cielo Ochoa [id number] Cielo Ochoa Notes Date Note Type Note Provider Name and Address Organization Details Recorded Time 04/21/2024 text/html [facility] Nurse Triage Notes (Melanie Alston): Reason For Request: eye is red/poss stye Chief Complaints: Pain PMH: COPD/Asthma, Hypertension Comments: Dust Control Engineer verified the member's name//address and phone number.Member reports that L eye redness x2-3 days. Reports that it has worsened. Inc swelling. Denies pain. Denies drainage. Denies fevers, chest pain or SOB. Education provided on the response time and the member was advised to monitor reported s/s and seek emergency treatment if needed. .................. .................. .................. .................. .................. .................. .................. ............... Technical Solutions Engineer Note From Jose Manuel Rogers: Pt co sty like bump white in color on eye lid. Denies redness or drainage to right eye itself. Pt sts has some itching but no pain. Denies cp sob rash/hives or NVd. Baseline vitals assessed. Eye assessment, two white heads on edge of eye lid. Afebrile. [facility] contacted and advised hot compresses over next few days. If worsen advised to contact pcp or go to ER. Pt education on signs indicating the ER. .................. .................. .................. .................. .................. .................. .................. ............... Disposition: Fulfilled Vanesa Cardona MD [address] [place] [address],[address], [place], [phone], [employer] 04/21/2024 10:58:04 05/09/2024 text/html [facility] Nurse Triage Notes (Qi Shields): Reason For Request: arm pain/can't lift anything Chief Complaints: Pain PMH: COPD/Asthma, Hypertension Allergies: No Known Comments: Family reports pain to right upper extremity with range of motion since yesterday. Pain to right shoulder down arm with numbness/tingling. No known injury. Report pain increased to 10/10 with movement. Patient was mopping yesterday, she is unsure if this contributed to aggravating arm. Technical Solutions Engineer POC Test Results from Joanie Hoffman EKG (1) [11:54] EKG test performed. Attachments uploaded as part of this test result can be found under Documents section. .................. .................. .................. .................. .................. .................. .................. ............... Technical Solutions Engineer Note From Joanie Hoffman: Sent to a call for a pt complaining of right arm pain. SC8 arrives on scene, pt is alert and oriented, airway is patent. Pt's primary language is Khmer. Pt's family serves as breeding technician during part of the visit, then breeding technician line used. Pt complains or right elbow/dorsal forearm pain/dorsal pain just above elbow, with numbness/tingling, and Left upper back pain/tinging around right shoulder blade radiating down right side of back. Pt states pain is worsened with moving arms. Pt states pain started yesterday after taking a nap. Pt took Tylenol 500mg PO yesterday with little/no relief. Pt denies santos, dizziness, cp, sob, n/v/d, abd pain, fever, or loc. BP:129/69, P:65, RR:18, SpO2:98% RA, T:98.1; Neuro exam: neg; Head: unremarkable: Chest: no tenderness noted; Lung sounds: clear bilaterally; Abdomen: soft, non-tender, no distention; Neck: no deformities or tenderness noted; Back: no deformities or tenderness noted; Extremities: normal range of motion, no tenderness noted; Skin: pink, warm, dry; C consulted and pt reports slight, non-radiating pain midline base of neck when turning head side to side. Pt states she is allergic to Oxycodone, Percocet, and Contrast Dye. Pt denies history of kidney disease, ulcers, GI bleeds, or being on blood thinners. Pt states she is not interested in a Toradol injection. [facility] orders 12 lead ECG. 12 lead ECG uploaded to [employer]. [facility] advises pt transport to ED for further eval/treatment due to abnormal ECG. Pt has no previous copies of ECG on hand. Pt agrees to transport to [facility] ED. 911 called; [facility] calls report to [facility]; Pt care transferred to [facility]. .................. .................. .................. .................. .................. .................. .................. ............... Disposition: FulfilledSEGMD: Patient denies any strenuous activity yesterday prior to onset of pain to us, via language line breeding technician. Patient further reports her back pain feels different from her usual chronic back pain but cannot really quantify/qualify Cheryl Olsen MD [address] [facility],[address], [place], [address], [place] [email or web address] [facility] [place] [facility] [email or web address] 05/10/2024 23:00:29 OBGyn Episode No OBEpisode recorded.
[2024-10-29 11:03] LABS: MANUAL DIFF FLAG NO
[2024-10-29 11:04] LABS: Basophils Percent Auto 0.4 % (0-2); Eosinophils Absolute Auto 0.1 X10*3/uL (0.0-0.4); Eosinophils Percent Auto 1.1 % (0-4); Hematocrit 32.6 % (37.0-47.0); Hemoglobin 12.2 g/dl (12.0-16.0); Imm Gran Abs Auto 0.02 X10*3/uL (0.00-0.03); Imm Gran Pct Auto 0.4 % (0.0-0.4); Lymphocytes Absolute Auto 1.7 X10*3/uL (1.2-4.9); Lymphocytes Percent Auto 29.6 % (20-40); Mean Corpuscular HGB Conc 37.4 g/dl (31.0-35.0); Mean Corpuscular Hemoglobin 29.6 pg (27.0-33.0); Mean Corpuscular Volume 79.1 fL (80.0-98.0); Monocytes Absolute Auto 0.7 X10*3/uL (0.1-1.2); Monocytes Percent Auto 11.8 % (2-11); Neutrophils Absolute Auto 3.2 x10*3/uL (2.0-8.3); Neutrophils Percent Auto 56.7 % (45-73); Platelet Count 267 X10*3/uL (160-400); Red Blood Count 4.12 X10*6/uL (4.20-5.50); Red Cell Distribution Width 14.4 % (11.0-16.0); White Blood Count 5.6 X10*3/uL (4.8-10.8)
[2024-10-29 11:06] LABS: Appearance Urine Clear; Color Urine Yellow; Glucose Urine UA Negative (Negative); Leukocyte Esterase Urine Negative (Negative); Nitrite Urine Negative (Negative); PH 5.5 (5.0-9.0); Specific Gravity - Urine 1.015 (1.005-1.025); UMIC TRIGGER UACC YES; Urine Blood Small (1+) (Negative); Urine Ketones Negative (Negative); Urine Protein Trace mg/dL (Neg-Trace)
[2024-10-29 11:23] LABS: Alanine Aminotransferase 15 U/L (0-31); Alkaline Phosphatase 72 U/L (39-117); Anion Gap 12 (12-20); Aspartate Amino Transferase 32 U/L (5-31); Bilirubin Direct < 0.2 mg/dL (0.0-0.5); Bilirubin Total 0.2 mg/dL (0.0-1.0); Blood Urea Nitrogen 18 mg/dL (9-16); Calcium 9.3 mg/dL (8.4-10.2); Carbon Dioxide 24 mmol/L (22-29); Chloride 104 mmol/L (96-108); Estimated Glomerular Filt Rate 48; Glucose Random 96 mg/dL (60-115); Lipase 16 U/L (8-78); Potassium 4.4 mmol/L (3.3-5.1); Sodium 136 mmol/L (135-145); Total Protein 7.2 g/dL (6.5-8.0)
[2024-10-29 11:25] LABS: Bacteria Urine None Seen (None Seen); Hyaline Casts Urine 0-2 /LPF (0-2); WBC Urine 0-5 /HPF (0-5)
[2024-10-29 12:21] LABS: Influenza A PCR NEGATIVE (Negative); Influenza B PCR NEGATIVE (Negative); Resp Syncy Virus RNA Qual PCR NEGATIVE (Negative); SARS COV2 PCR INHOUSE NEGATIVE (Negative)
--- NOTE | 2024-10-29 12:42 | ED_ITS ---
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 Merchant HPI narrative: 84-year-old female walked into the emergency department for evaluation of 4 days of nausea, vomiting, nonbloody watery diarrhea, abdominal pain. Symptoms started 4 days ago patient was seen at [facility] last week reportedly had a blood workup and CT of the abdomen pelvis patient was discharged on Zofran returned today because persistence of her symptoms. No dysuria, no frequency urination. Pain is mostly in the epigastric area, had nonbloody watery diarrhea, no blood in the vomitus. Intra-abdominal surgery history significant for cholecystectomy, appendectomy, and hysterectomy. Related Data Home Medications ?Medication ?Instructions ?Recorded ?Confirmed escitalopram oxalate 5 mg tablet 5 mg PO DAILY 12/24/20 multivitamin 1 tab PO DAILY 12/24/20 prazosin 1 mg capsule 1 mg PO BEDTIME 02/04/21 trazodone 50 mg tablet 25 mg PO BEDTIME PRN 02/04/21 hydrochlorothiazide 12.5 mg tablet 12.5 mg PO DAILY 03/17/22 lisinopril 40 mg tablet 40 mg PO DAILY 03/17/22 carvedilol 3.125 mg tablet 3.125 mg PO BID 04/18/22 amlodipine 10 mg tablet 10 mg PO DAILY 01/29/24 cholecalciferol (vitamin D3) 1,250 1,250 mcg PO QWEEK 01/29/24 mcg (50,000 unit) capsule Previous Rx's ?Medication ?Instructions ?Recorded albuterol sulfate 90 mcg/actuation 2 puff PO Q2H PRN shortness of 02/21/21 aerosol inhaler breath or wheezing #18 grams fluticasone propionate 50 1 spray intranasal BID #16 grams 07/31/23 mcg/actuation nasal spray,suspension (Allergy Relief (fluticasone)) calcitonin (salmon) 200 1 spray intranasal (ALT) DAILY 06/30/24 unit/actuation nasal spray #3.7 mL pantoprazole 40 mg tablet,delayed 40 mg PO DAILY 30 days #30 tabs 06/30/24 release (Protonix) simethicone 125 mg chewable tablet 125 mg PO QID PRN abdominal 06/30/24 (Gas Relief (simethicone)) distention #120 tabs linaclotide 72 mcg capsule 72 mcg PO QAM #30 caps 08/08/24 (Linzess) Allergies Allergy/AdvReac Type Severity Reaction Status Date / Time Iodinated Contrast Media Allergy Intermediate NAUSEA & Verified 10/29/24 10:33 [CONTRAST, IV] VOMITING morphine [MORPHINE] Allergy Intermediate NAUSEA & Verified 10/29/24 10:33 VOMITING oxycodone [From PERCOCET] Allergy Intermediate NAUSEA, Verified 10/29/24 10:33 WEAKNESS/VIOLENT Review of Systems Review of Systems All other systems are reviewed and are negative Constitutional: Reports as per HPI and Reports no additional constitutional complaints Eyes: Reports as per HPI and Reports no additional eye complaints Reports system reviewed and no additional complaints, except as documented Cardiovascular: Reports as per HPI and Reports no additional cardiovascular complaints Respiratory: Reports as per HPI and Reports no additional respiratory complaints Gastrointestinal: Reports as per HPI and Reports no additional gastrointestinal complaints Genitourinary: Reports no additional female genitourinary complaints Musculoskeletal: Reports no additional musculoskeletal complaints Skin/Breast: Reports system reviewed and no additional complaints, except as docu Psychiatric: Reports no additional psychiatric complaints Endocrine: Reports no additional endocrine complaints Hematologic/Lymphatic: Reports no additional hematologic/lymphatic complaints Allergic/Immunologic: Reports no additional allergic/immunologic complaints Reports system reviewed and no additional complaints, except as documented and Reports Abnormal speech present [facility] Past Medical History Medical History Breast CA Cholecystitis HTN (hypertension) Acute arthritis Surgical History Hx of colonoscopy History of esophagogastroduodenoscopy (EGD) Hx of foot surgery Hx of breast biopsy History of back surgery Family History Family History Father CVD (cardiovascular disease) HTN (hypertension) Brother Colon cancer Daughter No problems noted. 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 Blood pressure elevated. Heart rate normal. Respiratory rate normal. Temperature normal. Oxygen saturation normal. Appearance: Alert. Oriented X3. No acute distress. Head: Normal external exam. Normocephalic. Atraumatic. No Bonilla signs noted. No raccoon eyes noted Eyes: PERRLA. EOMI. Conjunctiva and sclera normal. Eyelids normal. ENT: TM's Normal. Pharynx normal. Uvula midline. Moist mucous membranes. No trismus noted. No drooling noted. No muffled voice noted. Neck: Normal inspection. Neck supple. FROM. No adenopathy. Thyroid Normal. No meningeal signs. No neck mass noted. CVS: Normal heart rate and rhythm. Heart sound normal. No murmurs noted. Pulses normal throughout. Respiratory: No respiratory distress. Painless inspiration. Breath sounds normal. No wheezes/rales/rhonchi noted. Chest nontender. No accessory muscle usage noted or decreased air movement noted. Abdomen: Soft and nontender. Bowel sounds normal in all 4 quadrants. No distention noted. No organomegaly noted. No visible injury noted. Back: No CVA tenderness. Full range of motion noted. Skin: Skin warm and dry. Normal skin color. Normal skin turgor. No rashes/lesions/lacerations noted. Extremities: No lower extremity edema. Extremities exhibit normal range of motion. Extremities nontender. Neuro: Oriented X 3. Cranial nerve exam: II-XII are grossly intact No motor deficit. No sensory deficit. Reflexes normal. Course Reevaluation(s) Reevaluation #1: 84-year-old female came in for abdominal pain, nausea, vomiting, diarrhea x3 days patient had a previous ER evaluation at [facility] 3 days ago had a [address] scan unable to obtain records from [facility] today. Patient now feels better, able to tolerate p.o. intake. Time: 15:20 Medical Decision Making Differential Diagnosis Differential Diagnoses: The differential diagnosis associated with the presentation includes (Food poisoning, gastroenteritis, electrolyte derangement, severe anemia.) Admission/Observation Consideration of admission/observation: Escalation of care including admission/observation considered Lab Data MDM Lab Attestation statement: I reviewed the patient's lab results. 10/29/24 10:57 10/29/24 10:57 Labs: Lab Results 10/29/24 Range/Units 10:57 WBC 5.6 (4.8-10.8) X10*3/uL RBC 4.12 L (4.20-5.50) X10*6/uL Hgb 12.2 (12.0-16.0) g/dl Hct 32.6 L (37.0-47.0) % MCV 79.1 L (80.0-98.0) fL MCH 29.6 (27.0-33.0) pg MCHC 37.4 H (31.0-35.0) g/dl RDW 14.4 (11.0-16.0) % Plt Count 267 (160-400) X10*3/uL MPV 9.0 L (9.4-12.3) fL Immature Gran % (Auto) 0.4 (0.0-0.4) % Neut % (Auto) 56.7 (45-73) % Lymph % (Auto) 29.6 (20-40) % Tripp % (Auto) 11.8 H (2-11) % Eos % (Auto) 1.1 (0-4) % Baso % (Auto) 0.4 (0-2) % Lymph # (Auto) 1.7 (1.2-4.9) X10*3/uL Tripp # (Auto) 0.7 (0.1-1.2) X10*3/uL Eos # (Auto) 0.1 (0.0-0.4) X10*3/uL Baso # (Auto) 0.0 (0.0-0.2) X10*3/uL Abs Immat Gran (auto) 0.02 (0.00-0.03) X10*3/uL Absolute Neuts (auto) 3.2 (2.0-8.3) x10*3/uL Absolute Nucleated RBC 0.000 (0.0-0.012) X10*3/uL Nucleated RBC % (auto) 0.0 (0.0-0.2) /100WBC Sodium 136 (135-145) mmol/L Potassium 4.4 (3.3-5.1) mmol/L Chloride 104 (96-108) mmol/L Carbon Dioxide 24 (22-29) mmol/L Anion Gap 12 (12-20) BUN 18 H (9-16) mg/dL Creatinine 1.09 (0.5-1.4) mg/dL Estim Creat Clear Calc 23.0 Estimated GFR 48 Random Glucose 96 (60-115) mg/dL Calcium 9.3 D (8.4-10.2) mg/dL Total Bilirubin 0.2 (0.0-1.0) mg/dL Direct Bilirubin < 0.2 (0.0-0.5) mg/dL AST 32 H (5-31) U/L ALT 15 (0-31) U/L Alkaline Phosphatase 72 (39-117) U/L Total Protein 7.2 (6.5-8.0) g/dL Albumin 4.0 (3.5-5.0) g/dL Lipase 16 (8-78) U/L Urine Color Yellow Urine Appearance Clear Urine pH 5.5 (5.0-9.0) Ur Specific Lucan 1.015 (1.005-1.025) Urine Protein Trace (Neg-Trace) mg/dL Urine Glucose (UA) Negative (Negative) mg/dL Urine Ketones Negative (Negative) mg/dL Urine Blood Small (1+) H (Negative) Urine Nitrite Negative (Negative) Ur Leukocyte Esterase Negative (Negative) Urine RBC 3-5 H (0-2) /HPF Urine WBC 0-5 (0-5) /HPF Ur Squamous Epith Cells 6-10 (0-2) /HPF Urine Bacteria None Seen (None Seen) Hyaline Casts 0-2 (0-2) /LPF Influenza Type A (PCR) NEGATIVE (Negative) Influenza Type B (PCR) NEGATIVE (Negative) RSV RNA Qual (PCR) NEGATIVE (Negative) SARS-CoV-2 RNA (RT-PCR) NEGATIVE (Negative) Medications Administered Discontinued Medications Generic Name Dose Route Start Last Admin Trade Name Freq PRN Reason Stop Dose Admin Al Hydroxide/Mg Hydroxide 30 ml 10/29/24 12:41 10/29/24 13:06 Magnesium Hydrox/Alum Hydrox 30 Ml Oral.Susp PO 10/29/24 12:42 30 ml ONCE ONE Administration Loperamide HCl 2 mg 10/29/24 12:41 10/29/24 13:06 Loperamide Hcl 2 Mg Capsule PO 10/29/24 12:42 2 mg ONCE ONE Administration Ondansetron HCl 4 mg 10/29/24 12:59 10/29/24 13:06 Ondansetron Odt 4 Mg Tab.Rapdis TRANSLINGU 10/29/24 13:00 4 mg ONCE ONE Administration Discharge Plan Discharge Clinical Impression: Vomiting Patient Disposition: Home, Self-Care Instructions: Acute Abdominal Pain (ED) Additional Instructions: Follow-up with your PCP. Prescriptions: No Action albuterol sulfate 90 mcg/actuation HFA aerosol inhaler 2 puff PO Q2H PRN (Reason: shortness of breath or wheezing) Qty: 18 0RF Linzess 72 mcg capsule 72 mcg PO QAM Qty: 30 6RF escitalopram oxalate 5 mg tablet 5 mg PO DAILY multivitamin Tablet 1 tab PO DAILY prazosin 1 mg capsule 1 mg PO BEDTIME trazodone 50 mg tablet 25 mg PO BEDTIME PRN lisinopril 40 mg tablet 40 mg PO DAILY hydrochlorothiazide 12.5 mg tablet 12.5 mg PO DAILY carvedilol 3.125 mg tablet 3.125 mg PO BID fluticasone propionate [Allergy Relief (fluticasone)] 50 mcg/actuation spray,suspension 1 spray intranasal BID Qty: 16 11RF Rx Instructions: administer into each nostril amlodipine 10 mg tablet 10 mg PO DAILY cholecalciferol (vitamin D3) 1,250 mcg (50,000 unit) capsule 1,250 mcg PO QWEEK pantoprazole [Protonix] 40 mg tablet,delayed release (DR/EC) 40 mg PO DAILY 30 Days Qty: 30 6RF simethicone [Gas Relief (simethicone)] 125 mg tablet,chewable 125 mg PO QID PRN (Reason: abdominal distention) Qty: 120 6RF calcitonin (salmon) 200 unit/actuation spray,non-aerosol 1 spray intranasal (ALT) DAILY Qty: 3.7 6RF Print Language: Salvadorean
[2024-10-29] MEDS: Ondansetron ODT 4 MG TAB.RAPDIS TRANSLINGU (13:06)
[2024-10-29] MEDS: Magnesium Hydrox/Alum Hydrox 30 ML ORAL.SUSP PO (13:06)
[2024-10-29] MEDS: Loperamide HCl 2 MG CAPSULE PO (13:06)
--- NOTE | 2024-10-29 13:17 | PC.NURSE ---
pt medicated per MAR
[2024-10-29 14:52] VITALS: BP 133/60; PULSE 68; RESP 16; TEMP 36.6; O2SAT 97
[2024-10-29 15:35] VITALS: BP 133/60; PULSE 68; RESP 16; TEMP 36.6; O2SAT 97
== END 2024-10-29 15:39 | disposition home or self-care (01) ==
PROVIDERS: Emergency Provider Emergency Medicine
DX: R11.2 Nausea with vomiting, unspecified (principal); R10.9 Unspecified abdominal pain; I10 Essential (primary) hypertension; F17.210 Nicotine dependence, cigarettes, uncomplicated; Z03.818 Encounter for observation for suspected exposure to other biological agents ruled out; Z79.899 Other long term (current) drug therapy
CPT/HCPCS: 0241U; 80048; 80076; 81001; 83690; 85025; 99283

== ENCOUNTER 2024-12-02 12:29 | Emergency (ER) | payer OTHER, SELFPAY ==
--- NOTE | ~2024-12-02 | XR_ITS ---
EXAMINATION: XR CHEST 2 VIEWS HISTORY: Cough COMPARISON: Comparison is made with the prior examination dated 07/03/2023. FINDINGS: PA and lateral views of the chest are submitted. The lungs remain hyperinflated. There is chronic pleural and parenchymal scarring at the apices. No new focal airspace opacity is identified. There is no pleural effusion, pneumothorax, or pulmonary vascular congestion. The heart is normal in size. The aorta is calcified and tortuous. The bones are intact. XR/XR chest 2V IMPRESSION: COPD. No acute cardiopulmonary abnormality. Electronically signed by: Sushant Chavez MD 12/02/2024 01:53 PM EST
[2024-12-02 13:03] VITALS: BP 141/52; PULSE 70; RESP 18; TEMP 36.7; O2SAT 96; BMI 16.8
--- NOTE | 2024-12-02 13:06 | ED.GENADULT ---
HPI - General Adult General Chief complaint: General Medical Stated complaint: Diarrhea Time Seen by Provider: 12/02/24 16:23 Source: patient and family Mode of arrival: ambulatory Limitations: no limitations History of Present Illness ED Provider: Eladia Salamanca APRN HPI narrative: 84 yo female with history of COPD here with complaints of chest congestion, cough x 1 week, chest discomfort with coughing since yesterday. Had several episodes of diarrhea today. No difficulty breathing, fevers, chills, abdominal pain, vomiting, neck pain, neck stiffness, leg swelling or leg pain. Related Data Home Medications ?Medication ?Instructions ?Recorded ?Confirmed escitalopram oxalate 5 mg tablet 5 mg PO DAILY 12/24/20 multivitamin 1 tab PO DAILY 12/24/20 prazosin 1 mg capsule 1 mg PO BEDTIME 02/04/21 trazodone 50 mg tablet 25 mg PO BEDTIME PRN 02/04/21 hydrochlorothiazide 12.5 mg tablet 12.5 mg PO DAILY 03/17/22 lisinopril 40 mg tablet 40 mg PO DAILY 03/17/22 carvedilol 3.125 mg tablet 3.125 mg PO BID 04/18/22 amlodipine 10 mg tablet 10 mg PO DAILY 01/29/24 cholecalciferol (vitamin D3) 1,250 1,250 mcg PO QWEEK 01/29/24 mcg (50,000 unit) capsule Previous Rx's ?Medication ?Instructions ?Recorded albuterol sulfate 90 mcg/actuation 2 puff PO Q2H PRN shortness of 02/21/21 aerosol inhaler breath or wheezing #18 grams fluticasone propionate 50 1 spray intranasal BID #16 grams 07/31/23 mcg/actuation nasal spray,suspension (Allergy Relief (fluticasone)) calcitonin (salmon) 200 1 spray intranasal (ALT) DAILY 06/30/24 unit/actuation nasal spray #3.7 mL pantoprazole 40 mg tablet,delayed 40 mg PO DAILY 30 days #30 tabs 06/30/24 release (Protonix) simethicone 125 mg chewable tablet 125 mg PO QID PRN abdominal 06/30/24 (Gas Relief (simethicone)) distention #120 tabs linaclotide 72 mcg capsule 72 mcg PO QAM #30 caps 08/08/24 (Linzess) albuterol sulfate 90 mcg/actuation 2 puff inhalation QID PRN 12/02/24 aerosol inhaler shortness of breath or wheezing #8.5 grams azithromycin 250 mg tablet See Rx Instructions PO .COMPLEX #6 12/02/24 tabs guaifenesin 1,200 mg tablet, 1,200 mg PO BID #14 tabs 12/02/24 extended release 12 hr (Mucinex) prednisone 20 mg tablet 40 mg (2 x 20 mg) PO DAILY #15 tabs 12/02/24 Allergies Allergy/AdvReac Type Severity Reaction Status Date / Time Iodinated Contrast Media Allergy Intermediate NAUSEA & Verified 12/02/24 13:05 [CONTRAST, IV] VOMITING morphine [MORPHINE] Allergy Intermediate NAUSEA & Verified 12/02/24 13:05 VOMITING oxycodone [From PERCOCET] Allergy Intermediate NAUSEA, Verified 12/02/24 13:05 WEAKNESS/VIOLENT Review of Systems Review of Systems: Yes all other systems are reviewed and are negative Constitutional: Constitutional: Reports no additional constitutional complaints, Denies body ache(s), Denies chills, Denies fever(s), Denies headache(s) and Denies weakness Eyes: Eyes: Reports no additional eye complaints and Denies change in vision ENT: Reports system reviewed and no additional complaints, except as documented, Denies dizziness, Denies headache(s), Denies nasal congestion, Denies nasal discharge and Denies neck pain Cardiovascular: Cardiovascular: Reports no additional cardiovascular complaints, Reports chest pain, Denies leg edema and Denies dyspnea Respiratory: Respiratory: Reports no additional respiratory complaints, Reports cough and Denies dyspnea Gastrointestinal: Gastrointestinal: Reports no additional gastrointestinal complaints, Denies abdominal pain, Reports diarrhea, Denies nausea and Denies vomiting Genitourinary: Genitourinary: Reports no additional female genitourinary complaints and Denies urinary incontinence Musculoskeletal: Musculoskeletal: Reports no additional musculoskeletal complaints, Denies back pain, Denies arthralgias, Denies joint swelling, Denies neck pain, Denies numbness and Denies tingling Integumentary/Breasts: Skin/Breast: Reports system reviewed and no additional complaints, except as docu and Denies rash Neurologic: Reports system reviewed and no additional complaints, except as documented, Denies Abnormal speech present, Denies dizziness, Denies headache(s), Denies numbness, Denies tingling and Denies weakness PMFSH Past Medical History Attestation statement: The following information was validated with the patient. Source: old records reviewed and nursing notes reviewed Medical History Breast CA Cholecystitis HTN (hypertension) Acute arthritis Surgical History Hx of colonoscopy History of esophagogastroduodenoscopy (EGD) Hx of foot surgery Hx of breast biopsy History of back surgery Family History Family History Father CVD (cardiovascular disease) HTN (hypertension) Brother Colon cancer Daughter No problems noted. 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 Physical Exam ED Vital Signs: Vital Signs - 24 hr 12/02/24 13:03 12/02/24 16:18 Temperature 98.0 F 98.5 F Pulse Rate 70 71 Respiratory Rate 18 18 Blood Pressure 141/52 H 140/62 H Pulse Oximetry 96 96 Oxygen Delivery Method Room Air Room Air BMI result Body Mass Index 16.8 Const General: cooperative, healthy appearing, comfortable and no acute distress Orientation/consciousness: patient oriented x3 Limitations: no limitations HENMT Head: Yes normal to inspection Ears: hearing grossly normal bilaterally and TM's normal bilaterally General nose exam: Normal external nose present Face and sinus: Yes normal facial exam Mouth: Normal oral and palatal mucosa present Throat: Yes posterior oropharynx normal, Yes tonsils normal and Yes uvula midline Eyes General: appearance normal, both eyes and all related structures Pupils: Equal, round and reactive pupils present Neck Neck: Yes normal visual inspection, Yes full ROM, Yes no lymphadenopathy and Yes no meningeal signs Chest Chest palpation & inspection: normal inspection of the chest Resp Effort & Inspection: normal respiratory effort Auscultation: rhonchi and wheezes Cardio Rate: regular rate Rhythm: regular rhythm Peripheral pulses: Peripheral pulses 2+ throughout GI Inspection: Yes normal to inspection Palpation (GI): Soft to palpation and nontender Auscultation: normal bowel sounds Back/Spine/Pelvis Thoracic/Lumbar Spine: thoracic and lumbar spine normal to inspection Skin General skin exam: no rashes or lesions noted Neuro General: patient oriented x3, no meningeal signs, no focal motor deficits and normal sensation to monofilament Cranial nerves: Yes Equal, round and reactive pupils present Cognition (Neuro): normal cognition Speech: No Abnormal speech present Gait exam (Neuro): Normal gait present Motor exam (neuro): 5/5 motor strength present throughout Extrem General: Yes normal to inspection, Yes no pedal edema and Yes no calf tenderness Course Course Course Narrative: Patient complains of cough chest pain and dizziness for 1 week, chest pain is coming and going worse when she stands up Second complaint is to last night she developed multiple episodes of watery diarrhea and feels a little dizzy Labs EKG chest x-ray are ordered This is rapid medical exam done in triage pending full evaluation exam and disposition by ER provider Medical Decision Making Medical Decision Making [facility] Narrative: 84 yo female with history of COPD here with complaints of chest congestion, cough x 1 week, chest discomfort with coughing since yesterday. Had several episodes of diarrhea today. No difficulty breathing, fevers, chills, abdominal pain, vomiting, neck pain, neck stiffness, leg swelling or leg pain. Mild wheezing/rhonchi on exam. Abdomen soft/nontender. No rebound or guarding. +BS VSS Reviewed labs ordered from triage, EKG, CXR, viral testing. All normal. Doubt acute abdomen. Likely bronchitis secondary to COPD Will treat with albuterol MDI, prednisone/antibiotic course and mucinex Differential Diagnosis Differential Diagnoses: The differential diagnosis associated with the presentation includes COPD exacerbation, viral syndrome, influenza, PNA, bronchitis Doubt PE with no hypoxia, no tachypnea, no tachycardic, no clinical findings concern for DVT, no risk factors for same No risk factors for infectious diarrhea, doubt acute abdomen with no focal abdominal pain Admission/Observation Consideration of admission/observation: Escalation of care including admission/observation considered Lab Data [facility] Lab Attestation statement: I reviewed the patient's lab results. 12/02/24 13:31 12/02/24 13:31 Labs: Lab Results 12/02/24 Range/Units 13:31 WBC 9.4 (4.8-10.8) X10*3/uL RBC 4.29 (4.20-5.50) X10*6/uL Hgb 12.5 (12.0-16.0) g/dl Hct 33.6 L (37.0-47.0) % MCV 78.3 L (80.0-98.0) fL MCH 29.1 (27.0-33.0) pg MCHC 37.2 H (31.0-35.0) g/dl RDW 14.6 (11.0-16.0) % Plt Count 311 (160-400) X10*3/uL MPV 8.9 L (9.4-12.3) fL Immature Gran % (Auto) 0.2 (0.0-0.4) % Neut % (Auto) 58.7 (45-73) % Lymph % (Auto) 33.1 (20-40) % [place] % (Auto) 5.3 (2-11) % Eos % (Auto) 2.2 (0-4) % Baso % (Auto) 0.5 (0-2) % Lymph # (Auto) 3.1 (1.2-4.9) X10*3/uL [place] # (Auto) 0.5 (0.1-1.2) X10*3/uL Eos # (Auto) 0.2 (0.0-0.4) X10*3/uL Baso # (Auto) 0.1 (0.0-0.2) X10*3/uL Abs Immat Gran (auto) 0.02 (0.00-0.03) X10*3/uL Absolute Neuts (auto) 5.5 (2.0-8.3) x10*3/uL Absolute Nucleated RBC 0.000 (0.0-0.012) X10*3/uL Nucleated RBC % (auto) 0.0 (0.0-0.2) /100WBC PT 10.4 L (10.9-12.4) SEC INR 0.9 (0.9-1.1) Sodium 136 (135-145) mmol/L Potassium 4.8 (3.3-5.1) mmol/L Chloride 103 (96-108) mmol/L Carbon Dioxide 25 (22-29) mmol/L Anion Gap 13 (12-20) BUN 14 (9-16) mg/dL Creatinine 0.75 (0.5-1.4) mg/dL Estim Creat Clear Calc 32.2 Estimated GFR > 60 Random Glucose 98 (60-115) mg/dL Calcium 9.8 (8.4-10.2) mg/dL Total Bilirubin 0.4 (0.0-1.0) mg/dL Direct Bilirubin 0.1 (0.0-0.5) mg/dL AST 27 (5-31) U/L ALT 10 (0-31) U/L Alkaline Phosphatase 85 (39-117) U/L Troponin I High Sens < 2.7 (<3.5-17.0) ng/L B-Natriuretic Peptide 47 (<100) pg/mL Total Protein 8.0 (6.5-8.0) g/dL Albumin 4.3 (3.5-5.0) g/dL Lipase 20 (8-78) U/L COVID-19 (TONYA) Negative (Negative) COVID-19 Clin Com See Note Influenza Type A (SERVANDO) Negative (Negative) Influenza Type B (SERVANDO) Negative (Negative) Influenza A & B Note See Note Independent Interpretation I performed an independent interpretation of an: EKG and Plain X-Ray Interpretation: I I independently reviewed the chest x-ray and agree with the radiology report I independently viewed the EKG which shows normal sinus rhythm with a rate of 68, normal DE, normal QRS, normal QT Radiology Impression Discussion of test interpretation with radiology: I have reviewed the radiologist's reading. Radiologist Impression: [place] [id number] XRay Report Signed Patient: Cielo Ochoa MR#: [id number] : 1940 Acct:[id number] Age/Sex: 84 / F ADM Date: 12/02/24 Loc: .ED Attending Dr: Ordering Physician: Toribio Banks Date of Service: 12/02/24 Procedure(s): XR chest 2V Accession Number(s): [id number] cc: Physician,Unknown ; Toribio Banks~ EXAMINATION: XR CHEST 2 VIEWS HISTORY: Cough COMPARISON: Comparison is made with the prior examination dated 07/03/2023. FINDINGS: PA and lateral views of the chest are submitted. The lungs remain hyperinflated. There is chronic pleural and parenchymal scarring at the apices. No new focal airspace opacity is identified. There is no pleural effusion, pneumothorax, or pulmonary vascular congestion. The heart is normal in size. The aorta is calcified and tortuous. The bones are intact. XR/XR chest 2V IMPRESSION: COPD. No acute cardiopulmonary abnormality. Electronically signed by: Sushant Chavez MD 12/02/2024 01:53 PM [facility] [place] Discharge Plan Discharge Clinical Impression: COPD exacerbation, Bronchitis Patient Disposition: Home, Self-Care Instructions: Acute Bronchitis (ED), COPD (Chronic Obstructive Pulmonary Disease) (ED) Additional Instructions: Her blood work is reassuring Her EKG is normal Her x-ray shows no signs of pneumonia Her testing for flu and COVID are negative Prescriptions: New albuterol sulfate 90 mcg/actuation HFA aerosol inhaler 2 puff inhalation QID PRN (Reason: shortness of breath or wheezing) Qty: 8.5 0RF azithromycin 250 mg tablet See Rx Instructions .ROUTE .COMPLEX Qty: 6 0RF Rx Instructions: For 250 mg dose pack: take 500 mg today (day 1), then 250 mg for 4 days (days 2-5) prednisone 20 mg tablet 40 mg PO DAILY Qty: 15 0RF guaifenesin [Mucinex] 1,200 mg tablet extended release 12hr 1,200 mg PO BID Qty: 14 0RF No Action albuterol sulfate 90 mcg/actuation HFA aerosol inhaler 2 puff PO Q2H PRN (Reason: shortness of breath or wheezing) Qty: 18 0RF Linzess 72 mcg capsule 72 mcg PO QAM Qty: 30 6RF escitalopram oxalate 5 mg tablet 5 mg PO DAILY multivitamin Tablet 1 tab PO DAILY prazosin 1 mg capsule 1 mg PO BEDTIME trazodone 50 mg tablet 25 mg PO BEDTIME PRN lisinopril 40 mg tablet 40 mg PO DAILY hydrochlorothiazide 12.5 mg tablet 12.5 mg PO DAILY carvedilol 3.125 mg tablet 3.125 mg PO BID fluticasone propionate [Allergy Relief (fluticasone)] 50 mcg/actuation spray,suspension 1 spray intranasal BID Qty: 16 11RF Rx Instructions: administer into each nostril amlodipine 10 mg tablet 10 mg PO DAILY cholecalciferol (vitamin D3) 1,250 mcg (50,000 unit) capsule 1,250 mcg PO QWEEK pantoprazole [Protonix] 40 mg tablet,delayed release (DR/EC) 40 mg PO DAILY 30 Days Qty: 30 6RF simethicone [Gas Relief (simethicone)] 125 mg tablet,chewable 125 mg PO QID PRN (Reason: abdominal distention) Qty: 120 6RF calcitonin (salmon) 200 unit/actuation spray,non-aerosol 1 spray intranasal (ALT) DAILY Qty: 3.7 6RF Print Language: Australian
--- NOTE | 2024-12-02 13:12 | ECG_ITS ---
Test Reason : pain Blood Pressure : */* mmHG Vent. Rate : 68 BPM Atrial Rate : 68 BPM P-R Int : 158 ms QRS Dur : 76 ms QT Int : 392 ms P-R-T Axes : 70 35 76 degrees QTcB Int : 416 ms Normal sinus rhythm Normal ECG When compared with ECG of 09-May-2024 14:03, No significant change was found Referred By: Toribio Banks Electronically Signed By: ROSA KNOX
[2024-12-02 13:37] LABS: MANUAL DIFF FLAG NO
[2024-12-02 13:38] LABS: Basophils Absolute Auto 0.1 X10*3/uL (0.0-0.2); Basophils Percent Auto 0.5 % (0-2); Eosinophils Absolute Auto 0.2 X10*3/uL (0.0-0.4); Eosinophils Percent Auto 2.2 % (0-4); Hematocrit 33.6 % (37.0-47.0); Hemoglobin 12.5 g/dl (12.0-16.0); Imm Gran Abs Auto 0.02 X10*3/uL (0.00-0.03); Imm Gran Pct Auto 0.2 % (0.0-0.4); Lymphocytes Absolute Auto 3.1 X10*3/uL (1.2-4.9); Lymphocytes Percent Auto 33.1 % (20-40); Mean Corpuscular HGB Conc 37.2 g/dl (31.0-35.0); Mean Corpuscular Hemoglobin 29.1 pg (27.0-33.0); Mean Corpuscular Volume 78.3 fL (80.0-98.0); Mean Platelet Volume 8.9 fL (9.4-12.3); Monocytes Absolute Auto 0.5 X10*3/uL (0.1-1.2); Monocytes Percent Auto 5.3 % (2-11); Neutrophils Absolute Auto 5.5 x10*3/uL (2.0-8.3); Neutrophils Percent Auto 58.7 % (45-73); Platelet Count 311 X10*3/uL (160-400); Red Blood Count 4.29 X10*6/uL (4.20-5.50); Red Cell Distribution Width 14.6 % (11.0-16.0); White Blood Count 9.4 X10*3/uL (4.8-10.8)
[2024-12-02 13:43] LABS: INTERNATIONAL NORM RATIO 0.9 (0.9-1.1); Prothrombin Time 10.4 SEC (10.9-12.4)
[2024-12-02 13:57] LABS: Alanine Aminotransferase 10 U/L (0-31); Albumin Level 4.3 g/dL (3.5-5.0); Alkaline Phosphatase 85 U/L (39-117); Anion Gap 13 (12-20); Aspartate Amino Transferase 27 U/L (5-31); Bilirubin Direct 0.1 mg/dL (0.0-0.5); Bilirubin Total 0.4 mg/dL (0.0-1.0); Blood Urea Nitrogen 14 mg/dL (9-16); Calcium 9.8 mg/dL (8.4-10.2); Carbon Dioxide 25 mmol/L (22-29); Chloride 103 mmol/L (96-108); Creatinine Clr Calc Pharmacy 32.2; Estimated Glomerular Filt Rate > 60; Glucose Random 98 mg/dL (60-115); Lipase 20 U/L (8-78); Potassium 4.8 mmol/L (3.3-5.1); Sodium 136 mmol/L (135-145)
[2024-12-02 14:01] LABS: B Type Natriuretic Peptide 47 pg/mL (<100)
[2024-12-02 14:02] LABS: IDNOW Serial# 58CA691E; Influenza A Negative (Negative); Influenza B2 Negative (Negative)
[2024-12-02 14:03] LABS: COVID-19 Test Negative (Negative); IDNOW Serial# 16C4AD1C
[2024-12-02 14:07] LABS: Troponin-I High Sensitivity < 2.7 ng/L (<3.5-17.0)
[2024-12-02 16:18] VITALS: BP 140/62; PULSE 71; RESP 18; TEMP 36.9; O2SAT 96
[2024-12-02 16:58] VITALS: BP 140/62; PULSE 71; RESP 18; TEMP 36.9; O2SAT 96
== END 2024-12-02 16:58 | disposition home or self-care (01) ==
LOC: HO.ED 16:32
PROVIDERS: Physician Assistant Medical; Emergency Provider Emergency Medicine
DX: J44.1 Chronic obstructive pulmonary disease with (acute) exacerbation (principal); J40 Bronchitis, not specified as acute or chronic; R05.9 Cough, unspecified; R19.7 Diarrhea, unspecified; Z11.52 Encounter for screening for COVID-19; F17.210 Nicotine dependence, cigarettes, uncomplicated; Z79.899 Other long term (current) drug therapy; R06.02 Shortness of breath
CPT/HCPCS: 36415; 71046; 80048; 80076; 83690; 83880; 84484; 85025; 85610; 87502; 87635; 93005; 99283

== ENCOUNTER → 2024-12-02 13:12 | Outpatient (BNV) | payer OTHER, SELFPAY | PROVIDERS: Emergency Provider Emergency Medicine; Visit Provider Internal Medicine | DX: R52 Pain, unspecified (principal) | CPT/HCPCS: 93010 ==

== ENCOUNTER → 2024-12-02 13:12 | Outpatient (BNV) | payer MEDICARE, SELFPAY | PROVIDERS: Visit Provider Radiology Diagnostic Radiology | DX: J44.9 Chronic obstructive pulmonary disease, unspecified (principal); R05.9 Cough, unspecified | CPT/HCPCS: 71046 ==

== ENCOUNTER 2025-08-29 11:51 | Outpatient (AMB) | payer OTHER, SELFPAY ==
--- NOTE | 2025-08-29 11:51 | MHC.OFFVIS ---
Intake Visit Reasons: Abd pain and bloating/pt requested appt Allergies Iodinated Contrast Media (CONTRAST, IV) Allergy (Intermediate, Verified 12/02/24 13:05) NAUSEA & VOMITING morphine (MORPHINE) Allergy (Intermediate, Verified 12/02/24 13:05) NAUSEA & VOMITING oxycodone (From PERCOCET) Allergy (Intermediate, Verified 12/02/24 13:05) NAUSEA, WEAKNESS/VIOLENT Medication List - Last Reconciled 08/29/25 by YONNY Major albuterol sulfate 90 mcg/actuation 2 puffs inhalation QID PRN amlodipine 10 mg PO DAILY calcitonin (salmon) 200 unit/actuation 1 spray intranasal (ALT) DAILY carvedilol 3.125 mg PO BID cholecalciferol (vitamin D3) 1,250 mcg PO QWEEK docusate sodium (Colace) 100 mg PO DAILY escitalopram oxalate 5 mg PO DAILY fluticasone propionate 50 mcg/actuation (Allergy Relief (fluticasone)) 1 spray intranasal BID hydrochlorothiazide 12.5 mg PO DAILY linaclotide (Linzess) 72 mcg PO QAM lisinopril 40 mg PO DAILY multivitamin 1 tab PO DAILY pantoprazole (Protonix) 40 mg PO DAILY 30 days prazosin 1 mg PO BEDTIME simethicone (Gas Relief (simethicone)) 125 mg PO QID PRN trazodone 25 mg PO BEDTIME PRN HPI HPI Abd pain and bloating/pt requested appt: Details: Assessment & Plan (1) GERD (gastroesophageal reflux disease): Code(s): K21.9 - Gastro-esophageal reflux disease without esophagitis Category: Medical (2) Chronic idiopathic constipation: Code(s): K59.04 - Chronic idiopathic constipation Category: Medical (3) Abdominal bloating: Code(s): R14.0 - Abdominal distension (gaseous) Category: Medical (4) Osteoporosis: Code(s): M81.0 - Age-related osteoporosis without current pathological fracture Category: Medical Plan MAURITIAN #Dtr Krystle translates per pt request She continues to be stable on her current GI regimen. She needs the spray renewed, but I am unsure if it is the calcitonin vs fluticasone. She continues on pantoprazole, simethicone, and Linzess 72 micro g. RoV 6 mos. Medications: New simethicone (Gas Relief (simethicone)) 125 mg PO QID PRN 120 tabs 6RF abdominal distention R14.0 - Abdominal distension (gaseous) calcitonin (salmon) 200 unit/actuation 1 spray intranasal (ALT) DAILY 3.7 mL 6RF M81.0 - Age-related osteoporosis without current pathological fracture Refilled pantoprazole (Protonix) 40 mg PO DAILY 30 tabs 6RF 30 days K21.9 - Gastro-esophageal reflux disease without esophagitis linaclotide (Linzess) 72 mcg PO QAM 30 caps 6RF K59.04 - Chronic idiopathic constipation Discontinued simethicone Discontinued Reason: Doctor's Order 180 mg PO QID 120 caps 6RF R14.0 - Abdominal distension (gaseous) TODAYS VISIT [facility] # PFSH Medical History Breast CA Cholecystitis HTN (hypertension) Acute arthritis Surgical History Hx of colonoscopy History of esophagogastroduodenoscopy (EGD) Hx of foot surgery Hx of breast biopsy History of back surgery Family History Father CVD (cardiovascular disease) HTN (hypertension) Brother Colon cancer Daughter No problems noted. 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 Review of Systems Const Denies fatigue, Denies fever(s), Denies night sweats, Reports poor appetite and Reports weight loss ENT Reports Normal hearing present, Denies dysphagia, Denies odynophagia, Denies throat swelling and Denies tongue swelling Card Reports no additional complaints and Reports dyspnea on exertion Resp Reports cough and Reports dyspnea on exertion GI Details: Denies abdominal pain, Denies melena, Reports bloating, Denies hematochezia, Reports constipation, Denies GI cramping, Denies dysphagia, Denies excessive flatus, Denies early satiety, Reports heartburn, Denies diarrhea, Denies nausea, Denies odynophagia, Denies vomiting and Denies hematemesis Reports nocturia Musc Reports myalgias Skin/Breast Denies pruritus, Denies lesions, Denies rash and Denies jaundice Neuro Reports Normal hearing present and Denies Abnormal speech present Endo Denies fatigue Aller/Immun Denies throat swelling and Denies tongue swelling Physical Exam Const General: cooperative, no acute distress, well developed and well groomed Nutritional Appearance: average body habitus and well nourished Orientation/consciousness: oriented to person, oriented to place and oriented to time Limitations: language barrier and ambulation with cane HEENT Head: Yes normocephalic and Yes atraumatic Eyes General: appearance normal, both eyes and all related structures Pupils: Equal, round and reactive pupils present Neck Neck: Yes normal visual inspection and Yes no lymphadenopathy Thyroid: Thyroid normal Resp Effort & Inspection: normal respiratory effort and able to speak in complete sentences Auscultation: clear to auscultation bilaterally Cardio Rate: regular rate Rhythm: regular rhythm Heart sounds: Normal, physiologic split S2 sound present Peripheral pulses: radial pulses present and posterior tibial pulses present GI Inspection: Yes distended and No Abdominal panniculus present Palpation (GI): Soft to palpation, Tenderness to palpation present (GI) in the RUQ, Guarding due to palpation present (GI) (mild), not rigid and No hepatosplenomegaly present Percussion: Yes normal to percussion Auscultation: normal bowel sounds Rectal Exam - Female: deferred Skin General skin exam: no rashes or lesions noted, turgor normal, skin not dry, no jaundice, No spider nevi and no striae Rashes: no rashes Nails: normal Neuro General: oriented to person, oriented to place and oriented to time Cranial nerves: Yes Equal, round and reactive pupils present and Yes Normal hearing present Speech: No Abnormal speech present Extrem General: Yes normal to inspection, No clubbing, No cyanosis and No edema Psych Appearance: grossly normal and well kempt Mental Status: mental status grossly normal Speech and movement: Normal speech and movement present Affect: normal affect Attitude: cooperative Thought process: Normal thought process present and not confabulating Thought content: Normal thought content present Insight: Fair insight present (Psych) Judgement: Fair judgement present (Psych) Assessment & Plan Assessment & Plan (1) GERD (gastroesophageal reflux disease): Code(s): K21.9 - Gastro-esophageal reflux disease without esophagitis Category: Medical (2) Chronic idiopathic constipation: Code(s): K59.04 - Chronic idiopathic constipation Category: Medical (3) Abdominal bloating: Code(s): R14.0 - Abdominal distension (gaseous) Category: Medical (4) Elevated fasting glucose: Code(s): R73.01 - Impaired fasting glucose Category: Medical (5) COPD (chronic obstructive pulmonary disease): Code(s): J44.9 - Chronic obstructive pulmonary disease, unspecified Category: Medical (6) Recurrent pneumonia: Code(s): J18.9 - Pneumonia, unspecified organism Category: Medical Plan Citizen Of [place] #Radha Jones She continues on pantoprazole, simethicone, and Linzess 72 micro g. (miacalcin NS). She is here today with her daughter who is supportive - The patient is an 85-year-old female presenting with chronic abdominal bloating and gastrointestinal discomfort. - Abdominal swelling reportedly occurs postprandially and has been ongoing for an extended period. - Any food consumption incites bloating, which is described as similar to childbirth-like cramping pain, present for a considerable period. - She recalls an ER visit which resulted in the administration of Colace, intended for stool softening, which offered minimal relief with continued bloating. - Current medication compliance includes Linzess, pantoprazole, and simethicone, with no recent alterations in her medication profile or dietary habits. - A history of bacterial pneumonia treated in November corresponds with initial changes in digestive efficiency. - The patient has undergone cholecystectomy; she denies nausea or vomiting but notes significant bloating concentrated in the flank areas. - Maintains current weight with reported polyuria during nighttime hours, attributed to existing antihypertensive therapy. Overall, it is difficult to say whether some of her medications may have dropped out of her regimen since I have not seen her in over a year. This has been because of her own health challenges, pneumonia twice, and my own scheduling conflicts. She has a wide range of complaints including lack of appetite, weight loss, and of course the bloating. I think we need to get a wide range of labs to start off, and of course represcribed her medications. If she suddenly becomes better than I will assume that is something fell off of her regimen and that is the simple reason for the exacerbation. If not then of course we will look into more tests or changing the regimen. I think we should get an ultrasound since she has not had imaging in quite some time to make sure she has not developed something like gallstones. An H pylori stool test would likely also be prudent. I am going to refer to pulmonology for her recurrent pneumonias since she says she is still ill today with a cough. Her lung sounds are extremely rough and wheezy with diminished meant in the bilateral bases. She could have an undiagnosed or undertreated COPD contributing to her weight loss. Return office visit in 2 weeks Orders: Orders Complete Blood Count Auto Diff Today K21.9 - Gastro-esophageal reflux disease without esophagitis, K59.04 - Chronic idiopathic constipation, R14.0 - Abdominal distension (gaseous), R73.01 - Impaired fasting glucose TSH reflex Free T4 Today K21.9 - Gastro-esophageal reflux disease without esophagitis, K59.04 - Chronic idiopathic constipation, R14.0 - Abdominal distension (gaseous), R73.01 - Impaired fasting glucose UA CC w/rflx Micro + Cult Today K21.9 - Gastro-esophageal reflux disease without esophagitis, K59.04 - Chronic idiopathic constipation, R14.0 - Abdominal distension (gaseous), R73.01 - Impaired fasting glucose Comprehensive Met. Panel Today K21.9 - Gastro-esophageal reflux disease without esophagitis, K59.04 - Chronic idiopathic constipation, R14.0 - Abdominal distension (gaseous), R73.01 - Impaired fasting glucose Hemoglobin A1c Today K21.9 - Gastro-esophageal reflux disease without esophagitis, K59.04 - Chronic idiopathic constipation, R14.0 - Abdominal distension (gaseous), R73.01 - Impaired fasting glucose H pylori Ag Stool Today K21.9 - Gastro-esophageal reflux disease without esophagitis, K59.04 - Chronic idiopathic constipation, R14.0 - Abdominal distension (gaseous), R73.01 - Impaired fasting glucose US abdomen complete Today K21.9 - Gastro-esophageal reflux disease without esophagitis, K59.04 - Chronic idiopathic constipation, R14.0 - Abdominal distension (gaseous), R73.01 - Impaired fasting glucose Referrals Pulmonology Referral J18.9 - Pneumonia, unspecified organism, J44.9 - Chronic obstructive pulmonary disease, unspecified Medications: Refilled simethicone (Gas Relief (simethicone)) 125 mg PO QID PRN 120 tabs 6RF abdominal distention R14.0 - Abdominal distension (gaseous) pantoprazole (Protonix) 40 mg PO DAILY 30 tabs 6RF 30 days K21.9 - Gastro-esophageal reflux disease without esophagitis calcitonin (salmon) 200 unit/actuation 1 spray intranasal (ALT) DAILY 3.7 mL 6RF M81.0 - Age-related osteoporosis without current pathological fracture Discontinued prednisone Discontinued Reason: Order 40 mg (2 x 20 mg) PO DAILY 15 tabs 0RF azithromycin Discontinued Reason: Patient Completed Course For 250 mg dose pack: take 500 mg today (day 1), then 250 mg for 4 days (days 2-5) 6 tabs 0RF guaifenesin ER (Mucinex) Discontinued Reason: Doctor's Order 1,200 mg PO BID 14 tabs 0RF albuterol sulfate 90 mcg/actuation Discontinued Reason: Duplicate 2 puffs PO Q2H PRN 18 grams 0RF shortness of breath or wheezing Coding Level of Care Code Est Pt Level 4 (00106) Diagnoses GERD (gastroesophageal reflux disease) K21.9 Chronic idiopathic constipation K59.04 Abdominal bloating R14.0 Elevated fasting glucose R73.01 COPD (chronic obstructive pulmonary disease) J44.9 Recurrent pneumonia J18.9
--- OUTSIDE RECORDS SUMMARY | 2025-08-29 15:14 | XMS_ITS | Patient Health Record ---
Author Organization [facility] liance Address [address] [place] [address] Care Team Providers Care Doctor Of Audiology Name Role Phone Jonnathan Thomas Primary Care Provider UnavailMiya Howard Unavailable [phone] Clinical, Operations Unavailable Unavailable Delia Sutton Unavailable [phone] Thuy Huang Unavailable [phone] Allergies Allergen (clinical drug ingredient) Drug/Non Drug Allergy documented on EMR Reaction Allergy Type Onset Date Status contrast dye (uncoded) Unknown Allergy Active hydrochlorothiazide Hydrochlorothiazide hypokalemia D rug Allergy Active acetaminophen / oxycodone Percocet disoriented Drug Allergy Active Reason For Referral No Information Medications Medication SIG (Take, Route, Frequency, Duration) Notes Start Date End Date Status Simethicone 125 MG 1 tablet after meals and at bedtime as needed Orally Four times a day 08/16/2025 Active traZODone HCl 50 MG 1 tablet at bedtime as needed Orally Once a day 08/16/2025 Unknown Multivitamin - 1 tablet Orally Once a day OTC 08/16/2025 Active Escitalopram Oxalate 5 MG 1 tablet Orally Once a day 08/16/2025 Active Fluticasone Propionate 50 MCG/ACT 1 spray in each nostril Nasally Once a day 08/16/2025 Active Omeprazole 20 MG 1 capsule 1/2 to 1 hour before morning meal Orally Once a day 08/16/2025 Active Simethicone 125 MG 1 tablet after meals and at bedtime as needed Orally Four times a day As needed 08/16/2025 Active Calcitonin ([place]) 200 UNIT/ML 1 spray in 1 nostril, alternating nostrils daily Nasally Once a day 08/16/2025 Active Albuterol Sulfate 108 (90 Base) MCG/ACT 2 puffs as needed Inhalation every 6 hrs per member no longer using med, not needing Active Linzess 72 MCG 1 capsule at least 30 minutes before the first meal of the day on an empty stomach Orally Once a day 08/16/2025 Active Fluticasone Furoate 27.5 MCG/SPRAY 2 sprays (1 spray in each nostril) Nasally Once a day dc by Unknown Lisinopril 40 MG 1 tablet Orally Once a day 08/16/2025 Active Docusate Sodium 100 MG 1 capsule as need ed Twice a day switched to Linzess Unknown Carvedilol 3.125 MG 1 tablet with food Orally Twice a day 08/16/2025 Active Acetaminophen 325 MG 1 capsule as needed Orally every 6 hrs CHANGE DOSE Unknown amLODIPine Besylate 5 MG 1 tablet Orally Once a day 08/16/2025 Active Acetaminophen ER 650 MG 2 tablets as needed Orally every 8 hrs 08/16/2025 Active Immunizations Vaccine Route Administration Date Status Comme nts Flu Vac (Fluzone /Alfuria) QIV PFS Unknown 12/08/2014 A dministered Flu Vac (Fluzone /Alfuria) QIV PFS Unknown 08/18/2017 A dministered Flu Vac NOC (vac given elsewhere/pt. refuse/ CI) Unknown 08/06/2007 Administered Flu Vac NOC (vac given elsewhere/pt. refuse/ CI) Unknown 07/04/2009 Administered Flu Vac NOC (vac given elsewhere/pt. refuse/ CI) Unknown 10/04/2010 Administered Flu Vac NOC (vac given elsewhere/pt. refuse/ CI) Unknown 12/03/2023 Administered INFLUENZA TRIVALENT - Do not use Unknown 12/08/2014 Adm inistered Moderna COVID-19 Vaccine IM Unknown 01/18/2021 Administ ered Moderna COVID-19 Vaccine IM Unknown 02/15/2021 Administ ered Pneumococcal Unknown 05/09/2004 Administered Pneumococcal Unknown 01/19/2018 Administered TD ADSORBED 7 YR (adult) Unknown 05/09/2004 Administere d Tdap 7 Yrs and older Unknown 04/10/2017 Administered Tdap Vac (Boostrix) PFS, IM Unknown 04/10/2017 Administ ered Social History Tobacco Use: Social History Observation Description Date Details (start date - stop date) Current Smoker NA - NA Tobacco Use/Smoking Question Answer Notes Are you a current smoker How often do you smoke cigarettes? every day How many cigarettes a day do you smoke? 5 or les s How soon after you wake up do you smoke your fir st cigarette? 6-30 minutes Are you interested in quitting? Ready to quit Alcohol Screen Question Answer Notes Did you have a drink containing alcohol in the p ast year? No Points 0 Interpretation Negative Tobacco use other than smoking: Question Answer Notes Are you an other tobacco user? Yes Section Notes: , has 11 children, d esther Dalton and Wanda involved in her care. She lives with 14 year old great grand daughter. History of alcohol abuse started at 16 yrs old, 12 beers a day, quit four years ago. Started smoking at 16y.o 1-2ppd, currently smokes. , has 11 children, d esther Dalton and Wanda involved in her care. She lives with 14 year old great grand daughter. History of alcohol abuse started at 16 yrs old, 12 beers a day, quit four years ago. Started smoking at 16y.o 1-2ppd, currently smokes. , has 11 children, d esther Dalton and Wanda involved in her care. She lives with 14 year old great grand daughter. History of alcohol abuse started at 16 yrs old, 12 beers a day, quit >20 years ago. Started smoking at 16y.o hx 1-2ppd, currently smokes 4/day , has 11 children, d esther Dalton and Wanda involved in her care. She lives with 14 year old great grand daughter. History of alcohol abuse started at 16 yrs old, 12 beers a day, quit >20 years ago. Started smoking at 16y.o hx 1-2ppd, currently smokes 4/day , has 11 children, daughters Krystle and Wanda involved in her care. She lives with 16 year old great grand daughter. History of alcohol abuse started at 16 yrs old, 12 beers a day, quit >20 years ago. Started smoking at 16y.o hx 1-2ppd, currently smokes 2/day. Services in place: [employer] latony[facility] [place] 12 hrs weekly. , has 11 children, daughters Krystle and Wanda involved in her care. She lives with 16 year old great grand daughter. History of alcohol abuse started at 16 yrs old, 12 beers a day, quit >20 years ago. Started smoking at 16y.o hx 1-2ppd, currently smokes 2/day. Services in place: [facility] Cielo Capa: 12 hrs weekly. , has 11 children, daughters Krystle and Wanda involved in her care. She lives with 16 year old great grand daughter. History of alcohol abuse started at 16 yrs old, 12 beers a day, quit >20 years ago. Started smoking at 16y.o hx 1-2ppd, currently smokes 2/day. Services in place: [facility] Cielo Capa: 12 hrs weekly. , has 11 children, daughters Krystle and Wnada involved in her care. She lives with 16 year old great grand daughter. History of alcohol abuse started at 16 yrs old, 12 beers a day, quit >20 years ago. Started smoking at 16y.o hx 1-2ppd, currently smokes 2/day. Services in place: [facility]: 12 hrs weekly. , has 11 children, daughters Krystle and Wanda involved in her care. She lives with 17 year old great grand daughter. History of alcohol abuse started at 16 yrs old, 12 beers a day, quit >20 years ago. Started smoking at 16y.o hx 1-2ppd, currently smokes 2/day. Services in place: [facility] Cielo Capa: 15 hrs weekly. , has 11 children, daughters Krystle and Wanda involved in her care. She lives with 17 year old great grand daughter. History of alcohol abuse started at 16 yrs old, 12 beers a day, quit >20 years ago. Started smoking at 16y.o hx 1-2ppd, currently smokes 2/day. Services in place: [facility]: 15 hrs weekly. , has 11 children, daughters Krystle and Wanda involved in her care. She lives with 17 year old great grand daughter. History of alcohol abuse started at 16 yrs old, 12 beers a day, quit >20 years ago. Started smoking at 16y.o hx 1-2ppd, currently smokes 2/day. Services in place: [facility] Cielo [place]a: 15 hrs weekly. , has 11 children, daughters Krystle and Wanda involved in her care. She lives with 17 year old great grand daughter. History of alcohol abuse started at 16 yrs old, 12 beers a day, quit >20 years ago. Started smoking at 16y.o hx 1-2ppd, currently smokes 2/day. Services in place: [facility] yolanda Cielo [place]a: 15 hrs weekly.\ , has 11 children, daughters Krystle and Wanda involved in her care. She lives with 17 year old great grand daughter. History of alcohol abuse started at 16 yrs old, 12 beers a day, quit >20 years ago. Started smoking at 16y.o hx 1-2ppd, currently smokes 4/day. Services in place: [facility] grandson , has 11 children, daughters Krystle and Wanda involved in her care. She lives with 16 year old great grand daughter. History of alcohol abuse started at 16 yrs old, 12 beers a day, quit >20 years ago. Started smoking at 16y.o hx 1-2ppd, currently smokes 2/day. Services in place: [facility] latonya gee [place] 12 hrs weekly. , has 11 children, daughters Krystle and Wanda involved in her care. She lives with 16 year old great grand daughter. History of alcohol abuse started at 16 yrs old, 12 beers a day, quit >20 years ago. Started smoking at 16y.o hx 1-2ppd, currently smokes 2/day. Services in place: [facility] latonya gee [place] 12 hrs weekly. , has 11 children, daughters Krystle and Wanda involved in her care. She lives with 16 year old great grand daughter. History of alcohol abuse started at 16 yrs old, 12 beers a day, quit >20 years ago. Started smoking at 16y.o hx 1-2ppd, currently smokes 2/day. [facility] weekly. , has 11 children, daughters Krystle and Wanda involved in her care. She lives with 16 year old great grand daughter. History of alcohol abuse started at 16 yrs old, 12 beers a day, quit >20 years ago. Started smoking at 16y.o hx 1-2ppd, currently smokes 2/day. Services in place: [facility] Cielo [place]a: 12 hrs weekly. Problems Problem Type SNOMED Code ICD Code Onset Dates Problem Status W/U Status Risk Notes Problem Post-traumatic stress disorder (21660277) Post-traumatic stress disorder, unspecified (F43.10) Inactive confirmed Problem Tobacco user (983207619) Nicotine dependence, cigarettes, uncomplicated (F17.210) Inactive confirmed Problem Anemia (704825496) Anemia, unspecified (D64.9) Inactive confirmed Problem Generalized anxiety disorder (14701830) Generalized anxiety disorder (F41.1) Active confirmed Problem Chronic alcoholism in remission (295607941) Alcohol dependence in remission (F10.21) Active confirmed Problem Hypertension (84369706) HTN (hypertension) (I10) Active confirmed Problem Slow transit constipation (17031133) Slow transit constipation (K59.01) Inactive confirmed Problem SI - Stress incontinence (61011888) Stress incontinence (female) (male) (N39.3) Active confirmed Problem Annual health maintenance examination (08169384) Annual physical exam (Z00.00) Active confirmed Problem Primary generalised osteoarthritis (322539666) Primary generalized (osteo)arthritis (M15.0) Active confirmed Problem Old myocardial infarction (9796804) History of SC (myocardial infarction) (I25.2) Active confirmed Problem Illiteracy (781977345) Illiteracy (Z55.0) Active confirmed Problem Old myocardial infarction (0760558) Myocardial infarct, old (I25.2) Inactive confirmed Problem Age-related osteoporosis (495953746) Osteoporosis with symptom management only (M81.0) Inactive confirmed Problem Chronic insomnia (621694239) Chronic insomnia (F51.04) Active confirmed Problem Edema (99331531) Edema, unspecif ied (R60.9) Inactive confirmed Problem Callosity (591207567) Corns and callosities (L84) Active confirmed Problem Pain in left foot (741956985620149) Pain in left foot (M79.672) Inactive confirmed Problem Insomnia disorder related to another mental disorder (57446901) Insomnia due to other mental disorder (F51.05) Inactive confirmed Problem Pain in right foot (387619549013736) Pain in right foot (M79.671) Inactive confirmed Problem Tobacco user (794732640) Cigarette nicotine dependence without complication (F17.210) Active confirmed Problem Insomnia (599799797) Other insomnia (G47.09) Inactive confirmed Problem Onychogryphosis (15390192) 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) Active confirmed Problem Chronic pain (93185060) Other chronic pain (G89.29) Active confirmed Problem COPD - Chronic obstructive pulmonary disease (04449756) Chronic obstructive pulmonary disease, unspecified COPD type (J44.9) Active confirmed Problem Posttraumatic stress disorder (76663362) Chronic post-traumatic stress disorder (PTSD) (F43.12) Active confirmed Problem Osteoarthritis of multiple joints (563808849) Osteoarthritis of multiple joints, unspecified osteoarthritis type (M15.9) Inactive confirmed Problem Mild recurrent major depression (45161561) Mild episode of recurrent major depressive disorder (F33.0) Inactive confirmed Problem Flatulence, eructation and gas pain (717236071) Excessive gas (R14.3) Active confirmed Problem Chronic constipation (250225040) Chronic constipation (K59.09) Active confirmed Problem Recurrent major depression in remission (92222076) MDD (major depressive disorder), recurrent, in partial remission (F33.41) Active confirmed Problem BMI less than 20 (897368804) Body mass index (BMI) less than 19 (Z68.1) Active confirmed Problem Age-related osteoporosis (368600336) Osteoporosis without current pathological fracture, unspecified osteoporosis type (M81.0) Active confirmed Problem Nondependent alcohol abuse in remission (146326641) H/O ETOH abuse (F10.11) Inactive confirmed Problem Gastroesophageal reflux disease with esophagitis (disorder) (249392984) Gastroesophageal reflux disease with esophagitis, unspecified whether hemorrhage (K21.00) Active confirmed Vital Signs Heart Rate 80 /min 11/24/2024 unable to get O 2 sat due to nail mongolian Temperature 98.2 degrees Fahrenheit 11/24/2024 unab le to get O2 sat due to nail mongolian Respiratory Rate 18 /min 11/24/2024 unable to g et O2 sat due to nail mongolian Height-cm 147.32 cm 11/24/2024 unable to get O 2 sat due to nail mongolian Blood pressure diastolic 60 mm Hg 11/24/2024 lawrence ble to get O2 sat due to nail mongolian Weight-kg 40.82 kg 11/24/2024 unable to get O 2 sat due to nail mongolian Height 58 in 11/24/2024 unable to get O 2 sat due to nail mongolian Blood pressure systolic 122 mm Hg 11/24/2024 unab le to get O2 sat due to nail mongolian Weight 90 lbs 11/24/2024 unable to get O 2 sat due to nail mongolian BMI 18.81 kg/m2 11/24/2024 unable to get O 2 sat due to nail mongolian Encounters Encounter Location Date Provider Diagnosis [address] [address] 09/06/2024 Thuy Gaticamago HTN (hypertension) I 10 ; Other chronic pain G89.29 ; Osteoarthritis of multiple joints, unspecified osteoarthritis type M15.9 ; Osteoporosis without current pathological fracture, unspecified osteoporosis type M81.0 ; Mild episode of recurrent major depressive disorder F33.0 ; Insomnia due to other mental disorder F51.05 ; Generalized anxiety disorder F41.1 ; Gastroesophageal reflux disease with esophagitis, unspecified whether hemorrhage K21.00 ; Chronic constipation K59.09 ; Chronic obstructive pulmonary disease, unspecified COPD type J44.9 ; Stress incontinence (female) (male) N39.3 ; Alcohol dependence in remission F10.21 ; Cigarette nicotine dependence without complication F17.210 ; Illiteracy Z55.0 ; History of SC (myocardial infarction) I25.2 ; Encounter for general adult medical examination without abnormal findings Z00.00 ; Body mass index (BMI) less than 19 Z68.1 ; Tobacco use Z72.0 ; Anemia, unspecified D64.9 ; Post-traumatic stress disorder, unspecified F43.10 ; Pain in right foot M79.671 ; Onychogryphosis L60.2 ; Corns and callosities L84 ; Pain in left foot M79.672 and Edema, unspecified R60.[address] [address] 11/24/2024 Delia Sutton HTN (hypertension) I 10 ; Other chronic pain G89.29 ; Osteoporosis without current pathological fracture, unspecified osteoporosis type M81.0 ; Generalized anxiety disorder F41.1 ; Gastroesophageal reflux disease with esophagitis, unspecified whether hemorrhage K21.00 ; Chronic constipation K59.09 ; Chronic obstructive pulmonary disease, unspecified COPD type J44.9 ; Stress incontinence (female) (male) N39.3 ; Alcohol dependence in remission F10.21 ; Cigarette nicotine dependence without complication F17.210 ; Illiteracy Z55.0 ; History of SC (myocardial infarction) I25.2 ; Body mass index (BMI) less than 19 Z68.1 ; Onychogryphosis L60.2 ; Corns and callosities L84 ; Primary generalized (osteo)arthritis M15.0 ; Chronic post-traumatic stress disorder (PTSD) F43.12 ; MDD (major depressive disorder), recurrent, in partial remission F33.41 ; Annual physical exam Z00.00 ; Chronic insomnia F51.04 and Excessive gas R14.3 [facility] [employer] [address] [place] [address] 08/16/2025 Operations Clinical [facility] (Closed) [address] [place] [address] 05/15/2025 Operations Clinical Assessments Encounter Date Diagnosis (ICD Code) Assessment Notes Treatment Notes Treatment Clinical Notes Section Notes 09/06/2024 HTN (hypertension) (ICD-10 - I10) 11/24/2024 HTN (hypertension) (ICD-10 - I10) h/o SC- many years ago per Krystle and member. WNL's today Encourage low sodium diet Monitor Denies CP/pressure/dizzine ss/CLEMENTS/acute vision changes. Regular BP, lipid, and renal testing. Keep NSAIDS at a minimum. Maintain healthy BMI. Encourage nonpharmacologic Therapies such as stress reduction, low Na+ DASH diet, encourage smoking cessation & encourage ETOH abstinence, weight loss and regular exercise as tolerated. Counseled re: FAST(Face, Arm, Speech, Time)/Tia symptoms; Call 911 09/06/2024 Other chronic pain (ICD-10 - G89.29) 11/24/2024 Other chronic pain (ICD-10 - G89.29) primary generalized OA Advised exercise, gentle stretching as tolerated, heat, ice, topicals and maintain a healthy body weight. Consider complementary and alternative therapies. F/u with Ortho prn. 11/24/2024 Osteoporosis without current pathological fracture, unspecified osteoporosis type (ICD-10 - M81.0) Encourage adequate calcium and vitamin D, regular weight bearing exercise, encourage smoking cessation, counseling on fall prevention 09/06/2024 Osteoarthritis of multiple joints, unspecified osteoarthritis type (ICD-10 - M15.9) 09/06/2024 Osteoporosis without current pathological fracture, unspecified osteoporosis type (ICD-10 - M81.0) 11/24/2024 Generalized anxiety disorder (ICD-10 - F41.1) 09/06/2024 Mild episode of recurrent major depressive disorder (ICD-10 - F33.0) 11/24/2024 Gastroesophageal reflux disease with esophagitis, unspecified whether hemorrhage (ICD-10 - K21.00) MEds helping Encouraged lifestyle and dietary modifications such as weight loss, elevation of HOB, avoiding triggers and tight-fitting clothing, avoiding alcohol and smoking, avoid lying flat within 2 hours of food/fluid intake. 11/24/2024 Chronic constipation (ICD-10 - K59.09) unstable Member reports no BM in 2 days so she took Linzess this morning. She states it always works. Advised to f/u with PCP office if no BM today. 09/06/2024 Insomnia due to other mental disorder (ICD-10 - F51.05) 09/06/2024 Generalized anxiety disorder (ICD-10 - F41.1) 11/24/2024 Chronic obstructive pulmonary disease, unspecified COPD type (ICD-10 - J44.9) member reports PCP told her she doesn't need an inhaler now. Denies SOB Encourage smoking cessation Monitor at each encounter for exacerbating symptoms, increased dyspnea, cough, sputum. Stay UTD with immunizations 09/06/2024 Gastroesophageal reflux disease with esophagitis, unspecified whether hemorrhage (ICD-10 - K21.00) 11/24/2024 Stress incontinence (female) (male) (ICD-10 - N39.3) Monitor for worsening symtpoms, skin integrity and s/s's of UTI. 11/24/2024 Alcohol dependence in remission (ICD-10 - F10.21) continue remission 09/06/2024 Chronic constipation (ICD-10 - K59.09) 09/06/2024 Chronic obstructive pulmonary disease, unspecified COPD type (ICD-10 - J44.9) 11/24/2024 Cigarette nicotine dependence without complication (ICD-10 - F17.210) Encourage smoking cessation Care team to support 09/06/2024 Stress incontinence (female) (male) (ICD-10 - N39.3) 11/24/2024 Illiteracy (ICD-10 - Z55.0) Daughter and grandson assist where needed. 11/24/2024 History of SC (myocardial infarction) (ICD-10 - I25.2) 09/06/2024 Alcohol dependence in remission (ICD-10 - F10.21) 09/06/2024 Cigarette nicotine dependence without complication (ICD-10 - F17.210) 11/24/2024 Body mass index (BMI) less than 19 (ICD-10 - Z68.1) Member admits to loss of appetite sometimes. [facility] at [facility] Encourage Ensure or other weight gaining tools. 11/24/2024 Onychogryphosis (ICD-10 - L60.2) corns and callosities Member had f/u with Podiatry this month Monitor 09/06/2024 Illiteracy (ICD-10 - Z55.0) 09/06/2024 History of SC (myocardial infarction) (ICD-10 - I25.2) 11/24/2024 Corns and callosities (ICD-10 - L84) 11/24/2024 Primary generalized (osteo)arthritis (ICD-10 - M15.0) 09/06/2024 Encounter for general adult medical examination without abnormal findings (ICD-10 - Z00.00) 09/06/2024 Body mass index (BMI) less than 19 (ICD-10 - Z68.1) 11/24/2024 Chronic post-traumatic stress disorder (PTSD) (ICD-10 - F43.12) 11/24/2024 MDD (major depressive disorder), recurrent, in partial remission (ICD-10 - F33.41) BOB Chronic PTSD Member doing well with support and ADH 5 times a week. Monitor. 09/06/2024 Tobacco use (ICD-10 - Z72.0) 09/06/2024 Anemia, unspecified (ICD-10 - D64.9) 11/24/2024 Annual physical exam (ICD-10 - Z00.00) 11/24/2024 Chronic insomnia (ICD-10 - F51.04) Member reports managed well with medication Encourage sleep hygiene. 09/06/2024 Post-traumatic stress disorder, unspecified (ICD-10 - F43.10) 09/06/2024 Pain in right foot (ICD-10 - M79.671) 11/24/2024 Excessive gas (ICD-10 - R14.3) Member uses medication prn with good results. Monitor 09/06/2024 Onychogryphosis (ICD-10 - L60.2) 09/06/2024 Corns and callosities (ICD-10 - L84) 09/06/2024 Pain in left foot (ICD-10 - M79.672) 09/06/2024 Edema, unspecified (ICD-10 - R60.9) 09/06/2024 Other Home assessment complete. Please review progress note and uploaded Functional. The member continues to have functional limitations including impaired bend and pain requiring hands-on assistance with ADLs/IADLs. 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 Plan Of Treatment Pending Test Test Name Order Date MDS assessment 02/22/2014 MDS assessment 02/01/2015 MDS assessment 02/08/2016 Insurance Providers Payer Name Payer Address Payer Phone Subscriber Number Group Number Insured Name Patient Relationship to Insured Coverage Start Date Coverage End Date [facility] [employer] ([id number]) [id number] [phone] [id number] Cielo Ochoa Self - patient is the insured 3 9 Medical (General) History Medical History History ICD Code Depression Hip pain Myocardial infarction, old Abdominal pain Alcohol dependence in remission right remal cyst lesion left nasal fold Osteoarthritis of both knees M17.0 GERD with esophagitis Hyponatremia Alcohol abuse Encounter for counseling for care management of patient with chronic conditions and complex health needs using nurse-based model Hyponatremia E87.1 Microscopic hematuria R31.29 Surgical History Surgery Date(Month/Year) [facility]: Back surgery 2008 [place]: Appendectomy 2010 [place]: right foot bunionectomy 2009 hysterectomy 1993 cataract sx right eye with Dr Bowen 10/24 cataract sx left eye with Dr Bowen 5 Colpocleisis, anterior colpo rrhaphy, levator myorrhaphy, rectocele repair, midurethral sling, and cystoscopy. 03/01/18 Hospitalization History Reason Date(Month/Year) [place] 05/2013 [place] 03[place]2013 for Prolapse and incontinence repair at [facility]. 03/01/18 denies any hospitalizations in the last 6 mo 01/26/2017
--- OUTSIDE RECORDS SUMMARY | 2025-08-29 15:15 | XMS_ITS | Clinical Summary ---
Author Organization [facility] Address [address] [place] [address] Phone Care Team Providers Care Punch Hand Name Role Phone Physician, No Pcp Primary Care Provider Unavaila ble Allergies Active Allergy Reactions Criticality Noted Date Comments Iodinated Contrast Media 07/31/2025 Oxycodone 07/31/2025 Medications polyethylene glycol (MIRALAX) 17 gram packet Take 17 g by mouth 2 (two) times a day for 5 days, THEN 17 g 1 (one) time each day for 10 days. 340 g 08/01/2025 5 senna-docusate (PERICOLACE) 8.6-50 mg per tablet Take 1 tablet by mouth 1 (one) time each day for 20 days. 20 tablet 08/01/2025 5 magnesium citrate solution Take 296 mL by mouth 1 (one) time for 1 dose. 296 mL 08/01/2025 5 Encounters Date Type Department Care Team Description 07/31/2025 11:56 PM EDT - 08/01/2025 1:50 AM EDT Emergency [facility] Emergency [address] [place] [address] Kavita Toribio MD Other constipation (Primary Dx); Abnormal CT of the abdomen Discharge Disposition: Home or Self Care from Last 3 Months Medical History Medical History Date Comments Depression Hypertension Neuropathy Social History Tobacco Use Types Packs/Day Years Used Date Smoking Tobacco: Every Day Cigarettes Smokeless Tobacco: Never Tobacco Cessation:Ready to Q uit: Not Asked; Counseling Given: Not Answered Alcohol Use Standard Drinks/Week Comments Never 0 (1 standard drink = 0.6 oz pur e alcohol) Comments No Sex and Gender Information Value Date Recorded Sex Assigned at Not on file Legal Sex Female 9:29 PM EDT Gender Identity Not on file Sexual Orientation Not on file Obstetrics History Last Filed Vital Signs Vital Sign Reading Time Taken Comments Blood Pressure 148/57 08/01/2025 12:39 AM EDT Pulse 70 08/01/2025 12:39 AM EDT Temperature 36.3 C (97.3 F) 08/01/2025 12:39 AM EDT Respiratory Rate 18 08/01/2025 12:39 AM EDT Oxygen Saturation 97% 08/01/2025 12:39 AM EDT Inhaled Oxygen Concentration - - Weight 39.5 kg (87 lb) 07/31/2025 9:34 PM EDT Height 127 cm (4' 2 ) 07/31/2025 9:34 PM EDT Body Mass Index 24.47 07/31/2025 9:34 PM EDT Plan of Treatment Health Maintenance Due Date Last Done Comments Zoster Vaccines (1 of 2) 01/10/1992 RSV Immunization Adult Patients (1 - 1-dose 75+ series) 2017 Pneumococcal Vaccine: 50+ Years (2 of 2 - PCV) 01/19/2019 01/19/2018, 05/09/2004 Depression Screening 11/02/2024 COVID-19 Vaccine (3 - 2024- season) 2025 02/15/2021, 01/18/2021 Influenza Vaccine (#1) 2025 , 08/18/2017, 12/08/2014, Additional history exists Cholesterol Screening (Lipid Panel) 08/01/2025 Falls Risk Assessment 08/01/2025 Medicare Annual Wellness Visit 08/01/2025 Osteoporosis Screening (Bone Density Screening) 08/01/2025 Social Influencers of Health Screening 08/01/2025 Hypertension/CHF/CAD Annual BMP Blood Test 07/31/2026 07/31/2025 DTaP,Tdap,and Td Vaccines (3 - Td or Tdap) 04/10/2027 04/10/2017, 05/09/2004 HIB Vaccines Aged Out No longer eligi ble based on patient's age to complete this topic HPV Vaccines Aged Out No longer eligi ble based on patient's age to complete this topic Hepatitis A Vaccines Aged Out No long er eligible based on patient's age to complete this topic Hepatitis B Vaccines Aged Out No long er eligible based on patient's age to complete this topic IPV Vaccines Aged Out No longer eligi ble based on patient's age to complete this topic MMR Vaccines Aged Out No longer eligi ble based on patient's age to complete this topic Meningococcal ACWY Vaccine Aged Out N o longer eligible based on patient's age to complete this topic Meningococcal B Vaccine Aged Out No l onger eligible based on patient's age to complete this topic RSV Immunization Patients Under 20 months Aged Out No longer eligible based on patient's age to complete this topic Varicella Vaccines Aged Out No longer eligible based on patient's age to complete this topic Procedures Procedure Name Priority Date/Time Associated Diagnosis Comments CT ABDOMEN PELVIS WO CONTRAST STAT 08/01/2025 12:25 AM EDT CBC WITH AUTO DIFFERENTIAL STAT 07/31/2025 10:00 PM EDT LIPASE STAT 07/31/2025 10:00 PM EDT COMPREHENSIVE METABOLIC PANEL STAT 07/31/2025 10:00 PM EDT CBC AND DIFFERENTIAL STAT 07/31/2025 10:00 PM EDT from Last 3 Months Results * CT Abdomen Pelvis wo Contrast (08/01/2025 12:25 AM EDT) Anatomical Region Laterality Modality Body Computed Tomogra phy 08/01/2025 1:28 AM EDT Impressions 08/01/2025 1:28 AM EDT 1. No evidence of a bowel obstruction or free air. No pericolonic inflammation. 2. Some nonspecific air-fluid levels are noted within nonobstructed portions of small bowel and proximal colon. This can be correlated with patient history/symptoms and laboratory values. 3. A 9-10 mm lesion arises from the upper pole of the left kidney. Accurate assessment is difficult, thought to be due to streak artifact. This lesion is suspected to measure above water density. Follow-up outpatient CT kidneys, without and with contrast, is advised. 4. Additional findings are detailed above. This document has been electronically signed by: Kwame Johnston M.D. on 08/01/2025 01:28:32 Narrative 08/01/2025 1:28 AM EDT INDICATION: constipation x [address] ABDOMEN AND PELVIS WITHOUT CONTRAST COMPARISON: None provided. FINDINGS: Lack of IV contrast lowers the sensitivity of the exam. No evidence of a bowel obstruction or free air. Some nonspecific air-fluid levels are noted within nonobstructed portions of small bowel. Postsurgical changes are noted involving the proximal colon. Colonic diverticula are noted without evidence of acute diverticulitis. No pericolonic inflammation. No significant colonic stool burden. Some nonspecific air-fluid levels are noted within the proximal portions of the colon. Mild bibasilar atelectatic changes are noted. A subcentimeter calcified granuloma is noted within the left lower lobe. The stomach is underdistended which precludes accurate assessment. No focal liver lesion. Cholecystectomy clips are noted. No CT evidence of acute pancreatitis. Spleen is unremarkable. Right adrenal gland is unremarkable. There is mild thickening of the left adrenal gland. A few right-sided renal cysts are noted. No renal calculi or hydronephrosis bilaterally. A 9-10 mm lesion arises from the upper pole of the left kidney and is difficult to assess, thought to be due to streak artifact. This is seen on axial image 34, and is suspected to measure above water density. Urinary bladder is mildly distended. There is atherosclerotic calcification and tortuosity of the abdominal aorta. No evidence of an abdominal aortic aneurysm. No lymphadenopathy. No evidence of a bowel containing hernia. Bone windows demonstrate degenerative changes within the hips and visualized spine. Osteopenia is noted. Procedure Note Kwame Johnston MD - 08/01/2025 INDICATION: constipation x [address] ABDOMEN AND PELVIS WITHOUT CONTRAST COMPARISON: None provided. FINDINGS: Lack of IV contrast lowers the sensitivity of the exam. No evidence of a bowel obstruction or free air. Some nonspecific air-fluid levels are noted within nonobstructed portions of small bowel. Postsurgical changes are noted involving the proximal colon. Colonic diverticula are noted without evidence of acute diverticulitis. No pericolonic inflammation. No significant colonic stool burden. Some nonspecific air-fluid levels are noted within the proximal portions ofthe colon. Mild bibasilar atelectatic changes are noted. A subcentimeter calcified granuloma is noted within the left lower lobe. The stomach is underdistended which precludes accurate assessment. No focal liverlesion. Cholecystectomy clips are noted. No CT evidence of acute pancreatitis. Spleen is unremarkable. Right adrenal gland is unremarkable. There ismild thickening of the left adrenal gland. A few right-sided renal cysts are noted. No renal calculi or hydronephrosis bilaterally. A 9-10 mm lesion arises from the upper pole of the left kidney and is difficult toassess, thought to be due to streak artifact. This is seen on axial image 34,and is suspected to measure above water density. Urinary bladder is mildly distended. There is atherosclerotic calcification and tortuosity of the abdominal aorta. No evidence of an abdominal aortic aneurysm. No lymphadenopathy. No evidence of a bowel containing hernia. Bone windows demonstrate degenerative changes within the hips and visualized spine. Osteopenia is noted. IMPRESSION: 1. No evidence of a bowel obstruction or free air. No pericolonic inflammation. 2. Some nonspecific air-fluid levels are noted within nonobstructed portions of small bowel and proximal colon. This can be correlated with patient history/symptoms and laboratory values. 3. A 9-10 mm lesion arises from the upper pole of the left kidney. Accurate assessment is difficult, thought to be due to streak artifact. This lesion is suspected to measure above water density. Follow-up outpatient CT kidneys, without and with contrast, is advised. 4. Additional findings are detailed above. This document has been electronically signed by: Kwame Johnston M.D. on 08/01/2025 01:28:32 Kavita Toribio MD [facility] CT PROCEDURES Final Result * (ABNORMAL) CBC auto differential (07/31/2025 10:00 PM EDT) WBC 10.6 4.8 - 10.8 K/mcL LAB HEMETOLOGY METHOD 07/31/2025 10:14 PM EDT [facility] RBC 3.90 3.80 - 4.80 M/mcL LAB HEMETOLOGY METHOD 07/31/2025 10:14 PM EDT [facility] Hemoglobin 11.1(L) 11.5 - 16.0 g/dL LAB HEMETOLOGY METHOD 07/31/2025 10:14 PM [facility] Hematocrit 30.7(L) 35.0 - 47.0 % LAB HEMETOLOGY METHOD 07/31/2025 10:14 PM [facility] MCV 77.9(L) 79.0 - 98.0 FL LAB HEMETOLOGY METHOD 07/31/2025 10:14 PM [facility] MCH 28.2 27.0 - 32.0 pcg LAB HEMETOLOGY METHOD 07/31/2025 10:14 PM [facility] MCHC 36.2 32.0 - 37.0 g/dL LAB HEMETOLOGY METHOD 07/31/2025 10:14 PM [facility] RDW 15.0 11.0 - 15.0 % LAB HEMETOLOGY METHOD 07/31/2025 10:14 PM [facility] Platelets 304 130 - 400 K/mcL LAB HEMETOLOGY METHOD 07/31/2025 10:14 PM [facility] MPV 8.8 7.0 - 11.0 FL LAB HEMETOLOGY METHOD 07/31/2025 10:14 PM [facility] NRBC 0.0 <1.0 % LAB HEMETOLOGY METHOD 07/31/2025 10:14 PM [facility] NRBC Absolute 0.00 <0.10 K/mcL LAB HEMETOLOGY METHOD 07/31/2025 10:14 PM [facility] Neutrophils Relative 60.7 % LAB HEMETOLOGY METHOD 07/31/2025 10:14 PM [facility] Lymphocytes Relative 27.1 % LAB HEMETOLOGY METHOD 07/31/2025 10:14 PM [facility] Monocytes Relative 6.6 % LAB HEMETOLOGY METHOD 07/31/2025 10:14 PM EDT [facility] Eosinophils Relative 4.6 % LAB HEMETOLOGY METHOD 07/31/2025 10:14 PM EDT [facility] Basophils Relative 0.6 % LAB HEMETOLOGY METHOD 07/31/2025 10:14 PM EDT [facility] Immature Granulocytes Relative 0.4 % LAB HEMETOLOGY METHOD 07/31/2025 10:14 PM EDT [facility] Neutrophils Absolute 6.45 1.50 - 7.00 K/mcL LAB HEMETOLOGY METHOD 07/31/2025 10:14 PM EDT [facility] Lymphocytes Absolute 2.88 1.00 - 5.00 K/mcL LAB HEMETOLOGY METHOD 07/31/2025 10:14 PM EDT [facility] Monocytes Absolute 0.70 0.20 - 1.00 K/mcL LAB HEMETOLOGY METHOD 07/31/2025 10:14 PM EDT [facility] Eosinophils Absolute 0.49 0.00 - 0.50 K/mcL LAB HEMETOLOGY METHOD 07/31/2025 10:14 PM EDT [facility] Basophils Absolute 0.06 0.00 - 0.20 K/mcL LAB HEMETOLOGY METHOD 07/31/2025 10:14 PM EDT [facility] Immature Granulocytes Absolute 0.04(H) 0.00 - 0.03 K/mcL LAB HEMETOLOGY METHOD 07/31/2025 10:14 PM EDT [facility] Blood Venous blood specimen / Unknown Venipuncture / Unknown 07/31/2025 10:00 PM EDT 07/31/2025 10:04 PM EDT us Kavita Toribio MD LAB BLOOD ORDERABLES Final Resul t [facility] [address] [place] [address], * Lipase (07/31/2025 10:00 PM EDT) Lipase 28 13 - 75 unit/L LAB CHEMISTRY METHOD 07/31/2025 10:32 PM [facility] Blood Venous blood specimen / Unknown Venipuncture / Unknown 07/31/2025 10:00 PM EDT 07/31/2025 10:04 PM EDT us Kavita Toribio MD LAB BLOOD ORDERABLES Final Resul t [facility] [address] [place] [address], * (ABNORMAL) Comprehensive metabolic panel (07/31/2025 10:00 PM EDT) Pathologist [facility] Sodium 132(L) 133 - 145 mmol/L LAB CHEMISTRY METHOD 07/31/2025 10:32 PM [facility] Potassium 4.2 3.5 - 5.5 mmol/L LAB CHEMISTRY METHOD 07/31/2025 10:32 PM [facility] Chloride 97 96 - 110 mmol/L LAB CHEMISTRY METHOD 07/31/2025 10:32 PM [facility] CO2 30 21 - 32 mmol/L LAB CHEMISTRY METHOD 07/31/2025 10:32 PM [facility] Anion Gap 5 3 - 11 LAB CHEMISTRY METHOD 07/31/2025 10:32 PM [facility] Glucose 98 70 - 100 mg/dL LAB CHEMISTRY METHOD 07/31/2025 10:32 PM [facility] BUN 12 5 - 25 mg/dL LAB CHEMISTRY METHOD 07/31/2025 10:32 PM [facility] Creatinine 0.85 0.50 - 1.10 mg/dL LAB CHEMISTRY METHOD 07/31/2025 10:32 PM [facility] eGFR 68 >=60 mL/min/1. 73m2 LAB CHEMISTRY METHOD 07/31/2025 10:32 PM T [facility] Comment:Calculation based on the Chronic Kidney Disease Epidemiology Collaboration (CKD-EPI) equation refit without adjustment for race. BUN/Creatinine Ratio 14.1 LAB CHEMISTRY METHOD 07/31/2025 10:32 PM [facility] Calcium 9.6 8.5 - 10.5 mg/dL LAB CHEMISTRY METHOD 07/31/2025 10:32 PM [facility] AST (SGOT) 22 10 - 42 unit/L LAB CHEMISTRY METHOD 07/31/2025 10:32 PM [facility] ALT (SGPT) 16 10 - 60 unit/L LAB CHEMISTRY METHOD 07/31/2025 10:32 PM [facility] Alkaline Phosphatase 87 42 - 121 unit/L LAB CHEMISTRY METHOD 07/31/2025 10:32 PM [facility] Total Protein 7.2 6.0 - 8.0 g/dL LAB CHEMISTRY METHOD 07/31/2025 10:32 PM [facility] Albumin 4.0 3.2 - 5.0 g/dL LAB CHEMISTRY METHOD 07/31/2025 10:32 PM [facility] Total Bilirubin 0.3 0.0 - 1.4 mg/dL LAB CHEMISTRY METHOD 07/31/2025 10:32 PM [facility] Blood Venous blood specimen / Unknown Venipuncture / Unknown 07/31/2025 10:00 PM EDT 07/31/2025 10:04 PM EDT us Kavita Toribio MD LAB BLOOD ORDERABLES Final Resul t [facility] [address] [place] [address], [place] [phone] from Last 3 Months Insurance MEDICAID - [place] [facility] MEDICARE Member Subscriber Plan / Payer (Ef fective 2013-Present) Name:Cielo Duran Relation to Subscriber:Self Name:Cielo Duran Payer ID:[id number] Group ID:[id number] Type:Not on file Address: [address] [place] [address] MEDICARE Care Teams Punch Hand Relationship Specialty Start Date End Date Physician, No Pcp PCP - General 08/01/25
== END 2025-08-29 12:21 | disposition home or self-care (01) ==
PROVIDERS: Visit Provider Nurse Practitioner
DX: K21.9 Gastro-esophageal reflux disease without esophagitis (principal); K59.04 Chronic idiopathic constipation; R14.0 Abdominal distension (gaseous); R73.01 Impaired fasting glucose; J44.9 Chronic obstructive pulmonary disease, unspecified; J18.9 Pneumonia, unspecified organism
CPT/HCPCS: 99214

== ENCOUNTER 2025-08-29 11:51 | Outpatient (REF) | payer OTHER, SELFPAY ==
[2025-08-29 13:02] LABS: MANUAL DIFF FLAG NO
[2025-08-29 14:22] LABS: Hematocrit 30.7 % (37.0-47.0); Hemoglobin 11.2 g/dl (12.0-16.0); Imm Gran Abs Auto 0.02 X10*3/uL (0.00-0.03); Imm Gran Pct Auto 0.2 % (0.0-0.4); Lymphocytes Absolute Auto 2.6 X10*3/uL (1.2-4.9); Mean Corpuscular HGB Conc 36.5 g/dl (31.0-35.0); Mean Corpuscular Hemoglobin 28.9 pg (27.0-33.0); Mean Corpuscular Volume 79.3 fL (80.0-98.0); NRBC Abs Auto 0.000 X10*3/uL (0.0-0.012); NRBC Pct Auto 0.0 /100WBC (0.0-0.2); Platelet Count 258 X10*3/uL (160-400); Red Blood Count 3.87 X10*6/uL (4.20-5.50); White Blood Count 8.6 X10*3/uL (4.8-10.8)
[2025-08-29 14:35] LABS: Appearance Urine Clear; Glucose Urine UA Negative (Negative); PH 5.5 (5.0-9.0); Specific Gravity - Urine 1.010 (1.005-1.025); UMIC TRIGGER UACC YES
[2025-08-29 15:08] LABS: Alanine Aminotransferase 11 U/L (0-31); Albumin Level 4.7 g/dL (3.5-5.0); Alkaline Phosphatase 95 U/L (39-117); Anion Gap 12 (12-20); Aspartate Amino Transferase 24 U/L (5-31); Blood Urea Nitrogen 17 mg/dL (9-16); Calcium 9.9 mg/dL (8.4-10.2); Carbon Dioxide 27 mmol/L (22-29); Chloride 106 mmol/L (96-108); Estimated Glomerular Filt Rate > 60; Potassium 4.0 mmol/L (3.3-5.1); Sodium 141 mmol/L (135-145); Total Protein 7.6 g/dL (6.5-8.0)
--- OUTSIDE RECORDS SUMMARY | 2025-08-29 15:47 | XMS_ITS | Data Portability ---
Author Organization [facility], [facility] Address [address] [place] [phone] Care Team Providers Care Percussion Teacher Name Role Phone HIM CCA OTHER Assessment Encounter Date Assessment Date Assessment LastModified by Organization Details LastModified Time 05/09/2024 05/09/2024 I provided real -time medical direction via phone for this encounter, and was available for additional phone based assistance as needed. I have reviewed and agree with the Assessment and Plan as documented by the Parts Manager. We discussed the diagnostic uncertainty of home visits and the risk associated with this. I explained to the patient with no prior EKGs to compare in the old record cannot rule out acute ischemia. The patient given the opportunity to ask questions. [email or web address] Not available 05/10/2024 13:53:51 Plan of Treatment Reminders Order Date Submit Date Provider Last Modified By Organization Details Last Modified Time Details Appointments None recorded. Lab None recorded. Referral None recorded. Procedures None recorded. Surgeries None recorded. Imaging electrocard iogram 2023 024 [email or web address], [phone] 13:56:29 Medication Orders None recorded. Patient TargetsNo targets recorded. Patient InstructionsNo instructions recorded. Reason for Referral None Reported. Results Created Date Observation Date Name Description Value Unit Range Abnormal Flag Note LastModifiedBy Organization Detail LastModifiedTime 05/09/20 24 05/10/2024 elect sebas changr am No observ ation record ed. [address], [phone] 05/10/2024 13:56:27 Result Notes None recorded. Medical Equipment None Reported. Allergies Allergen ID Allergen Name Allergen Category Reaction Reaction Severity Criticality Documentation Date Start Date Code Code System Note Provider Name and Address Organization Details Recorded Time 5380 oxycodone medicatio n Not available Not available Not available 05/09/2024 7804 RxNorm and perco cet Cheryl Olsen MD [address], [place], [phone], [facility] 4 11:41:43 5346 Iodinated contrast media (substanc e) medicatio n Not available Not available Not available 05/09/2024 84245 2004 SNOMED Cheryl Olsen MD [address], [place], [phone], [facility] 4 11:41:56 Medications Name Sig Start Date [...] Body temperature Respiratory rate Heart rate Systolic And Diastolic Provider Name and Address Organization Details Last Updated DateTime 4 99 % 99 % 10904.4 64 g 97.8 [degF] 16 /min 64 /min 100/60 mm[Hg] Not Available [facility] 4 10:48:12 Date Recorded Body weight Body temperature Respiratory rate Heart rate Oxygen saturation Oxygen saturation in Arterial blood by Pulse oximetry Body height Systolic And Diastolic Provider Name and Address Organization Details Last Updated DateTime 4 02551.2 8 g 98.1 [degF] 18 /min 65 /min 98 % 98 % 144.78 cm 129/69 mm[Hg] Not Available [facility] 4 11:35:29 Social History None recorded. Functional Status None recorded. Mental Status None recorded. Family History Nothing Reported. Medical History No medical history recorded. Gynecological HistoryNo gynecological history recorded. Obstetrics History GPAL:G 0 P 0 0 0 0 Past Encounters Encounter ID Performer Location Encounter Start Date Encounter Closed Date Diagnosis/Indication Diagnosis SNOMED-CT Code Diagnosis ICD10 Code Diagnosis IMO Codes Diagnosis Note [id number] Vanesa Cardona MD [facility] [address] [place] [phone] 04/21/2024 10:48:07 04/21/2024 20:30:34 Hordeolum externum of upper eyelid of right eye [id number] 87720 H00.011 As noted, we were called to see this patient regarding concerns of eye itching. Evaluation in the field was performed by my logging contractor colleague, as noted above, I provided real-time direction and supervisio n for this visit. The evaluation revealed:- 3 days of eye itching with 2 small white bumps along the upper lid margin- does not appear erythemato us or inflammed as is typical for styes- no changes in to vision, no discharge. minor itching Impression :may be beginning of a stye vs inflammati on along eyelashes Plan:Recom mended warm compresses , cleaning area regularly and avoid other topic medication s at this time. Follow up with PCP if it does not resolve Dispositio n: We discussed the diagnostic uncertaint y of home visits and the risk associated with this. In this case, the patient and I felt this to be an acceptable and reasonable amount of risk given the benefit of avoiding an ED visit. We discussed the need to seek care urgently/e mergently in the setting of any new or worsening serious symptoms, particular ly fevers, chills, chest pain, dyspnea, changes to vision. [id number] Cheryl Olsen MD [facility] [address] [place] [phone] 05/09/2024 11:35:26 05/11/2024 19:44:25 Pain in right arm 048084074 M79.601 and left upper back pain-likel y neuro/musc ular but cannot rule out cardiac equivalent without further workup patient agreeable to going to the ER via EMS/ aspirin held until definitive workup.[facility] called-rep ort given to woman in ER who identified herself as Loli. Health Concerns Section Related Observation LastModified by Organization Detai ls LastModified Time None Recorded Concern Status LastModified by Organization Details LastModified Time None Recorded Advance Directives Directive None Recorded Payers Insurance Date Sequence Insurance Name Policy Number Policy Kincaid Covered Member ID Kincaid Member ID Guarantor Name 05/09/2024 1 FOR[facility]LY [facility] - DOS ON OR AFTER 2023 - DUAL ELIGIBLE - PENITENTIARY OPTIONS AND ONE CARE (MEDICARE REPLACEMENT/ADV ANTAGE - HMO) Cielo Ochoa [id number] Cielo Ochoa Notes Date Note Type Note Provider Name and Address Organization Details Recorded Time 04/21/2024 text/html CRC Nurse Triage Notes (Melanie Alston): Reason For Request: eye is red/poss stye Chief Complaints: Pain PMH: COPD/Asthma, Hypertension Comments: Sand System Operator verified the member's name//address and phone number.Member reports that L eye redness x2-3 days. Reports that it has worsened. Inc swelling. Denies pain. Denies drainage. Denies fevers, chest pain or SOB. Education provided on the response time and the member was advised to monitor reported s/s and seek emergency treatment if needed. .................. .................. .................. .................. .................. .................. .................. ............... Parts Manager Note From Jose Manuel Rogers: Pt co sty like bump white in color on eye lid. Denies redness or drainage to right eye itself. Pt sts has some itching but no pain. Denies cp sob rash/hives or NVd. Baseline vitals assessed. Eye assessment, two white heads on edge of eye lid. Afebrile. C contacted and advised hot compresses over next few days. If worsen advised to contact pcp or go to ER. Pt education on signs indicating the ER. .................. .................. .................. .................. .................. .................. .................. ............... Disposition: Rohan Cardona MD [address] [facility],[address], [place], [phone], [employer] 04/21/2024 10:58:04 05/09/2024 text/html ROS as noted in the HPI CRC Nurse Triage Notes (Qi Shields): Reason [...] unsure if this contributed to aggravating arm. Parts Manager POC Test Results from Joanie Hoffman - [facility] EKG (1) [11:54] EKG test performed. Attachments uploaded as part of this test result can be found under Documents section. .................. .................. .................. .................. .................. .................. .................. ............... Parts Manager Note From Joanie Hoffman: Sent to a call for a pt complaining of right arm pain. SC8 arrives on scene, pt is alert and oriented, airway is patent. Pt's primary language is Kittitian. Pt's family serves as receivable executive during part of the visit, then receivable executive line used. Pt complains or right elbow/dorsal [...] no tenderness noted; Skin: pink, warm, dry; [facility] consulted and pt reports slight, non-radiating pain midline base of neck when turning head side to side. Pt states she is allergic to Oxycodone, Percocet, and Contrast Dye. Pt denies history of kidney disease, ulcers, GI bleeds, or being on blood thinners. Pt states she is not interested in a Toradol injection. [facility] orders 12 lead ECG. 12 lead ECG uploaded to [facility]. [facility] advises pt transport to ED for further eval/treatment due to abnormal ECG. Pt has no previous copies of ECG on hand. Pt agrees to transport to [facility] ED. 911 called; [facility] calls report to [facility]; Pt care transferred to [facility]. .................. .................. .................. .................. .................. .................. .................. ............... Disposition: FulfilledSEGMD: Patient denies any strenuous activity yesterday prior to onset of pain to us, via language line receivable executive. Patient further reports her back pain feels different from her usual chronic back pain but cannot really quantify/qualify Cheryl Olsen MD [address] [facility],[address], [place], [phone], [employer] 05/10/2024 23:00:29 OBGyn Episode No OBEpisode recorded.
== END 2025-08-29 11:52 | disposition home or self-care (01) ==
LOC: HO.LAB 11:51
PROVIDERS: Visit Provider Nurse Practitioner
DX: K21.9 Gastro-esophageal reflux disease without esophagitis (principal); R14.0 Abdominal distension (gaseous); K59.04 Chronic idiopathic constipation; R73.01 Impaired fasting glucose; J44.9 Chronic obstructive pulmonary disease, unspecified; J18.9 Pneumonia, unspecified organism; F17.210 Nicotine dependence, cigarettes, uncomplicated; Z79.899 Other long term (current) drug therapy
CPT/HCPCS: 36415; 80053; 81001; 83036; 84443; 85025; 99212

== ENCOUNTER 2025-09-12 10:52 | Outpatient (AMB) | payer OTHER, SELFPAY ==
--- NOTE | 2025-09-12 11:00 | MHC.OFFVIS ---
Vital Signs 09/12/25 11:07 Height 4 ft 9 in Weight 84 lb BMI 18.2 BP 146/60 H Blood Pressure Location Rt brachial Position Sitting Pulse 70 Pulse Source Pulse Oximeter Pulse Oximetry (%) 99 Oxygen Delivery Method Room Air Intake Visit Reasons: Follow up 2 weeks Intake Note: Est pt for mgmt of GERD + CIC. CC; Pt denies any new GI sx or concerns at this time. No significant changes since last visit. Clamp Truck Driver Required: Yes Clamp Truck Driver Services: Clamp Truck Driver Offered & Declined Accompanied by: Daughter Allergies Iodinated Contrast Media (CONTRAST, IV) Allergy (Intermediate, Verified 09/12/25 11:11) NAUSEA & VOMITING morphine (MORPHINE) Allergy (Intermediate, Verified 09/12/25 11:11) NAUSEA & VOMITING oxycodone (From PERCOCET) Allergy (Intermediate, Verified 09/12/25 11:11) NAUSEA, WEAKNESS/VIOLENT HPI HPI Follow up 2 weeks: Details: Assessment & Plan (1) GERD (gastroesophageal reflux disease): Code(s): K21.9 - Gastro-esophageal reflux disease without esophagitis Category: Medical (2) Chronic idiopathic constipation: Code(s): K59.04 - Chronic idiopathic constipation Category: Medical (3) Abdominal bloating: Code(s): R14.0 - Abdominal distension (gaseous) Category: Medical (4) Elevated fasting glucose: Code(s): R73.01 - Impaired fasting glucose Category: Medical (5) COPD (chronic obstructive pulmonary disease): Code(s): J44.9 - Chronic obstructive pulmonary disease, unspecified Category: Medical (6) Recurrent pneumonia: Code(s): J18.9 - Pneumonia, unspecified organism Category: Medical Plan [place]an #Radha Live She continues on pantoprazole, simethicone, and Linzess 72 micro g. (miacalcin NS). She is here today with her daughter who is supportive - The patient is an 85-year-old female presenting with chronic abdominal bloating and gastrointestinal discomfort. - Abdominal swelling reportedly occurs postprandially and has been ongoing for an extended period. - Any food consumption incites bloating, which is described as similar to childbirth-like cramping pain, present for a considerable period. - She recalls an ER visit which resulted in the administration of Colace, intended for stool softening, which offered minimal relief with continued bloating. - Current medication compliance includes Linzess, pantoprazole, and simethicone, with no recent alterations in her medication profile or dietary habits. - A history of bacterial pneumonia treated in November corresponds with initial changes in digestive efficiency. - The patient has undergone cholecystectomy; she denies nausea or vomiting but notes significant bloating concentrated in the flank areas. - Maintains current weight with reported polyuria during nighttime hours, attributed to existing antihypertensive therapy. Overall, it is difficult to say whether some of her medications may have dropped out of her regimen since I have not seen her in over a year. This has been because of her own health challenges, pneumonia twice, and my own scheduling conflicts. She has a wide range of complaints including lack of appetite, weight loss, and of course the bloating. I think we need to get a wide range of labs to start off, and of course represcribed her medications. If she suddenly becomes better than I will assume that is something fell off of her regimen and that is the simple reason for the exacerbation. If not then of course we will look into more tests or changing the regimen. I think we should get an ultrasound since she has not had imaging in quite some time to make sure she has not developed something like gallstones. An H pylori stool test would likely also be prudent. I am going to refer to pulmonology for her recurrent pneumonias since she says she is still ill today with a cough. Her lung sounds are extremely rough and wheezy with diminished meant in the bilateral bases. She could have an undiagnosed or undertreated COPD contributing to her weight loss. Return office visit in 2 weeks Orders: Orders Complete Blood Count Auto Diff Today K21.9 - Gastro-esophageal reflux disease without esophagitis, K59.04 - Chronic idiopathic constipation, R14.0 - Abdominal distension (gaseous), R73.01 - Impaired fasting glucose TSH reflex Free T4 Today K21.9 - Gastro-esophageal reflux disease without esophagitis, K59.04 - Chronic idiopathic constipation, R14.0 - Abdominal distension (gaseous), R73.01 - Impaired fasting glucose UA CC w/rflx Micro + Cult Today K21.9 - Gastro-esophageal reflux disease without esophagitis, K59.04 - Chronic idiopathic constipation, R14.0 - Abdominal distension (gaseous), R73.01 - Impaired fasting glucose Comprehensive Met. Panel Today K21.9 - Gastro-esophageal reflux disease without esophagitis, K59.04 - Chronic idiopathic constipation, R14.0 - Abdominal distension (gaseous), R73.01 - Impaired fasting glucose Hemoglobin A1c Today K21.9 - Gastro-esophageal reflux disease without esophagitis, K59.04 - Chronic idiopathic constipation, R14.0 - Abdominal distension (gaseous), R73.01 - Impaired fasting glucose H pylori Ag Stool Today K21.9 - Gastro-esophageal reflux disease without esophagitis, K59.04 - Chronic idiopathic constipation, R14.0 - Abdominal distension (gaseous), R73.01 - Impaired fasting glucose US abdomen complete Today K21.9 - Gastro-esophageal reflux disease without esophagitis, K59.04 - Chronic idiopathic constipation, R14.0 - Abdominal distension (gaseous), R73.01 - Impaired fasting glucose Referrals Pulmonology Referral J18.9 - Pneumonia, unspecified organism, J44.9 - Chronic obstructive pulmonary disease, unspecified Medications: Refilled simethicone (Gas Relief (simethicone)) 125 mg PO QID PRN 120 tabs 6RF abdominal distention R14.0 - Abdominal distension (gaseous) pantoprazole (Protonix) 40 mg PO DAILY 30 tabs 6RF 30 days K21.9 - Gastro-esophageal reflux disease without esophagitis calcitonin (salmon) 200 unit/actuation 1 spray intranasal (ALT) DAILY 3.7 mL 6RF M81.0 - Age-related osteoporosis without current pathological fracture Discontinued prednisone Discontinued Reason: Order 40 mg (2 x 20 mg) PO DAILY 15 tabs 0RF azithromycin Discontinued Reason: Patient Completed Course For 250 mg dose pack: take 500 mg today (day 1), then 250 mg for 4 days (days 2-5) 6 tabs 0RF guaifenesin ER (Mucinex) Discontinued Reason: Doctor's Order 1,200 mg PO BID 14 tabs 0RF albuterol sulfate 90 mcg/actuation Discontinued Reason: Duplicate 2 puffs PO Q2H PRN 18 grams 0RF shortness of breath or wheezing LABS Laboratory Tests 08/29/25 08/29/25 12:57 13:00 WBC 8.6 RBC 3.87 L Hgb 11.2 L Hct 30.7 L MCV 79.3 L MCH 28.9 Plt Count 258 Estimated GFR > 60 Random Glucose 52 L* Hemoglobin A1c % 4.8 Total Bilirubin 0.4 AST 24 ALT 11 Alkaline Phosphatase 95 TSH 2.17 08/29/25-1235 OTHR : ORDERED: [facility] w Micros QUERIES: Source: Urine, Clean Catch Test Result Flag Reference Ur Color Yellow Ur Appear Clear PH 5.5 5.0-9.0 Ur Glu Negative Negative mg/dL Urine Blood Trace H Negative Spec [place] Ur 1.010 1.005-1.025 Urine Protein Negative Neg-Trace mg/dL Urine Ketones Negative Negative mg/dL Ur Nitrite Negative Negative Ur Ladonna Esterase Trace H Negative Ur RBC 0-2 0-2 /HPF Ur WBC 0-5 0-5 /HPF Ur Squam Epi 0-2 0-2 /HPF Ur Bact None Seen None Seen Ur Hyaline Identity Management Developer 0-2 0-2 /LPF + US ABD TODAYS VISIT Guinean #dtr translates per pt request [facility] Medical History Breast CA Cholecystitis HTN (hypertension) Acute arthritis Surgical History Hx of colonoscopy History of esophagogastroduodenoscopy (EGD) Hx of foot surgery Hx of breast biopsy History of back surgery Family History Father CVD (cardiovascular disease) HTN (hypertension) Brother Colon cancer Daughter No problems noted. 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 Review of Systems Const Denies fatigue, Denies fever(s), Denies night sweats, Reports poor appetite and Denies weight loss ENT Reports Normal hearing present, Denies dental pain, Denies dysphagia, Denies hearing loss, Denies mouth pain, Denies odynophagia, Denies throat swelling, Denies tongue swelling and Reports other (Dentition adequate) Card Reports no additional complaints Resp Reports no additional complaints GI Details: Denies abdominal pain, Denies melena, Reports bloating, Denies hematochezia, Reports constipation, Denies GI cramping, Denies dysphagia, Denies excessive flatus, Denies early satiety, Reports dyspepsia, Reports heartburn, Denies diarrhea, Denies nausea, Denies odynophagia, Denies vomiting and Denies hematemesis Skin/Breast Denies pruritus, Denies lesions, Denies rash and Denies jaundice Neuro Reports Normal hearing present and Denies Abnormal speech present Endo Denies fatigue Aller/Immun Denies throat swelling and Denies tongue swelling Physical Exam Vital Signs: Last Vital Signs Pulse 70 09/12/25 11:07 BP 146/60 H 09/12/25 11:07 Pulse Ox 99 09/12/25 11:07 Oxygen Delivery Method Room Air 09/12/25 11:07 BMI result Body Mass Index 18.2 Const General: cooperative, no acute distress, well developed and well groomed Nutritional Appearance: average body habitus and well nourished Orientation/consciousness: oriented to person, oriented to place and oriented to time Limitations: language barrier, ambulation with cane and wheelchair HEENT Head: Yes normocephalic and Yes atraumatic Eyes General: appearance normal, both eyes and all related structures Pupils: Equal, round and reactive pupils present Neck Neck: Yes normal visual inspection and Yes no lymphadenopathy Thyroid: Thyroid normal Resp Effort & Inspection: normal respiratory effort and able to speak in complete sentences Auscultation: clear to auscultation bilaterally Cardio Rate: regular rate Rhythm: regular rhythm Heart sounds: Normal, physiologic split S2 sound present Peripheral pulses: radial pulses present and posterior tibial pulses present GI Inspection: No distended and No Abdominal panniculus present Palpation (GI): Soft to palpation, nontender, no guarding, not rigid and No hepatosplenomegaly present Percussion: Yes normal to percussion Auscultation: normal bowel sounds Rectal Exam - Female: deferred Skin General skin exam: no rashes or lesions noted, turgor normal, skin not dry, no jaundice, No spider nevi and no striae Rashes: no rashes Nails: normal Neuro General: oriented to person, oriented to place and oriented to time Cranial nerves: Yes Equal, round and reactive pupils present and Yes Normal hearing present Speech: No Abnormal speech present Extrem General: Yes normal to inspection, No clubbing, No cyanosis and No edema Psych Appearance: grossly normal and well kempt Mental Status: mental status grossly normal Speech and movement: Normal speech and movement present Affect: normal affect Attitude: cooperative Thought process: Normal thought process present and not confabulating Thought content: Normal thought content present Insight: Fair insight present (Psych) Judgement: Fair judgement present (Psych) Assessment & Plan Assessment & Plan (1) GERD (gastroesophageal reflux disease): Code(s): K21.9 - Gastro-esophageal reflux disease without esophagitis Category: Medical (2) Chronic idiopathic constipation: Code(s): K59.04 - Chronic idiopathic constipation Category: Medical (3) Abdominal bloating: Code(s): R14.0 - Abdominal distension (gaseous) Category: Medical Plan Guinean # daughter translates per patient request She is here today with her daughter who is supportive. She continues on pantoprazole, simethicone, and Linzess 72 micro g. (miacalcin NS). Hence restarting her medications she says she is feeling a little better but her GI problems are not completely resolved. With further discussion it seems that she really is not moving her bowels well having very hard stooling. This despite restarting on the Linzess at 72 micro g which her daughter confirmed she does have at home. She also has a senna/Colace combination pill at home. With this information I think we are going to try increasing the Linzess 145 micro g and titrate to affect her side effect. We review all of the labs and I did let them know that she seems to be having some hypoglycemia. While her appetite is not great they say she is eating fairly well with her daughter cooking many meals and even on the day in question they say she had toast and eggs for breakfast. I hope that her appetite will improve once we restored better bowel motility. Return office visit in 6 weeks Medications: New linaclotide (Linzess) Take first thing in the morning with a full glass of water. 145 mcg PO QAM 30 caps 3RF K58.1 - Irritable bowel syndrome with constipation On Hold linaclotide (Linzess) Hold Comment: Doctor's Order 72 mcg PO QAM 30 caps 6RF K59.04 - Chronic idiopathic constipation Coding Level of Care Code Est Pt Level 3 (99210) Diagnoses GERD (gastroesophageal reflux disease) K21.9 Chronic idiopathic constipation K59.04 Abdominal bloating R14.0
[2025-09-12 11:07] VITALS: BP 146/60; PULSE 70; O2SAT 99; BMI 18.2
--- OUTSIDE RECORDS SUMMARY | 2025-09-12 13:01 | XMS_ITS | Clinical Summary ---
Author Organization [facility] Address [address] [place] [address] Phone Care Team Providers Care Water Pollution Control Technician Name Role Phone Physician, No Pcp Primary [...] for 20 days. 20 tablet 08/01/2025 5 Encounters Date Type Department Care Team Description 07/31/2025 11:56 PM EDT - 08/01/2025 1:50 AM EDT Emergency [facility] Emergency [address] [place] [address] Kavita Toribio MD Other constipation [...] Depression Screening 11/02/2024 COVID-19 Vaccine (3 - season) 2025 02/15/2021, 01/18/2021 Influenza Vaccine (#1) [...] M.D. on 08/01/2025 01:28:32 Kavita Toribio MD IM CT PROCEDURES Final Result * (ABNORMAL) CBC auto differential (07/31/2025 10:00 PM EDT) WBC 10.6 4.8 - 10.8 K/mcL LAB HEMETOLOGY METHOD 07/31/2025 10:14 PM EDT [facility] RBC 3.90 3.80 - 4.80 M/mcL LAB HEMETOLOGY METHOD 07/31/2025 10:14 PM EDT [facility] Hemoglobin 11.1(L) 11.5 - 16.0 g/dL LAB HEMETOLOGY METHOD 07/31/2025 10:14 PM EDT [facility] Hematocrit 30.7(L) 35.0 - 47.0 % LAB HEMETOLOGY METHOD 07/31/2025 10:14 PM EDT [facility] MCV 77.9(L) 79.0 - 98.0 FL LAB [facility] MCH 28.2 27.0 - 32.0 pcg LAB HEMETOLOGY METHOD 07/31/2025 10:14 PM EDT [facility] MCHC 36.2 32.0 - 37.0 g/dL LAB HEMETOLOGY METHOD 07/31[facility]2025 10[facility] RDW 15.0 11.0 - 15.0 % LAB HEMETOLOGY METHOD 07/31/2025 10[facility] Platelets 304 130 - 400 K/mcL LAB HEMETOLOGY METHOD 07/31/2025 10[facility] MPV 8.8 7.0 - 11.0 FL LAB HEMETOLOGY METHOD 07/31/2025 10:[facility] NRBC 0.0 <1.0 % LAB HEMETOLOGY METHOD 07/[facility]2025 [facility] NRBC Absolute 0.00 <0.10 K/mcL LAB HEMETOLOGY METHOD 07/31/2025 10:[facility] Neutrophils Relative 60.7 % LAB HEMETOLOGY METHOD 07/31/2025 10:14 PM EDT [facility] Lymphocytes Relative 27.1 % LAB HEMETOLOGY METHOD [facility]2025 [facility] Monocytes Relative 6.6 % LAB HEMETOLOGY METHOD 07/31/2025 10:[facility] Eosinophils Relative 4.6 % LAB HEMETOLOGY METHOD 07/31/2025 10:14 PM EDT [facility] Basophils Relative 0.6 % LAB HEMETOLOGY METHOD 07/31/2025 10:14 PM EDT [facility] Immature Granulocytes Relative 0.4 % LAB HEMETOLOGY METHOD 07/31/2025 10:14 PM EDT [facility] Neutrophils Absolute 6.45 1.50 - 7.00 K/mcL LAB HEMETOLOGY METHOD 07/31/2025 10:14 PM EDT [facility] Lymphocytes Absolute 2.88 1.00 - 5.00 K/mcL LAB HEMETOLOGY METHOD 07/31/2025 10:14 PM EDT [facility] Monocytes Absolute 0.70 0.20 - 1.00 K/mcL LAB HEMETOLOGY METHOD 07/31/2025 10:14 PM EDT [facility] Eosinophils Absolute 0.49 0.00 - 0.50 K/mcL LAB HEMETOLOGY METHOD 07/31/2025 10:14 PM EDT [facility] Basophils Absolute 0.06 0.00 - 0.20 K/mcL LAB HEMETOLOGY METHOD 07/31/2025 10:14 PM EDT [facility] Immature Granulocytes Absolute 0.04(H) 0.00 - 0.03 K/mcL LAB HEMETOLOGY METHOD 07/31/2025 10:14 PM EDT [facility] Blood Venous blood specimen / Unknown Venipuncture / Unknown 07/31/2025 10:00 PM EDT 07/31/2025 10:04 PM EDT us Kavita Toribio MD LAB BLOOD ORDERABLES Final Resul t [facility] [address] [place] [address], * Lipase (07/31/2025 10:00 PM EDT) Lipase 28 13 - 75 unit/L LAB CHEMISTRY METHOD 07/31/2025 10:32 PM [facility] Blood Venous blood specimen / Unknown Venipuncture / Unknown 07/31/2025 10:00 PM EDT 07/31/2025 10:04 PM EDT us Kavita Toribio MD LAB BLOOD ORDERABLES Final Resul t [facility] [address] [place] [address], [place] [phone] * (ABNORMAL) Comprehensive metabolic panel (07/31/2025 10:00 PM EDT) Sodium 132(L) 133 - 145 mmol/L LAB CHEMISTRY METHOD 07/31/2025 10:32 PM [facility] Potassium 4.2 3.5 - 5.5 mmol/L LAB CHEMISTRY METHOD 07/31/2025 10:32 PM [facility] Chloride 97 96 - 110 mmol/L LAB CHEMISTRY METHOD 07/31/2025 10:32 PM [facility] CO2 30 21 - 32 mmol/L LAB CHEMISTRY METHOD 07/31/2025 10:32 PM [facility] Anion Gap 5 3 - 11 LAB CHEMISTRY METHOD 07/31/2025 10:32 PM [facility] Glucose 98 70 - 100 mg/dL LAB CHEMISTRY METHOD 07/31/2025 10:32 PM [facility] BUN 12 5 - 25 mg/dL LAB CHEMISTRY METHOD 07/31/2025 10:32 PM [facility] Creatinine 0.85 0.50 - 1.10 mg/dL LAB CHEMISTRY METHOD 07/31/2025 10:32 PM [facility] eGFR 68 >=60 mL/min/1. 73m2 LAB CHEMISTRY METHOD 07/31/2025 10:32 PM EDT [facility] Comment:Calculation based on the Chronic Kidney Disease Epidemiology Collaboration (CKD-EPI) equation refit without adjustment for race. BUN/Creatinine Ratio 14.1 LAB CHEMISTRY METHOD 07/31/2025 10:32 PM EDT [facility] Calcium 9.6 8.5 - 10.5 mg/dL LAB CHEMISTRY METHOD 07/31/2025 10:32 PM T [facility] AST (SGOT) 22 10 - 42 unit/L LAB CHEMISTRY METHOD 07/31/2025 10:32 PM T [facility] ALT (SGPT) 16 10 - 60 unit/L LAB CHEMISTRY METHOD 07/31/2025 10:32 PM T [facility] Alkaline Phosphatase 87 42 - 121 unit/L LAB CHEMISTRY METHOD 07/31/2025 10:32 PM [facility] Total Protein 7.2 6.0 - 8.0 g/dL LAB CHEMISTRY METHOD 07/31/2025 10:32 PM EDT [facility] Albumin 4.0 3.2 - 5.0 g/dL LAB CHEMISTRY METHOD 07/31/2025 10:32 PM [facility] Total Bilirubin 0.3 0.0 - 1.4 mg/dL LAB CHEMISTRY METHOD 07/31/2025 10:32 PM EDT [facility] Blood Venous blood specimen / Unknown Venipuncture / Unknown 07/31/2025 10:00 PM EDT 07/31/2025 10:04 PM EDT us Kavita Toribio MD LAB BLOOD ORDERABLES Final Resul t [facility] [address] [place] [address], [place] [phone] from Last 3 Months Insurance MEDICAID - [place] [facility] MEDICARE Member Subscriber Plan / Payer (Ef fective 2013-Present) Name:Cielo Duran Relation to Subscriber:Self Name:Cielo Duran Payer ID:[id number] Group ID:[id number] Type:Not on file Address: [address] [place] [address] MEDICARE Care Teams Water Pollution Control Technician Relationship Specialty Start Date End Date Physician, No Pcp PCP - General 08/01/25
--- OUTSIDE RECORDS SUMMARY | 2025-09-12 13:01 | XMS_ITS | Patient Health Record ---
Author Organization [facility] Address [address] [place] [address] Care Team Providers Care Lapping Machine Set Up Operator Name Role Phone Laurie Ley Primary Care Provider UnavailMiya Howard Unavailable [phone] Clinical, Operations Unavailable Unavailable Delia Sutton Unavailable [phone] Allergies Allergen (clinical drug ingredient) Drug/Non Drug [...] a day As needed 08/16/2025 Active Calcitonin ([place]) 200 UNIT/ML 1 spray in 1 nostril, [...] Yes Section Notes: , has 11 children, daughters Krystle and Wanda involved in her care. She lives with 17 year old great grand daughter. History of alcohol abuse started at 16 yrs old, 12 beers a day, quit >20 years ago. Started smoking at 16y.o hx 1-2ppd, currently smokes 2/day. Services in place: [facility] Cielo Capa: 15 hrs weekly. , has 11 children, daughters Krystle and Wanda involved in her care. She lives with 17 year old great grand daughter. History of alcohol abuse started at 16 yrs old, 12 beers a day, quit >20 years ago. Started smoking at 16y.o hx 1-2ppd, currently smokes 2/day. Services in place: [facility] Cielo Capa: 15 hrs weekly.\ , has 11 children, daughters Krystle and Wanda involved in her care. She lives with 17 year old great grand daughter. History of alcohol abuse started at 16 yrs old, 12 beers a day, quit >20 years ago. Started smoking at 16y.o hx 1-2ppd, currently smokes 4/day. Services in place: [facility] grandson , has 11 children, daughters Krystle and Wanda involved in her care. She lives with 16 year old great grand daughter. History of alcohol abuse started at 16 yrs old, 12 beers a day, quit >20 years ago. Started smoking at 16y.o hx 1-2ppd, currently smokes 2/day. Services in place: [facility] Cielo Capa: 12 hrs weekly. , has 11 children, daughters Krystle and Wanda involved in her care. She lives with 16 year old great grand daughter. History of alcohol abuse started at 16 yrs old, 12 beers a day, quit >20 years ago. Started smoking at 16y.o hx 1-2ppd, currently smokes 2/day. Services in place: [facility] Cielo Capa: 12 hrs weekly. , has 11 children, daughters Krystle and Wanda involved in her care. She lives with 16 year old great grand daughter. History of alcohol abuse started at 16 yrs old, 12 beers a day, quit >20 years ago. Started smoking at 16y.o hx 1-2ppd, currently smokes 2/day. Services in place: [facility] latonya gee Cielo Capa 12 hrs weekly. , has 11 children, daughters Krystle and Wanda involved in her care. She lives with 16 year old great grand daughter. History of alcohol abuse started at 16 yrs old, 12 beers a day, quit >20 years ago. Started smoking at 16y.o hx 1-2ppd, currently smokes 2/day. Services in place: [facility] latonya gee Cielo Capa 12 hrs weekly. , has 11 children, daughters Krystle and Wanda involved in her care. She lives with 17 year old great grand daughter. History of alcohol abuse started at 16 yrs old, 12 beers a day, quit >20 years ago. Started smoking at 16y.o hx 1-2ppd, currently smokes 2/day. Services in place: [facility] Cielo Capa: 15 hrs weekly. , has 11 children, daughters Krystle and Wanda involved in her care. She lives with 17 year old great grand daughter. History of alcohol abuse started at 16 yrs old, 12 beers a day, quit >20 years ago. Started smoking at 16y.o hx 1-2ppd, currently smokes 2/day. Services in place: [facility] Cielo Capa: 15 hrs weekly. , has 11 children, daughters Krystle and Wanda involved in her care. She lives with 16 year old great grand daughter. History of alcohol abuse started at 16 yrs old, 12 beers a day, quit >20 years ago. Started smoking at 16y.o hx 1-2ppd, currently smokes 2/day. Services in place: [facility] Cielo Capa: 12 hrs weekly. , has 11 children, daughters Krystle and Wanda involved in her care. She lives with 16 year old great grand daughter. History of alcohol abuse started at 16 yrs old, 12 beers a day, quit >20 years ago. Started smoking at 16y.o hx 1-2ppd, currently smokes 2/day. Services in place: [facility] yolanda Cielo Capa: 12 hrs weekly. , has 11 children, daughters Krystle and Wanda involved in her care. She lives with 16 year old great grand daughter. History of alcohol abuse started at 16 yrs old, 12 beers a day, quit >20 years ago. Started smoking at 16y.o hx 1-2ppd, currently smokes 2/day. Services in place: [facility] yolanda Cielo Capa: 12 hrs weekly. , has 11 children, daughters Krystle and [place] involved in her care. She lives with 16 year old great grand daughter. History of alcohol abuse started at 16 yrs old, 12 beers a day, quit >20 years ago. Started smoking at 16y.o hx 1-2ppd, currently smokes 2/day. Services in place: [facility] latonya gee Cielo Capa 12 hrs weekly. , has 11 children, d aughters Krystle and Wanda involved in her care. She lives with 14 year old great grand daughter. History of alcohol abuse started at 16 yrs old, 12 beers a day, quit >20 years ago. Started smoking at 16y.o hx 1-2ppd, currently smokes 4/day , has 11 children, d aughters Krystle and Wanda involved in her care. She lives with 14 year old great grand daughter. History of alcohol abuse started at 16 yrs old, 12 beers a day, quit >20 years ago. Started smoking at 16y.o hx 1-2ppd, currently smokes 4/day , has 11 children, d aughters Krystle and Wanda involved in her care. She lives with 14 year old great grand daughter. History of alcohol abuse started at 16 yrs old, 12 beers a day, quit four years ago. Started smoking at 16y.o 1-2ppd, currently smokes. , has 11 children, d aughters Krystle and Wanda involved in her care. She lives with 14 year old great grand daughter. History of alcohol abuse started at 16 yrs old, 12 beers a day, quit four years ago. Started smoking at 16y.o 1-2ppd, currently smokes. Problems Problem Type SNOMED Code ICD Code Onset Dates Problem Status W/U Status Risk Notes Problem Post-traumatic stress disorder (47580948) Post-traumatic stress disorder, unspecified (F43.10) Inactive confirmed Problem Tobacco user (603116252) Nicotine dependence, cigarettes, uncomplicated (F17.210) Inactive confirmed Problem Anemia (245173883) Anemia, unspecified (D64.9) Inactive confirmed Problem Generalized anxiety disorder (85555745) Generalized anxiety disorder (F41.1) Active confirmed Problem Chronic alcoholism in remission (800574239) Alcohol dependence in remission (F10.21) Active confirmed Problem Hypertension (70983178) HTN (hypertension) (I10) Active confirmed Problem Slow transit constipation (39033331) Slow transit constipation (K59.01) Inactive confirmed Problem SI - Stress incontinence (85719898) Stress incontinence (female) (male) (N39.3) Active confirmed Problem Annual health maintenance examination (00547354) Annual physical exam (Z00.00) Active confirmed Problem Primary generalised osteoarthritis (633495484) Primary generalized (osteo)arthritis (M15.0) Active confirmed Problem Old myocardial infarction (3619941) History of OK (myocardial infarction) (I25.2) Active confirmed Problem Illiteracy (604644745) Illiteracy (Z55.0) Active confirmed Problem Old myocardial infarction (7809665) Myocardial infarct, old (I25.2) Inactive confirmed Problem Age-related osteoporosis (510930728) Osteoporosis with symptom management only (M81.0) Inactive confirmed Problem Chronic insomnia (934782477) Chronic insomnia (F51.04) Active confirmed Problem Edema (82573170) Edema, unspecif ied (R60.9) Inactive confirmed Problem Callosity (773784758) Corns and callosities (L84) Active confirmed Problem Pain in left foot (950769156767124) Pain in left foot (M79.672) Inactive confirmed Problem Insomnia disorder related to another mental disorder (91010056) Insomnia due to other mental disorder (F51.05) Inactive confirmed Problem Pain in right foot (749903935250655) Pain in right foot (M79.671) Inactive confirmed Problem Tobacco user (061233622) Cigarette nicotine dependence without complication (F17.210) Active confirmed Problem Insomnia (113740520) Other insomnia (G47.09) Inactive confirmed Problem Onychogryphosis (16251211) 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) Active confirmed Problem Chronic pain (88450500) Other chronic pain (G89.29) Active confirmed Problem COPD - Chronic obstructive pulmonary disease (38734356) Chronic obstructive pulmonary disease, unspecified COPD type (J44.9) Active confirmed Problem Posttraumatic stress disorder (79477403) Chronic post-traumatic stress disorder (PTSD) (F43.12) Active confirmed Problem Osteoarthritis of multiple joints (874119535) Osteoarthritis of multiple joints, unspecified osteoarthritis type (M15.9) Inactive confirmed Problem Mild recurrent major depression (53756778) Mild episode of recurrent major depressive disorder (F33.0) Inactive confirmed Problem Flatulence, eructation and gas pain (120520403) Excessive gas (R14.3) Active confirmed Problem Chronic constipation (835383906) Chronic constipation (K59.09) Active confirmed Problem Recurrent major depression in remission (69578209) MDD (major depressive disorder), recurrent, in partial remission (F33.41) Active confirmed Problem BMI less than 20 (207068696) Body mass index (BMI) less than 19 (Z68.1) Active confirmed Problem Age-related osteoporosis (784463029) Osteoporosis without current pathological fracture, unspecified osteoporosis type (M81.0) Active confirmed Problem Nondependent alcohol abuse in remission (935635656) H/O ETOH abuse (F10.11) Inactive confirmed Problem Gastroesophageal reflux disease with esophagitis (disorder) (676064755) Gastroesophageal reflux disease with esophagitis, unspecified whether hemorrhage (K21.00) Active confirmed Vital Signs Heart Rate 80 /min 11/24/2024 unable to get O 2 sat due to nail georgian Temperature 98.2 degrees Fahrenheit 11/24/2024 unab le to get O2 sat due to nail georgian Respiratory Rate 18 /min 11/24/2024 unable to g et O2 sat due to nail georgian Height-cm 147.32 cm 11/24/2024 unable to get O 2 sat due to nail georgian Blood pressure diastolic 60 mm Hg 11/24/2024 lawrence ble to get O2 sat due to nail georgian Weight-kg 40.82 kg 11/24/2024 unable to get O 2 sat due to nail georgian Height 58 in 11/24/2024 unable to get O 2 sat due to nail georgian Blood pressure systolic 122 mm Hg 11/24/2024 unab le to get O2 sat due to nail georgian Weight 90 lbs 11/24/2024 unable to get O 2 sat due to nail georgian BMI 18.81 kg/m2 11/24/2024 unable to get O 2 sat due to nail georgian Encounters Encounter Location Date Provider Diagnosis [facility] [address] [place] [address] 11/24/2024 Delia Sutton HTN (hypertension) I 10 [...] F17.210 ; Illiteracy Z55.0 ; History of OK (myocardial infarction) I25.2 ; Body mass index (BMI) less than 19 Z68.1 ; Onychogryphosis L60.2 ; Corns and callosities L84 ; Primary generalized (osteo)arthritis M15.0 ; Chronic post-traumatic stress disorder (PTSD) F43.12 ; MDD (major depressive disorder), recurrent, in partial remission F33.41 ; Annual physical exam Z00.00 ; Chronic insomnia F51.04 and Excessive gas R14.3 [facility] (Closed) [address] [place] [address] 05/15/2025 Operations Clinical [place] [address] 08/16/2025 Operations Clinical Assessments Encounter Date Diagnosis (ICD Code) Assessment Notes Treatment Notes Treatment Clinical Notes Section Notes 11/24/2024 HTN (hypertension) (ICD-10 - I10) h/o OK- many years ago per Krystle and . WNL's today Encourage low sodium diet Monitor Denies CP/pressure/dizzine ss/CLEMENTS/acute vision changes. Regular BP, lipid, and renal testing. Keep NSAIDS at a minimum. Maintain healthy BMI. Encourage nonpharmacologic Therapies such as stress reduction, low Na+ DASH diet, encourage smoking cessation & encourage ETOH abstinence, weight loss and regular exercise as tolerated. Counseled re: FAST(Face, Arm, Speech, Time)/Tia symptoms; Call 911 11/24/2024 Other chronic pain (ICD-10 - G89.29) primary generalized OA Advised exercise, gentle stretching as tolerated, heat, ice, topicals and maintain a healthy body weight. Consider complementary and alternative therapies. F/u with Ortho prn. 11/24/2024 Osteoporosis without current pathological fracture, unspecified osteoporosis type (ICD-10 - M81.0) Encourage adequate calcium and vitamin D, regular weight bearing exercise, encourage smoking cessation, counseling on fall prevention 11/24/2024 Generalized anxiety disorder (ICD-10 - F41.1) 11/24/2024 Gastroesophageal reflux disease with esophagitis, unspecified [...] with PCP office if no BM today. 11/24/2024 Chronic obstructive pulmonary disease, unspecified COPD type (ICD-10 - J44.9) member reports PCP told her she doesn't need an inhaler now. Denies SOB Encourage smoking cessation Monitor at each encounter for exacerbating symptoms, increased dyspnea, cough, sputum. Stay UTD with immunizations 11/24/2024 Stress incontinence (female) (male) (ICD-10 - N39.3) Monitor for worsening symtpoms, skin integrity and s/s's of UTI. 11/24/2024 Alcohol dependence in remission (ICD-10 - F10.21) continue remission 11/24/2024 Cigarette nicotine dependence without complication (ICD-10 - F17.210) Encourage smoking cessation Care team to support 11/24/2024 Illiteracy (ICD-10 - Z55.0) Daughter and grandson assist where needed. 11/24/2024 History of OK (myocardial infarction) (ICD-10 - I25.2) 11/24/2024 Body mass index (BMI) less than 19 (ICD-10 - Z68.1) Member admits to loss of appetite sometimes. Weight tracked at [facility] Encourage Ensure or other weight gaining tools. 11/24/2024 Onychogryphosis (ICD-10 - L60.2) corns and callosities Member had f/u with Podiatry this month Monitor 11/24/2024 Corns and callosities (ICD-10 - L84) 11/24/2024 Primary generalized (osteo)arthritis (ICD-10 - M15.0) 11/24/2024 Chronic post-traumatic stress disorder (PTSD) (ICD-10 - F43.12) 11/24/2024 MDD (major depressive disorder), recurrent, in partial remission (ICD-10 - F33.41) BOB Chronic PTSD Member doing well with support and ADH 5 times a week. Monitor. 11/24/2024 Annual physical exam (ICD-10 - Z00.00) 11/24/2024 Chronic insomnia (ICD-10 - F51.04) Member reports managed well with medication Encourage sleep hygiene. 11/24/2024 Excessive gas (ICD-10 - R14.3) Member uses medication prn with good results. Monitor Plan Of Treatment Pending Test Test Name Order Date MDS assessment 02/22/2014 MDS assessment 02/01/2015 MDS assessment 02/08/2016 Insurance Providers Payer Name Payer Address Payer Phone Subscriber Number Group Number Insured Name Patient Relationship to Insured Coverage Start Date Coverage End Date [facility] [employer] ([id number]) [id number] [facility] [address] [place] [address] [id number] Cielo Ochoa Self - patient is the [...] Microscopic hematuria R31.29 Surgical History Surgery Date(Month/Year) [facility]: Back surgery 2008 [place]: Appendectomy 2010 [facility]: right foot bunionectomy 2009 hysterectomy 1994 cataract sx right eye with Dr Bowen 10/24 cataract sx left eye with Dr Bowen 5 Colpocleisis, anterior colpo rrhaphy, levator myorrhaphy, rectocele repair, midurethral sling, and cystoscopy. 03/01/18 Hospitalization History Reason Date(Month/Year) [place] 05/2013 [place] 03/2013 for Prolapse and incontinence repair at [facility]. 03/01/18 denies any hospitalizations in the last 6 mo 01/26/2017
== END 2025-09-12 11:33 | disposition home or self-care (01) ==
LOC: HO.HGI 10:53
PROVIDERS: Visit Provider Nurse Practitioner
DX: K21.9 Gastro-esophageal reflux disease without esophagitis (principal); K59.04 Chronic idiopathic constipation; R14.0 Abdominal distension (gaseous)
CPT/HCPCS: 99213

== ENCOUNTER → 2025-09-12 10:52 | Outpatient (BNVA) | payer OTHER, SELFPAY | PROVIDERS: Visit Provider Nurse Practitioner | DX: K21.9 Gastro-esophageal reflux disease without esophagitis (principal); K59.04 Chronic idiopathic constipation; R14.0 Abdominal distension (gaseous); K58.1 Irritable bowel syndrome with constipation | CPT/HCPCS: 99212 ==

== ENCOUNTER 2025-10-24 10:00 | Outpatient (REF) | payer OTHER, SELFPAY ==
--- NOTE | ~2025-10-24 | US_ITS ---
CLINICAL HISTORY: R14.0 - Abdominal distension (gaseous) US abdomen complete Comparison: CT/REG/SR - CT ABDOMEN PELVIS WO IV CON - 06/11/23 23:34 EDT Findings: Atrophic pancreas is not well seen. The visualized aorta and inferior vena cava are normal caliber. Atherosclerotic changes of the abdominal aorta noted. Right common iliac artery is small with calcified atherosclerotic change, no intraluminal color flow by Doppler, patent image segment of the left common iliac artery. The liver is normal in size, right lobe length is 13.2 cm. Liver parenchyma is normal in echogenicity, diffusely coarsened echotexture, no focal lesion is seen. No intrahepatic bile duct dilatation. The common duct is dilated up to 11 mm in diameter, unchanged when compared to prior CT exam, no choledocholithiasis is seen. Status post cholecystectomy. The main portal vein is patent with antegrade flow. The right kidney is small, 7.6 cm in length, normal in echogenicity, no obvious cortical thinning, simple cysts 2.5 cm in the midpole, 3.7 cm in the lower pole, no calculus or hydronephrosis. The left kidney is borderline small, 8.9 cm in length, normal in echogenicity, no obvious cortical thinning, simple cysts 1.1 cm in the upper pole. No calculus or hydronephrosis. The spleen is not well visualized due to limited acoustic window, the visualized portion appears normal in size, 6.6 cm in length. No free fluid in the abdomen. Impression: 1. 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 Recommend comparison with previous exam if available or further evaluation by CTA if this was not worked up before. 2. Stable dilated common bile duct is non-specific in the setting of post cholecystectomy, please correlate with LFT. 3. Coarsened echotexture of liver parenchyma, non-specific but can be seen in parenchymal liver disease, no hepatic lesion is seen. 4. Bilateral renal cysts. This document has been electronically signed by: Natalia Flanagan MD on 10/25/2025 15:53:33
--- OUTSIDE RECORDS SUMMARY | 2025-10-24 10:58 | XMS_ITS | Clinical Summary ---
Author Organization [facility] Address [address] [place] [address] Phone Care Team Providers Care Gas Meter Installer Helper Name Role Phone Physician, No Pcp Primary Care Provider Unavaila ble Allergies Active Allergy Reactions Criticality Noted Date Comments Iodinated Contrast Media 07/31/2025 Oxycodone 07/31/2025 Encounters Date Type Department Care Team Description 07/31/2025 11:56 PM EDT - 08/01/2025 1:50 AM EDT Emergency [facility] Emergency [address] [place] [address] Kavita Toribio MD Other constipation [...] on file Sexual Orientation Not on file Last Filed Vital Signs Vital Sign Reading [...] M.D. on 08/01/2025 01:28:32 Kavita Toribio MD IMG CT PROCEDURES Final Result * (ABNORMAL) CBC auto differential (07/31/2025 10:00 PM EDT) WBC 10.6 4.8 - 10.8 K/mcL LAB [facility] RBC 3.90 3.80 - 4.80 M/mcL LAB HEMETOLOGY METHOD 07/31/[facility]25 10:[facility] Hemoglobin 11.1(L) 11.5 - 16.0 g/dL LAB HEMETOLOGY METHOD 07/31/2025 10:[facility] Hematocrit 30.7(L) 35.0 - 47.0 % LAB HEMETOLOGY METHOD 07/31/2025 10:[facility] MCV 77.9(L) 79.0 - 98.0 FL LAB HEMETOLOGY METHOD 07/31/2025 10:14 PM [facility] MCH 28.2 27.0 - 32.0 pcg LAB HEMETOLOGY METHOD 07/31/2025 10:14 PM EDT [facility] MCHC 36.2 32.0 - 37.0 g/dL LAB HEMETOLOGY METHOD 07/31/2025 10:14 PM [facility] RDW 15.0 11.0 - 15.0 % LAB HEMETOLOGY METHOD 07/31/2025 10:14 PM [facility] Platelets 304 130 - 400 K/mcL LAB HEMETOLOGY METHOD 07/31/2025 10:14 PM [facility] MPV 8.8 7.0 - 11.0 FL LAB HEMETOLOGY METHOD 07/31/2025 10:14 PM [facility] NRBC 0.0 <1.0 % LAB HEMETOLOGY METHOD 07/31/2025 10:14 PM [facility] NRBC Absolute 0.00 <0.10 K/mcL LAB HEMETOLOGY METHOD 07/31/2025 10:14 PM [facility] Neutrophils Relative 60.7 % LAB HEMETOLOGY METHOD 07/31/2025 10:14 PM [facility] Lymphocytes Relative 27.1 % LAB HEMETOLOGY METHOD 07/31/2025 10:14 PM [facility] Monocytes Relative 6.6 % LAB HEMETOLOGY METHOD 07/31/2025 10:14 PM [facility] Eosinophils Relative 4.6 % LAB HEMETOLOGY METHOD 07/31/2025 10:14 PM [facility] Basophils Relative 0.6 % LAB HEMETOLOGY METHOD 07/31/2025 10:14 PM [facility] Immature Granulocytes Relative 0.4 % LAB HEMETOLOGY METHOD 07/31/2025 10:14 PM [facility] Neutrophils Absolute 6.45 1.50 - 7.00 K/mcL LAB HEMETOLOGY METHOD 07/31/2025 10:14 PM [facility] Lymphocytes Absolute 2.88 1.00 - 5.00 K/mcL LAB HEMETOLOGY METHOD 07/31/2025 10:14 PM EDT [facility] Monocytes Absolute 0.70 0.20 - 1.00 K/mcL LAB HEMETOLOGY METHOD 07/31/2025 10:14 PM EDT [facility] Eosinophils Absolute 0.49 0.00 - 0.50 K/[facility] LAB HEMETOLOGY METHOD 07/31/2025 10:14 PM EDT [facility] Basophils Absolute 0.06 0.00 - 0.20 [facility] HEMETOLOGY METHOD 07/31/2025 10:14 PM EDT [facility] Immature Granulocytes Absolute 0.04(H) 0.00 - 0.03 [facility] HEMETOLOGY METHOD 07/31/2025 10:14 PM EDT [facility] Blood Venous blood specimen / Unknown Venipuncture / Unknown 07/31/2025 10:00 PM EDT 07/31/2025 10:04 PM EDT us Kavita Toribio MD LAB BLOOD ORDERABLES Final Resul t Performing Organization Address [facility]/ZIP Co de Phone Number [facility] [address] [place] [address], * Lipase (07/31/2025 10:00 PM EDT) Lipase 28 13 - 75 unit/L LAB CHEMISTRY METHOD 07/31/2025 10:32 PM EDT [facility] Blood Venous blood specimen / Unknown Venipuncture / Unknown 07/31/2025 10:00 PM EDT 07/31/2025 10:04 PM EDT us Kavita Toribio MD LAB BLOOD ORDERABLES Final Resul t [facility] [address] [place] [address], [place] [phone] * (ABNORMAL) Comprehensive metabolic panel (07/31/2025 10:00 PM EDT) Sodium 132(L) 133 - 145 mmol/L LAB CHEMISTRY METHOD 07/31/2025 10:32 PM [facility] Potassium 4.2 3.5 - 5.5 mmol/L LAB CHEMISTRY METHOD 07/31/2025 10:32 PM [facility] Chloride 97 96 - 110 mmol/L LAB CHEMISTRY METHOD 07/31/2025 10:32 PM [facility] CO2 30 21 - 32 mmol/L LAB CHEMISTRY METHOD 07/31/2025 10:32 PM [facility] Anion Gap 5 3 - 11 LAB CHEMISTRY METHOD 07/31/2025 10:32 PM [facility] Glucose 98 70 - 100 mg/dL LAB CHEMISTRY METHOD 07/31/2025 10:32 PM [facility] BUN 12 5 - 25 mg/dL LAB CHEMISTRY METHOD 07/31/2025 10:32 PM [facility] Creatinine 0.85 0.50 - 1.10 mg/dL LAB CHEMISTRY METHOD 07/31/2025 10:32 PM [facility] eGFR 68 >=60 mL/min/1. 73m2 LAB CHEMISTRY METHOD 07/31/2025 10:32 PM [facility] Comment:Calculation based on the Chronic Kidney Disease Epidemiology Collaboration (CKD-EPI) equation refit without adjustment for race. BUN/Creatinine Ratio 14.1 LAB CHEMISTRY METHOD 07/31/2025 10:32 PM [facility] Calcium 9.6 8.5 - 10.5 mg/dL LAB CHEMISTRY METHOD 07/31/2025 10:32 PM [facility] AST (SGOT) 22 10 - 42 unit/L LAB CHEMISTRY METHOD 07/31/2025 10:32 PM EDT [facility] ALT (SGPT) 16 10 - 60 unit/L LAB CHEMISTRY METHOD 07/31/2025 10:32 PM EDT [facility] Alkaline Phosphatase 87 42 - 121 unit/L LAB CHEMISTRY METHOD 07/31/2025 10:32 PM EDT [facility] Total Protein 7.2 6.0 - 8.0 g/dL LAB CHEMISTRY METHOD 07/31/2025 10:32 PM EDT [facility] Albumin 4.0 3.2 - 5.0 g/dL LAB CHEMISTRY METHOD 07/31/2025 10:32 PM T [facility] Total Bilirubin 0.3 0.0 - 1.4 mg/dL LAB CHEMISTRY METHOD 07/31/2025 10:32 PM EDT [facility] Blood Venous blood specimen / Unknown Venipuncture / Unknown 07/31/2025 10:00 PM EDT 07/31/2025 10:04 PM EDT us Kavita Toribio MD LAB BLOOD ORDERABLES Final Resul t [facility] [address] [place] [address], from Last 3 Months Insurance MEDICAID - [place] [facility] MEDICARE Member Subscriber Plan / Payer (Ef fective 2013-Present) Name:Cielo Duran Relation to Subscriber:Self Name:Cielo Duran Payer ID:[id number] Group ID:[id number] Type:Not on file Address: [address] [place] [id number] MEDICARE Care Teams Gas Meter Installer Helper Relationship Specialty Start Date End Date Physician, No Pcp PCP - General 08/01/25
--- OUTSIDE RECORDS SUMMARY | 2025-10-24 10:58 | XMS_ITS | Patient Health Record ---
Author Organization [facility] liance Address [address] [place] [address] Care Team Providers Care Prism Measurer Name Role Phone Laurie Ley Primary Care Provider UnavailMiya Howard Unavailable [phone] Clinical, Operations Unavailable Unavailable Delia Sutton Unavailable [phone] Allergies Allergen (clinical drug ingredient) Drug/Non Drug [...] a day As needed 08/16/2025 Active Calcitonin (Marne) 200 UNIT/ML 1 spray in 1 nostril, [...] 1-2ppd, currently smokes 2/day. Services in place: [employer] gran daughter Cielo Gaines 12 hrs weekly. , has 11 children, daughters Krystle and Wanda involved in her care. She lives with 16 year old great grand daughter. History of alcohol abuse started at 16 yrs old, 12 beers a day, quit >20 years ago. Started smoking at 16y.o hx 1-2ppd, currently smokes 2/day. Services in place: [facility] Cielo Capa: 12 hrs weekly. , has 11 children, daughters Krystle and Wanda involved in her care. She lives with 16 year old great grand daughter. History of alcohol abuse started at 16 yrs old, 12 beers a day, quit >20 years ago. Started smoking at 16y.o hx 1-2ppd, currently smokes 2/day. Services in place: [facility] Cielo Capa: 12 hrs weekly. , has 11 children, daughters Krystle and Wanda involved in her care. She lives with 16 year old great grand daughter. History of alcohol abuse started at 16 yrs old, 12 beers a day, quit >20 years ago. Started smoking at 16y.o hx 1-2ppd, currently smokes 2/day. Services in place: [facility] Cielo Capa: 12 hrs weekly. , has 11 children, daughters Krystle and Wanda involved in her care. She lives with 17 year old great grand daughter. History of alcohol abuse started at 16 yrs old, 12 beers a day, quit >20 years ago. Started smoking at 16y.o hx 1-2ppd, currently smokes 2/day. Services in place: [facility] Cielo Capa: 15 hrs weekly. , has 11 children, daughters Krystle and Wanda involved in her care. She lives with 17 year old great grand daughter. History of alcohol abuse started at 16 yrs old, 12 beers a day, quit >20 years ago. Started smoking at 16y.o hx 1-2ppd, currently smokes 2/day. Services in place: [facility] Cielo Capa: 15 hrs weekly. , has 11 children, daughters Krystle and Wanda involved in her care. She lives with 17 year old great grand daughter. History of alcohol abuse started at 16 yrs old, 12 beers a day, quit >20 years ago. Started smoking at 16y.o hx 1-2ppd, currently smokes 2/day. Services in place: [facility] Cielo Capa: 15 hrs weekly. , has 11 children, daughters Krystle and Wanda involved in her care. She lives with 17 year old great grand daughter. History of alcohol abuse started at 16 yrs old, 12 beers a day, quit >20 years ago. Started smoking at 16y.o hx 1-2ppd, currently smokes 2/day. [facility]: [facility] hrs weekly.\ , has 11 children, daughters Krystle and Wanda involved in her care. She lives with 17 year old great grand daughter. History of alcohol abuse started at 16 yrs old, 12 beers a day, quit >20 years ago. Started smoking at 16y.o hx 1-2ppd, currently smokes 4/day. Services in place: [facility] pili , has 11 children, daughters Krystle and Wanda involved in her care. She lives with 16 year old great grand daughter. History of alcohol abuse started at 16 yrs old, 12 beers a day, quit >20 years ago. Started smoking at 16y.o hx 1-2ppd, currently smokes 2/day. Services in place: [facility] latonya gee Cielo Capa 12 hrs weekly. , has 11 children, daughters Krystle and Wanda involved in her care. She lives with 16 year old great grand daughter. History of alcohol abuse started at 16 yrs old, 12 beers a day, quit >20 years ago. Started smoking at 16y.o hx 1-2ppd, currently smokes 2/day. Services in place: [facility] latonya gee Cielo Capa 12 hrs weekly. , has 11 children, daughters Krystle and Wanda involved in her care. She lives with 16 year old great grand daughter. History of alcohol abuse started at 16 yrs old, 12 beers a day, quit >20 years ago. Started smoking at 16y.o hx 1-2ppd, currently smokes 2/day. Services in place: [facility] Cielo Capa: 12 hrs weekly. , has 11 children, daughters Krystle and Wanda involved in her care. She lives with 16 year old great grand daughter. History of alcohol abuse started at 16 yrs old, 12 beers a day, quit >20 years ago. Started smoking at 16y.o hx 1-2ppd, currently smokes 2/day. Services in place: [facility] Cielo Capa: 12 hrs weekly. Problems Problem Type SNOMED Code ICD Code Onset Dates Problem Status W/U Status Risk Notes Problem Post-traumatic stress disorder (22790401) Post-traumatic stress disorder, unspecified (F43.10) Inactive confirmed Problem Tobacco user (526690706) Nicotine dependence, cigarettes, uncomplicated (F17.210) Inactive confirmed Problem Anemia (732216539) Anemia, unspecified (D64.9) Inactive confirmed Problem Generalized anxiety disorder (55369382) Generalized anxiety disorder (F41.1) Active confirmed Problem Chronic alcoholism in remission (009144923) Alcohol dependence in remission (F10.21) Active confirmed Problem Hypertension (92234313) HTN (hypertension) (I10) Active confirmed Problem Slow transit constipation (36630487) Slow transit constipation (K59.01) Inactive confirmed Problem SI - Stress incontinence (26059471) Stress incontinence (female) (male) (N39.3) Active confirmed Problem Annual health maintenance examination (73029487) Annual physical exam (Z00.00) Active confirmed Problem Primary generalised osteoarthritis (588975976) Primary generalized (osteo)arthritis (M15.0) Active confirmed Problem Old myocardial infarction (8399904) History of GA (myocardial infarction) (I25.2) Active confirmed Problem Illiteracy (383700658) Illiteracy (Z55.0) Active confirmed Problem Old myocardial infarction (1645339) Myocardial infarct, old (I25.2) Inactive confirmed Problem Age-related osteoporosis (667653918) Osteoporosis with symptom management only (M81.0) Inactive confirmed Problem Chronic insomnia (562560186) Chronic insomnia (F51.04) Active confirmed Problem Edema (49472599) Edema, unspecif ied (R60.9) Inactive confirmed Problem Callosity (814897649) Corns and callosities (L84) Active confirmed Problem Pain in left foot (390430814184979) Pain in left foot (M79.672) Inactive confirmed Problem Insomnia disorder related to another mental disorder (78190456) Insomnia due to other mental disorder (F51.05) Inactive confirmed Problem Pain in right foot (482264938418127) Pain in right foot (M79.671) Inactive confirmed Problem Tobacco user (012809668) Cigarette nicotine dependence without complication (F17.210) Active confirmed Problem Insomnia (604277884) Other insomnia (G47.09) Inactive confirmed Problem Onychogryphosis (64277394) 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) Active confirmed Problem Chronic pain (03311879) Other chronic pain (G89.29) Active confirmed Problem COPD - Chronic obstructive pulmonary disease (85766399) Chronic obstructive pulmonary disease, unspecified COPD type (J44.9) Active confirmed Problem Posttraumatic stress disorder (73247545) Chronic post-traumatic stress disorder (PTSD) (F43.12) Active confirmed Problem Osteoarthritis of multiple joints (183739273) Osteoarthritis of multiple joints, unspecified osteoarthritis type (M15.9) Inactive confirmed Problem Mild recurrent major depression (92466727) Mild episode of recurrent major depressive disorder (F33.0) Inactive confirmed Problem Flatulence, eructation and gas pain (665301650) Excessive gas (R14.3) Active confirmed Problem Chronic constipation (166420725) Chronic constipation (K59.09) Active confirmed Problem Recurrent major depression in remission (88141285) MDD (major depressive disorder), recurrent, in partial remission (F33.41) Active confirmed Problem BMI less than 20 (352344795) Body mass index (BMI) less than 19 (Z68.1) Active confirmed Problem Age-related osteoporosis (766357001) Osteoporosis without current pathological fracture, unspecified osteoporosis type (M81.0) Active confirmed Problem Nondependent alcohol abuse in remission (761177931) H/O ETOH abuse (F10.11) Inactive confirmed Problem Gastroesophageal reflux disease with esophagitis (disorder) (297104019) Gastroesophageal reflux disease with esophagitis, unspecified whether hemorrhage (K21.00) Active confirmed Vital Signs Heart Rate 80 /min 11/24/2024 unable to get O 2 sat due to nail sao tomean Temperature 98.2 degrees Fahrenheit 11/24/2024 unab le to get O2 sat due to nail sao tomean Respiratory Rate 18 /min 11/24/2024 unable to g et O2 sat due to nail sao tomean Height-cm 147.32 cm 11/24/2024 unable to get O 2 sat due to nail sao tomean Blood pressure diastolic 60 mm Hg 11/24/2024 lawrence ble to get O2 sat due to nail sao tomean Weight-kg 40.82 kg 11/24/2024 unable to get O 2 sat due to nail sao tomean Height 58 in 11/24/2024 unable to get O 2 sat due to nail sao tomean Blood pressure systolic 122 mm Hg 11/24/2024 unab le to get O2 sat due to nail sao tomean Weight 90 lbs 11/24/2024 unable to get O 2 sat due to nail sao tomean BMI 18.81 kg/m2 11/24/2024 unable to get O 2 sat due to nail sao tomean Encounters Encounter Location Date Provider Diagnosis [facility] [address] [place] [address] 11/24/2024 Delia Sutton HTN (hypertension) I 10 [...] F17.210 ; Illiteracy Z55.0 ; History of GA (myocardial infarction) I25.2 ; Body mass index (BMI) less than 19 Z68.1 ; Onychogryphosis L60.2 ; Corns and callosities L84 ; Primary generalized (osteo)arthritis M15.0 ; Chronic post-traumatic stress disorder (PTSD) F43.12 ; MDD (major depressive disorder), recurrent, in partial remission F33.41 ; Annual physical exam Z00.00 ; Chronic insomnia F51.04 and Excessive gas R14.3 [employer] [place] [address] 08/16/2025 Operations Clinical [facility] (Closed) [address] [place] [address] 05/15/2025 Operations Clinical Assessments Encounter Date Diagnosis (ICD Code) Assessment Notes Treatment Notes Treatment Clinical Notes Section Notes 11/24/2024 HTN (hypertension) (ICD-10 - I10) h/o GA- many years ago per Krystle and . [...] grandson assist where needed. 11/24/2024 History of GA (myocardial infarction) (ICD-10 - I25.2) 11/24/2024 Body mass index (BMI) less than 19 (ICD-10 - Z68.1) Member admits to loss of appetite sometimes. Weight tracked at [facility] Encourage Ensure or other weight gaining tools. [...] Insured Coverage Start Date Coverage End Date [facility] [employer] ([id number]) [address] [place] [address] [id number] Cielo Ochoa Self - patient is the [...] Microscopic hematuria R31.29 Surgical History Surgery Date(Month/Year) [facility]: Back surgery 2008 [place]: Appendectomy 2010 [facility]: right foot bunionectomy 2009 hysterectomy 1994 cataract sx right eye with Dr Bowen 10/24 cataract sx left eye with Dr Bowen 5 Colpocleisis, anterior colpo rrhaphy, levator myorrhaphy, rectocele repair, midurethral sling, and cystoscopy. 03/01/18 Hospitalization History Reason Date(Month/Year) [place] 05[place] 03[place]2013 for Prolapse and incontinence repair at [facility]. 03/01/18 denies any hospitalizations in the last 6 mo 01/26/2017
--- OUTSIDE RECORDS SUMMARY | 2025-10-24 10:58 | XMS_ITS | Data Portability ---
Author Organization [facility], [facility] Address [address] [place] [phone] Care Team Providers Care Geodetic Technician Name Role Phone HIM CCA OTHER Assessment Encounter Date Assessment Date Assessment LastModified by Organization Details LastModified Time 05/09/2024 05/09/2024 I provided real -time medical direction via phone for this encounter, and was available for additional phone based assistance as needed. I have reviewed and agree with the Assessment and Plan as documented by the Clerk Of Works. We discussed the diagnostic uncertainty of home visits and the risk associated with this. I explained to the patient with no prior EKGs to compare in the old record cannot rule out acute ischemia. The patient given the opportunity to ask questions. [email or web address] Not available 05/10/2024 13:53:51 Plan of Treatment Reminders Order Date Submit Date Provider Last Modified By Organization Details Last Modified Time Details Appointments None recorded. Lab None recorded. Referral None recorded. Procedures None recorded. Surgeries None recorded. Imaging electrocard iogram 2023 [email or web address], [phone] 13:56:29 Medication Orders None recorded. Patient TargetsNo targets recorded. Patient InstructionsNo instructions recorded. Reason for Referral None Reported. Results Created Date Observation Date Name Description Value Unit Range Abnormal Flag Note LastModifiedBy Organization Detail LastModifiedTime 05/09/20 24 05/10/2024 elect sebas changr am No observ ation record ed. [email or web address] [address], [phone] 05/10/2024 13:56:27 Result Notes None recorded. Medical Equipment None Reported. Allergies Allergen ID Allergen Name Allergen Category Reaction Reaction Severity Criticality Documentation Date Start Date Code Code System Note Provider Name and Address Organization Details Recorded Time 5305 oxycodone medicatio n Not available Not available Not available 05/09/2024 7804 RxNorm and perco cet Cheryl Olsen MD [address], [place], [phone], [employer] 4 11:41:43 5346 Iodinated contrast media (substanc e) medicatio n Not available Not available Not available 05/09/2024 68341 2004 SNOMED Cheryl Olsen MD [address], [place], [phone], [employer] 4 11:41:56 Medications Name Sig Start Date [...] t Available Vitals Date Recorded Oxygen saturation Body weight Body temperature Respiratory rate Heart rate Systolic And Diastolic Provider Name and Address Organization Details Last Updated DateTime 4 99 % 50120.4 64 g 97.8 [degF] 16 /min 64 /min 100/60 mm[Hg] Not Available [employer] 4 10:48:12 Date Recorded Body weight Body temperature Respiratory rate Heart rate Oxygen saturation Body height Systolic And Diastolic Provider Name and Address Organization Details Last Updated DateTime 4 93275.2 8 g 98.1 [degF] 18 /min 65 /min 98 % 144.78 cm 129/69 mm[Hg] Not Available [employer] 4 11:35:29 Social History None recorded. Functional Status None recorded. Mental Status None recorded. Family History Nothing Reported. Medical History No medical history recorded. Gynecological HistoryNo gynecological history recorded. Obstetrics History GPAL:G 0 P 0 0 0 0 Past Encounters Encounter ID Performer Location Encounter Start Date Encounter Closed Date Diagnosis/Indication Diagnosis SNOMED-CT Code Diagnosis ICD10 Code Diagnosis IMO Codes Diagnosis Note [id number] Vanesa Cardona MD [facility] [address] [place] [phone] 04/21/2024 10:48:07 04/21/2024 20:30:34 Hordeolum externum of upper eyelid of right eye [id number] 77894 H00.011 As noted, we were called to see this patient regarding concerns of eye itching. Evaluation in the field was performed by my machine operator packaging colleague, as noted above, I provided real-time [...] chills, chest pain, dyspnea, changes to vision. [id number] Cheryl Olsen MD [facility] [address] [place] [phone] 05/09/2024 11:35:26 05/11/2024 19:44:25 Pain in right arm [id number] M79.601 and left upper back pain-likel y [...] Kincaid Member ID Guarantor Name 05/09/2024 1 [facility] - DOS ON OR AFTER 2023 - DUAL ELIGIBLE - DETENTION OPTIONS AND ONE CARE (MEDICARE REPLACEMENT/ADV ANTAGE - HMO) Cielo Ochoa [id number] Cielo Ochoa Notes Date Note Type Note Provider Name and Address Organization Details Recorded Time 04/21/2024 text/html CRC Nurse Triage Notes (Melanie Alston): Reason For Request: eye is red/poss stye Chief Complaints: Pain PMH: COPD/Asthma, Hypertension Comments: [employer] verified the member's name//address and phone number.Member reports that L eye redness x2-3 days. Reports that it has worsened. Inc swelling. Denies pain. Denies drainage. Denies fevers, chest pain or SOB. Education provided on the response time and the member was advised to monitor reported s/s and seek emergency treatment if needed. .................. .................. .................. .................. .................. .................. .................. ............... Clerk Of Works Note From Jose Manuel Rogers: Pt co sty like bump white in color on eye lid. Denies redness or drainage to right eye itself. Pt sts has some itching but no pain. Denies cp sob rash/hives or NVd. Baseline vitals assessed. Eye assessment, two white heads on edge of eye lid. Afebrile. [facility] [place] [place] contacted and advised hot compresses over next few days. If worsen advised to contact pcp or go to ER. Pt education on signs indicating the ER. .................. .................. .................. .................. .................. .................. .................. ............... Disposition: Fulfilled Vanesa Cardona MD [address] [place] [address],[address], [place], [phone], [employer] 04/21/2024 10:58:04 05/09/2024 text/html ROS as noted [...] unsure if this contributed to aggravating arm. Clerk Of Works POC Test Results from Joanie Hoffman - [facility] EKG (1) [11:54] EKG test performed. Attachments uploaded as part of this test result can be found under Documents section. .................. .................. .................. .................. .................. .................. .................. ............... Clerk Of Works Note From Dalton Joanie: Sent to a call for a pt complaining of right arm pain. [facility] arrives on scene, pt is alert and oriented, airway is patent. Pt's primary language is Irish. Pt's family serves as representative government relations during part of the visit, then representative government relations line used. Pt complains or right elbow/dorsal [...] no tenderness noted; Skin: pink, warm, dry; [facility] [place] [place] consulted and pt reports slight, non-radiating pain midline base of neck when turning head side to side. Pt states she is allergic to Oxycodone, Percocet, and Contrast Dye. Pt denies history of kidney disease, ulcers, GI bleeds, or being on blood thinners. Pt states she is not interested in a Toradol injection. [facility] [place] [place] orders 12 lead ECG. 12 lead ECG uploaded to [employer]. [facility] [place] [place] advises pt transport to ED for further eval/treatment due to abnormal ECG. Pt has no previous copies of ECG on hand. Pt agrees to transport to [facility] ED. 911 called; [facility] [place] [place] calls report to [facility]; Pt care transferred to [facility]. .................. .................. .................. .................. .................. .................. .................. ............... Disposition: FulfilledSEGMD: Patient denies any strenuous activity yesterday prior to onset of pain to us, via language line representative government relations. Patient further reports her back pain feels different from her usual chronic back pain but cannot really quantify/qualify Cheryl Olsen MD [address] [facility],[address], [place], [address], [place] [facility] [employer] 05/10/2024 23:00:29 OBGyn Episode No OBEpisode recorded.
== END 2025-10-24 10:01 ==
LOC: HO.HMGCX 10:00
PROVIDERS: Visit Provider Nurse Practitioner
DX: R14.0 Abdominal distension (gaseous) (principal); R73.01 Impaired fasting glucose; K21.9 Gastro-esophageal reflux disease without esophagitis; K59.04 Chronic idiopathic constipation
CPT/HCPCS: 76700

== ENCOUNTER → 2025-10-24 10:04 | Outpatient (BNV) | payer OTHER, SELFPAY | PROVIDERS: Visit Provider Radiology Diagnostic Radiology | DX: R14.0 Abdominal distension (gaseous) (principal); N28.1 Cyst of kidney, acquired | CPT/HCPCS: 76700 ==

== ENCOUNTER 2025-10-27 13:04 | Emergency (ER) | payer OTHER, SELFPAY ==
[2025-10-27 13:49] VITALS: BP 139/62; PULSE 69; RESP 18; TEMP 36.7; O2SAT 99; BMI 15.9
--- NOTE | 2025-10-27 13:49 | ED.GENADULT ---
HPI - General Adult General Chief complaint: General Medical Stated complaint: PCP sent here for ct Time Seen by Provider: 10/27/25 20:25 Related Data Home Medications ?Medication ?Instructions ?Recorded ?Confirmed escitalopram oxalate 5 mg tablet 5 mg PO DAILY 12/24/20 multivitamin 1 tab PO DAILY 12/24/20 prazosin 1 mg capsule 1 mg PO BEDTIME 02/04/21 trazodone 50 mg tablet 25 mg PO BEDTIME PRN 02/04/21 hydrochlorothiazide 12.5 mg tablet 12.5 mg PO DAILY 03/17/22 lisinopril 40 mg tablet 40 mg PO DAILY 03/17/22 carvedilol 3.125 mg tablet 3.125 mg PO BID 04/18/22 amlodipine 10 mg tablet 10 mg PO DAILY 01/29/24 cholecalciferol (vitamin D3) 1,250 1,250 mcg PO QWEEK 01/29/24 mcg (50,000 unit) capsule docusate sodium 100 mg capsule 100 mg PO DAILY 08/29/25 08/29/25 (Colace) cetirizine 10 mg tablet 10 mg PO DAILY 09/12/25 sennosides 15 mg chewable tablet 15 mg PO DAILY PRN constipation 09/12/25 (Chocolate Laxative) Previous Rx's ?Medication ?Instructions ?Recorded fluticasone propionate 50 1 spray intranasal BID #16 grams 07/31/23 mcg/actuation nasal spray,suspension (Allergy Relief (fluticasone)) albuterol sulfate 90 mcg/actuation 2 puff inhalation QID PRN 12/02/24 aerosol inhaler shortness of breath or wheezing #8.5 grams linaclotide 72 mcg capsule 72 mcg PO QAM #30 caps 07/27/25 (Linzess) Held on 09/12/25. Instructions: Doctor's Order calcitonin (salmon) 200 1 spray intranasal (ALT) DAILY 08/29/25 unit/actuation nasal spray #3.7 mL pantoprazole 40 mg tablet,delayed 40 mg PO DAILY 30 days #30 tabs 08/29/25 release (Protonix) simethicone 125 mg chewable tablet 125 mg PO QID PRN abdominal 08/29/25 (Gas Relief (simethicone)) distention #120 tabs linaclotide 145 mcg capsule 145 mcg PO QAM #30 caps 09/12/25 (Linzess) Allergies Allergy/AdvReac Type Severity Reaction Status Date / Time Iodinated Contrast Media Allergy Intermediate NAUSEA & Verified 10/27/25 13:54 (CONTRAST, IV) VOMITING morphine (MORPHINE) Allergy Intermediate NAUSEA & Verified 10/27/25 13:54 VOMITING oxycodone (From PERCOCET) Allergy Intermediate NAUSEA, Verified 10/27/25 13:54 WEAKNESS/VIOLENT PMFSH Past Medical History Medical History Breast CA Cholecystitis HTN (hypertension) Acute arthritis Surgical History Hx of colonoscopy History of esophagogastroduodenoscopy (EGD) Hx of foot surgery Hx of breast biopsy History of back surgery Family History Family History Father CVD (cardiovascular disease) HTN (hypertension) Brother Colon cancer Daughter No problems noted. 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 Full HPI, ROS and PE to be performed by primary ED provider. 85-year-old Venezuelan-speaking female with a past medical history breast CA, cholecystitis, HTN, presenting to the ED sent in by Dr. Ugalde for CT (unknown of what) - c/o leg numbness & hand numbness x years. Also reports back pain PE: ambulating w/steady gait, NAD, nontoxic appearing Plan: EKG, labs, SARs Medical Decision Making Lab Data 10/27/25 14:51 10/27/25 14:51 Labs: Lab Results 10/27/25 Range/Units 14:51 WBC 8.0 (4.8-10.8) X10*3/uL RBC 4.04 L (4.20-5.50) X10*6/uL Hgb 11.9 L (12.0-16.0) g/dl Hct 31.9 L (37.0-47.0) % MCV 79.0 L (80.0-98.0) fL MCH 29.5 (27.0-33.0) pg MCHC 37.3 H (31.0-35.0) g/dl RDW 14.5 (11.0-16.0) % Plt Count 242 (160-400) X10*3/uL MPV 8.6 L (9.4-12.3) fL Immature Gran % (Auto) 0.3 (0.0-0.4) % Neut % (Auto) 55.1 (45-73) % Lymph % (Auto) 32.0 (20-40) % Iroquois % (Auto) 7.7 (2-11) % Eos % (Auto) 4.1 H (0-4) % Baso % (Auto) 0.8 (0-2) % Lymph # (Auto) 2.6 (1.2-4.9) X10*3/uL [place]quois # (Auto) 0.6 (0.1-1.2) X10*3/uL Eos # (Auto) 0.3 (0.0-0.4) X10*3/uL Baso # (Auto) 0.1 (0.0-0.2) X10*3/uL Abs Immat Gran (auto) 0.02 (0.00-0.03) X10*3/uL Absolute Neuts (auto) 4.4 (2.0-8.3) x10*3/uL Absolute Nucleated RBC 0.000 (0.0-0.012) X10*3/uL Nucleated RBC % (auto) 0.0 (0.0-0.2) /100WBC PT 11.8 (11.2-13.5) SEC INR 1.0 (0.9-1.1) Sodium 139 (135-145) mmol/L Potassium 4.0 (3.3-5.1) mmol/L Chloride 105 (96-108) mmol/L Carbon Dioxide 25 (22-29) mmol/L Anion Gap 13 (12-20) BUN 15 (9-16) mg/dL Creatinine 0.86 (0.5-1.4) mg/dL Estim Creat Clear Calc 29.8 Estimated GFR > 60 Random Glucose 95 (60-115) mg/dL Calcium 9.6 (8.4-10.2) mg/dL Magnesium 2.3 (1.6-2.6) mg/dL Total Bilirubin 0.4 (0.0-1.0) mg/dL Direct Bilirubin 0.1 (0.0-0.5) mg/dL AST 23 (5-31) U/L ALT 12 (0-31) U/L Alkaline Phosphatase 81 (39-117) U/L Total Protein 7.0 (6.5-8.0) g/dL Albumin 4.4 (3.5-5.0) g/dL Lipase 25 (8-78) U/L Influenza Type A (PCR) NEGATIVE (Negative) Influenza Type B (PCR) NEGATIVE (Negative) RSV RNA Qual (PCR) NEGATIVE (Negative) SARS-CoV-2 RNA (RT-PCR) NEGATIVE (Negative) Discharge Plan Discharge Clinical Impression: Paresthesia Patient Disposition: Left W/O Completing Treatment Prescriptions: No Action Linzess 72 mcg capsule 72 mcg PO QAM Qty: 30 6RF albuterol sulfate 90 mcg/actuation HFA aerosol inhaler 2 puff inhalation QID PRN (Reason: shortness of breath or wheezing) Qty: 8.5 0RF escitalopram oxalate 5 mg tablet 5 mg PO DAILY multivitamin Tablet 1 tab PO DAILY prazosin 1 mg capsule 1 mg PO BEDTIME trazodone 50 mg tablet 25 mg PO BEDTIME PRN lisinopril 40 mg tablet 40 mg PO DAILY hydrochlorothiazide 12.5 mg tablet 12.5 mg PO DAILY carvedilol 3.125 mg tablet 3.125 mg PO BID fluticasone propionate [Allergy Relief (fluticasone)] 50 mcg/actuation spray,suspension 1 spray intranasal BID Qty: 16 11RF Rx Instructions: administer into each nostril cetirizine 10 mg tablet 10 mg PO DAILY Chocolate Laxative 15 mg tablet,chewable 15 mg PO DAILY PRN (Reason: constipation) Linzess 145 mcg capsule 145 mcg PO QAM Qty: 30 3RF Rx Instructions: Take first thing in the morning with a full glass of water. amlodipine 10 mg tablet 10 mg PO DAILY cholecalciferol (vitamin D3) 1,250 mcg (50,000 unit) capsule 1,250 mcg PO QWEEK simethicone [Gas Relief (simethicone)] 125 mg tablet,chewable 125 mg PO QID PRN (Reason: abdominal distention) Qty: 120 6RF pantoprazole [Protonix] 40 mg tablet,delayed release (DR/EC) 40 mg PO DAILY 30 Days Qty: 30 6RF docusate sodium [Colace] 100 mg capsule 100 mg PO DAILY calcitonin (salmon) 200 unit/actuation spray,non-aerosol 1 spray intranasal (ALT) DAILY Qty: 3.7 6RF Discharge Date/Time: 10/27/25 20:30
--- NOTE | 2025-10-27 13:52 | ECG_ITS ---
Test Reason : NUMBNESS Blood Pressure : */* mmHG Vent. Rate : 64 BPM Atrial Rate : 64 BPM P-R Int : 168 ms QRS Dur : 72 ms QT Int : 404 ms P-R-T Axes : 67 45 80 degrees QTcB Int : 416 ms Normal sinus rhythm Normal ECG When compared with ECG of 02-Dec-2024 13:25, No significant change was found Referred By: Joanie Vanegas Electronically Signed By: RYANNE CLAY MD
[2025-10-27 14:55] LABS: MANUAL DIFF FLAG NO
[2025-10-27 14:56] LABS: Hematocrit 31.9 % (37.0-47.0); Hemoglobin 11.9 g/dl (12.0-16.0); Imm Gran Abs Auto 0.02 X10*3/uL (0.00-0.03); Imm Gran Pct Auto 0.3 % (0.0-0.4); Lymphocytes Absolute Auto 2.6 X10*3/uL (1.2-4.9); Mean Corpuscular HGB Conc 37.3 g/dl (31.0-35.0); Mean Corpuscular Hemoglobin 29.5 pg (27.0-33.0); Mean Corpuscular Volume 79.0 fL (80.0-98.0); NRBC Abs Auto 0.000 X10*3/uL (0.0-0.012); NRBC Pct Auto 0.0 /100WBC (0.0-0.2); Platelet Count 242 X10*3/uL (160-400); Red Blood Count 4.04 X10*6/uL (4.20-5.50); White Blood Count 8.0 X10*3/uL (4.8-10.8)
[2025-10-27 15:02] LABS: INTERNATIONAL NORM RATIO 1.0 (0.9-1.1); Prothrombin Time 11.8 SEC (11.2-13.5)
[2025-10-27 15:12] LABS: Alanine Aminotransferase 12 U/L (0-31); Albumin Level 4.4 g/dL (3.5-5.0); Alkaline Phosphatase 81 U/L (39-117); Anion Gap 13 (12-20); Aspartate Amino Transferase 23 U/L (5-31); Blood Urea Nitrogen 15 mg/dL (9-16); Calcium 9.6 mg/dL (8.4-10.2); Carbon Dioxide 25 mmol/L (22-29); Chloride 105 mmol/L (96-108); Creatinine Clr Calc Pharmacy 29.8; Estimated Glomerular Filt Rate > 60; Lipase 25 U/L (8-78); Magnesium 2.3 mg/dL (1.6-2.6); Potassium 4.0 mmol/L (3.3-5.1); Sodium 139 mmol/L (135-145); Total Protein 7.0 g/dL (6.5-8.0)
[2025-10-27 15:37] LABS: Resp Syncy Virus RNA Qual PCR NEGATIVE (Negative); SARS COV2 PCR INHOUSE NEGATIVE (Negative)
--- OUTSIDE RECORDS SUMMARY | 2025-10-27 16:08 | XMS_ITS | Data Portability ---
Author Organization [employer] [facility], [facility] Address [address] [place] [phone] Care Team Providers Care Granite Installer Name Role Phone HIM CCA OTHER Assessment Encounter Date Assessment Date Assessment LastModified by Organization Details LastModified Time 05/09/2024 05/09/2024 I provided real -time medical direction via phone for this encounter, and was available for additional phone based assistance as needed. I have reviewed and agree with the Assessment and Plan as documented by the Uniform Attendant. We discussed the diagnostic uncertainty of home visits and the risk associated with this. I explained to the patient with no prior EKGs to compare in the old record cannot rule out acute ischemia. The patient given the opportunity to ask questions. [email or web address] Not available 05/10/2024 13:53:51 Plan of Treatment Reminders Order Date Submit Date Provider Last Modified By Organization Details Last Modified Time Details Appointments None recorded. Lab None recorded. Referral None recorded. Procedures None recorded. Surgeries None recorded. Imaging electrocard iogram 2023 024 [email or web address], [address] 13:56:29 Medication Orders None recorded. Patient TargetsNo targets recorded. Patient InstructionsNo instructions recorded. Reason for Referral None Reported. Results Created Date Observation Date Name Description Value Unit Range Abnormal Flag Note LastModifiedBy Organization Detail LastModifiedTime 05/09/20 24 05/10/2024 elect sebas changr am No observ ation record ed. [email or web address] [address], [address] 05/10/2024 13:56:27 Result Notes None recorded. Medical Equipment None Reported. Allergies Allergen ID Allergen Name Allergen Category Reaction Reaction Severity Criticality Documentation Date Start Date Code Code System Note Provider Name and Address Organization Details Recorded Time 5395 oxycodone medicatio n Not available Not available Not available 05/09/2024 7804 RxNorm and perco cet Cheryl Olsen MD [address], [place], [address], [employer] 4 11:41:43 5346 Iodinated contrast media (substanc e) medicatio n Not available Not available Not available 05/09/2024 45905 2004 SNOMED Cheryl Olsen MD [address], [place], [address], [employer] 4 11:41:56 Medications Name Sig Start Date [...] Details Last Updated DateTime 4 99 % 59012.4 64 g 97.8 [degF] 16 /min 64 /min 100/60 mm[Hg] Not Available [employer] 4 10:48:12 Date Recorded Body weight Body temperature Respiratory rate Heart rate Oxygen saturation Body height Systolic And Diastolic Provider Name and Address Organization Details Last Updated DateTime 4 14177.2 8 g 98.1 [degF] 18 /min 65 /min 98 % 144.78 cm 129/69 mm[Hg] Not Available [employer] 4 11:35:29 Social History None recorded. Functional Status None recorded. Mental Status None recorded. Family History Nothing Reported. Medical History No medical history recorded. Gynecological HistoryNo gynecological history recorded. Obstetrics History GPAL:G 0 P 0 0 0 0 Past Encounters Encounter ID Performer Location Encounter Start Date Encounter Closed Date Diagnosis/Indication Diagnosis SNOMED-CT Code Diagnosis ICD10 Code Diagnosis IMO Codes Diagnosis Note [id number] Vanesa Cardona MD [facility] [address] [place] [phone] 04/21/2024 10:48:07 04/21/2024 20:30:34 Hordeolum externum of upper eyelid of right eye [id number] 82647 H00.011 As noted, we were called to see this patient regarding concerns of eye itching. Evaluation in the field was performed by my paper bag maker colleague, as noted above, I provided real-time [...] chills, chest pain, dyspnea, changes to vision. [id number] Cheryl Olsen MD [facility] [address] [place] [phone] 05/09/2024 11:35:26 05/11/2024 19:44:25 Pain in right arm [id number] M79.601 and left upper back pain-likel y [...] Kincaid Member ID Guarantor Name 05/09/2024 1 [facility] - DOS ON OR AFTER 2023 - DUAL ELIGIBLE - RETIREMENT OPTIONS AND ONE CARE (MEDICARE REPLACEMENT/ADV ANTAGE - HMO) Cielo Ochoa [id number] Cielo Ochoa Notes Date Note Type Note Provider Name and Address Organization Details Recorded Time 04/21/2024 text/html CRC Nurse Triage Notes (Melanie Alston): Reason For Request: eye is red/poss stye Chief Complaints: Pain PMH: COPD/Asthma, Hypertension Comments: Transformer Tester verified the member's name//address and phone number.Member reports that L eye redness x2-3 days. Reports that it has worsened. Inc swelling. Denies pain. Denies drainage. Denies fevers, chest pain or SOB. Education provided on the response time and the member was advised to monitor reported s/s and seek emergency treatment if needed. .................. .................. .................. .................. .................. .................. .................. ............... Uniform Attendant Note From Jose Manuel Rogers: Pt co sty like bump white in color on eye lid. Denies redness or drainage to right eye itself. Pt sts has some itching but no pain. Denies cp sob rash/hives or NVd. Baseline vitals assessed. Eye assessment, two white heads on edge of eye lid. Afebrile. [facility] contacted and advised hot compresses over next few days. If worsen advised to contact pcp or go to ER. Pt education on signs indicating the ER. .................. .................. .................. .................. .................. .................. .................. ............... Disposition: Fulfilled Vanesa Cardona MD [address] [place] [address],[address], [place], [address], [employer] 04/21/2024 10:58:04 05/09/2024 text/html ROS as noted [...] unsure if this contributed to aggravating arm. Uniform Attendant POC Test Results from Joanie Hoffman - [facility] EKG (1) [11:54] EKG test performed. Attachments uploaded as part of this test result can be found under Documents section. .................. .................. .................. .................. .................. .................. .................. ............... Uniform Attendant Note From Dalton Joanie: Sent to a call for a pt complaining of right arm pain. SC8 arrives on scene, pt is alert and oriented, airway is patent. Pt's primary language is Andorran. Pt's family serves as head correction officer during part of the visit, then head correction officer line used. Pt complains or right elbow/dorsal [...] no tenderness noted; Skin: pink, warm, dry; [facility] consulted and pt reports slight, non-radiating pain midline base of neck when turning head side to side. Pt states she is allergic to Oxycodone, Percocet, and Contrast Dye. Pt denies history of kidney disease, ulcers, GI bleeds, or being on blood thinners. Pt states she is not interested in a Toradol injection. [facility] orders 12 lead ECG. 12 lead ECG uploaded to [employer]. [facility] advises pt transport to ED for further eval/treatment due to abnormal ECG. Pt has no previous copies of ECG on hand. Pt agrees to transport to [facility] ED. 911 called; [facility] calls report to [facility]; Pt care transferred to [facility]. .................. .................. .................. .................. .................. .................. .................. ............... Disposition: FulfilledSEGMD: Patient denies any strenuous activity yesterday prior to onset of pain to us, via language line head correction officer. Patient further reports her back pain feels different from her usual chronic back pain but cannot really quantify/qualify Cheryl Olsen MD [address] [facility],[address], [place], [address], [place] [employer] 05/10/2024 23:00:29 OBGyn Episode No OBEpisode recorded.
--- OUTSIDE RECORDS SUMMARY | 2025-10-27 16:08 | XMS_ITS | Patient Health Record ---
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 Mechanic Name Role Phone Laurie Ley Primary Care Provider UnavailMiya Howard Unavailable [phone] Clinical, Operations Unavailable Unavailable Delia Sutton Unavailable [phone] Allergies Allergen (clinical drug ingredient) Drug/Non Drug Allergy documented on EMR Reaction Allergy Type Onset Date Status Information temporarily unavailable contrast dye (uncoded) Unknown Allergy Activ e Information temporarily unavailable Hydrochlorothiazide hypokalemia Drug Allergy Active Information temporarily unavailable Percocet disoriented Drug Allergy Active Reason For [...] a day As needed 08/16/2025 Active Calcitonin ([place]) 200 UNIT/ML 1 spray in 1 nostril, [...] 1-2ppd, currently smokes 2/day. 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 , has 11 children, daughters Krystle and Wanda involved in her care. She lives with 16 year old great grand daughter. History of alcohol abuse started at 16 yrs old, 12 beers a day, quit >20 years ago. Started smoking at 16y.o hx 1-2ppd, currently smokes 2/day. Services in place: [facility] Cielo Capa: 12 hrs weekly. , has 11 children, daughters Krystle and Wanda involved in her care. She lives with 16 year old great grand daughter. History of alcohol abuse started at 16 yrs old, 12 beers a day, quit >20 years ago. Started smoking at 16y.o hx 1-2ppd, currently smokes 2/day. Services in place: [facility] Cielo Capa: 12 hrs weekly. , has 11 children, daughters Krystle and Wanda involved in her care. She lives with 16 year old great grand daughter. History of alcohol abuse started at 16 yrs old, 12 beers a day, quit >20 years ago. Started smoking at 16y.o hx 1-2ppd, currently smokes 2/day. Services in place: [facility] Cielo Capa: 12 hrs weekly. , has 11 children, daughters Krystle and Wanda involved in her care. She lives with 17 year old great grand daughter. History of alcohol abuse started at 16 yrs old, 12 beers a day, quit >20 years ago. Started smoking at 16y.o hx 1-2ppd, currently smokes 2/day. Services in place: [facility] Cielo Capa: 15 hrs weekly. , has 11 children, daughters Krystle and Wanda involved in her care. She lives with 17 year old great grand daughter. History of alcohol abuse started at 16 yrs old, 12 beers a day, quit >20 years ago. Started smoking at 16y.o hx 1-2ppd, currently smokes 2/day. Services in place: [facility] Cielo Capa: 15 hrs weekly. , has 11 children, daughters Krystle and Wanda involved in her care. She lives with 17 year old great grand daughter. History of alcohol abuse started at 16 yrs old, 12 beers a day, quit >20 years ago. Started smoking at 16y.o hx 1-2ppd, currently smokes 2/day. Services in place: [facility] Cielo Capa: 15 hrs weekly. , has 11 children, daughters Krystle and Wanda involved in her care. She lives with 17 year old great grand daughter. History of alcohol abuse started at 16 yrs old, 12 beers a day, quit >20 years ago. Started smoking at 16y.o hx 1-2ppd, currently smokes 2/day. [facility] Cielo Capa: 15 hrs weekly.\ , has 11 children, daughters Krystle and Wanda involved in her care. She lives with 17 year old great grand daughter. History of alcohol abuse started at 16 yrs old, 12 beers a day, quit >20 years ago. Started smoking at 16y.o hx 1-2ppd, currently smokes 4/day. Services in place: [facility] pili , has 11 children, daughters Krystle and Wanda involved in her care. She lives with 16 year old great grand daughter. History of alcohol abuse started at 16 yrs old, 12 beers a day, quit >20 years ago. Started smoking at 16y.o hx 1-2ppd, currently smokes 2/day. Services in place: [facility] latonya gee Cielo Capa 12 hrs weekly. , has 11 children, daughters Krystle and Wanda involved in her care. She lives with 16 year old great grand daughter. History of alcohol abuse started at 16 yrs old, 12 beers a day, quit >20 years ago. Started smoking at 16y.o hx 1-2ppd, currently smokes 2/day. Services in place: [facility] latonya gee Cielo Capa 12 hrs weekly. , has 11 children, daughters Krystle and Wanda involved in her care. She lives with 16 year old great grand daughter. History of alcohol abuse started at 16 yrs old, 12 beers a day, quit >20 years ago. Started smoking at 16y.o hx 1-2ppd, currently smokes 2/day. [facility] in [facility]: [facility] Cielo Capa: 12 hrs weekly. , has 11 children, daughters Krystle and Wanda involved in her care. She lives with 16 year old great grand daughter. History of alcohol abuse started at 16 yrs old, 12 beers a day, quit >20 years ago. Started smoking at 16y.o hx 1-2ppd, currently smokes 2/day. Services in [facility]: [facility] Cielo Capa: 12 hrs weekly. 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) Active confirmed Problem Information temporarily unavailable HTN (hypertension) (I10) Active confirmed Problem Information temporarily unavailable Slow transit constipation (K59.01) Inactive confirmed Problem Information temporarily unavailable Stress incontinence (female) (male) (N39.3) Active confirmed Problem Information temporarily unavailable Annual physical exam (Z00.00) Active confirmed Problem Information temporarily unavailable Primary generalized (osteo)arthritis (M15.0) Active confirmed Problem Information temporarily unavailable History of KS (myocardial infarction) (I25.2) Active confirmed Problem Information temporarily unavailable Illiteracy (Z55.0) Active confirmed Problem Information temporarily unavailable Myocardial infarct, old (I25.2) Inactive confirmed Problem Information temporarily unavailable Osteoporosis with symptom management only (M81.0) Inactive confirmed Problem Information temporarily unavailable Chronic insomnia (F51.04) Active confirmed Problem Information temporarily unavailable Edema, unspecified (R60.9) Inactive confirmed Problem Information temporarily unavailable Corns and callosities (L84) Active confirmed Problem Information temporarily unavailable Pain in left foot (M79.672) Inactive confirmed Problem Information temporarily unavailable Insomnia due to other mental disorder (F51.05) Inactive confirmed Problem Information temporarily unavailable Pain in right foot (M79.671) Inactive confirmed Problem Information temporarily unavailable Cigarette nicotine dependence without complication (F17.210) Active confirmed Problem Information temporarily unavailable Other insomnia (G47.09) Inactive confirmed Problem Information temporarily unavailable 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) Active confirmed Problem Information temporarily unavailable Other chronic pain (G89.29) Active confirmed Problem Information temporarily unavailable Chronic obstructive pulmonary disease, unspecified COPD type (J44.9) Active confirmed Problem Information temporarily unavailable Chronic post-traumatic stress disorder (PTSD) (F43.12) Active confirmed Problem Information temporarily unavailable Osteoarthritis of multiple joints, unspecified osteoarthritis type (M15.9) Inactive confirmed Problem Information temporarily unavailable Mild episode of recurrent major depressive disorder (F33.0) Inactive confirmed Problem Information temporarily unavailable Excessive gas (R14.3) Active confirmed Problem Information temporarily unavailable Chronic constipation (K59.09) Active confirmed Problem Information temporarily unavailable MDD (major depressive disorder), recurrent, in partial remission (F33.41) Active confirmed Problem Information temporarily unavailable Body mass index (BMI) less than 19 (Z68.1) Active confirmed Problem Information temporarily unavailable Osteoporosis without current pathological fracture, unspecified osteoporosis type (M81.0) Active confirmed Problem Information temporarily unavailable H/O ETOH abuse (F10.11) Inactive confirmed Problem Information temporarily unavailable Gastroesophageal reflux disease with esophagitis, unspecified whether hemorrhage (K21.00) Active confirmed Vital Signs Heart Rate 80 /min 11/24/2024 unable to get O 2 sat due to nail anguillan Temperature 98.2 degrees Fahrenheit 11/24/2024 unab le to get O2 sat due to nail anguillan Respiratory Rate 18 /min 11/24/2024 unable to g et O2 sat due to nail anguillan Height-cm 147.32 cm 11/24/2024 unable to get O 2 sat due to nail anguillan Blood pressure diastolic 60 mm Hg 11/24/2024 lawrence ble to get O2 sat due to nail anguillan Weight-kg 40.82 kg 11/24/2024 unable to get O 2 sat due to nail anguillan Height 58 in 11/24/2024 unable to get O 2 sat due to nail anguillan Blood pressure systolic 122 mm Hg 11/24/2024 unab le to get O2 sat due to nail anguillan Weight 90 lbs 11/24/2024 unable to get O 2 sat due to nail anguillan BMI 18.81 kg/m2 11/24/2024 unable to get O 2 sat due to nail anguillan Encounters Encounter Location Date Provider Diagnosis [facility] [address] [place] [address] 11/24/2024 Delia Sutton HTN (hypertension) I 10 [...] F17.210 ; Illiteracy Z55.0 ; History of KS (myocardial infarction) I25.2 ; Body mass index (BMI) less than 19 Z68.1 ; Onychogryphosis L60.2 ; Corns and callosities L84 ; Primary generalized (osteo)arthritis M15.0 ; Chronic post-traumatic stress disorder (PTSD) F43.12 ; MDD (major depressive disorder), recurrent, in partial remission F33.41 ; Annual physical exam Z00.00 ; Chronic insomnia F51.04 and Excessive gas R14.3 [facility] [employer] [address] [place] [address] 08/16/2025 Operations Clinical [facility] (Closed) [address] [place] [address] 05/15/2025 Operations Clinical Assessments Encounter Date Diagnosis (ICD Code) Assessment Notes Treatment Notes Treatment Clinical Notes Section Notes 11/24/2024 HTN (hypertension) (ICD-10 - I10) h/o KS- many years ago per Krystle and member. [...] grandson assist where needed. 11/24/2024 History of KS (myocardial infarction) (ICD-10 - I25.2) 11/24/2024 Body mass index (BMI) less than 19 (ICD-10 - Z68.1) Member admits to loss of appetite sometimes. Weight tracked at [facility] Encourage Ensure or other weight gaining [...] Insured Coverage Start Date Coverage End Date [facility] [employer] ([id number]) [address] [facility] [address] [place] [address] [id number] Cielo Ochoa Self - patient is the [...] Microscopic hematuria R31.29 Surgical History Surgery Date(Month/Year) [facility]: Back surgery 2008 [place]: Appendectomy 2010 [place]: right foot bunionectomy 2009 hysterectomy 1993 cataract sx right eye with Dr Bowen 10/24 cataract sx left eye with Dr Bowen 5 Colpocleisis, anterior colpo rrhaphy, levator myorrhaphy, rectocele repair, midurethral sling, and cystoscopy. 03/01/18 Hospitalization History Reason Date(Month/Year[place] 05[place]2013 [place] 03[place]2013 for Prolapse and incontinence repair at [facility]. 03/01/18 denies any hospitalizations in the last 6 mo 01/26/2017
--- OUTSIDE RECORDS SUMMARY | 2025-10-27 16:08 | XMS_ITS | Clinical Summary ---
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 Name Role Phone Physician, No Pcp Primary Care Provider Unavaila ble Allergies Active Allergy Reactions Criticality Noted Date Comments Iodinated Contrast Media 07/31/2025 Oxycodone 07/31/2025 Encounters Date Type Department Care Team Description 07/31/2025 11:56 PM EDT - 08/01/2025 1:50 AM EDT Emergency [facility] Emergency [address] [place] [address] Kavita Toribio MD Other constipation [...] K/mcL LAB [facility] 3.90 3.80 - 4.80 M/mcL LAB HEMETOLOGY METHOD [facility]25 [facility] Hemoglobin 11.1(L) 11.5 - 16.0 g/dL LAB HEMETOLOGY METHOD 07/31[facility]2025 [facility] Hematocrit 30.7(L) 35.0 - 47.0 % LAB HEMETOLOGY METHOD 07/31/2025 10:[facility] MCV 77.9(L) 79.0 - 98.0 FL LAB HEMETOLOGY METHOD 07/31/2025 10:14 PM [facility] MCH 28.2 27.0 - 32.0 pcg LAB HEMETOLOGY METHOD 07/31/2025 10:14 PM EDT [facility] MCHC 36.2 32.0 - 37.0 g/dL LAB HEMETOLOGY METHOD 07/31/2025 10:14 PM [facility] RDW 15.0 11.0 - 15.0 % LAB HEMETOLOGY METHOD 07/31/2025 10:14 PM [facility] Platelets 304 130 - 400 K/mcL LAB HEMETOLOGY METHOD 07/31/2025 10:14 PM [facility] MPV 8.8 7.0 - 11.0 FL LAB HEMETOLOGY METHOD 07/31/2025 10:14 PM [facility] NRBC 0.0 <1.0 % LAB HEMETOLOGY METHOD 07/31/2025 10:14 PM [facility] NRBC Absolute 0.00 <0.10 K/mcL LAB HEMETOLOGY METHOD 07/31/2025 10:14 PM [facility] Neutrophils Relative 60.7 % LAB HEMETOLOGY METHOD 07/31/2025 10:14 PM [facility] Lymphocytes Relative 27.1 % LAB HEMETOLOGY METHOD 07/31/2025 10:14 PM [facility] Monocytes Relative 6.6 % LAB HEMETOLOGY METHOD 07/31/2025 10:14 PM [facility] Eosinophils Relative 4.6 % LAB HEMETOLOGY METHOD 07/31/2025 10:14 PM [facility] Basophils Relative 0.6 % LAB HEMETOLOGY METHOD 07/31/2025 10:14 PM [facility] Immature Granulocytes Relative 0.4 % LAB HEMETOLOGY METHOD 07/31/2025 10:14 PM [facility] Neutrophils Absolute 6.45 1.50 - 7.00 K/mcL LAB HEMETOLOGY METHOD 07/31/2025 10:14 PM [facility] Lymphocytes Absolute 2.88 1.00 - 5.00 K/mcL LAB HEMETOLOGY METHOD 07/31/2025 10:14 PM EDT [facility] Monocytes Absolute 0.70 0.20 - 1.00 K/mcL LAB HEMETOLOGY METHOD 07/31/2025 10:14 PM EDT [facility] Eosinophils Absolute 0.49 0.00 - 0.50 K/[facility] LAB HEMETOLOGY METHOD 07/31/2025 10:14 PM EDT [facility] Basophils Absolute 0.06 0.00 - 0.20 K/[facility] LAB HEMETOLOGY METHOD 07/31/2025 10:14 PM EDT [facility] Immature Granulocytes Absolute 0.04(H) 0.00 - 0.03 K/[facility] LAB HEMETOLOGY METHOD 07/31/2025 10:14 PM EDT [facility] Blood Venous blood specimen / Unknown Venipuncture / Unknown 07/31/2025 10:00 PM EDT 07/31/2025 10:04 PM EDT us Kavita Toribio MD LAB BLOOD ORDERABLES Final Resul t Performing Organization Address [facility]/ZIP Co de Phone Number [facility] [address] [place] [address], * Lipase (07/31/2025 10:00 PM EDT) Lipase 28 13 - 75 unit/L LAB CHEMISTRY METHOD 07/31/2025 10:32 PM EDT [facility] Blood Venous blood specimen / Unknown Venipuncture / Unknown 07/31/2025 10:00 PM EDT 07/31/2025 10:04 PM EDT us Kavita Toribio MD LAB BLOOD ORDERABLES Final Resul t [facility] [address] [place] [address], [place] [phone] * (ABNORMAL) Comprehensive metabolic panel (07/31/2025 10:00 PM EDT) Sodium 132(L) 133 - 145 mmol/L LAB CHEMISTRY METHOD 07/31/2025 10:32 PM [facility] Potassium 4.2 3.5 - 5.5 mmol/L LAB CHEMISTRY METHOD 07/31/2025 10:32 PM [facility] Chloride 97 96 - 110 mmol/L LAB CHEMISTRY METHOD 07/31/2025 10:32 PM [facility] CO2 30 21 - 32 mmol/L LAB CHEMISTRY METHOD 07/31/2025 10:32 PM [facility] Anion Gap 5 3 - 11 LAB CHEMISTRY METHOD 07/31/2025 10:32 PM [facility] Glucose 98 70 - 100 mg/dL LAB CHEMISTRY METHOD 07/31/2025 10:32 PM [facility] BUN 12 5 - 25 mg/dL LAB CHEMISTRY METHOD 07/31/2025 10:32 PM [facility] Creatinine 0.85 0.50 - 1.10 mg/dL LAB CHEMISTRY METHOD 07/31/2025 10:32 PM [facility] eGFR 68 >=60 mL/min/1. 73m2 LAB CHEMISTRY METHOD 07/31/2025 10:32 PM [facility] Comment:Calculation based on the Chronic Kidney Disease Epidemiology Collaboration (CKD-EPI) equation refit without adjustment for race. BUN/Creatinine Ratio 14.1 LAB CHEMISTRY METHOD 07/31/2025 10:32 PM [facility] Calcium 9.6 8.5 - 10.5 mg/dL LAB CHEMISTRY METHOD 07/31/2025 10:32 PM [facility] AST (SGOT) 22 10 - 42 unit/L LAB CHEMISTRY METHOD 07/31/2025 10:32 PM EDT [facility] ALT (SGPT) 16 10 - 60 unit/L LAB CHEMISTRY METHOD 07/31/2025 10:32 PM EDT [facility] Alkaline Phosphatase 87 42 - 121 unit/L LAB CHEMISTRY METHOD 07/31/2025 10:32 PM EDT [facility] Total Protein 7.2 6.0 - 8.0 g/dL LAB CHEMISTRY METHOD 07/31/2025 10:32 PM EDT [facility] Albumin 4.0 3.2 - 5.0 g/dL LAB CHEMISTRY METHOD 07/31/2025 10:32 PM T [facility] Total Bilirubin 0.3 0.0 - 1.4 mg/dL LAB CHEMISTRY METHOD 07/31/2025 10:32 PM EDT [facility] Blood Venous blood specimen / Unknown Venipuncture / Unknown 07/31/2025 10:00 PM EDT 07/31/2025 10:04 PM EDT us Kavita Toribio MD LAB BLOOD ORDERABLES Final Resul t [facility] [address] [place] [address], from Last 3 Months Insurance MEDICAID - [place] [facility] MEDICARE Member Subscriber Plan / Payer (Ef fective 2013-Present) Name:Cielo Duran Relation to Subscriber:Self Name:Cielo Duran Payer ID:[id number] Group ID:[id number] Type:Not on file Address: [address] [place] [id number] MEDICARE Care Teams Excavation Laborer Relationship Specialty Start Date End Date Physician, No Pcp PCP - General 08/01/25
== END 2025-10-27 20:30 | disposition left against medical advice (07) ==
PROVIDERS: Physician Assistant; Emergency Provider Emergency Medicine; PCP Family Medicine
DX: M54.9 Dorsalgia, unspecified (principal); R20.0 Anesthesia of skin; I10 Essential (primary) hypertension; Z85.3 Personal history of malignant neoplasm of breast; Z79.899 Other long term (current) drug therapy; Z11.52 Encounter for screening for COVID-19
CPT/HCPCS: 36415; 80048; 80076; 83690; 83735; 85025; 85610; 87637; 93005; 99283

== ENCOUNTER → 2025-10-27 13:52 | Outpatient (BNV) | payer OTHER, SELFPAY | PROVIDERS: Emergency Provider Emergency Medicine; PCP Family Medicine; Visit Provider Internal Medicine Cardiovascular Disease | DX: R20.2 Paresthesia of skin (principal) | CPT/HCPCS: 93010 ==